=== PATIENT | male | born 1940 | race Caucasian/White ===

== ENCOUNTER → 2016-10-29 | Outpatient (CLI) | payer MEDICARE ==
[~2016-10-29] MED LIST: ADVA115A INH; AEROCHAMBER INH; ASPI1TAB PO; CELE40TA PO; LEVI20TA39 PO; PROAAER10 IN; SIMV20TA2 PO; SYST1SOL OD
[2016-10-29 13:16] LABS: MEAN CORPUSCULAR HEMOGLOBIN 31.4 pg (27.0-33.0); MEAN CORPUSCULAR HGB CONC 34.2 g/dl (32.0-36.5); MEAN CORPUSCULAR VOLUME 91.7 fl (80.0-96.0); RED CELL DISTRIBUTION WIDTH 14.5 % (11.5-14.5); WHITE BLOOD COUNT 7.6 K/mm3 (4.0-10.0)
[2016-10-29 13:23] LABS: ALBUMIN 3.9 GM/DL (3.2-5.2); ALBUMIN/GLOBULIN RATIO 1.39 (1.00-1.93); ALKALINE PHOSPHATASE 92 U/L (45-117); ALT/SGPT 30 U/L (12-78); ANION GAP 9 MEQ/L (8-16); AST/SGOT 31 U/L (15-37); BILIRUBIN,TOTAL 0.6 MG/DL (0.2-1.0); BLOOD UREA NITROGEN 16 MG/DL (7-18); CALCIUM LEVEL 9.7 MG/DL (8.8-10.2); CARBON DIOXIDE LEVEL 29 MEQ/L (21-32); CHLORIDE LEVEL 101 MEQ/L (98-107); CHOLESTEROL LEVEL 193 MG/DL (<200); CREATININE FOR GFR 0.81 MG/DL (0.70-1.30); GLOMERULAR FILTRATION RATE > 60.0 (>42); GLUCOSE, FASTING 104 MG/DL (83-110); SODIUM LEVEL 139 MEQ/L (136-145); TOTAL PROTEIN 6.7 GM/DL (6.4-8.2); TRIGLYCERIDES LEVEL 62 MG/DL (<150)
[2016-10-29 13:25] LABS: POTASSIUM SERUM 5.4 MEQ/L (3.5-5.1)
== END ==
LOC: M WUC 09:25
PROVIDERS: ATTEND Internal Medicine
DX: Z51.81 Encounter for therapeutic drug level monitoring (principal); Z79.899 Other long term (current) drug therapy; E78.00 Pure hypercholesterolemia, unspecified

== ENCOUNTER → 2017-02-08 | Outpatient (CLI) | payer MEDICARE ==
--- NOTE | 2017-02-08 11:51 | REP ---
Clinical: Follow up solitary pulmonary nodule. Comparison: 01/19/2016, 07/03/2014. Findings: Diffuse moderate emphysematous changes are again appreciated. Area of nodular scarring in the left apex and to a lesser extent the right apex along with the nodular scarring in the medial right middle lobe remains stable and consistent with chronic scarring. A small area of nodular scarring in the left lower lobe as documented on prior examination also remains stable. No significant acute consolidation, nodule or mass lesion is appreciated. No pleural effusion/reaction or pneumothorax. Tracheobronchial tree is patent. Atherosclerotic changes to the thoracic aorta and coronary arteries again noted. No cardiomegaly or pericardial effusion. No obvious adenopathy. Musculoskeletal structures demonstrate age-related degenerative changes. Impression: Chronic stable changes. No significant, acute mediastinal or pleuroparenchymal process appreciated. Signed by Jan Traore MD 02/08/2017 11:43 A
== END ==
LOC: M RAD 09:07
PROVIDERS: ATTEND Internal Medicine Pulmonary Disease
DX: R91.1 Solitary pulmonary nodule (principal)
CPT/HCPCS: 71250; G0463

== ENCOUNTER → 2017-11-03 | Outpatient (CLI) | payer MEDICARE ==
[2017-11-03 13:50] LABS: HEMATOCRIT 43.2 % (42.0-52.0); HEMOGLOBIN 14.8 g/dl (13.5-17.5); MEAN CORPUSCULAR HEMOGLOBIN 31.6 pg (27.0-33.0); MEAN CORPUSCULAR HGB CONC 34.3 g/dl (32.0-36.5); MEAN CORPUSCULAR VOLUME 92.1 fl (80.0-96.0); PLATELET COUNT, AUTOMATED 323 10^3/uL (150-450); RED BLOOD COUNT 4.69 10^6/uL (4.30-6.10); RED CELL DISTRIBUTION WIDTH 13.4 % (11.5-14.5); WHITE BLOOD COUNT 7.8 10^3/uL (4.0-10.0)
[2017-11-03 15:37] LABS: ALBUMIN 4.1 GM/DL (3.2-5.2); ALBUMIN/GLOBULIN RATIO 1.37 (1.00-1.93); ALKALINE PHOSPHATASE 89 U/L (45-117); ALT/SGPT 25 U/L (12-78); ANION GAP 11 MEQ/L (8-16); AST/SGOT 28 U/L (7-37); BILIRUBIN,TOTAL 0.6 MG/DL (0.2-1.0); BLOOD UREA NITROGEN 19 MG/DL (7-18); CALCIUM LEVEL 9.1 MG/DL (8.8-10.2); CARBON DIOXIDE LEVEL 27 MEQ/L (21-32); CHLORIDE LEVEL 101 MEQ/L (98-107); CHOLESTEROL LEVEL 179 MG/DL (<200); CHOLESTEROL RISK RATIO 1.924 (<5); CREATININE FOR GFR 0.84 MG/DL (0.70-1.30); GLOMERULAR FILTRATION RATE > 60.0 (>42); GLUCOSE, FASTING 89 MG/DL (70-100); HDL CHOLESTEROL 93 MG/DL (>40); LDL CHOLESTEROL 72.2 MG/DL (<100); NON-HDL-C 86 MG/DL; POTASSIUM SERUM 5.1 MEQ/L (3.5-5.1); SODIUM LEVEL 139 MEQ/L (136-145); TOTAL PROTEIN 7.1 GM/DL (6.4-8.2); TRIGLYCERIDES LEVEL 69 MG/DL (<150)
== END ==
LOC: M WUC 09:43
DX: J44.9 Chronic obstructive pulmonary disease, unspecified (principal); E78.00 Pure hypercholesterolemia, unspecified; Z12.5 Encounter for screening for malignant neoplasm of prostate
CPT/HCPCS: 80053

== ENCOUNTER → 2017-12-09 | Outpatient (CLI) | payer MEDICARE ==
[2017-12-09 13:45] LABS: PROSTATIC SPECIFIC AG MONITOR 6.98 NG/ML (< 4.0)
== END ==
LOC: M WUC 09:06
DX: R97.20 Elevated prostate specific antigen [PSA] (principal)
CPT/HCPCS: 84153

== ENCOUNTER → 2018-02-08 | Outpatient (CLI) | payer MEDICARE | LOC: M WUC 09:19 | DX: J44.9 Chronic obstructive pulmonary disease, unspecified (principal) | CPT/HCPCS: 71046 ==

== ENCOUNTER → 2018-07-10 | Outpatient (CLI) | payer MEDICARE ==
[~2018-07-10] MED LIST changes: -ASPI1TAB PO; +ASPI81TA26 PO
[2018-07-11 15:03] LABS: PSA % FREE 10.9 % (.); PSA FREE 1.02 ng/mL; PSA TOTAL 9.4 ng/mL (0.0-4.0)
== END ==
LOC: M WUC 10:16
PROVIDERS: ATTEND Urology
DX: R97.20 Elevated prostate specific antigen [PSA] (principal)

== ENCOUNTER → 2018-09-15 | Outpatient (CLI) | payer MEDICARE ==
[2018-09-15 13:16] LABS: HEMATOCRIT 44.9 % (42.0-52.0); HEMOGLOBIN 15.3 g/dl (13.5-17.5); MEAN CORPUSCULAR HEMOGLOBIN 32.5 pg (27.0-33.0); MEAN CORPUSCULAR HGB CONC 34.1 g/dl (32.0-36.5); MEAN CORPUSCULAR VOLUME 95.3 fl (80.0-96.0); PLATELET COUNT, AUTOMATED 345 10^3/uL (150-450); RED BLOOD COUNT 4.71 10^6/uL (4.30-6.10); WHITE BLOOD COUNT 7.2 10^3/uL (4.0-10.0)
[2018-09-15 13:53] LABS: ALBUMIN 3.9 GM/DL (3.2-5.2); ALT/SGPT 25 U/L (12-78); BILIRUBIN,TOTAL 0.6 MG/DL (0.2-1.0); BLOOD UREA NITROGEN 17 MG/DL (7-18); CALCIUM LEVEL 9.5 MG/DL (8.8-10.2); CARBON DIOXIDE LEVEL 28 MEQ/L (21-32); CHLORIDE LEVEL 98 MEQ/L (98-107); CHOLESTEROL LEVEL 174 MG/DL (<200); CHOLESTEROL RISK RATIO 1.831 (<5); CREATININE FOR GFR 0.84 MG/DL (0.70-1.30); GLOMERULAR FILTRATION RATE > 60.0 (>42); GLUCOSE, FASTING 106 MG/DL (70-100); HDL CHOLESTEROL 95 MG/DL (>40); LDL CHOLESTEROL 67 MG/DL (<100); NON-HDL-C 79 MG/DL; POTASSIUM SERUM 5.2 MEQ/L (3.5-5.1); SODIUM LEVEL 135 MEQ/L (136-145); TRIGLYCERIDES LEVEL 60 MG/DL (<150)
== END ==
LOC: M WUC 09:26
PROVIDERS: ATTEND Internal Medicine
DX: F34.1 Dysthymic disorder (principal); J44.9 Chronic obstructive pulmonary disease, unspecified; E78.00 Pure hypercholesterolemia, unspecified; Z23 Encounter for immunization

== ENCOUNTER → 2019-02-08 | Outpatient (REF) | payer MEDICARE ==
[2019-02-08 17:52] LABS: HEMATOCRIT 46.8 % (42.0-52.0); HEMOGLOBIN 15.2 g/dl (13.5-17.5); MEAN CORPUSCULAR HEMOGLOBIN 29.6 pg (27.0-33.0); MEAN CORPUSCULAR HGB CONC 32.5 g/dl (32.0-36.5); MEAN CORPUSCULAR VOLUME 91.2 fl (80.0-96.0); PLATELET COUNT, AUTOMATED 410 10^3/uL (150-450); RED BLOOD COUNT 5.13 10^6/uL (4.30-6.10); WHITE BLOOD COUNT 7.5 10^3/uL (4.0-10.0)
[2019-02-08 18:09] LABS: ALBUMIN 3.8 GM/DL (3.2-5.2); ALT/SGPT 26 U/L (12-78); BILIRUBIN,TOTAL 0.4 MG/DL (0.2-1.0); BLOOD UREA NITROGEN 21 MG/DL (7-18); CALCIUM LEVEL 9.1 MG/DL (8.8-10.2); CARBON DIOXIDE LEVEL 27 MEQ/L (21-32); CHLORIDE LEVEL 102 MEQ/L (98-107); CREATININE FOR GFR 0.87 MG/DL (0.70-1.30); GLOMERULAR FILTRATION RATE > 60.0 (>42); GLUCOSE, FASTING 94 MG/DL (70-100); SODIUM LEVEL 137 MEQ/L (136-145); TOTAL PROTEIN 6.9 GM/DL (6.4-8.2)
== END ==
LOC: M SFHCPLAZ 14:16
PROVIDERS: ATTEND Family Medicine
DX: Z01.818 Encounter for other preprocedural examination (principal); N40.1 Benign prostatic hyperplasia with lower urinary tract symptoms
CPT/HCPCS: 36415; 80053; 85027; 93005; G0463

== ENCOUNTER 2019-03-24 12:07 | Emergency (ER) | payer MEDICARE ==
[~2019-03-24] VITALS: Ht 172.7 cm; Wt 67.9 kg
[~2019-03-24 12:07] MED LIST changes: -SIMV20TA2 PO; +SIMV20TA22 PO
[2019-03-24] MEDS ORDERED: BUPR150T3 (12:13)
[2019-03-24] MEDS ORDERED: SYMB80INH (12:13)
--- NOTE | 2019-03-24 12:56 | REP ---
Clinical: Constipation. Obstruction. Technique: Two views of the abdomen and pelvis. Findings: Distended air-filled large bowel is appreciated. Underlying distended small bowel cannot be excluded and findings are nonspecific. Differential diagnosis includes ileus and possible large bowel obstruction. No free air to suggest perforation. No organomegaly. Skeletal structures demonstrate age-related changes. Surgical clips in the pelvis. Impression: Differential diagnosis includes ileus and less likely large bowel obstruction. Electronically Signed by Jan Traore MD 03/24/2019 12:47 P
[2019-03-24] MEDS: GASTROGRAFIN SOLUTION 30ML PO SCH ×2 (13:38→13:53)
[2019-03-24 13:50] LABS: BASO % 0.3 % (0.0-1.0); EOS # 0.2 10^3/uL (0.0-0.5); EOS % 1.3 % (0.0-3.0); HEMATOCRIT 37.9 % (42.0-52.0); HEMOGLOBIN 12.5 g/dl (13.5-17.5); LYMPH % 7.4 % (24.0-44.0); MEAN CORPUSCULAR HEMOGLOBIN 29.3 pg (27.0-33.0); MONO % 7.2 % (0.0-5.0); NEUTROPHILS % 83.1 % (36.0-66.0); PLATELET COUNT, AUTOMATED 440 10^3/uL (150-450); RED BLOOD COUNT 4.26 10^6/uL (4.30-6.10); WHITE BLOOD COUNT 13.2 10^3/uL (4.0-10.0)
[2019-03-24 14:22] LABS: ALT/SGPT 18 U/L (12-78); BILIRUBIN,DIRECT < 0.1 MG/DL (0.0-0.2); BILIRUBIN,TOTAL 0.4 MG/DL (0.2-1.0); BLOOD UREA NITROGEN 19 MG/DL (7-18); CALCIUM LEVEL 8.7 MG/DL (8.8-10.2); CARBON DIOXIDE LEVEL 27 MEQ/L (21-32); CHLORIDE LEVEL 99 MEQ/L (98-107); CREATININE FOR GFR 0.95 MG/DL (0.70-1.30); GLOMERULAR FILTRATION RATE > 60.0 (>42); GLUCOSE, FASTING 106 MG/DL (70-100); LIPASE 47 U/L (73-393); POTASSIUM SERUM 4.7 MEQ/L (3.5-5.1); SODIUM LEVEL 135 MEQ/L (136-145); TOTAL PROTEIN 6.2 GM/DL (6.4-8.2)
[2019-03-24] MEDS ORDERED: METOCLOPRAMIDE INJ 10MG/2ML VIAL (J2765) IV ONE (15:00)
[2019-03-24] MEDS ORDERED: ISOVUE-370 76% 100ML VIAL (Q9967) As Ordered ONE (15:03)
--- NOTE | 2019-03-24 15:47 | REP ---
Clinical: Abdominal pain. Technique: Axial contrast enhanced images from the lung bases to the pubic symphysis with coronal and sagittal re-formations using oral (per protocol) and 100 ml Isovue 370 intravenous contrast material. Findings: Submucosal edema with pericolonic inflammatory stranding involves the rectosigmoid and is consistent with acute infectious/inflammatory colitis. There is no evidence for bowel obstruction. No free air. No ascites or drainable collection/abscess. Liver, spleen, pancreas, gallbladder, bilateral adrenal glands and kidneys are normal. Subcentimeter left renal cyst noted. Pelvis demonstrates normal bladder and evidence for prior prostate seeding. No adenopathy. Atherosclerotic changes of the aorta and vasculature noted without aneurysm or dissection. Musculoskeletal structures demonstrate age-related changes without focal abnormality. Lung bases are essentially clear. Impression: Infectious/inflammatory rectosigmoid colitis. Electronically Signed by Jan Traore MD 03/24/2019 03:39 P
[2019-03-24 16:08] VITALS: BP 177/72
[2019-03-24] MEDS ORDERED: CIPR-249 PO (16:14)
[2019-03-24] MEDS ORDERED: FLAG500T PO (16:14)
== END 2019-03-24 16:54 | disposition home or self-care (01) ==
LOC: M ED 12:07
DX: K51.90 Ulcerative colitis, unspecified, without complications (principal); E78.5 Hyperlipidemia, unspecified; Z85.46 Personal history of malignant neoplasm of prostate; Z79.899 Other long term (current) drug therapy; Z79.82 Long term (current) use of aspirin; Z87.891 Personal history of nicotine dependence
CPT/HCPCS: 36415; 74018; 74177; 80048; 80076; 83690; 85025; 96374; 99284; J2765; Q9963; Q9967

== ENCOUNTER → 2019-03-25 | Outpatient (REF) | payer MEDICARE ==
[~2019-03-25] MED LIST changes: +BUPR150T3; +CIPR-249 PO; +FLAG500T PO; +SYMB80INH
== END ==
LOC: M LAB REF 10:46
PROVIDERS: ATTEND Physician Assistant
DX: K52.9 Noninfective gastroenteritis and colitis, unspecified (principal)

== ENCOUNTER → 2019-06-26 | Outpatient (REF) | payer MEDICARE ==
[2019-06-26 18:24] LABS: HEMATOCRIT 38.7 % (42.0-52.0); HEMOGLOBIN 12.9 g/dl (13.5-17.5); MEAN CORPUSCULAR HEMOGLOBIN 30.9 pg (27.0-33.0); MEAN CORPUSCULAR HGB CONC 33.3 g/dl (32.0-36.5); MEAN CORPUSCULAR VOLUME 92.6 fl (80.0-96.0); PLATELET COUNT, AUTOMATED 457 10^3/uL (150-450); RED BLOOD COUNT 4.18 10^6/uL (4.30-6.10); WHITE BLOOD COUNT 5.8 10^3/uL (4.0-10.0)
[2019-06-26 18:28] LABS: ALBUMIN 3.2 GM/DL (3.2-5.2); ALT/SGPT 44 U/L (12-78); BILIRUBIN,TOTAL 0.3 MG/DL (0.2-1.0); BLOOD UREA NITROGEN 25 MG/DL (7-18); CALCIUM LEVEL 9.3 MG/DL (8.8-10.2); CARBON DIOXIDE LEVEL 28 MEQ/L (21-32); CHLORIDE LEVEL 96 MEQ/L (98-107); CREATININE FOR GFR 0.86 MG/DL (0.70-1.30); GLOMERULAR FILTRATION RATE > 60.0 (>42); GLUCOSE, FASTING 80 MG/DL (70-100); MAGNESIUM LEVEL 2.4 MG/DL (1.8-2.4); POTASSIUM SERUM 5.1 MEQ/L (3.5-5.1); SODIUM LEVEL 130 MEQ/L (136-145); TOTAL PROTEIN 6.3 GM/DL (6.4-8.2)
== END ==
LOC: M SFHCPLAZ 16:24
PROVIDERS: ATTEND Internal Medicine
DX: C61 Malignant neoplasm of prostate (principal); I42.8 Other cardiomyopathies; Z79.899 Other long term (current) drug therapy
CPT/HCPCS: 36415; 80053; 83735; 84443; 85027; G0463

== ENCOUNTER → 2019-07-18 | Outpatient (CLI) | payer MEDICARE | LOC: M WUC 09:54 | PROVIDERS: ATTEND Internal Medicine | DX: R79.89 Other specified abnormal findings of blood chemistry (principal); E07.9 Disorder of thyroid, unspecified ==

== ENCOUNTER → 2019-08-21 | Outpatient (CLI) | payer MEDICARE | LOC: M WUC 10:26 | PROVIDERS: ATTEND Internal Medicine | DX: R79.89 Other specified abnormal findings of blood chemistry (principal); Z79.899 Other long term (current) drug therapy ==

== ENCOUNTER → 2019-09-26 | Outpatient (CLI) | payer MEDICARE | LOC: M WUC 08:51 | PROVIDERS: ATTEND Internal Medicine | DX: E03.2 Hypothyroidism due to medicaments and other exogenous substances (principal) ==

== ENCOUNTER → 2019-10-08 | Outpatient (CLI) | payer MEDICARE ==
[2019-10-08 12:07] LABS: BLOOD UREA NITROGEN 22 MG/DL (7-18); CREATININE FOR GFR 1.01 MG/DL (0.70-1.30); GLOMERULAR FILTRATION RATE > 60.0 (>42)
== END ==
LOC: M WUC 08:48
PROVIDERS: ATTEND Urology
DX: C61 Malignant neoplasm of prostate (principal)

== ENCOUNTER → 2019-11-01 | Outpatient (REF) | payer MEDICARE | LOC: M WUC 16:48 | PROVIDERS: ATTEND Internal Medicine | DX: E03.2 Hypothyroidism due to medicaments and other exogenous substances (principal) ==

== ENCOUNTER → 2019-12-12 | Outpatient (CLI) | payer MEDICARE ==
[2019-12-12 12:45] LABS: BLOOD UREA NITROGEN 22 MG/DL (7-18); CREATININE FOR GFR 1.18 MG/DL (0.70-1.30); GLOMERULAR FILTRATION RATE > 60.0 (>35)
== END ==
LOC: M WUC 10:17
PROVIDERS: ATTEND Urology
DX: C61 Malignant neoplasm of prostate (principal)

== ENCOUNTER → 2020-04-29 | Outpatient (CLI) | payer MEDICARE ==
[~2020-04-29] MED LIST changes: -BUPR150T3; +BUPR150T4
[2020-04-29 12:58] LABS: BASO # 0.1 10^3/uL (0.0-0.2); EOS # 0.1 10^3/uL (0.0-0.5); HEMATOCRIT 37.7 % (42.0-52.0); HEMOGLOBIN 12.2 g/dl (13.5-17.5); LYMPH # 0.9 10^3/uL (1.5-5.0); LYMPH % 13.7 % (24.0-44.0); MEAN CORPUSCULAR HEMOGLOBIN 31.1 pg (27.0-33.0); MEAN CORPUSCULAR HGB CONC 32.4 g/dl (32.0-36.5); MEAN CORPUSCULAR VOLUME 96.2 fl (80.0-96.0); MONO # 0.6 10^3/uL (0.0-0.8); NEUTROPHILS # 4.6 10^3/uL (1.5-8.5); NEUTROPHILS % 74.3 % (36.0-66.0); PLATELET COUNT, AUTOMATED 342 10^3/uL (150-450); RED BLOOD COUNT 3.92 10^6/uL (4.30-6.10); WHITE BLOOD COUNT 6.2 10^3/uL (4.0-10.0)
[2020-04-29 13:42] LABS: ALT/SGPT 23 U/L (12-78); BILIRUBIN,TOTAL 0.3 MG/DL (0.2-1.0); BLOOD UREA NITROGEN 25 MG/DL (7-18); CALCIUM LEVEL 9.6 MG/DL (8.8-10.2); CARBON DIOXIDE LEVEL 27 MEQ/L (21-32); CHLORIDE LEVEL 101 MEQ/L (98-107); CHOLESTEROL LEVEL 249 MG/DL (<200); CHOLESTEROL RISK RATIO 3.608 (<5); CREATININE FOR GFR 1.12 MG/DL (0.70-1.30); GLOMERULAR FILTRATION RATE > 60.0 (>35); GLUCOSE, FASTING 89 MG/DL (70-100); HDL CHOLESTEROL 69 MG/DL (>40); LDL CHOLESTEROL 164 MG/DL (<100); NON-HDL-C 180 MG/DL; POTASSIUM SERUM 4.7 MEQ/L (3.5-5.1); SODIUM LEVEL 137 MEQ/L (136-145); TOTAL PROTEIN 6.5 GM/DL (6.4-8.2); TRIGLYCERIDES LEVEL 81 MG/DL (<150)
== END ==
LOC: M WUC 11:49
PROVIDERS: ATTEND Internal Medicine
DX: E78.00 Pure hypercholesterolemia, unspecified (principal); J44.9 Chronic obstructive pulmonary disease, unspecified; R73.01 Impaired fasting glucose; E03.2 Hypothyroidism due to medicaments and other exogenous substances

== ENCOUNTER → 2020-06-05 | Outpatient (CLI) | payer MEDICARE ==
[~2020-06-05] MED LIST changes: +BUPR150T12; -BUPR150T4
[2020-06-05 12:44] LABS: PERCENT SATURATION 24.9 % (19.7-50.0)
== END ==
LOC: M WUC 09:51
PROVIDERS: ATTEND Internal Medicine Gastroenterology
DX: K51.30 Ulcerative (chronic) rectosigmoiditis without complications (principal)

== ENCOUNTER → 2020-07-07 | Outpatient (CLI) | payer MEDICARE ==
[~2020-07-07] MED LIST changes: +ATOR1TAB21 PO; -BUPR150T12; +BUPR150T12 PO; +ELIQ5TAB PO; +ENTR1TAB PO; +FARX1TAB3 PO; +METO1TAB32 PO; +SPIR-10 PO; +SULF500T2 PO; -SYMB80INH; +SYMB80INH INH; +SYNT150T PO
--- NOTE | 2020-07-07 10:11 | REP ---
INDICATION: PANLOBULAR EMPHYSEMA COMPARISON: 02/08/2018 TECHNIQUE: PA and lateral. FINDINGS: The mediastinum and cardiac silhouette are relatively normal. Pacemaker noted. Lung nuno demonstrate hyperinflation and oligemia consistent with the given history of panlobular emphysema. No focal consolidation, effusion, or pneumothorax. Skeletal structures intact. Evidence for prior right shoulder repair. IMPRESSION: No acute cardiopulmonary process. Emphysematous changes. <Electronically signed by Jan Traore > 07/07/20 1007
== END ==
LOC: M RAD 09:22
PROVIDERS: ATTEND Internal Medicine Pulmonary Disease
DX: J43.1 Panlobular emphysema (principal)

== ENCOUNTER → 2020-07-12 | Outpatient (CLI) | payer MEDICARE | LOC: M LABSMTC 10:01 | PROVIDERS: ATTEND Anesthesiology | DX: Z01.812 Encounter for preprocedural laboratory examination (principal); Z20.822 Contact with and (suspected) exposure to COVID-19 ==

== ENCOUNTER 2020-07-15 10:38 | Day surgery (SDC) | payer MEDICARE ==
[~2020-07-15] VITALS: Ht 172.7 cm; Wt 63.4 kg
[~2020-07-15 10:38] MED LIST changes: +LIDOCAINE 2% 100MG/5ML SDV (FOR ANES.) As Ordered ONE; +NS 1,000 ML IV ONE; +propofoL 200 MG/20 ML VIAL As Ordered ONE
[2020-07-15] MEDS ORDERED: LIDOCAINE 2% 100MG/5ML SDV (FOR ANES.) As Ordered ONE (13:27)
--- NOTE | 2020-07-15 13:37 | ROOR ---
Patient Name: Nigel Barrios Procedure Date: 07/15/2020 1:02 PM Date of : 1940 Age: 79 Room: [facility] Gender: Male Note Status: Finalized Procedure: Colonoscopy Indications: Follow-up of chronic ulcerative proctosigmoiditis, Disease activity assessment of chronic ulcerative proctosigmoiditis Providers: Ike CRONIN MD Referring MD: Adalberto Jackman MD Requesting Provider: Medicines: Monitored Anesthesia Care Complications: No immediate complications. Procedure: Pre-Anesthesia Assessment: - The heart rate, respiratory rate, oxygen saturations, blood pressure, adequacy of pulmonary ventilation, and response to care were monitored throughout the procedure. The Colonoscope was introduced through the anus and advanced to 6 cm into the ileum. The colonoscopy was performed without difficulty. The patient tolerated the procedure well. The quality of the bowel preparation was fair. Findings: The perianal and digital rectal examinations were normal. The sigmoid colon and descending colon were significantly tortuous. Multiple small and large-mouthed diverticula were found in the sigmoid colon and descending colon. Small Internal Hemorrhoids. The exam was otherwise normal throughout the examined colon. The terminal ileum appeared normal. Biopsies were taken with a cold forceps in the rectum, in the sigmoid colon and in the descending colon for histology. Impression: - Preparation of the colon was fair.- - Long tortuous colon with moderate diverticulosis in the sigmoid colon and in the descending colon. - Small Internal Hemorrhoids. - The colon is otherwise normal. - The examined portion of the ileum was normal. - I do not see definite colitis on this exam. Biopsies were taken with a cold forceps for histology in the rectum, in the sigmoid colon and in the descending colon. Recommendation: - Continue present medications. - Telephone endoscopist for pathology results in 2 weeks. Procedure Code(s): --- Professional --- 32515, Colonoscopy, flexible; with biopsy, single or multiple Diagnosis Code(s): --- Professional --- Q43.8, Other specified congenital malformations of intestine K57.30, Diverticulosis of large intestine without perforation or abscess without bleeding K51.30, Ulcerative (chronic) rectosigmoiditis without complications CPT copyright 2019 [employer]. All rights reserved. The codes documented in this report are preliminary and upon molecular biology scientist review may be revised to meet current compliance requirements. Ike Cronin MD Ike CRONIN MD 07/15/2020 1:37:20 PM Electronically signed by Ike CRONIN MD Number of Addenda: 0 Note Initiated On: 07/15/2020 1:02 PM Estimated Blood Loss: Estimated blood loss: none.
[2020-07-15 13:55] VITALS: BP 102/57
== END 2020-07-15 14:05 | disposition home or self-care (01) ==
LOC: M OPP 10:38
PROVIDERS: ATTEND Internal Medicine Gastroenterology
DX: Q43.8 Other specified congenital malformations of intestine (principal); K52.89 Other specified noninfective gastroenteritis and colitis; K64.8 Other hemorrhoids; I50.9 Heart failure, unspecified; Z95.0 Presence of cardiac pacemaker; Z79.899 Other long term (current) drug therapy; Z87.891 Personal history of nicotine dependence

== ENCOUNTER → 2020-10-24 | Outpatient (CLI) | payer MEDICARE ==
[~2020-10-24] MED LIST changes: -LIDOCAINE 2% 100MG/5ML SDV (FOR ANES.) As Ordered ONE; -NS 1,000 ML IV ONE; -propofoL 200 MG/20 ML VIAL As Ordered ONE
[2020-10-24 16:32] LABS: BASO % 0.5 % (0.0-1.0); EOS # 0.1 10^3/uL (0.0-0.5); EOS % 1.3 % (0.0-3.0); HEMATOCRIT 38.1 % (42.0-52.0); HEMOGLOBIN 12.5 g/dl (13.5-17.5); LYMPH # 0.6 10^3/uL (1.5-5.0); LYMPH % 6.5 % (24.0-44.0); MEAN CORPUSCULAR HEMOGLOBIN 31.1 pg (27.0-33.0); MEAN CORPUSCULAR HGB CONC 32.8 g/dl (32.0-36.5); MEAN CORPUSCULAR VOLUME 94.8 fl (80.0-96.0); MONO # 0.7 10^3/uL (0.0-0.8); MONO % 7.5 % (2.0-8.0); NEUTROPHILS # 7.4 10^3/uL (1.5-8.5); NEUTROPHILS % 83.5 % (36.0-66.0); PLATELET COUNT, AUTOMATED 370 10^3/uL (150-450); RED BLOOD COUNT 4.02 10^6/uL (4.30-6.10); WHITE BLOOD COUNT 8.8 10^3/uL (4.0-10.0)
[2020-10-24 16:53] LABS: ALBUMIN 3.6 GM/DL (3.2-5.2); ALT/SGPT 22 U/L (12-78); BILIRUBIN,TOTAL 0.3 MG/DL (0.2-1.0); BLOOD UREA NITROGEN 26 MG/DL (7-18); CALCIUM LEVEL 9.3 MG/DL (8.8-10.2); CARBON DIOXIDE LEVEL 28 MEQ/L (21-32); CHLORIDE LEVEL 100 MEQ/L (98-107); CHOLESTEROL LEVEL 164 MG/DL (<200); CHOLESTEROL RISK RATIO 2.216 (<5); CREATININE FOR GFR 1.13 MG/DL (0.70-1.30); GLOMERULAR FILTRATION RATE > 60.0 (>35); GLUCOSE, FASTING 85 MG/DL (70-100); HDL CHOLESTEROL 74 MG/DL (>40); LDL CHOLESTEROL 72 MG/DL (<100); NON-HDL-C 90 MG/DL; POTASSIUM SERUM 4.3 MEQ/L (3.5-5.1); SODIUM LEVEL 135 MEQ/L (136-145); TOTAL PROTEIN 6.3 GM/DL (6.4-8.2); TRIGLYCERIDES LEVEL 89 MG/DL (<150)
== END ==
LOC: M WUC 11:35
PROVIDERS: ATTEND Internal Medicine
DX: Z01.83 Encounter for blood typing (principal); E78.00 Pure hypercholesterolemia, unspecified; J44.9 Chronic obstructive pulmonary disease, unspecified; I42.8 Other cardiomyopathies; E03.2 Hypothyroidism due to medicaments and other exogenous substances; Z11.59 Encounter for screening for other viral diseases
CPT/HCPCS: 36415; 80053; 80061; 83735; 84443; 85025; 86900; 86901; G0472

== ENCOUNTER → 2020-11-16 | Outpatient (REF) | payer MEDICARE | LOC: M LAB REF 15:41 | PROVIDERS: ATTEND Internal Medicine Gastroenterology | DX: R19.7 Diarrhea, unspecified (principal) ==

== ENCOUNTER → 2020-12-02 | Outpatient (REF) | payer MEDICARE | LOC: M LAB REF 15:54 | PROVIDERS: ATTEND Internal Medicine Gastroenterology | DX: R19.4 Change in bowel habit (principal); R19.7 Diarrhea, unspecified; K51.30 Ulcerative (chronic) rectosigmoiditis without complications ==

== ENCOUNTER 2020-12-05 11:22 | Outpatient (CLI) | payer MEDICARE ==
[~2020-12-05] VITALS: Ht 172.7 cm; Wt 59.4 kg
[~2020-12-05 11:22] MED LIST changes: +VEDOLIZUMAB 300 MG in NS 250 ML IV ONE
[2020-12-05 11:30] VITALS: BP 143/67
[2020-12-05 12:38] VITALS: BP 152/65
[2020-12-05 13:19] VITALS: BP 148/66
[2020-12-05 13:45] VITALS: BP 145/67
[2020-12-06] MEDS ORDERED: PRED20TA PO (01:27)
== END 2020-12-05 14:00 | disposition home or self-care (01) ==
LOC: M INFU 11:22
PROVIDERS: ATTEND Internal Medicine Gastroenterology
DX: K51.90 Ulcerative colitis, unspecified, without complications (principal)

== ENCOUNTER 2020-12-05 20:35 | Emergency (ER) | payer MEDICARE ==
[~2020-12-05] VITALS: Ht 172.7 cm; Wt 60.9 kg
[~2020-12-05 20:35] MED LIST changes: -VEDOLIZUMAB 300 MG in NS 250 ML IV ONE
[2020-12-05 21:29] LABS: BASO % 0.3 % (0.0-1.0); EOS # 0.1 10^3/uL (0.0-0.5); EOS % 0.5 % (0.0-3.0); HEMATOCRIT 33.4 % (42.0-52.0); HEMOGLOBIN 11.3 g/dl (13.5-17.5); LYMPH # 0.4 10^3/uL (1.5-5.0); LYMPH % 3.7 % (24.0-44.0); MEAN CORPUSCULAR HEMOGLOBIN 32.8 pg (27.0-33.0); MEAN CORPUSCULAR HGB CONC 33.8 g/dl (32.0-36.5); MEAN CORPUSCULAR VOLUME 96.8 fl (80.0-96.0); MONO # 0.9 10^3/uL (0.0-0.8); MONO % 7.7 % (2.0-8.0); NEUTROPHILS # 9.6 10^3/uL (1.5-8.5); NEUTROPHILS % 87.2 % (36.0-66.0); PLATELET COUNT, AUTOMATED 349 10^3/uL (150-450); RED BLOOD COUNT 3.45 10^6/uL (4.30-6.10)
--- NOTE | 2020-12-05 22:13 | REPVR ---
PROCEDURE INFORMATION: Exam: XR Chest Exam date and time: 12/05/2020 9:15 PM Age: 80 years old Clinical indication: Chest wall pain; Additional info: Chest pain TECHNIQUE: Imaging protocol: XR of the chest. Views: 1 view. COMPARISON: CR Chest, 2 view PA, Lat 07/07/2020 9:31 AM FINDINGS: Tubes, catheters and devices: Pacemaker from the left is similar. Lungs: Pulmonary hyperinflation. No interval infiltrates. Pleural spaces: Unremarkable. No pleural effusion. No pneumothorax. Heart/Mediastinum: The heart and mediastinum are unchanged. Bones/joints: Unremarkable. IMPRESSION: Stable chest since 07/07/2020 with evidence of COPD. No acute interval process is identified. Electronically signed by: Ian Harris On 12/05/2020 22:13:40 PM
[2020-12-05 22:19] LABS: ALBUMIN 3.2 GM/DL (3.2-5.2); ALT/SGPT 23 U/L (12-78); BILIRUBIN,DIRECT 0.1 MG/DL (0.0-0.2); BILIRUBIN,TOTAL 0.4 MG/DL (0.2-1.0); BLOOD UREA NITROGEN 23 MG/DL (7-18); CALCIUM LEVEL 9.1 MG/DL (8.8-10.2); CARBON DIOXIDE LEVEL 25 MEQ/L (21-32); CHLORIDE LEVEL 99 MEQ/L (98-107); CREATININE FOR GFR 0.95 MG/DL (0.70-1.30); GLOMERULAR FILTRATION RATE > 60.0 (>35); GLUCOSE, FASTING 128 MG/DL (70-100); LIPASE 55 U/L (73-393); POTASSIUM SERUM 4.3 MEQ/L (3.5-5.1); SODIUM LEVEL 133 MEQ/L (136-145); TOTAL PROTEIN 6.3 GM/DL (6.4-8.2)
[2020-12-05] MEDS ORDERED: KETOROLAC 30 MG/ML 1ML VIAL IV ONE (22:30)
[2020-12-05] MEDS ORDERED: ISOVUE-370 76% 100ML VIAL As Ordered ONE (22:42)
--- NOTE | 2020-12-06 00:09 | REPVR ---
PROCEDURE INFORMATION: Exam: CTA Chest With Contrast Exam date and time: 12/05/2020 10:32 PM Age: 80 years old Clinical indication: Pain; Other: Chest; Additional info: Pleuritic chest pain TECHNIQUE: Imaging protocol: Computed tomographic angiography of the chest with contrast. 3D rendering (Not supervised by radiologist): MIP and/or 3D reconstructed images were created by the technologist. Radiation optimization: All CT scans at this facility use at least one of these dose optimization techniques: automated exposure control; mA and/or kV adjustment per patient size (includes targeted exams where dose is matched to clinical indication); or iterative reconstruction. Contrast material: ISO; Contrast volume: 75 ml; Contrast route: INTRAVENOUS (IV); COMPARISON: CT Chest without contrast 02/08/2017 9:21 AM FINDINGS: Tubes, catheters and devices: Pacemaker in position from the left. Pulmonary arteries: The main pulmonary artery measures 26 mm. No pulmonary embolism is identified. Aorta: The ascending thoracic aorta measures 30 mm. Lungs: Minimal diffuse bullous change with mild interstitial coarsening. Minimal scattered fibro-atelectatic change. Pleural spaces: Unremarkable. No pneumothorax. No pleural effusion. Heart: Unremarkable. No cardiomegaly. No pericardial effusion. Lymph nodes: Unremarkable. No enlarged lymph nodes. Bones/joints: Unremarkable. No acute fracture. Soft tissues: Unremarkable. IMPRESSION: 1. Minimal diffuse bullous change with mild interstitial coarsening and minimal scattered fibro-atelectatic change. 2. Pacemaker in position from the left. 3. Otherwise negative CTA chest. No pulmonary embolism is identified. Electronically signed by: Ian Harris On 12/06/2020 00:09:10 AM
[2020-12-06 01:00] VITALS: BP 125/62
[2020-12-06] MEDS ORDERED: PRED20TA PO (01:27)
--- NOTE | 2020-12-07 19:52 | ECGEPIP ---
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
--- NOTE | 2020-12-07 19:54 | ECGEPIP ---
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
== END 2020-12-06 03:00 | disposition home or self-care (01) ==
LOC: M ED 20:35
DX: R09.1 Pleurisy (principal); K51.90 Ulcerative colitis, unspecified, without complications; J44.9 Chronic obstructive pulmonary disease, unspecified; E78.00 Pure hypercholesterolemia, unspecified; H40.9 Unspecified glaucoma; I44.7 Left bundle-branch block, unspecified; Z79.899 Other long term (current) drug therapy; Z79.01 Long term (current) use of anticoagulants; Z79.890 Hormone replacement therapy; I42.0 Dilated cardiomyopathy
CPT/HCPCS: 71045; 71046; 71275; 80048; 80076; 83690; 84484; 85025; 87798; 93005; 93041; 94760; 96365; 96374; 99285; J1885; J3380; Q9967

== ENCOUNTER 2020-12-20 09:40 | Observation (INO) | payer MEDICARE ==
[~2020-12-20 09:40] MED LIST changes: +PRED20TA PO
--- NOTE | 2020-12-20 10:26 | REP ---
INDICATION: CHEST PAIN. COMPARISON: PA and lateral chest, 12/06/2020. TECHNIQUE: Upright portable AP chest image was obtained. FINDINGS: There is moderate, upper lobe predominant, centrilobular emphysema. There is no lobar consolidation or pleural effusion. There is a multi lead pacemaker cardioverter present. There is cardiomegaly. There is calcific vascular disease of the thoracic aorta. There is an orthopedic screw in the right humeral head. There is cranial migration of the right humeral head consistent with rotator cuff arthropathy. IMPRESSION: 1. Emphysema. 2. Cardiomegaly. Multilead pacemaker. 3. No evidence of acute cardiopulmonary pathology. Other findings as noted. <Electronically signed by Ankur Rodrigez > 12/20/20 1023
[2020-12-20] MEDS ORDERED: BUPR300T92 PO (11:06)
[2020-12-20] MEDS ORDERED: BUDE9TAB PO (11:06)
[2020-12-20] MEDS ORDERED: SYNT175T2 PO (11:06)
[2020-12-20 11:16] LABS: BASO % 0.2 % (0.0-1.0); EOS % 0.1 % (0.0-3.0); HEMOGLOBIN 12.1 g/dl (13.5-17.5); LYMPH # 0.4 10^3/uL (1.5-5.0); LYMPH % 3.2 % (24.0-44.0); MEAN CORPUSCULAR HEMOGLOBIN 31.6 pg (27.0-33.0); MEAN CORPUSCULAR HGB CONC 33.6 g/dl (32.0-36.5); MONO # 0.8 10^3/uL (0.0-0.8); MONO % 6.8 % (2.0-8.0); NEUTROPHILS % 88.6 % (36.0-66.0); PLATELET COUNT, AUTOMATED 438 10^3/uL (150-450); RED BLOOD COUNT 3.83 10^6/uL (4.30-6.10); WHITE BLOOD COUNT 12.4 10^3/uL (4.0-10.0)
[2020-12-20 12:04] LABS: ALBUMIN 2.8 GM/DL (3.2-5.2); ALT/SGPT 38 U/L (12-78); BILIRUBIN,DIRECT 0.1 MG/DL (0.0-0.2); BILIRUBIN,TOTAL 0.4 MG/DL (0.2-1.0); BLOOD UREA NITROGEN 37 MG/DL (7-18); CALCIUM LEVEL 8.9 MG/DL (8.8-10.2); CARBON DIOXIDE LEVEL 24 MEQ/L (21-32); CHLORIDE LEVEL 97 MEQ/L (98-107); CREATININE FOR GFR 1.02 MG/DL (0.70-1.30); GLOMERULAR FILTRATION RATE > 60.0 (>35); GLUCOSE, FASTING 104 MG/DL (70-100); LIPASE 43 U/L (73-393); SODIUM LEVEL 131 MEQ/L (136-145); TOTAL PROTEIN 6.2 GM/DL (6.4-8.2)
[2020-12-20] MEDS ORDERED: NS 500 ML IV ONE (13:55)
[2020-12-20] MEDS ORDERED: PRED10TA2 PO (14:22)
[2020-12-20] MEDS ORDERED: HOME MED LIST COMPLETE! XX SCH (14:25)
[2020-12-20 15:06] LABS: RSV AMPLIFICATION NEGATIVE (NEGATIVE)
[2020-12-20] MEDS ORDERED: NS 1,000 ML IV SCH (15:30)
[2020-12-20] MEDS ORDERED: LORazepam 2 MG TAB PO PRN (15:40)
--- NOTE | 2020-12-20 16:07 | HPEPDOC ---
General Date of Admission December 20, 2020 Date of Service: Dec 20, 2020 Chief Complaint The patient is a 80-year-old male admitted with a reason for visit of Weakness. Source: Patient History of Present Illness Mr. Barrios is an 80-year-old male with atrial fibrillation status post cardioversion and pacemaker/defibrillator, alcohol use disorder, and ulcerative colitis who presents with worsening generalized weakness. For the past few months, patient has been noticing worsening generalized weakness. He will get up and walk 20 feet before having to sit down and recover. Denies any recent trauma but reports changes to his medication. He is not familiar with all of the changes, but recently was taken off of sulfasalazine and put on an IV infusion. Otherwise, he was started on prednisone taper for his ulcerative colitis. He has poor oral intake. Denies loss of taste or nausea. He just has poor appetite and is unsure when it first began. This morning, he was able to to the bathroom, but he was not able to get up afterwards. Patient was brought to the ED for evaluation. While here he had atrial flutter with a heart rate of 133. Systolic blood pressure was also low in the 90s. Patient appears clinically dry. Otherwise patient is afebrile and not hypoxic. Due to patient's history of heart failure patient was given a 500 mL fluid bolus. When I saw patient, his blood pressure and heart rate improved, but he did appear dry. His capillary refill was very sluggish. No pitting edema bilaterally. Patient tells me that his EF used to be 25%, but it did go back up to 50%. He does not know what his EF is currently at this time. Patient will be placed in observation for generalized weakness and dehydration. Home Medications Scheduled Apixaban (Eliquis) 5 Mg Tablet, 5 MG PO BID, (Reported) Atorvastatin Calcium (Atorvastatin Calcium) 20 Mg Tablet, 20 MG PO DAILY, (Reported) Budesonide/Formoterol (Symbicort 80-4.5 Mcg Inhaler) 6.9 Gm Hfa.aer.ad, 2 PUFFS INH BID, (Reported) Bupropion HCl (Bupropion Xl) 300 Mg Tab.er.24h, 300 MG PO DAILY, (Reported) Levothyroxine Sodium (Synthroid) 175 Mcg Tablet, 175 MCG PO DAILY, (Reported) Metoprolol Succinate (Metoprolol Succinate) 25 Mg Tab.er.24h, 25 MG PO DAILY, (Reported) Prednisone (Prednisone) 10 Mg Tablet, 30 MG PO TAPER, (Reported) TAKE THREE TABS DAILY FOR 7 DAYS, THEN 2 TABS DAILY FOR 7 DAYS, THEN ONE TAB DAILY FOR 7 DAYS, THEN 1/2 TAB DAILY FOR 7 DAYS THEN STOP Sacubitril/Valsartan (Entresto 24 mg-26 mg Tablet) 1 Each Tablet, 1 TAB PO BID, (Reported) Spironolactone (Spironolactone) 25 Mg Tablet, 25 MG PO DAILY, (Reported) Allergies Coded Allergies: No Known Allergies (Unverified , 03/24/19) Past Medical History Medical History 1. Hypercholesterolemia 2. COPD 3. Glaucoma 4. Dysthymic disorder 5. Carotid artery disease 6. Left bundle branch block 7. Alcohol use disorder 8. Erectile dysfunction 9. Sensorineural hearing loss bilaterally 10. Ulcerative colitis 11. Atrial fibrillation status post pacemaker Surgical History 1. Tonsillectomy 2. Appendectomy 3. 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 Colonoscopy 6. Carpal tunnel release on the right 7. Rotator cuff repair on right 8. Bilateral cataract extractions 9. Colonoscopy, most recent was in [place] on March 2019 10. Left shoulder surgery 11. Right shoulder surgery 12. Port placement for trial study with AMP 13. UroLift 14. Cardiac catheterization which demonstrated normal coronary arteries, but also demonstrated cardiomyopathy Family History Patient denies knowledge of parents past medical history Social History * Smoker: former Smoker Alcohol: other (Shot of rum a day) Drugs: denies A-FIB/CHADSVASC A-FIB History Current/History of A-Fib/PAF?: Yes Current PO Anticoag Therapy: Yes Review of Systems Constitutional: Denies: Chills, Fever Eyes: Denies: Vision change ENT: Reports: Sore Throat (For the past few days) Skin: Denies: Rash Pulmonary: Reports: Dyspnea (With exertion), Cough (Chronic and productive) Cardiovascular: Reports: Chest Pain (Occasional chest pain) Gastrointestinal: Reports: Other Symptoms (Small hard bowel movement); Denies: Nausea, Abdominal Pain, Diarrhea Genitourinary: Denies: Dysuria Hematologic: Denies: Bruising Neurological: Denies: Numbness Psych: Reports: Depression; Denies: Anxiety Physical Examination General Exam: Positive: Alert, Cooperative Eye Exam: Positive: EOMI; Negative: Sclera icteric ENT Exam: Positive: Atraumatic Neck Exam: Positive: Supple Chest Exam: Positive: Diminished Heart Exam: Positive: Rate Normal, Regular Rhythm Abdomen Exam: Positive: Normal bowel sounds, Soft; Negative: Tenderness Extremity Exam: Negative: Edema Skin Exam: Positive: Other skin issue (Capillary refill very delayed) Neuro Exam: Positive: Normal Speech Psych Exam: Positive: Mental status NL, Mood NL Vital Signs Vital Signs Date Time Temp Pulse Resp B/P (MAP) Pulse Ox O2 Delivery O2 Flow Rate FiO2 12/20/20 12:15 63 117/61 (79) 97 12/20/20 11:14 96.9 17 Laboratory Data Labs 24H Laboratory Tests 2 12/20/20 10:58: Immature Granulocyte % (Auto) 1.1, Neutrophils (%) (Auto) 88.6H, Lymphocytes (%) (Auto) 3.2L, Monocytes (%) (Auto) 6.8, Eosinophils (%) (Auto) 0.1, Basophils (%) (Auto) 0.2, Neutrophils # (Auto) 11.0H, Lymphocytes # (Auto) 0.4L, Monocytes # (Auto) 0.8, Eosinophils # (Auto) 0.0, Basophils # (Auto) 0.0, Nucleated Red Blood Cells % (auto) 0.0, Anion Gap 10, Glomerular Filtration Rate > 60.0, Calcium Level 8.9, Total Bilirubin 0.4, Direct Bilirubin 0.1, Aspartate Amino Transf (AST/SGOT) 33, Alanine Aminotransferase (ALT/SGPT) 38, Alkaline Phosphatase 80, Total Protein 6.2L, Albumin 2.8L, Albumin/Globulin Ratio 0.8, Lipase 43L, Thyroid Stimulating Hormone (TSH) 5.860H 12/20/20 11:04: POC Troponin I (Misc) 0.01 12/20/20 14:08: Coronavirus (COVID-19)(PCR) NEGATIVE, Influenza Type A (RT-PCR) NEGATIVE, Influenza Type B (RT-PCR) NEGATIVE, Respiratory Syncytial Virus (PCR) NEGATIVE 12/20/20 14:39: Lactic Acid Level 1.3 CBC/BMP Laboratory Tests 12/20/20 10:58 Microbiology Microbiology 12/20/20 Blood Culture, Received Pending 12/20/20 Blood Culture, Received Pending Assessment/Plan Mr. Barrios is an 80-year-old male with atrial fibrillation status post car dioversion and pacemaker/defibrillator, alcohol use disorder, and ulcerative colitis who presents with worsening generalized weakness. Unknown etiology, possibly secondary to dehydration versus poor nutrition versus CHF. Will have physical therapy work with patient. As patient is dry, will give 1 L of fluid over time and monitor for acute heart failure. Otherwise, patient consumes 1 shot of rum daily. Will put patient on CIWA protocol including thiamine, multivitamin, and folic acid. Plan / VTE VTE Prophylaxis Ordered?: Yes Plan Plan 1. Generalized weakness Unclear etiology, patient has not made urine due to dehydration We will provide supportive care and give 1 L of IV fluids over time TSH elevated at 5.86 We will check vitamin B12 level 2. Dehydration BUN elevated Very slow capillary refill We will give IV fluids. 1 L over time Hold spironolactone 3. Heart failure, unspecified Not in acute heart failure Continue metoprolol succinate and Entresto We will attempt to get echocardiogram Status post pacemaker/defibrillator 4. Atrial fibrillation Continue apixaban Continue metoprolol succinate Patient currently has pacemaker 5. 5. Ulcerative colitis Continue prednisone taper 6. Hypothyroidism TSH mildly elevated Continue levothyroxine 7. COPD Continue Symbicort 8. Anxiety/depression Continue bupropion 9. DVT prophylaxis Continue apixaban Disposition: Pending rehydration and PT evaluation BHAVANI CHENG DO Dec 20, 2020 16:07
[2020-12-20 17:30] VITALS: BP 162/74
[2020-12-20] MEDS: THIAMINE 100 MG TAB PO SCH (17:45)
[2020-12-20] MEDS: MULTIVITAMINS/MINERALS THERAP 1 TAB PO SCH (17:45)
[2020-12-20] MEDS: buPROPion **XL** TABLET 150MG (WELLBUTRIN XL) PO SCH (17:46)
[2020-12-20] MEDS: FOLIC ACID 1 MG TAB PO SCH (17:48)
[2020-12-20] MEDS: ENTRESTO 24-26MG TABLET (SACUBITRIL/VALSARTAN) PO SCH (20:06)
[2020-12-20] MEDS: APIXABAN 5 MG TAB (ELIQUIS) PO SCH (20:06)
[2020-12-20] MEDS: SYMBICORT 80/4.5MCG INHALER 6GM INH SCH (20:43)
[2020-12-20 20:45] VITALS: BP 123/61
[2020-12-21 05:35] VITALS: BP 129/64
[2020-12-21] MEDS: LEVOTHYROXINE 100MCG TABLET (0.1MG) PO SCH (05:48)
[2020-12-21] MEDS: LEVOTHYROXINE 75MCG TABLET (0.075MG) PO SCH (05:48)
[2020-12-21 06:08] LABS: HEMATOCRIT 30.6 % (42.0-52.0); HEMOGLOBIN 10.4 g/dl (13.5-17.5); MEAN CORPUSCULAR HEMOGLOBIN 31.3 pg (27.0-33.0); MEAN CORPUSCULAR VOLUME 92.2 fl (80.0-96.0); PLATELET COUNT, AUTOMATED 378 10^3/uL (150-450); RED BLOOD COUNT 3.32 10^6/uL (4.30-6.10)
[2020-12-21 06:31] LABS: BLOOD UREA NITROGEN 29 MG/DL (7-18); CALCIUM LEVEL 8.3 MG/DL (8.8-10.2); CARBON DIOXIDE LEVEL 24 MEQ/L (21-32); CHLORIDE LEVEL 99 MEQ/L (98-107); CREATININE FOR GFR 0.79 MG/DL (0.70-1.30); GLOMERULAR FILTRATION RATE > 60.0 (>35); GLUCOSE, FASTING 105 MG/DL (70-100); POTASSIUM SERUM 4.7 MEQ/L (3.5-5.1); SODIUM LEVEL 130 MEQ/L (136-145)
--- NOTE | 2020-12-21 08:18 | ECGEPIP ---
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
[2020-12-21] MEDS: SYMBICORT 80/4.5MCG INHALER 6GM INH SCH ×2 (08:24→20:23)
[2020-12-21] MEDS ORDERED: FLUBLOK(EGG FREE)(QUAD)INFLUENZA VACC 0.5ML SYRINGE 18YRS & OLDER IM ONE (09:00)
[2020-12-21] MEDS: ENTRESTO 24-26MG TABLET (SACUBITRIL/VALSARTAN) PO SCH ×2 (09:33→20:17)
[2020-12-21] MEDS: MULTIVITAMINS/MINERALS THERAP 1 TAB PO SCH (09:33)
[2020-12-21 09:34] VITALS: BP 129/64
[2020-12-21] MEDS: predniSONE 10 MG TAB PO SCH (09:34)
[2020-12-21] MEDS: THIAMINE 100 MG TAB PO SCH ×2 (09:34→20:17)
[2020-12-21] MEDS: APIXABAN 5 MG TAB (ELIQUIS) PO SCH ×2 (09:34→20:17)
[2020-12-21] MEDS: FOLIC ACID 1 MG TAB PO SCH (09:34)
[2020-12-21] MEDS: ATORVASTATIN 20 MG TAB PO SCH (09:34)
[2020-12-21] MEDS: METOPROLOL SUCC *XL* 25MG TAB (TopROL *XL*) PO SCH (09:34)
[2020-12-21] MEDS: buPROPion **XL** TABLET 150MG (WELLBUTRIN XL) PO SCH (09:34)
--- NOTE | 2020-12-21 13:22 | IPNPDOC ---
Subjective Date Seen The patient was seen on 12/21/20. Subjective Chief Complaint/HPI Mr. Barrios is an 80-year-old male with atrial fibrillation status post cardioversion and pacemaker/defibrillator, alcohol use disorder, and ulcerative colitis who presents with worsening generalized weakness. This morning, is feeling better. Denies chest pain or dyspnea. Physical therapy worked with patient and recommended 1-2 more sessions. Objective Physical Examination General Exam: Positive: Alert, Cooperative Eye Exam: Positive: EOMI; Negative: Sclera icteric ENT Exam: Positive: Atraumatic Neck Exam: Positive: Supple Chest Exam: Positive: Clear to auscultation Heart Exam: Positive: Rate Normal, Regular Rhythm Abdomen Exam: Positive: Normal bowel sounds, Soft; Negative: Tenderness Extremity Exam: Negative: Edema Neuro Exam: Positive: Normal Speech Psych Exam: Positive: Mental status NL, Mood NL Assessment /Plan Assessment Mr. Barrios is an 80-year-old male with atrial fibrillation status post cardioversion and pacemaker/defibrillator, alcohol use disorder, and ulcerative colitis who presents with worsening generalized weakness. Unknown etiology, possibly secondary to dehydration versus poor nutrition versus CHF. Will have physical therapy work with patient. As patient is dry, will give 1 L of fluid over time and monitor for acute heart failure. Otherwise, patient consumes 1 shot of rum daily. Will put patient on CIWA protocol including thiamine, multivitamin, and folic acid. Plan/VTE VTE Prophylaxis Ordered?: Yes Plan 1. Generalized weakness Unclear etiology, patient has not made urine due to dehydration We will provide supportive care and give 1 L of IV fluids over time TSH elevated at 5.86 We will check vitamin B12 level 2. Dehydration BUN elevated Very slow capillary refill We will give IV fluids. 1 L over time Hold spironolactone 3. Heart failure, unspecified Not in acute heart failure Continue metoprolol succinate and Entresto We will attempt to get echocardiogram Status post pacemaker/defibrillator 4. Atrial fibrillation Continue apixaban Continue metoprolol succinate Patient currently has pacemaker. 5. Ulcerative colitis Continue prednisone taper 6. Hypothyroidism TSH mildly elevated Continue levothyroxine 7. COPD Continue Symbicort 8. Anxiety/depression Continue bupropion 9. DVT prophylaxis Continue apixaban Disposition: PT recommending 1-2 more sessions VS, I&O, 24H, Fishbone Vital Signs/I&O Vital Signs Date Time Temp Pulse Resp B/P (MAP) Pulse Ox O2 Delivery O2 Flow Rate FiO2 12/21/20 09:34 82 129/64 12/21/20 05:35 99.4 16 93 Room Air I&O- Last 24 Hours up to 6 AM 12/21/20 06:00 Intake Total 1660 ml Output Total 100 ml Balance 1560 ml Laboratory Data 24H LABS Laboratory Tests 2 12/20/20 14:08: Coronavirus (COVID-19)(PCR) NEGATIVE, Influenza Type A (RT-PCR) NEGATIVE, Influenza Type B (RT-PCR) NEGATIVE, Respiratory Syncytial Virus (PCR) NEGATIVE 12/20/20 14:39: Lactic Acid Level 1.3 12/21/20 05:46: Nucleated Red Blood Cells % (auto) 0.0, Anion Gap 7L, Glomerular Filtration Rate > 60.0, Calcium Level 8.3L CBC/BMP Laboratory Tests 12/21/20 05:46 Microbiology Microbiology 12/20/20 Blood Culture, Received Pending 12/20/20 Blood Culture, Received Pending BHAVANI CHENG DO Dec 21, 2020 11:48
[2020-12-21 14:00] VITALS: BP 123/58
[2020-12-21 21:36] VITALS: BP 124/64
[2020-12-22] MEDS: LEVOTHYROXINE 75MCG TABLET (0.075MG) PO SCH (05:34)
[2020-12-22] MEDS: LEVOTHYROXINE 100MCG TABLET (0.1MG) PO SCH (05:35)
[2020-12-22 06:04] VITALS: BP 121/65
[2020-12-22 06:57] LABS: HEMATOCRIT 30.2 % (42.0-52.0); HEMOGLOBIN 10.3 g/dl (13.5-17.5); MEAN CORPUSCULAR HEMOGLOBIN 31.8 pg (27.0-33.0); MEAN CORPUSCULAR HGB CONC 34.1 g/dl (32.0-36.5); MEAN CORPUSCULAR VOLUME 93.2 fl (80.0-96.0); PLATELET COUNT, AUTOMATED 394 10^3/uL (150-450); RED BLOOD COUNT 3.24 10^6/uL (4.30-6.10)
[2020-12-22 07:19] LABS: BLOOD UREA NITROGEN 22 MG/DL (7-18); CALCIUM LEVEL 8.4 MG/DL (8.8-10.2); CARBON DIOXIDE LEVEL 26 MEQ/L (21-32); CHLORIDE LEVEL 100 MEQ/L (98-107); CREATININE FOR GFR 0.67 MG/DL (0.70-1.30); GLOMERULAR FILTRATION RATE > 60.0 (>35); GLUCOSE, FASTING 86 MG/DL (70-100); POTASSIUM SERUM 4.2 MEQ/L (3.5-5.1); SODIUM LEVEL 133 MEQ/L (136-145)
[2020-12-22] MEDS: SYMBICORT 80/4.5MCG INHALER 6GM INH SCH (07:48)
[2020-12-22] MEDS: METOPROLOL SUCC *XL* 25MG TAB (TopROL *XL*) PO SCH (09:00)
[2020-12-22] MEDS: MULTIVITAMINS/MINERALS THERAP 1 TAB PO SCH (10:14)
[2020-12-22] MEDS: predniSONE 10 MG TAB PO SCH (10:14)
[2020-12-22] MEDS: ATORVASTATIN 20 MG TAB PO SCH (10:14)
[2020-12-22] MEDS: APIXABAN 5 MG TAB (ELIQUIS) PO SCH (10:14)
[2020-12-22] MEDS: FOLIC ACID 1 MG TAB PO SCH (10:14)
[2020-12-22] MEDS: THIAMINE 100 MG TAB PO SCH (10:14)
[2020-12-22] MEDS: ENTRESTO 24-26MG TABLET (SACUBITRIL/VALSARTAN) PO SCH (10:14)
[2020-12-22] MEDS: buPROPion **XL** TABLET 150MG (WELLBUTRIN XL) PO SCH (10:14)
[2020-12-22 10:21] VITALS: BP 112/60
[2020-12-22 11:01] LABS: VITAMIN B12 LEVEL 370 PG/ML (247-911)
[2020-12-22 13:15] LABS: HEPATITIS A ANTIBODY IGM NEGATIVE (NEGATIVE); HEPATITIS B CORE ANTIBODY IGM NEGATIVE (NEGATIVE); HEPATITIS B SURFACE ANTIGEN NEGATIVE (NEGATIVE); HEPATITIS C VIRUS ABY INDEX 0.1 INDEX (<0.8)
[2020-12-22 14:00] VITALS: BP 135/63
--- NOTE | 2020-12-22 21:26 | DS.PDOC ---
Discharge Summary General Date of Admission Dec 20, 2020 at 09:41 Date of Discharge Dec 22, 2020 Discharge Summary PROCEDURES PERFORMED DURING STAY: None ADMITTING DIAGNOSES: 1. Generalized weakness 2. Dehydration 3. Heart failure, unspecified 4. Paroxysmal atrial fibrillation 5. Ulcerative colitis 6. Hypothyroidism 7. COPD 8. Anxiety/depression DISCHARGE DIAGNOSES: 1. Generalized weakness 2. Dehydration 3. Heart failure, unspecified 4. Paroxysmal atrial fibrillation 5. Ulcerative colitis 6. Hypothyroidism 7. COPD 8. Anxiety/depression COMPLICATIONS/CHIEF COMPLAINT: Weakness Dehydration. HISTORY OF PRESENT ILLNESS: Mr. Barrios is an 80-year-old male with atrial fibrillation status post cardioversion and pacemaker/defibrillator, alcohol use disorder, and ulcerative colitis who presents with worsening generalized weakness. For the past few months, patient has been noticing worsening genera lized weakness. He will get up and walk 20 feet before having to sit down and recover. Denies any recent trauma but reports changes to his medication. He is not familiar with all of the changes, but recently was taken off of sulfasalazine and put on an IV infusion. Otherwise, he was started on p rednisone taper for his ulcerative colitis. He has poor oral intake. Denies loss of taste or nausea. He just has poor appetite and is unsure when it first began. This morning, he was able to to the bathroom, but he was not able to get up afterwards. Patient was brought to the ED for evaluation. While here he had atrial flutter with a heart rate of 133. Systolic blood pressure was also low i n the 90s. Patient appears clinically dry. Otherwise patient is afebrile and not hypoxic. Due to patient's history of heart failure patient was given a 500 mL fluid bolus. When I saw patient, his blood pressure and heart rate improved, but he did appear dry. His capillary refill was very sluggish. No pitting edema bilaterally. Patient tells me that his EF used to be 25%, but it did go back up to 50%. He does not know what his EF is currently at this time. Patient will be placed in observation for generalized weakness and dehydration. HOSPITAL COURSE: After receiving IVF, he appeared better and more energetic. He tolerated a diet. He ambulated with physical therapy who recommended an additional day of PT and a rolling walker. I spoke with the and she requested TB testing and hepatitis panel as patient was going to start new ulcerative colitis medication. Otherwise, today, patient felt well. Denied chest pain or dyspnea. He cleared physical therapy and was discharged home. Of note, patient's debility/generalized weakness may be multifactorial including steroid myopathy, depression, and poor oral intake. Agree with weaning off steroids. Patient will need to see PCP for depression. Mirtazapine may be a good option for patient as it is an antidepressant that can stimulate appetite. DISCHARGE MEDICATIONS: Please see below. ALLERGIES: Please see below. PHYSICAL EXAMINATION ON DISCHARGE: VITAL SIGNS: Please see below. GENERAL: Comfortable, in no apparent distress HEENT: Head normocephalic, atraumatic NECK: Supple CARDIOVASCULAR EXAMINATION: Regular rate and rhythm RESPIRATORY EXAMINATION: Lungs clear to auscultation bilaterally ABDOMINAL EXAMINATION: Soft, non-tender, normal bowel sounds EXTREMITIES: No pitting edema bilaterally NEUROLOGICAL EXAMINATION: CN 3-12 grossly intact PSYCHIATRIC EXAMINATION: Normal mood and affect LABORATORY DATA: Please see below. IMAGING: Radiologist interpretation CXR 1. Emphysema. 2. Cardiomegaly. Multilead pacemaker. 3. No evidence of acute cardiopulmonary pathology. Other findings as noted. (Please see radiologist note for official read) PROGNOSIS: Good ACTIVITY: As tolerated. DIET: As tolerated. DISCHARGE PLAN: Home DISPOSITION: 01 Home, Self-Care. DISCHARGE INSTRUCTIONS: 1. Follow up with PCP within 1 week ITEMS TO FOLLOWUP ON ON OUTPATIENT: 1. TB quantiferon gold test result 2. Hepatitis panel DISCHARGE CONDITION: Stable. Total time spent on discharge planning, discharge summary, and medication reconciliation: 25 minutes Vital Signs/I&Os Vital Signs Date Time Temp Pulse Resp B/P (MAP) Pulse Ox O2 Delivery O2 Flow Rate FiO2 12/22/20 14:00 98.5 74 20 135/63 (87) 98 Room Air I&O- Last 24 Hours up to 6 AM 12/22/20 06:00 Intake Total 780 ml Output Total 450 ml Balance 330 ml Laboratory Data Labs 24H Laboratory Tests 2 12/22/20 06:38: Nucleated Red Blood Cells % (auto) 0.0, Anion Gap 7L, Glomerular Filtration Rate > 60.0, Calcium Level 8.4L 12/22/20 11:38: Hepatitis A IgM Antibody NEGATIVE, Hepatitis B Surface Antigen NEGATIVE, Hepatitis B Core IgM Antibody NEGATIVE, Hepatitis C Antibody Index 0.1 CBC/BMP Laboratory Tests 12/22/20 06:38 Microbiology Microbiology 12/20/20 Blood Culture - Preliminary, Resulted No Growth after 48 hours. All Specime... 12/20/20 Blood Culture - Preliminary, Resulted No Growth after 48 hours. All Specime... Discharge Medications Scheduled Apixaban (Eliquis) 5 Mg Tablet, 5 MG PO BID, (Reported) Atorvastatin Calcium (Atorvastatin Calcium) 20 Mg Tablet, 20 MG PO DAILY, (Reported) Budesonide/Formoterol (Symbicort 80-4.5 Mcg Inhaler) 6.9 Gm Hfa.aer.ad, 2 PUFFS INH BID, (Reported) Bupropion HCl (Bupropion Xl) 300 Mg Tab.er.24h, 300 MG PO DAILY, (Reported) Levothyroxine Sodium (Synthroid) 175 Mcg Tablet, 175 MCG PO DAILY, (Reported) Metoprolol Succinate (Metoprolol Succinate) 25 Mg Tab.er.24h, 25 MG PO DAILY, (Reported) Prednisone (Prednisone) 10 Mg Tablet, 30 MG PO TAPER, (Reported) TAKE THREE TABS DAILY FOR 7 DAYS, THEN 2 TABS DAILY FOR 7 DAYS, THEN ONE TAB DAILY FOR 7 DAYS, THEN 1/2 TAB DAILY FOR 7 DAYS THEN STOP Sacubitril/Valsartan (Entresto 24 mg-26 mg Tablet) 1 Each Tablet, 1 TAB PO BID, (Reported) Spironolactone (Spironolactone) 25 Mg Tablet, 25 MG PO DAILY, (Reported) Allergies Coded Allergies: No Known Allergies (Unverified , 03/24/19) BHAVANI CHENG DO Dec 22, 2020 21:26
== END 2020-12-22 15:04 | disposition home or self-care (01) ==
LOC: EDBD 09:40 → M ED 09:40 → M ED INP 09:41 → ENRESERV 16:00 → M MSPAV 17:38
PROVIDERS: ADMIT Internal Medicine; ATTEND Internal Medicine
DX: R53.1 Weakness (principal); E86.0 Dehydration; I50.9 Heart failure, unspecified; I48.0 Paroxysmal atrial fibrillation; K51.90 Ulcerative colitis, unspecified, without complications; E03.9 Hypothyroidism, unspecified; J44.9 Chronic obstructive pulmonary disease, unspecified; Z99.81 Dependence on supplemental oxygen; F41.9 Anxiety disorder, unspecified; F32.9 Major depressive disorder, single episode, unspecified; Z95.0 Presence of cardiac pacemaker; F10.10 Alcohol abuse, uncomplicated; I51.7 Cardiomegaly; E78.00 Pure hypercholesterolemia, unspecified; H40.9 Unspecified glaucoma; I65.29 Occlusion and stenosis of unspecified carotid artery; Z79.899 Other long term (current) drug therapy; Z79.01 Long term (current) use of anticoagulants; Z79.51 Long term (current) use of inhaled steroids; Z79.52 Long term (current) use of systemic steroids; Z87.891 Personal history of nicotine dependence
CPT/HCPCS: 36415; 71045; 80048; 80076; 82607; 83605; 83690; 84443; 84484; 85025; 85027; 86480; 86705; 86709; 86803; 86850; 86900; 86901; 87040; 87340; 87631; 90682; 93005; 93041; 93306; 94760; 96360; 96361; 97116; 97161; 97530; 99285; G0008; G0378; J7512

== ENCOUNTER → 2020-12-24 | Outpatient (CLI) | payer MEDICARE ==
[~2020-12-24] MED LIST changes: +BUDE9TAB PO; +BUPR300T92 PO; +GASTROGRAFIN SOLUTION 30ML (Q9963) As Ordered ONE; +ISOVUE-370 76% 100ML VIAL As Ordered ONE; +PRED10TA2 PO; +SYNT175T2 PO
--- NOTE | 2020-12-24 12:09 | REP ---
INDICATION: ULCERATIVE (CHRONIC) RECTOSIGMOIDITIS WITH OTH COM. Patient gives a history of prostate carcinoma and prior appendectomy. COMPARISON: Comparison CT study March 24, 2019. TECHNIQUE: Contrast dose: 100 ML of Isovue [address] technique: Helical scanning is acquired and overlapping 1.5 mm and contiguous 3 mm axial images are reformatted. In addition, maximum intensity projection and multiplanar re-formation images are generated in sagittal and coronal imaging projections. Oral contrast is administered. FINDINGS: Digital preliminary facility environmental technician radiograph demonstrates a large amount of stool in the right and transverse segments of the colon. A pacemaker is seen in the heart. On axial CT images there are mild emphysematous changes in the lung bases. No infiltrate or effusion. The liver and the spleen are normal in size and homogeneous in texture on pre and postcontrast imaging. No adrenal mass is observed. No mass or cyst is seen in the pancreas. The gallbladder is unremarkable. No biliary ductal dilation is observed. There is moderate stool throughout the colon. No obstructive gastrointestinal lesion is seen. Small bowel loops are well opacified with oral contrast and are unremarkable. No mural thickening is seen. There is some mild left colonic diverticulosis affecting the sigmoid colon without CT evidence of diverticulitis. There are multiple metallic densities within the prostate gland consistent with a fiducial markers or seeds. The urinary bladder is unremarkable. No pelvic mass or adenopathy is seen. No free fluid or free intraperitoneal air is noted. No abdominal wall defect is seen. Bone window settings show no radiolucent or sclerotic bony destructive lesion. There are degenerative spondylosis changes in the spine. Fairly extensive vascular calcification is seen. Normal caliber aorta. The kidneys enhance symmetrically and appear morphologically intact. No intrarenal calculus, hydronephrosis, or mass lesion is observed. Delayed scan images show no filling defect in the collecting system the upper tracts. IMPRESSION: Moderate colonic stool. Metallic seeds or fiducial markers in the prostate. The appendix is surgically absent. Left colonic diverticulosis. Otherwise no acute abnormality. <Electronically signed by Odilon Morales > 12/24/20 0158
== END ==
LOC: M RAD 09:16
PROVIDERS: ATTEND Internal Medicine Gastroenterology
DX: K51.318 Ulcerative (chronic) rectosigmoiditis with other complication (principal)
CPT/HCPCS: 74178; Q9963; Q9967

== ENCOUNTER → 2021-01-06 | Outpatient (CLI) | payer MEDICARE ==
[~2021-01-06] MED LIST changes: -GASTROGRAFIN SOLUTION 30ML (Q9963) As Ordered ONE; -ISOVUE-370 76% 100ML VIAL As Ordered ONE
== END ==
LOC: M WUC 11:15
PROVIDERS: ATTEND Internal Medicine
DX: K51.30 Ulcerative (chronic) rectosigmoiditis without complications (principal)

== ENCOUNTER → 2021-01-22 | Outpatient (CLI) | payer MEDICARE ==
--- NOTE | 2021-01-22 17:05 | REPVR ---
PROCEDURE INFORMATION: Exam: CT Head Without Contrast Exam date and time: 01/22/2021 1:56 PM Age: 80 years old Clinical indication: Altered mental status/memory loss TECHNIQUE: Imaging protocol: Computed tomography of the head without contrast. Radiation optimization: All CT scans at this facility use at least one of these dose optimization techniques: automated exposure control; mA and/or kV adjustment per patient size (includes targeted exams where dose is matched to clinical indication); or iterative reconstruction. COMPARISON: No relevant prior studies available. FINDINGS: Brain: Moderate nonspecific hypodensities of the periventricular and deep subcortical white matter, most likely secondary to chronic small vessel ischemic change. No intracranial hemorrhage or extra-axial fluid collection. No evidence of mass effect or midline shift. Overton-white matter differentiation is normal. Cerebral ventricles: Moderate prominence of the ventricles and sulci, most likely attributed to parenchymal volume loss. Paranasal sinuses: Visualized sinuses are unremarkable. No fluid levels. Mastoid air cells: Unremarkable. Bones/joints: No acute osseus lesion or fracture. Soft tissues: Unremarkable. IMPRESSION: 1. No acute intracranial pathology. 2. Chronic findings, as above. Electronically signed by: Toby Uribe On 01/22/2021 17:05:23 PM
--- NOTE | 2021-01-22 17:24 | REPVR ---
PROCEDURE INFORMATION: Exam: CT Lumbar Spine Without Contrast Exam date and time: 01/22/2021 1:56 PM Age: 80 years old Clinical indication: Low back pain; Additional info: Lumbar stenosis w/claudica TECHNIQUE: Imaging protocol: Computed tomography images of the lumbar spine without contrast. Radiation optimization: All CT scans at this facility use at least one of these dose optimization techniques: automated exposure control; mA and/or kV adjustment per patient size (includes targeted exams where dose is matched to clinical indication); or iterative reconstruction. COMPARISON: CT ABD PELVIS W/O FOL BY WIT 12/24/2020 11:00 AM FINDINGS: Vertebrae: Lumbar lordosis is preserved. Vertebral body heights are maintained. Multilevel facet arthropathy. No acute lumbar spine fracture. No measurable spondylolisthesis. Discs/Spinal canal/Neural foramina: Multilevel advanced degenerative changes with intervertebral disc height loss and osteophyte formation. Disc osteophyte complex and facet hypertrophy at L3-L4 stenosis. Disc osteophyte complex and facet hypertrophy at L4-L5 causes to severe canal stenosis. Multilevel areas of osseous neural foraminal narrowing. Soft tissues: Unremarkable. 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 Recommend further evaluation with. Electronically signed by: Toby Uribe On 01/22/2021 17:23:46 PM
== END ==
LOC: M PLAIMG 12:35
PROVIDERS: ATTEND Psychiatry & Neurology Neurology
DX: R93.0 Abnormal findings on diagnostic imaging of skull and head, not elsewhere classified (principal); M51.36 Other intervertebral disc degeneration, lumbar region; M25.78 Osteophyte, vertebrae; M48.061 Spinal stenosis, lumbar region without neurogenic claudication; R41.82 Altered mental status, unspecified; R41.1 Anterograde amnesia; R26.81 Unsteadiness on feet; M48.062 Spinal stenosis, lumbar region with neurogenic claudication; R20.2 Paresthesia of skin; R53.1 Weakness

== ENCOUNTER → 2021-01-22 | Outpatient (CLI) | payer MEDICARE ==
[2021-01-22 17:06] LABS: HEMOGLOBIN A1c 5.4 %
[2021-01-22 17:11] LABS: RHEUMATOID FACTOR QUANT < 10.0 IU/ML (<15.0); T UPTAKE 38 % (33-40); THYROXINE (T4) 10.5 UG/DL (4.5-12.0)
[2021-01-22 17:12] LABS: FOLATE 8.5 NG/ML
[2021-01-22 17:26] LABS: VITAMIN B12 LEVEL 363 PG/ML
[2021-01-23 13:10] LABS: ALBUMIN 3.31 GM/DL (3.29-5.55); ALBUMIN % 55.1 % (55.8-66.1); ALPHA-1-GLOBULIN % 8.6 % (2.9-4.9); ALPHA-1-GLOBULINS 0.52 GM/DL (0.17-0.41); ALPHA-2-GLOBULINS 0.98 GM/DL (0.42-0.99); ALPHA-2-GLOBULINS % 16.3 % (7.1-11.8); BETA-1-GLOBULINS % 7.1 % (4.7-7.2); BETA-2-GLOBULINS % 4.5 % (3.2-6.5); GAMMA GLOBULIN % 8.4 % (11.1-18.8)
[2021-01-23 13:11] LABS: BETA-1-GLOBULINS 0.43 GM/DL (0.28-0.60); BETA-2-GLOBULINS 0.27 GM/DL (0.19-0.55)
== END ==
LOC: M WUC 14:17
PROVIDERS: ATTEND Psychiatry & Neurology Neurology
DX: E07.9 Disorder of thyroid, unspecified (principal); E11.9 Type 2 diabetes mellitus without complications; R41.3 Other amnesia; G60.9 Hereditary and idiopathic neuropathy, unspecified

== ENCOUNTER 2021-02-04 07:29 | Outpatient (CLI) | payer MEDICARE ==
[2021-02-04] MEDS ORDERED: ACETAMINOPHEN 650MG PO PRIOR TO INFUSION PO ONE (07:30)
[2021-02-04] MEDS ORDERED: inFLIXimab INJECTION 300 MG in NS 220 ML IV ONE (07:30)
[2021-02-04] MEDS ORDERED: NS 1,000 ML IV SCH (07:30)
[2021-02-04] MEDS ORDERED: DIGO0.123 PO (12:17)
== END 2021-02-04 11:15 | disposition other institution (70) ==
LOC: M INFU 07:29
PROVIDERS: ATTEND Internal Medicine Gastroenterology
DX: Z53.9 Procedure and treatment not carried out, unspecified reason (principal)

== ENCOUNTER 2021-02-04 08:32 | Emergency (ER) | payer MEDICARE ==
[~2021-02-04] VITALS: Ht 172.7 cm; Wt 55.0 kg
--- OUTSIDE RECORDS SUMMARY | 2021-02-04 08:38 | CCD | Continuity of Care Document ---
Author Author Nigel CRONIN MD Organization Unknown Address [address] [place] [address] Phone [phone] Care Team Providers Care Stone Operator Name Role Phone Riky Johns M.D. AUTM [phone] Adalberto Jackman M.D. AUTM [phone] Manan Mcintyre M.D. AUTM [phone] Problems Active Problems Provider Date Chronic obstructive lung disease Meera Cuevas Onset: 06/10/2011 Cough Elizabeth Longo M.D. Onset: Difficulty breathing Elizabeth Longo M.D. Onset: Ex-smoker Elizabeth Longo M.D. Onset: Body Mass Index 26.0-26.9 Adult Alison Cuevas Onset: 06/10/2011 Overweight Elizabeth Longo M.D. Onset: Solitary nodule of lung Riky Johns MD Onset: 5 Emphysematous bronchitis Riky Johns MD Onset: 03/06/20 13 Pulmonary emphysema Riky Johns MD Onset: 12/05/2012 Allergic rhinitis Riky Johns MD Onset: 12/05/2012 Social History Type Date Description Comments Sex Unknown ETOH Use Denies alcohol use Tobacco Use Start: 03/28/52 End: 03/28/00 Patient is a forme r smoker hx:1ppd x 45yrs, quit 2000 Smoking Status Reviewed: 11/05/20 Patient is a former smoker hx :1ppd x 45yrs, quit 2000 Allergies and adverse reactions Active Allergies Criticality Reaction | Severity Comments Date Entyvio Unable to assess criticality Pleurisy, ch est pain 12/18/2020 Inactive Allergies NKDA Unable to assess criticality 06/10/2011 Medications Active Medications SIG Qnty Indications Ordering Provide r Date Remicade 100mg Solution Rec 5 mg/kg iv infusion at week 0, week 2, week 6 3units K51.318 David Cronin MD 12/18/2020 Remicade 100mg Solution Rec 5 mg/kg iv infusion every 8 weeks 3units K51.318 David Cronin MD 12/19/19 21 Prednisone 10mg Tablets 30 mg every day x 7 days, then 20 mg every day x 7 days, then 10 mg every day x 7 days, then 5 mg every day til done 45tabs K51.318 David Cronin MD 12/18/2020 Symbicort 80-4.5mcg/Act Aerosol 2 puff twice a day 30.6gm Riky Johns MD 12/31/2015 Aerochamber Plus Misc as directed with mdi 1units Elizabeth Longo M.D. Proair HFA 108(90Base) mcg/Act Aer osol 2 puffs four times a day as needed 8.500units Riky Johns MD Eliquis 5mg Tablets 1 tab by mouth twice a day Unknown Entresto 24-26mg Tablets 1/2 at hs Unknown Metoprolol Tartrate 25mg Tablets daily Unknown Spironolactone 25mg Tablets d aily Unknown Levothyroxine Sodium 175mcg Capsul es 1 by mouth every day Unknown Bupropion Hydrochloride ER (XL) 300mg Tablets ER 24HR 1 tab by mouth everyday Unknown History Medications Entyvio 300mg Solution Rec infuse 300 mg iv at week 0, week 2 and week 6, then every 8 weeks 3units K51.318 David Cronin MD 11/24/2020 - 12/18/2020 Entyvio 300mg Solution Rec infuse 300 mg iv every 8 weeks 1units K51.318 David Cronin MD 11/24/2020 - 0 12/18/2020 Budesonide ER 9mg Tablets ER 24HR 1 tab by mouth every day (ulcerative colitis) 30tabs David andino MD 11/14/2020 - 11/17/2020 Immunizations CPT Code Status Date Vaccine Lot # [id number] Given 01/21/2016 Influenza Virus Split 3 Yrs And Above For Intramuscular Use 74636 Given 01/20/2015 Influenza Virus Split 3 Yrs And Above For Intramuscular Use Q2036 Given 12/27/2012 Influenza Vaccine 3 Years Of Age Or Older (Flulaval) Q2036 Given 01/05/2012 Influenza Vaccine 3 Years Of Age Or Older (Flulaval) 91979 Given 02/09/2011 Influenza Virus Split 3 Yrs And Above For Intramuscular Use 52594 Given 01/09/2010 Pneumococcal PPSV23 27057 Given 12/31/2009 Pneumococcal PPSV23 Vital Signs Date Vital Result Comment 12/18/2020 8:57am BP Systolic 85 mmHg BP Diastolic 60 mmHg Height 68 inches 5'8" Weight 125.00 lb BMI (Body Mass Index) 19.0 kg/m2 [place] Body Weight 154 lb Weight 56.700 kg BSA (Body Surface Area) 1.67 m2 11/24/2020 3:50pm BP Systolic 109 mmHg BP Diastolic 68 mmHg Height 68 inches 5'8" Weight 131.00 lb BMI (Body Mass Index) 19.9 kg/m2 [place] Body Weight 154 lb Weight 59.422 kg BSA (Body Surface Area) 1.71 m2 Results Test Acquired Date Facility Test Result H/L Range Note Laboratory test finding 12/02/2020 [facility] [address], [place] [id number] [phone] Calprotectin Stool 94 ug/g Normal 0-120 1 Pancreatic Elastase Stool >500 Normal >200 2, 3 Gastrointestinal (GI) Panel 11/16/2020 [facility] Main Lab [address], [place] [id number] [phone] Gastrointestinal (GI) Panel This Gastrointes <SEE NOTE > 4 Laboratory test finding 07/15/2020 [facility] [address], [place] [id number] [phone] Pathology Request For Service (SEE NOTE) 5 1 Concentration Interpreta tion Follow-Up <16 - 50 ug/g Normal None >50 -120 ug/g Borderline Re-evaluate in 4-6 weeks >120 ug/g Abnormal Repeat as clinically indicated Performed at: [address] [id number] Excellence Consultant: Jesse Freire MD, Phone: [phone] 2 Result Units: ug Elast./g Severe Pancreatic Insufficiency: <100 Moderate Pancreatic Insufficiency: 100 - 200 Normal: >200 3 12/25/20 (Thr Dec 25) 03:54 PM DAVID CRONIN borderline inflammation (mild at the most. definitely not severe) 4 This Gastrointestinal PCR [place] w[place] detects the following bacteria, parasites and viruses: Campylobacter (jejuni, coli and upsaliensis), Clostridium difficile (toxin A/B), Plesiomonas shigelloides, Salmonella, Yersinia enterocolitica, Vibrio (parahaemolyticus, vulnificus and cholerae), Vibrio clolerae, Enteroaggregative E. coli (EAEC), Enteropathogenis E. coli (EPEC), Enterotoxigenic E. coli (ETEC) it/st, Shiga-like producing E. coli (STEC) stx1/stc2, E.coli O157, Shigella/Enteroinvasive E. coli (EIEC), Cryptosporidium, Cyclospora cayetanensis, Entamoeba histolytica, Giardia lamblia, Adenovirus F 40/41, Astrovirus, Norovirus GI/GII, Rotavirus A and Sapovirus (I, II, IV, V). One negative specimen does not rule out the possibility of a parasitic infection. NEGATIVE by MULTIPLEXED NUCLEIC ACID PCR 5 FINAL DIAGNOSIS Colon, random sigmoid, biopsies: Fragment of ulcerated colonic mucosa with cryptitis. No evidence for granulomas or high grade dysplasia. 07/17/2020 - 1137 CLINICAL DIAGNOSIS Ulcerative colitis 07/16/2020 - 1299 GROSS DIAGNOSIS Received in formalin labeled "random sigmoid colon biopsies" and consists of multiple fragments of roldan tissue 0.3 x 0.3 x 0.3 cm. in aggregate. All in one. -SV 07/16/2020 - 1299 Signed NILE BATRES MD 07/17/2020 1453 Procedures Date Code Description Status 12/18/2020 45818 Office/Outpatient Established Mo d MDM 30-39 Min Completed 11/24/2020 11675 Office/Outpatient Established Mo d MDM 30-39 Min Completed 11/05/2020 02257 Office/Outpatient Established Mo d MDM 30-39 Min Completed 11/05/2020 93014 Spirometry Completed 07/15/2020 45554 Colonoscopy Flexible Proximal To Splenic Flexure W/Biopsy Single/ Completed Medical Devices Description No Information Available Encounters Type Date Location Provider Dx Diagnosis Office Visit 12/18/2020 8:50a [facility] Pra ctklarissa Cronin MD 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 R09.1 Pleurisy R63.4 Abnormal weight loss Office Visit 11/24/2020 3:45p [facility] Pra raj Cronin MD 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 R19.7 Diarrhea, unspecified R19.4 Change in bowel habit R63.4 Abnormal weight loss Office Visit 11/05/2020 3:30p [facility]Thoracic Lawrenc bear Johns MD J43.1 Panlobular emphysema R91.8 Other nonspecific abnormal f inding of lung field Z87.891 Personal history of nicotine dependence Assessments Date Code Description Provider 12/18/2020 K51.318 Ulcerative (chronic) rectosigmoiditis with other complication David Cronin MD 12/18/2020 R09.1 Pleurisy David Cronin MD 12/18/2020 R63.4 Abnormal weight loss David andino MD 11/24/2020 K51.318 Ulcerative (chronic) rectosigmoiditis with other complication David Cronin MD 11/24/2020 R19.7 Diarrhea, unspecified David escoto MD 11/24/2020 R19.4 Change in bowel habit David escoto MD 11/24/2020 R63.4 Abnormal weight loss David andino MD 11/05/2020 J43.1 Panlobular emphysema Riky martinez MD 11/05/2020 R91.8 Other nonspecific abnormal findi ng of lung field Riky Johns MD 11/05/2020 Z87.891 Personal history of nicotine dep endence Riky Johns MD 07/15/2020 K51.30 Ulcerative (chronic) rectosigmoi ditis without complications David Cronin MD 07/15/2020 K57.30 Diverticulosis of la rge intestine without perforation or abscess without bleeding David Cronin MD 07/15/2020 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 David Cronin MD 07/15/2020 K64.8 Other hemorrhoids David Cronin MD Plan of Treatment Future Appointment(s):* 06/24/2021 6:00 am - David Cronin MD at [facility] * 04/29/2021 6:00 am - [facility] * 03/04/2021 6:00 am - David Cronin MD at [facility] * 02/04/2021 6:00 am - David Cronin MD at [facility] * 01/21/2021 6:00 am - David Cronin MD at [facility] * 01/21/2021 2:30 pm - David Cronin MD at [facility] 12/18/2020 - David Cronin MD* K51.318 Ulcerative (chronic) rectosigmoiditis with other complication * R09.1 Pleurisy * R63.4 Abnormal weight loss * * New Medication:* Remicade 100 mg * Remicade 100 mg * Prednisone 10 mg * Comments:* timing of pleurisy episode and entyvio infusion is in question. For safety reasons, I am going to call his reaction to entyvio an "allergy" and will need to supervisor records change to an alternative. * Follow up:* 1 month or sooner prn * Recommendations:* stop entyvio--new allergy(pleurisy/chest pain) Stop Sulfasalazine start Remicade For now continue prednisone Will check CT A/P for continued weigth loss despite improvement in bowels Functional Status Description No Information Available Mental Status Description No Information Available Referrals Refer to Reason for Referral Status Appt Date Manan Mcintyre M.D. Pt with Ulcerative colitis. He is intolerant to entyvio, I am planning on changing him over to a TNF jonahton/Remicade. Please approve or disapprove the use of Remicade based on his degree of heart failure Created [facility], [address] [facility], [address] [address] [phone]
--- OUTSIDE RECORDS SUMMARY | 2021-02-04 08:38 | CCD | Continuity of Care Document ---
Author Nigel Duke M.D Organization Unknown Address [address] [place] [address] Phone [phone] Care Team Providers Care Administrative Support Assistant Name Role Phone Adalberto Jackman M.D. AUTM [phone] Problems Active Problems Provider Date Polyneuropathy Amaya Ho M.D. Onset: 01/13/2021 Numbness Amaya Ho M.D. Onset: 01/13/2021 Abnormal gait Amaya Ho M.D. Onset: 01/13/2021 Social History Type Date Description Comments Sex Unknown Tobacco Use Start: Unknown End: Unknown Patient is a former smoker Allergies and adverse reactions Description No Known Drug Allergies Medications Active Medications SIG Qnty Indications Ordering Provide r Date Eliquis 5mg Tablets 1 by mouth twice a day Unknown Immunizations Description No Information Available Vital Signs Date Vital Result Comment 01/13/2021 2:40pm Respiratory Rate 12 /min Height 68 inches 5'8" Weight 120.00 lb BMI (Body Mass Index) 18.2 kg/m2 [place] Body Weight 154 lb Results Description No Information Available Procedures Date Code Description Status 01/13/2021 48841 Office/Outpatient Established Mo d MDM 30-39 Min Completed Medical Devices Description No Information Available Encounters Type Date Location Provider Dx Diagnosis Office Visit 01/13/2021 1:45p Main office - [place] Amaya ramirez M.D. M48.062 Spinal stenosis, lumbar region with neur ogenic claudication R20.2 Paresthesia of skin R53.1 Weakness Assessments Date Code Description Provider 01/13/2021 M48.062 Spinal stenosis, lumbar region w ith neurogenic claudication Amaya Ho M.D. 01/13/2021 R20.2 Paresthesia of skin Amaya ramirez M.D. 01/13/2021 R53.1 Weakness Amaya Ho M.D. Plan of Treatment Future Appointment(s):* 04/30/2021 12:00 pm - Amaya Ho M.D. at [facility] * 02/04/2021 12:30 pm - Amaya Ho M.D. at [facility] * 01/28/2021 11:30 am - Amaya Ho M.D. at [facility] Functional Status Description No Information Available Mental Status Description No Information Available Referrals Description No Information Available
--- OUTSIDE RECORDS SUMMARY | 2021-02-04 08:38 | CCD | Continuity of Care Document ---
Author Author Nigel PRESLEY MD Organization Unknown Address [address] [place] [address] Phone [phone] Care Team Providers Care Dormitory Counselor Name Role Phone Adalberto Jackman M.D. AUTM [phone] Riky Johns M.D. AUTM [phone] Ernie Ardon MD AUTM [phone] Manan Mcintyre M.D. AUTM [phone] Ike Cronin M.D. AUTM [phone] Problems Active Problems Provider Date Impotence of organic origin Nigel Presley MD Ons et: 01/09/2018 Nocturia Nigel Presley MD Onset: 12/26 Raised prostate specific antigen Vivien Lara Onset: 01/09/2018 Malignant tumor of prostate Nigel Presley MD Ons et: 08/09/2018 Urgent desire to urinate Nigel Presley MD Onset: 11/28/2018 Increased frequency of urination Vivien Lara Onset: 01/15/2021 Social History Type Date Description Comments Sex Male Tobacco Use Start: Unknown End: Unknown Former Cigarette Smo ker smoked for 42 years, 1 ppd Smoking Status Reviewed: 01/15/21 Former Cigarette Smoker smoke d for 42 years, 1 ppd ETOH Use Currently consumes alcohol 1 bee r and 6 ounces of liquor daily Allergies and adverse reactions Description No Known Drug Allergies Medications Active Medications SIG Qnty Indications Ordering Provide r Date Gemtesa 75mg Tablets 1 by mouth every day 90tabs R35.0 Nigel Presley MD 01/15/2021 Simvastatin 20mg Tablets Unknown Symbicort 80-4.5mcg/Act Aerosol Unknown Bupropion Hydrochloride ER (XL) 150mg Tablets ER 24HR One by mouth daily Unknown 0 Eliquis 5mg Tablets once daily in the evening Unknown Entresto 24-26mg Tablets twic e daily Unknown Metoprolol Tartrate 25mg Tablets once daily Unknown Spironolactone 25mg Tablets once daily in the am Unknown Trazodone HCL 50mg Tablets 1/2 tablet at bedtime per patient, Unknown Levothyroxine Sodium 150mcg Tablet s Take One Tablet By Mouth Every Day Unknown History Medications Cephalexin 500mg Capsules 1 capsule po x 1 dsoe 1caps Nigel Presley MD - 01/17/2021 Medications Administered in Office Medication SIG Qnty Indications Ordering Provider Date Gentamicin ([place]ius) Up To 80MG, 40MG/ ML Multi-Use Vial 20ML Injection Hosea bae MD 02/06/2020 Gentamicin (F[place]enius) Up To 80MG, 40MG/ ML Multi-Use Vial 20ML Injection Hosea bae MD 10/31/2019 Immunizations Description No Information Available Vital Signs Date Vital Result Comment 01/15/2021 9:30am Height 68 inches 5'8" Weight 120.00 lb Weight 54.432 kg BMI (Body Mass Index) 18.2 kg/m2 BP Systolic 105 mmHg BP Diastolic 70 mmHg Heart Rate 80 /min 09/08/2020 9:26am Height 68 inches 5'8" Weight 138.00 lb Weight 62.597 kg BMI (Body Mass Index) 21.0 kg/m2 BP Systolic 105 mmHg BP Diastolic 65 mmHg Heart Rate 88 /min Respiratory Rate 18 /min Body Temperature 96.6 F Results Test Acquired Date Facility Test Result H/L Range Note 230 Ua Routine 01/15/2021 [facility] REF TO ADDRESS ON ORDER FOR (315)- - Ua Glucose 100 mg/dL Ua Protein Negative Ua Nitrite Negative Ua Leuko Negative Ua Blood Small Ua Color Not Entered Ua Ketones Negative Ua Clarity Not Entered Ua Specific [place] 1.025 1.003-1.030 Ua PH 5.5 5.0-7.5 Ua Bilirubin Negative Ua Urobilinogen 0.2 E.U./dL 0.0-1.0 Procedures Date Code Description Status 01/15/2021 03990 Office/Outpatient Established SF MDM 10-19 Min Completed 01/15/2021 88483 Cystourethroscopy, Separate Proc edure Completed 01/15/2021 59064 Urodynamics, Complex Uroflowmetry Eg Calibrated Elect Prof Comp Completed 02/16/2019 [id number] Colonoscopy Completed Medical Devices Description No Information Available Encounters Type Date Location Provider Dx Diagnosis Office Visit 01/15/2021 9:15a [facility] Urology Nigel Presley MD R35.0 Frequency of micturition C61 Malignant neoplasm of prosta te Assessments Date Code Description Provider 01/15/2021 R35.0 Frequency of micturition Noel Presley MD 01/15/2021 C61 Malignant neoplasm of prostate C keyona Presley MD Plan of Treatment Future Appointment(s):* 03/10/2021 10:15 am - Nigel Presley MD at [facility] Urology * 03/10/2021 10:15 am - Nigel Presley MD at [facility] Urology 01/15/2021 - Nigel Presley MD* R35.0 Frequency of micturition* New Medication:* Gemtesa 75 mg - 1 by mouth every day * Comments:* This patient was advised that this is a beta 3 agonist and is a unique mechanism of action. I have suggested that the patient undergo a trial of Gemtasa. The patient was instructed that the benefits from this medicine is that it is a 1 dose without need for titration. The medicine potentially can be crushed in applesauce if need be.More importantly the patient does have a history of hypertension and there is no association with any clinically significant changes to hypertension or increased blood pressure versus placebo in the original pivotal clinical studies.The medicine has been shown to have significant urgency improvemen of note is that the patient is taking metoprolol which is an absolute contraindicationt with Myrbetriq which is likely the formulary alternative * C61 Malignant neoplasm of prostate Functional Status Description No Information Available Mental Status Description No Information Available Referrals Description No Information Available
--- OUTSIDE RECORDS SUMMARY | 2021-02-04 08:38 | CCD | Continuity of Care Document ---
Author Author Nigel CRONIN MD Organization Unknown Address [address] [place] [address] Phone [phone] Care Team Providers Care Turkey Boner Name Role Phone Riky Johns M.D. AUTM [phone] Adalberto Jackman M.D. AUTM [phone] Manan Mcintyre M.D. AUTM [phone] Problems Active Problems Provider Date Chronic obstructive [...] CPT Code Status Date Vaccine Lot # [id number] Given 01/21/2016 Influenza Virus Split 3 Yrs And Above For Intramuscular Use 93891 Given 01/20/2015 Influenza Virus Split 3 Yrs And Above For Intramuscular Use Q2036 Given 12/27/2012 Influenza Vaccine 3 Years Of Age Or Older (Flulaval) Q2036 Given 01/05/2012 Influenza Vaccine 3 Years Of Age Or Older (Flulaval) 39450 Given 02/09/2011 Influenza Virus Split 3 Yrs And Above For Intramuscular Use 94698 Given 01/09/2010 Pneumococcal PPSV23 59700 Given 12/31/2009 Pneumococcal PPSV23 Vital Signs Date Vital Result Comment 12/18/2020 8:57am BP Systolic 85 mmHg BP Diastolic 60 mmHg Height 68 inches 5'8" Weight 125.00 lb BMI (Body Mass Index) 19.0 kg/m2 [place] Body Weight 154 lb Weight 56.700 kg BSA (Body Surface Area) 1.67 m2 11/24/2020 3:50pm BP Systolic 109 mmHg BP Diastolic 68 mmHg Height 68 inches 5'8" Weight 131.00 lb BMI (Body Mass Index) 19.9 kg/m2 [place] Body Weight 154 lb Weight 59.422 kg BSA (Body Surface Area) 1.71 m2 Results Test Acquired Date Facility Test Result H/L Range Note Laboratory test finding 12/22/2020 [facility] Main Lab [address] [place], [place] [id number] [phone] Hepatitis B Surface Antigen <pending> BUN & Creatinine ([facility]) 12/22/2020 [facility] Main Lab [address] [place], [place] [address] [phone] Blood Urea Nitrogen <pending> Laboratory test finding 12/02/2020 [facility] Main Lab [address] [place], [place] [address] [phone] Calprotectin Stool 94 ug/g Normal 0-120 1 Pancreatic Elastase Stool >500 Normal >200 2, 3 Gastrointestinal (GI) Panel 11/16/2020 [facility] Main Lab [address] [place] [phone] Gastrointestinal (GI) Panel This Gastrointes <SEE NOTE > 4 Laboratory test finding 07/15/2020 Judy Ann sina [facility] Lab [address] [place] [phone] Pathology Request For Service (SEE NOTE) 5 1 Concentration Interpreta tion Follow-Up <16 - 50 ug/g Normal None >50 -120 ug/g Borderline Re-evaluate in 4-6 weeks >120 ug/g Abnormal Repeat as clinically indicated Performed at: [facility] [id number] 61 Spare Hand: Jesse Freire MD, Phone: [phone] 2 Result Units: ug Elast./g Severe Pancreatic [...] 1137 CLINICAL DIAGNOSIS Ulcerative colitis 07/16/2020 - 1300 GROSS DIAGNOSIS Received in formalin labeled "random sigmoid colon biopsies" and consists of multiple fragments of roldan tissue 0.3 x 0.3 x 0.3 cm. in aggregate. All in one. -SV 07/16/2020 - 1300 Signed NILE BATRES MD 07/17/2020 1453 Procedures Date Code Description Status 12/18/2020 34124 Office/Outpatient Established Mo d MDM 30-39 Min Completed 11/24/2020 33848 Office/Outpatient Established Mo d MDM 30-39 Min Completed 11/05/2020 77981 Office/Outpatient Established Mo d MDM 30-39 Min Completed 11/05/2020 22843 Spirometry Completed 07/15/2020 38861 Colonoscopy Flexible Proximal To Splenic Flexure W/Biopsy Single/ Completed Medical Devices Description No Information Available Encounters Type Date Location Provider Dx Diagnosis Office Visit 12/18/2020 8:50a [facility] Gastroenterology Pra ctklarissa Cronin MD 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 R09.1 Pleurisy R63.4 Abnormal weight loss Office Visit 11/24/2020 3:45p [facility] Gastroenterology Pra ctklarissa Cronin MD 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 R19.7 Diarrhea, unspecified R19.4 Change in bowel habit R63.4 Abnormal weight loss Office Visit 11/05/2020 3:30p [facility] Pulmonary/Thoracic Lawraga Johns MD J43.1 Panlobular emphysema R91.8 Other [...] Cronin MD Plan of Treatment Future Appointment(s):* 01/21/2021 2:30 pm - David Cronin MD at [facility] * 05/08/2021 6:00 am - David Cronin MD at [facility]enter[facility] * 03/13/2021 6:00 am - David Cronin MD at [facility]enterology [facility] * 01/16/2021 6:00 am - David Cronin MD at [facility]astroenterology [facility] 12/18/2020 - David Cronin MD* [...] entyvio an "allergy" and will need to currency exchange specialist to an alternative. * Follow up:* 1 [...] on changing him over to a TNF jonathon/Remicade. Please approve or disapprove the use of Remicade based on his degree of heart failure Created [facility], [facility], [place] [id number] [phone]
--- OUTSIDE RECORDS SUMMARY | 2021-02-04 08:38 | CCD | Continuity of Care Document ---
Author Author Nigel PRESLEY MD Organization Unknown Address [address] [place] [address] Phone [phone] Care Team Providers Care Flame Annealing Machine Operator Name Role Phone Adalberto Jackman M.D. AUTM [phone] Riky Johns M.D. AUTM [phone] Ernie Ardon MD AUTM [phone] Manan Mcintyre M.D. AUTM [phone] Problems Active Problems Provider Date Impotence of [...] Routine 01/15/2021 [facility] REF TO DR ADDRESS ON ORDER FOR (315)- - Ua Glucose 100 mg/dL Ua Protein Negative Ua Nitrite Negative Ua Leuko Negative Ua Blood Small Ua Color Not Entered Ua Ketones Negative Ua Clarity Not Entered Ua Specific [place] 1.025 1.003-1.030 Ua PH 5.5 5.0-7.5 Ua Bilirubin Negative Ua Urobilinogen 0.2 E.U./dL 0.0-1.0 Procedures Date Code Description Status 01/15/2021 83831 Office/Outpatient Established SF MDM 10-19 Min Completed 01/15/2021 33125 Cystourethroscopy, Separate Proc edure Completed 01/15/2021 06003 Urodynamics, Complex Uroflowmetry Eg Calibrated Electronic Office Completed 02/16/2019 [id number] Colonoscopy Completed Medical Devices Description No Information Available Encounters Type Date Location Provider Dx Diagnosis Office Visit 01/15/2021 9:15a [facility] Urology Nigel Presley MD R35.0 Frequency of micturition C61 Malignant neoplasm of prosta te Assessments Date Code Description Provider 01/15/2021 R35.0 Frequency of micturition Noel Presley MD 01/15/2021 C61 Malignant neoplasm of prostate C keyona Presley MD Plan of Treatment Future Appointment(s):* 03/10/2021 10:15 am - Nigel Presley MD at [facility] Urology * 03/10/2021 10:15 am - Nigel Presley MD at [facility] Urology 01/15/2021 - Nigel Presley MD* R35.0 [...]
--- OUTSIDE RECORDS SUMMARY | 2021-02-04 08:38 | CCD | Continuity of Care Document ---
Author Author Nigel CRONIN MD Organization Unknown Address [address] [place] [address] Phone [phone] Care Team Providers Care Research Neuropsychologist Name Role Phone Riky Johns M.D. AUTM [phone] Adalberto Jackman M.D. AUTM [phone] Manan Mcintyre M.D. AUTM [phone] Problems Active Problems Provider Date Chronic obstructive [...] smoker hx :1ppd x 45yrs, quit 2000 Allergies, Adverse Reactions, Alerts Active Allergies Criticality Reaction | Severity Comments Date Entyvio Unable to assess criticality Pleurisy, ch est pain 12/18/2020 Inactive Allergies NKDA Unable to assess criticality 06/10/2011 Medications Active Medications SIG Qnty Indications Ordering Provide r Date Remicade 100mg Solution Rec 5 mg/kg iv infusion at week 0, week 2, week 6 3units K51.318 Ike Cronin MD 12/18/2020 Remicade 100mg Solution Rec 5 mg/kg iv infusion every 8 weeks 3units K51.318 Ike Cronin MD 12/19/19 21 Prednisone 10mg Tablets 30 mg every day x 7 days, then 20 mg every day x 7 days, then 10 mg every day x 7 days, then 5 mg every day til done 45tabs K51.318 Ike Cronin MD 12/18/2020 Symbicort 80-4.5mcg/Act Aerosol 2 puff twice a day 30.6gm Riky Johns MD 12/31/2015 Aerochamber Plus Misc as directed with i 1units Elizabeth Longo M.D. Proair HFA 108(90Base) [...] 6, then every 8 weeks 3units K51.318 Ike Cronin MD 11/24/2020 - 12/18/2020 Entyvio 300mg Solution Rec infuse 300 mg iv every 8 weeks 1units K51.318 Iek Cronin MD 11/24/2020 - 0 12/18/2020 Budesonide ER 9mg Tablets ER 24HR 1 tab by mouth every day (ulcerative colitis) 30tabs Ike andino MD 11/14/2020 - 11/17/2020 Immunizations CPT Code Status Date Vaccine Lot # [id number] Given 01/21/2016 Influenza Virus Split 3 Yrs And Above For Intramuscular Use 82429 Given 01/20/2015 Influenza Virus Split 3 Yrs And Above For Intramuscular Use Q2036 Given 12/27/2012 Influenza Vaccine 3 Years Of Age Or Older (Flulaval) Q2036 Given 01/05/2012 Influenza Vaccine 3 Years Of Age Or Older (Flulaval) 62654 Given 02/09/2011 Influenza Virus Split 3 Yrs And Above For Intramuscular Use 47046 Given 01/09/2010 Pneumococcal PPSV23 23770 Given 12/31/2009 Pneumococcal PPSV23 Vital Signs Date Vital Result Comment 12/18/2020 8:57am BP Systolic 85 mmHg BP Diastolic 60 mmHg Height 68 inches 5'8" Weight 125.00 lb BMI (Body Mass Index) 19.0 kg/m2 [place] Body Weight 154 lb Weight 56.700 kg BSA (Body Surface Area) 1.67 m2 11/24/2020 3:50pm BP Systolic 109 mmHg BP Diastolic 68 mmHg Height 68 inches 5'8" Weight 131.00 lb BMI (Body Mass Index) 19.9 kg/m2 [place] Body Weight 154 lb Weight 59.422 kg BSA (Body Surface Area) 1.71 m2 Results Test Acquired Date Facility Test Result H/L Range Note Laboratory test finding 12/02/2020 [facility] Main Lab [address] [place], [place] [id number] [phone] Calprotectin Stool 94 ug/g Normal 0-120 1 Pancreatic Elastase Stool >500 Normal >200 2 Gastrointestinal (GI) Panel 11/16/2020 [facility] Main Lab [address] [place], [place] [address] [phone] Gastrointestinal (GI) Panel This Gastrointes <SEE NOTE > 3 Laboratory test finding 07/15/2020 [facility] Main Lab [address] [place], [place] [address] [phone] Pathology Request For Service (SEE NOTE) 4 1 Concentration Interpreta tion Follow-Up <16 - 50 ug/g Normal None >50 -120 ug/g Borderline Re-evaluate in 4-6 weeks >120 ug/g Abnormal Repeat as clinically indicated Performed at: [address] [id number] 61 Blockers Skiver: Jesse Freire MD, Phone: [phone] 2 Result Units: ug Elast./g Severe Pancreatic Insufficiency: <100 Moderate Pancreatic Insufficiency: 100 - 200 Normal: >200 3 This Gastrointestinal PCR Pa wade detects the [...] infection. NEGATIVE by MULTIPLEXED NUCLEIC ACID PCR 4 FINAL DIAGNOSIS Colon, random sigmoid, biopsies: Fragment of ulcerated colonic mucosa with cryptitis. No evidence for granulomas or high grade dysplasia. 07/17/2020 - 1136 CLINICAL DIAGNOSIS Ulcerative colitis 07/16/20201299 GROSS DIAGNOSIS Received in formalin labeled "random sigmoid colon biopsies" and consists of multiple fragments of roldan tissue 0.3 x 0.3 x 0.3 cm. in aggregate. All in one. -SV 07/16/2020 - 1299 Signed NILE BATRES MD 07/17/2020 1453 Procedures Date Code Description Status 12/18/2020 17581 Office/Outpatient Established Mo d MDM 30-39 Min Completed 11/24/2020 96489 Office/Outpatient Established Mo d MDM 30-39 Min Completed 11/05/2020 54649 Office/Outpatient Established Mo d MDM 30-39 Min Completed 11/05/2020 38377 Spirometry Completed 07/15/2020 67511 Colonoscopy Flexible Proximal To Splenic Flexure W/Biopsy Single/ Completed Medical Devices Description No Information Available Encounters Type Date Location Provider Dx Diagnosis Office Visit 12/18/2020 8:50a [facility] Gastroenterology Pra ctklarissa Cronin MD 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 R09.1 Pleurisy R63.4 Abnormal weight loss Office Visit 11/24/2020 3:45p [facility] Gastroenterology Pra ctice Ike Cronin MD 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 R19.7 Diarrhea, unspecified R19.4 Change in bowel habit R63.4 Abnormal weight loss Office Visit 11/05/2020 3:30p [facility] Pulmonary/Thoracic Lawraga Johns MD J43.1 Panlobular emphysema R91.8 Other nonspecific abnormal f inding of lung field Z87.891 Personal history of nicotine dependence Assessments Date Code Description Provider 12/18/2020 K51.318 Ulcerative (chronic) rectosigmoiditis with other complication Ike Cronin MD 12/18/2020 R09.1 Pleurisy Ike Cronin MD 12/18/2020 R63.4 Abnormal weight loss Ike andino MD 11/24/2020 K51.318 Ulcerative (chronic) rectosigmoiditis with other complication Ike Cronin MD 11/24/2020 R19.7 Diarrhea, unspecified Ike escoto MD 11/24/2020 R19.4 Change in bowel habit Ike escoto MD 11/24/2020 R63.4 Abnormal weight loss Ike andino MD 11/05/2020 J43.1 Panlobular emphysema Riky martinez MD 11/05/2020 R91.8 Other nonspecific abnormal findi ng of lung field Riky Johns MD 11/05/2020 Z87.891 Personal history of nicotine dep endence Riky Johns MD 07/15/2020 K51.30 Ulcerative (chronic) rectosigmoi ditis without complications Ike Cronin MD 07/15/2020 K57.30 Diverticulosis of la rge intestine without perforation or abscess without bleeding Ike Cronin MD 07/15/2020 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 Ike Cronin MD 07/15/2020 K64.8 Other hemorrhoids Ike Cronin MD Plan of Treatment Future Appointment(s):* 05/08/2021 6:00 am - Ike Cronin MD at [facility] * 03/13/2021 6:00 am - Ike Cronin MD at [facility] * 01/16/2021 6:00 am - Ike Cronin MD at [facility] * 12/19/2020 6:00 am - Ike Cronin MD at [facility] 12/18/2020 - Ike Cronin MD* K51.318 Ulcerative (chronic) rectosigmoiditis with other complication * R09.1 Pleurisy * R63.4 Abnormal weight loss * * New Medication:* Remicade 100 mg * Remicade 100 mg * Prednisone 10 mg * New Labs:* Quanteferon TB Gold Test, Ordered: 12/18/20 * Hepatitis B Surface Antigen, Ordered: 12/18/20 * BUN & Creatinine ([facility]), Ordered: 12/18/20 * New Xrays:* CT Abdomen And Pelvis W/O And W Contrast, Ordered: 12/18/20 * Comments:* timing of pleurisy episode and entyvio infusion is in question. For safety reasons, I am going to call his reaction to entyvio an "allergy" and will need to record changer to an alternative. * Follow up:* 1 month or sooner prn * Recommendations:* stop entyvio--new allergy(pleurisy/chest pain) Stop Sulfasalazine start Remicade For now continue prednisone Will check CT A/P for continued weigth loss despite improvement in bowels Functional Status Description No Information Available Mental Status Description No Information Available Referrals Description No Information Available
--- OUTSIDE RECORDS SUMMARY | 2021-02-04 08:38 | CCD ---
Author Author [facility] Organization [facility] Address Unknown Phone Unavailable Care Team Providers Care Accounts Receivable Processor Name Role Phone Adalberto Jackman Unavailable PROBLEMS Type Condition ICD9-CM Code [id number] Code Onset Dates Condition S tatus W/U Status Risk SNOMED Code Notes Problem Chronic obstructive pulmonary disease J44.9 Ac tive confirmed 92173992 Doing fair. He has stable YOUSSEF. Sees a lmonologist, most recently in 10/2020. I'm sure his cardiomyopathy is contributing to dyspnea on exertion. On Symbicort and he is no longer on Spiriva apparently. PFT's are confirmatory. I do not have his April or October 2020 PFT reports. Problem Carotid artery disease I77.9 Active confirmed [id number] Carotid artery disease--last ultrasound 01/31, due prn symptoms --has 15-49% right ICA stenosis, 15-49% left ICA stenosis. Asymptomatic. Problem Elevated fasting glucose R73.01 Active confirmed 625171194 FBS has been borderline elevated, most recently 106 in August 2018, but currently controlled at 89 with a hemoglobin A1c of 5% in April 2020, 85 in 09/2020. Problem Erectile dysfunction, unspecified erectile dysfunction typ e N52.9 Active confirmed 217637065 Levitra is effec tive. 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 Dose of Wellbutrin increased to 300 mg daily in 08/2020. Problem Glaucoma H40.9 Active confirmed 54980062 On no medication. This was stopped after glaucoma surgery in 2010. 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 His TSH had had elevated as of late May 2019 to over 19. His most recent TSH was just minimally elevated in 09/2020 at 4.78. He is on levothyroxine 150 mcg daily; I incresased the dose to 175 mcg daily in 10/2020. Problem Encounter for long-term (current) use of other medications Z79.899 Active confirmed 464700417 Problem Sensorineural hearing loss (SNHL) of both ears H90 .3 Active confirmed 286676650 He has hearing aids which he is being encouraged to wear. Problem Hypercholesterolemia E78.00 Active confirmed 75601233 Lipids optimal in 09/2020 on atorvastatin 20 mg daily. Problem Prostate cancer C61 Active confirmed 3990 25245 He has low-grade prostate cancer, 3 biopsies, Valliant score 3+3. He has received immunotherapy per a research protocol which is ongoing. Last PSA wa in the 5 range in 05/2020. Problem History of sepsis Z86.19 Active confirmed 13 [id number] He had sepsis with multiple investigational studies in [place] in April 2019. He was discharged after a one-week hospital stay on IV Zosyn for an additional 2 weeks. Cultures were negative and the pathogen and source of pathogen were never identified. He has not had recurrent symptoms. Problem Left bundle-branch block I44.7 Active confirmed 24411917 Longstanding. An echocardiogram in 2010 was unremarkable; MUGA EF was 69%. However he has developed a cardiomyopathy with the reduction in his ejection fraction as of April 2019. Problem Atrial fibrillation status post cardioversion I48. 91 Active confirmed 28287257 He had atrial fibril lation versus atypical atrial flutter and was converted to sinus rhythm with IV amiodarone, which he had maintained orally until was stopped by his supervisor blast furnace in July 2019. He has not had recurrent symptoms. He is on Eliquis, metoprolol, Entresto and is followed by our local supervisor blast furnace. Problem Alcohol use disorder F10.99 Active confirmed 95487126 History of alcohol intake above recommended limits; counselled in past. Stopped drinking in 10/2014 transiently and then restarted. Stopped drinking again 12/19/18 but as of interview in April 2000 he is drinking an ounce and a half of alcohol daily, and as of 10/2020 I believe that trend continues. Problem Constipation, unspecified constipation type K59.00 Active confirmed 03504882 He has had significant const ipation issues since his urolift procedure in 01/2019. A rectal examination was accomplished by his urologist in 02/2019 so it was deferred today. He is instructed to use Miralax 3 times a week, Magnesium citrate today, Benefiber daily and MOM as needed. He is leaving for [place] for the winter soon and if this issue persists, he may need a colonoscopy in [place]; his last was in 2014. 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 I suspect pseudo-claudication. He is to walk to tolerance. Problem Other cardiomyopathy I42.8 Active confirmed 99648088 He has a significant cardiomyopathy with an ejection fraction of 20-25% when it was diagnosed in [place] when he presented with sepsis in April 2019. He had no occlusive coronary artery disease on cardiac catheterization. His previously recorded ejection fraction in 2010 with 69% by MUGA scan and he had had an echocardiogram at that time. He has a long-standing left bundle branch block which precedes his cardiomyopathy diagnosis. He had atrial fibrillation requiring cardioversion during his April 2019 hospital stay. He is currently on Entresto, spironolactone, Eliquis and metoprolol, and amiodarone was stopped in July 2019 by his supervisor blast furnace. He has Lasix available if he has weight gain. He has a biventricular pacemaker/AICD. A MUGA scan revealed a left ventricular ejection fraction of 48% in 07/2020, a definite improvement. Farxiga was suggested by his supervisor blast furnace in 06/2020, but he is not on it now. He has no evidence of CHF on examination today. 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 The patient currently on sulfasalazine and has tapered off prednisone. Most recent colonoscopy was in 06/2020; biopsies showed some activity of his colitis without dysplasia. ALLERGIES No Known Allergies ENCOUNTERS from 1940 to 2020-12-24 Encounter [facility] Date [facility] [address] [facility] [phone] Afshin Benavides JUAN PABLO [address] Nov, [facility] Vaccine Route Administration Date Status Influenza Pharmacy Given Unknown Jan 28, 2020 Adminis tered Influenza Pharmacy Given Unknown Feb 05, 2019 Adminis tered Influenza Pharmacy Given Unknown Jan 29, 2018 Adminis tered Zoster 50mcg/0.5mL Shingrix Unknown August 11, 2018 Admi nistered Influenza (High Dose 65 & up) Unknown Feb 02, 2017 Ad ministered Zoster 0.65mL Zostavax Unknown Dec 29, 2009 Drake bon COVID-19 dose #1 given elsewhere Unspecified Unknown Apr 10, 2020 Administered Pneumococcal Adult 0.5mL Pneumovax 23 Unknown Nov 28 007 Administered COVID-19 dose #2 given elsewhere Unspecified Unknown May 01, 2020 Administered Pneumococcal 0.5mL Prevnar 13 IM Intramuscular Nov 02, 2017 A dministered TD Adult 0.5mL Tetanus Unknown Jan 27, 2004 Drake crockett SOCIAL HISTORY Tobacco Use: Social History Observation Description Date Details (start date - stop date) Former Smoker Sex Assigned At : Social History Observation Description Sex Assigned At Unknown Education: Question Answer Notes Level of Education: College bachelors in science Audit Question Answer Notes Total Score: 5 Interpretation: Alcohol Education Domestic Violence: Question Answer Notes Status: Sexual Hx: Question Answer Notes Had sex in the last 12 months (vaginal, oral, or anal)? Yes Have you ever had an STD? No with Women only Drug and Alcohol Question Answer Notes Total Score: 0 Interpretation: No problems reported Alcohol Screening: Question Answer Notes Did you have a drink containing alcohol in the past year? Ye s Points 6 Interpretation Positive How often did you have six or more drinks on one occas ion in the past year? Less than monthly (1 point) How many drinks did you have on a typica l day when you were drinking in the past year? 3 or 4 (1 point) How often did you have a drink containing alcohol in t he past year? Four or more times a week (4 points) Tobacco Use: Question Answer Notes Are you a: former smoker REASON FOR REFERRAL No Information VITAL SIGNS No information MEDICATIONS Medication SIG (Take, Route, Frequency, Duration) Notes Start Da te End Date Status Symbicort 160-4.5 MCG/ACT 2 puffs Inhalation Twice a day 0 6 Nov, 2016 Active Eliquis 5 MG 1 tab Orally twice daily Active Spironolactone 25 mg 1 tablet Orally Once a day Active Metoprolol Succinate ER 25 mg 1 tablet Orally Once a d ay in the PM if systolic is above 100 and HR above 60 Act calli Farxiga 5 MG 1 tablet Orally Once a day Not-Taking Systane Balance 0.6 % 1 drop both eyes Ophthalmic as needed Active sulfaSALAzine 500 MG 2 tablet Orally three times daily Sep, Not-Taking Levothyroxine Sodium 175 MCG 1 tablet in the morning o n an empty stomach Orally Once a day for 90 days Jun, Active Entresto 24-26 MG 1 tablet Orally Twice a day Active Lipitor 20 MG 1 tablet Orally Once a day for 90 days Active Wellbutrin XL 300 MG 1 tablet in the morning Orally Once a day f or 90 days Oct, Active predniSONE 10 MG (21) as directed Orally 3 tabs [id number] , 2 tabs daily x7 days, 1 tab [id number], 0.5 tabs daily x7 days then stop Nov, Active PROCEDURES No Information RESULTS No Results REASON FOR VISIT TCM/ACO [facility] d/c 12/22 Weakness, Dehydration MEDICAL (GENERAL) HISTORY Type Description Date Medical History Hypercholesterolemia Medical History Chronic obstructive pulmonary disease Medical History Glaucoma Medical History Dysthymic disorder Medical History Carotid artery disease Medical History Left bundle-branch block Medical History Elevated fasting glucose Medical History Alcohol use disorder Medical History Lesion of lung Medical History Erectile dysfunction, unspecified erecti le dysfunction type Medical History Sensorineural hearing loss (SNHL) of bot h ears Medical History Other cardiomyopathy Medical History Ulcerative rectosigmoiditis without comp lication Medical History Atrial fibrillation status post cardiove rsion Medical History History of sepsis Surgical History Tonsillectomy, second time 1945 Surgical History Appendectomy 1952 Surgical History Sinus surgery 1977 Surgical History Sinus surgery 1987 Surgical History Neuroma of his left foot excised Surgical History colonoscopy 08/2004 Surgical History Carpal Tunnel Release, right 03/2007 Surgical History Rotator Cuff Repair, right 01/2007 Surgical History Bilateral cataract extractions -05/2010 Surgical History Colonoscopy 02/14/2015 Surgical History Left shoulder surgery 01/21/2016 Surgical History Right shoulder surgery-Dr. Rinaldi 2016 Surgical History Port placement for trial study with AMP 09/2018 Surgical History Urolift 01/29/19 Surgical History Cardiac catheterization, car diomyopathy but normal coronary arteries 05/18/2019 Surgical History Colonoscopy while in [place] 04/18/2019 Surgical History Colonoscopy; biopsies showed some activity of his colitis without dysplasia 06/2020 Hospitalization [facility] Goals Section No Information Health Concerns No Information MEDICAL EQUIPMENT No Information MENTAL STATUS No Information FUNCTIONAL STATUS No Information ASSESSMENTS Encounter Date Diagnosis Assessment Notes Treatment Notes Treatm ent Clinical Notes Nov, Other Contacted yuriy pimentel, Shruti gave permission to speak to Hope, and handed her the phone. Patient and did not realize she was not re-added to consent form and plan to update at next office visit. Confirmed follow-up appt with Dr. Jackman on 12/29. Reviewed and verified medication list. Sulfasalazine was discontinued by Dr. Cronin, upon starting Prednisone. No other medication changes. Patient and deny any further questions or concerns at this time. PLAN OF TREATMENT Next Appt Details Provider Name:Adalberto Augustina, 2020-12-29 11 :00:00 AM, [address] [place] [address] , [place], [address], Provider Name:Adalberto Jackman, 2021-04-08 10 :30:00 AM, [address] [place] [address], , [place], [address], Insurance Providers Payer Name Payer Address Payer Phone Insured Name Patient Relati onship to Insured Coverage Start Date Coverage End Date [employer] [facility] CLAIM DIV [address] [facility] [phone] SHRUTI NICOLE self MEDICARE Part A and B [address] [facility] [id number] [phone] SHRUTI NICOLE
--- OUTSIDE RECORDS SUMMARY | 2021-02-04 08:38 | CCD | Continuity of Care Document ---
Author Author Nigel PRESLEY MD Organization Unknown Address [address] [place] [address] Phone [phone] Care Team Providers Care Senior Medical Director Name Role Phone Adalberto Jackman M.D. AUTM [phone] Riky Johns M.D. AUTM [phone] Ernie Ardon MD AUTM [phone] Manan Mcintyre M.D. AUTM [phone] Problems Active Problems Provider Date Impotence of [...] SIG Qnty Indications Ordering Provide r Date Cephalexin 500mg Capsules 1 capsule po x 1 dsoe 1caps Nigel Presley MD Gemtesa 75mg Tablets 1 by mouth every [...] One Tablet By Mouth Every Day Unknown Medications Administered in Office Medication SIG Qnty [...] Negative Ua Clarity Not Entered Ua Specific [place] 1.025 1.003-1.030 Ua PH 5.5 5.0-7.5 Ua Bilirubin Negative Ua Urobilinogen 0.2 E.U./dL 0.0-1.0 Procedures Date Code Description Status 01/15/2021 05409 Office/Outpatient Established [facility] 10-19 Min Completed 01/15/2021 67009 Cystourethroscopy, Separate Proc edure Completed 01/15/2021 21876 Urodynamics, Complex Uroflowmetry Eg Calibrated Electronic Office Completed 02/16/2019 [id number] Colonoscopy Completed Medical Devices Description No Information Available Encounters Description No Information Available Assessments Date Code Description Provider 01/15/2021 R35.0 Frequency of micturition Noel Presley MD 01/15/2021 C61 Malignant neoplasm of prostate C keyona Presley MD Plan of Treatment Future Appointment(s):* 03/10/2021 10:15 am - Nigel Presley MD at [facility]/ A.. Urology * 03/10/2021 10:15 am - Nigel Presley MD at [facility] A.. Urology 01/15/2021 - Nigel Presley MD* R35.0 [...]
--- OUTSIDE RECORDS SUMMARY | 2021-02-04 08:38 | CCD ---
Author Author [facility] Organization [facility] Address Unknown Phone Unavailable Care Team Providers Care Leather Seasoner Name Role Phone Adalberto Jackman Unavailable PROBLEMS Type Condition ICD9-CM Code [id number] Code Onset Dates Condition S tatus W/U Status Risk SNOMED Code Notes Problem Erectile dysfunction, unspecified erectile dysfunction typ e N52.9 Active confirmed [id number] Frandy is effec tive. Problem Chronic obstructive pulmonary disease J44.9 Ac tive confirmed 49220692 Doing fair. He has stable YOUSSEF. Sees a lmonologist, most recently in 10/2020. I'm sure his cardiomyopathy is contributing to dyspnea on exertion. On Symbicort and he is no longer on Spiriva apparently. PFT's are confirmatory. I do not have his April or October 2020 PFT reports. Problem Glaucoma H40.9 Active confirmed 17282521 On no medication. This was stopped after glaucoma surgery in 2010. Problem Elevated fasting glucose R73.01 Active confirmed 453743102 FBS has been borderline elevated, most recently 106 in August 2018, but currently controlled at 89 with a hemoglobin A1c of 5% in April 2020, 85 in 09/2020. 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 His TSH had had elevated as of late May 2019 to over 19. His most recent TSH was just minimally elevated in 09/2020 at 4.78. He is on levothyroxine 150 mcg daily; I incresased the dose to 175 mcg daily in 10/2020. Problem Encounter for long-term (current) use of other medications Z79.899 Active confirmed 001951912 Problem Alcohol use disorder F10.99 Active confirmed 04826024 History of alcohol intake above recommended limits; counselled in past. Stopped drinking in 10/2014 transiently and then restarted. Stopped drinking again 12/19/18 but as of interview in April 2000 he is drinking an ounce and a half of alcohol daily, and as of 10/2020 I believe that trend continues. 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 Dose of Wellbutrin increased to 300 mg daily in 08/2020. Problem Hypercholesterolemia E78.00 Active confirmed 80352948 Lipids optimal in 09/2020 on atorvastatin 20 mg daily. Problem Prostate cancer C61 Active confirmed 1172 37263 He has low-grade prostate cancer, 3 biopsies, Robert Lee score 3+3. He has received immunotherapy per a research protocol which is ongoing. Last PSA wa in the 5 range in 05/2020. Problem Constipation, unspecified constipation type K59.00 Active confirmed 42115109 He has had significant const ipation issues since his urolift procedure in 01/2019. A rectal examination was accomplished by his urologist in 02/2019 so it was deferred today. He is instructed to use Miralax 3 times a week, Magnesium citrate today, Benefiber daily and MOM as needed. He is leaving for [place] for the winter soon and if this issue persists, he may need a colonoscopy in [place]; his last was in 2014. Problem Atrial fibrillation status post cardioversion I48. 91 Active confirmed 62415953 He had atrial fibril lation versus atypical atrial flutter and was converted to sinus rhythm with IV amiodarone, which he had maintained orally until was stopped by his packager head in July 2019. He has not had recurrent symptoms. He is on Eliquis, metoprolol, Entresto and is followed by our local packager head. Problem Sensorineural hearing loss (SNHL) of both ears H90 .3 Active confirmed 961837866 He has hearing aids which he is being encouraged to wear. Problem Neuropathy G62.9 Active confirmed 642072022 Problem Left bundle-branch block I44.7 Active confirmed 52874574 Longstanding. An echocardiogram in 2010 was unremarkable; MUGA EF was 69%. However he has developed a cardiomyopathy with the reduction in his ejection fraction as of April 2019. Problem Carotid artery disease I77.9 Active confirmed 896273422 Carotid artery disease--last ultrasound 01/31, due prn symptoms --has 15-49% right ICA stenosis, 15-49% left ICA stenosis. Asymptomatic. 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 I suspect pseudo-claudication. He is to walk to tolerance. Problem Other cardiomyopathy I42.8 Active confirmed 22302709 He has a significant cardiomyopathy with an ejection fraction of 20-25% when it was diagnosed in [place] when he presented with sepsis in April [...] was stopped in July 2019 by his packager head. He has Lasix available if he has weight gain. He has a biventricular pacemaker/AICD. A MUGA scan revealed a left ventricular ejection fraction of 48% in 07/2020, a definite improvement. Farxiga was suggested by his packager head in 06/2020, but he is not on it now. He has no evidence of CHF on examination today. 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 The patient currently on sulfasalazine and has tapered off prednisone. Most recent colonoscopy was in 06/2020; biopsies showed some activity of his colitis without dysplasia. Problem History of sepsis Z86.19 Active confirmed 13 [id number] He had sepsis with multiple investigational studies in [place] in April 2019. He was discharged after a one-week hospital stay on IV Zosyn for an additional 2 weeks. Cultures were negative and the pathogen and source of pathogen were never identified. He has not had recurrent symptoms. ALLERGIES No Known Allergies ENCOUNTERS from 1940 to 2020-12-29 Encounter Location Date Provider Diagnosis [facility] [place] [address] [facility] [phone] [place] [address] 04 [facility] Administration Date Status Influenza Pharmacy Given Unknown Jan 28, 2020 Adminis tered Influenza Pharmacy Given Unknown Feb 05, 2019 Adminis tered Influenza Pharmacy Given Unknown Jan 29, 2018 Adminis tered Zoster 50mcg/0.5mL Shingrix Unknown August 11, 2018 Admi nistered Influenza (High Dose 65 & up) Unknown Feb 02, 2017 Ad ministered Zoster 0.65mL Zostavax Unknown Dec 29, 2009 Drake crockett COVID-19 dose #1 given elsewhere Unspecified Unknown [...] Notes Start Da te End Date Status Milk of Magnesia 2400 MG/10ML 30 ml Orally Once daily as needed Active Entresto 24-26 MG 1 tablet Orally Twice a day Active predniSONE 10 MG (21) as directed Orally 3 tabs [id number] , 2 tabs daily x7 days, 1 tab [id number], 0.5 tabs daily x7 days then stop Nov, Active sulfaSALAzine 500 MG 2 tablet Orally three times daily Sep, Not-Taking Metoprolol Succinate ER 25 mg 1 tablet Orally Once a d ay in the PM if systolic is above 100 and HR above 60 Act calli MiraLax 17 GM/SCOOP 1 packet mixed with 8 ounces of fluid Orally On a day Active Farxiga 5 MG 1 tablet Orally Once a day Not-Taking Eliquis 5 MG 1 tab Orally twice daily Active Lipitor 20 MG 1 tablet Orally Once a day for 90 days Active Wellbutrin XL 300 MG 1 tablet in the morning Orally Once a day or 90 days Oct, Active Systane Balance 0.6 % 1 drop both eyes Ophthalmic as needed Active Spironolactone 25 mg 1 tablet Orally Once a day Active Levothyroxine Sodium 175 MCG 1 tablet in the morning o n an empty stomach Orally Once a day for 90 days Jun, Active Symbicort 160-4.5 MCG/ACT 2 puffs Inhalation Twice a day 0 6 Nov, 2016 Active PROCEDURES No Information RESULTS No Results REASON FOR VISIT no BM in 1 wk MEDICAL (GENERAL) HISTORY Type Description Date Medical [...] arteries 05/18/2019 Surgical History Colonoscopy while in [place] 04/18/2019 Surgical History Colonoscopy; biopsies showed some activity of his colitis without dysplasia 06/2020 Hospitalization History Surgery related [facility]12-05[facility]20/2019 Hospitalization History [facility], Dehydration 12/20-11/27 Goals Section No Information Health Concerns No Information MEDICAL EQUIPMENT No Information MENTAL STATUS No Information FUNCTIONAL STATUS No Information ASSESSMENTS No Information PLAN OF TREATMENT Next Appt Details Provider Name:Adalberto Jackman, 2021-04-08 10 :30:00 AM, [address] [facility], , [place], [address], Insurance Providers Payer Name Payer Address Payer Phone Insured Name Patient Relati onship to Insured Coverage Start Date Coverage End Date MEDICARE Part A and B [address] [facility] [address] [phone] SHRUTI NICOLE [facility] HEALTH CARE OPTIONS [facility] CLAIM DIV [address] [facility] [id number] SHRUTI NICOLE
--- OUTSIDE RECORDS SUMMARY | 2021-02-04 08:38 | CCD ---
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 Problem Chronic obstructive pulmonary disease J44.9 Ac tive confirmed [id number] Doing fair. He has stable YOUSSEF. Sees a lmonologist, most recently in 10/2020. I'm sure his cardiomyopathy is contributing to dyspnea on exertion. On Symbicort and he is no longer on Spiriva apparently. PFT's are confirmatory. I do not have his April or October 2020 PFT reports. Problem Glaucoma H40.9 Active confirmed [id number] On no medication. This was stopped after glaucoma surgery in 2010. Problem Elevated fasting glucose R73.01 Active confirmed 661236358 FBS has been borderline elevated, most recently 106 in August 2018, but currently controlled at 89 with a hemoglobin A1c of 5% in April 2020, 85 in 09/2020. 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 His TSH had had elevated as of late May 2019 to over 19. His most recent TSH was just minimally elevated in 09/2020 at 4.78. He is on levothyroxine 150 mcg daily; I incresased the dose to 175 mcg daily in 10/2020. Problem Encounter for long-term (current) use of other medications Z79.899 Active confirmed 265356534 Problem Alcohol use disorder F10.99 Active confirmed 23850783 History of alcohol intake above recommended limits; counselled in past. Stopped drinking in 10/2014 transiently and then restarted. Stopped drinking again 12/19/18 but as of interview in April 2000 he is drinking an ounce and a half of alcohol daily, and as of 10/2020 I believe that trend continues. Problem Dysthymic disorder F34.1 Active confirmed 7 0302217 On Wellbutrin now, previously Celelxa. Dose of Wellbutrin increased to 300 mg daily in 08/2020. Problem Hypercholesterolemia E78.00 Active confirmed 39663731 Lipids optimal in 09/2020 on atorvastatin 20 mg daily. Problem Prostate cancer C61 Active confirmed 5146 85513 He has low-grade prostate cancer, 3 biopsies, Carmine score 3+3. He has received immunotherapy per a research protocol which is ongoing. Last PSA wa in the 5 range in 05/2020. Problem Constipation, unspecified constipation type K59.00 Active confirmed 61406085 He has had significant const ipation issues since his urolift procedure in 01/2019. A rectal examination was accomplished by his urologist in 02/2019 so it was deferred today. He is instructed to use Miralax 3 times a week, Magnesium citrate today, Benefiber daily and MOM as needed. He is leaving for [place] for the winter soon and if this issue persists, he may need a colonoscopy in [place]; his last was in 2014. Problem Atrial fibrillation status post cardioversion I48. 91 Active confirmed 87551671 He had atrial fibril lation versus atypical atrial flutter and was converted to sinus rhythm with IV amiodarone, which he had maintained orally until was stopped by his fire systems inspector in July 2019. He has not had recurrent symptoms. He is on Eliquis, metoprolol, Entresto and is followed by our local fire systems inspector. Problem Sensorineural hearing loss (SNHL) of both ears H90 .3 Active confirmed 933310607 He has hearing aids which he is being encouraged to wear. Problem Neuropathy G62.9 Active confirmed 352786329 He has neuropathy of his hands and feet. I suspect this is from his prior alcohol intake but I have referred him to neurology. Problem Left bundle-branch block I44.7 Active confirmed 08826036 Longstanding. An echocardiogram in 2010 was unremarkable; MUGA EF was 69%. However he has developed a cardiomyopathy with the reduction in his ejection fraction as of April 2019. Problem Carotid artery disease I77.9 Active confirmed 902797187 Carotid artery disease--last ultrasound 01/31, due prn symptoms --has 15-49% right ICA stenosis, 15-49% left ICA stenosis. Asymptomatic. 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 I suspect pseudo-claudication. He is to walk to tolerance. Problem Other cardiomyopathy I42.8 Active confirmed 16161038 He has a significant cardiomyopathy with an ejection fraction of 20-25% when it was diagnosed in [place] when he presented with sepsis in April [...] was stopped in July 2019 by his fire systems inspector. He has Lasix available if he has weight gain. He has a biventricular pacemaker/AICD. A MUGA scan revealed a left ventricular ejection fraction of 48% in 07/2020, a definite improvement. Farxiga was suggested by his fire systems inspector in 06/2020, but he is not on it now. He has no evidence of CHF on examination today. 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 The patient is now off sulfasalazine and has had courses of prednisone. Most recent colonoscopy was in 06/2020; biopsies showed some activity of his colitis without dysplasia. Entyvio in 11/2020 caused pleurisy. He received IV fluids for complaints of weakness in late November 2020 and has benefited from that. He is considering other options for treatment of his ulcerative colitis with his industrial sales engineer. At present he complains of constipation and we discussed treatment. His wondered about celiac sprue and labs were ordered in that regard. Problem History of sepsis Z86.19 Active confirmed 13 [id number] He had sepsis with multiple investigational studies in [place] in April 2019. He was discharged after a one-week hospital stay on IV Zosyn for an additional 2 weeks. Cultures were negative and the pathogen and source of pathogen were never identified. He has not had recurrent symptoms. 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 and Neuropathy G62.9 IMMUNIZATIONS Vaccine Route Administration Date Status Influenza Pharmacy Given Unknown Jan 28, 2020 Adminis tered Influenza Pharmacy Given Unknown Feb 05, 2019 Adminis tered Influenza Pharmacy Given Unknown Jan 29, 2018 Adminis tered Zoster 50mcg/0.5mL Shingrix Unknown August 11, 2018 Admi nistered Influenza (High Dose 65 & up) Unknown Feb 02, 2017 Ad ministered Zoster 0.65mL Zostavax Unknown Dec 29, 2009 Administe red COVID-19 dose #1 given elsewhere Unspecified Unknown Apr 10, 2020 Administered Pneumococcal Adult 0.5mL Pneumovax 23 Unknown Nov 28 007 Administered COVID-19 dose #2 given elsewhere Unspecified Unknown May 01, 2020 Administered Pneumococcal 0.5mL Prevnar 13 IM Intramuscular Nov 02, 2017 A dministered TD PED 0.5mL Tetanus Unknown Jan 27, 2004 Administere d SOCIAL HISTORY Tobacco Use: Social History Observation [...] you a: former smoker REASON FOR REFERRAL from 1940 to 2021-01-14 Reason Please evaluate for reversib le etiologies of neuropathy of his hands and feet.|His is also concerned about progressive cognitive decline Diagnosis 1 Neuropathy (G62.9) Diagnosis 2 Cognitive decline (R41.89) Referral Organization [facility] [place] Referring Provider First Name Adalberto Referring Provider Last Name Augustina Referring Provider Specialty Family Medicine Referred Provider [facility],Neurology Referred Provider Specialty Neurology Referral Priority Routine General Notes ChangToby 01/07/2021 9 :34:31 AM > Sent VITAL SIGNS Weight 126.6 lbs Dec, Height 68.5 in Dec, BMI 18.97 kg/m2 Dec, Heart Rate 78 /min Dec, Respiratory Rate 18 /min Dec, Temperature 96.0 degrees Fahrenheit Dec, Oximetry 98% Dec, Blood pressure systolic 128 mm Hg Dec, Blood pressure diastolic 74 mm Hg Dec, MEDICATIONS Medication SIG (Take, Route, Frequency, Duration) Notes Start Da te End Date Status Milk of Magnesia 2400 MG/10ML 30 ml Orally Once daily as needed Active Entresto 24-26 MG 1 tablet Orally Twice a day Active predniSONE 10 MG (21) as directed Orally 3 tabs [id number] , 2 tabs daily x7 days, 1 tab [id number], 0.5 tabs daily x7 days then stop [...] Nov, 2016 Active PROCEDURES No Information RESULTS Component Value Reference Range t-Transglutaminase (tTG) IgA Reviewed date:01/12/2021 14:09:23 Interpretation: Performing Lab:[facility], [facility] [id number] , ,[place] [address] TISSUE TRANSGLUTAMINASE IgA <2 0-3 t-Transglutaminase (tTG) IgG Reviewed date:01/12/2021 14:08:39 Interpretation: Performing Lab:[facility], [facility] [address] [address] , ,[place] [address] TISSUE TRANSGLUTAMINASE IgG <2 0-5 REASON FOR VISIT TCM/ACO [facility] Hospital follow up-Admitted 12/20-12/22/2020; Weakness, dehydratio n MEDICAL (GENERAL) HISTORY Type Description Date Medical [...] arteries 05/18/2019 Surgical History Colonoscopy while in [place] 04/18/2019 Surgical History Colonoscopy; biopsies showed some activity of his colitis without dysplasia 06/2020 Hospitalization History Surgery related Hospitalization History [facility] 05/12-05/20/2019 Hospitalization History [facility]-Weakness, Dehydration 12/20-11/27 Goals Section No Information Health Concerns No Information MEDICAL EQUIPMENT No Information MENTAL STATUS No Information FUNCTIONAL STATUS No Information ASSESSMENTS Encounter Date Diagnosis Assessment Notes Treatment Notes Treatm ent Clinical Notes Dec, Ulcerative rectosigmoiditis without comp lication (ICD-10 - K51.30) Ulcerative colitis was diagnosed by colonoscopy in March 2019 in [place]. The patient is now off sulfasalazine and has had courses of prednisone. Most recent colonoscopy was in 06/2020; biopsies showed some activity of his colitis without dysplasia. Entyvio in 11/2020 caused pleurisy. He received IV fluids for complaints of weakness in late November 2020 and has benefited from that. He is considering other options for treatment of his ulcerative colitis with his industrial sales engineer. At present he complains of constipation and we discussed treatment. His wondered about celiac sprue and labs were ordered in that regard. Dec, Neuropathy (ICD-10 - G62.9) He has neuro kristine of his hands and feet. I suspect this is from his prior alcohol intake but I have referred him to neurology. PLAN OF TREATMENT Referrals Referral Date Details Please evaluate for reversib le etiologies of neuropathy of his hands and feet.|His is also concerned about progressive cognitive decline, Neurology [facility] Next Appt Details Keep scheduled Reason: Provider Name:Adalberto Jackman, 2021-04-08 10 :30:00 AM, [address], , [place], [address], Insurance Providers Payer Name Payer Address Payer Phone Insured Name Patient Relati onship to Insured Coverage Start Date Coverage End Date [employer] [facility] CLAIM DIV [address] [facility] [id number] SHRUTI NICOLE self MEDICARE Part A and B [address] [facility] [phone] SHRUTI NICOLE"
--- OUTSIDE RECORDS SUMMARY | 2021-02-04 08:39 | CCD ---
Author Author Ike Reece MD [facility] Organization Ike Reece MD [facility] Address [address] [address] Phone Care Team Providers Care Mold Tooling Technician Name Role Phone Shanell HERMOSILLO, ROBBIN, Ike Alfred Unavailable [phone] Adalberto Jackman MD PP [phone] Reason for Referral No Reason for Referral Recorded Problems Includes: Active, inactive, and resolved Problems All Visits Onset Date - Time Resolved Date - Time Provider Co ndition Status 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 0 09/15/2017 - 12:00AM Ike Reece MD, FACS Active History of Nicotine Dependence 09/15/2017 - 12:00AM Ike Reece MD, FACS Active Pseudophakia 09/15/2017 - 12:00AM Ike Reece MD, FACS Active Vitreous degeneration, bilateral 09/16/2015 - 12:00AM Ike Reece MD, FACS Active Pinguecula Bilateral 09/16/2014 - 12:00AM Ike Rodríguez MD, FACS Active Note: Unchanged Posterior Capsule Opacification Left Eye 09/16/2014 - 12:00AM Ike Turpin MD, FACS Inactive Note: Unchanged Posterior Capsule Opacification Not Obscuring Vision 09/16/2014 - 12:00AM Ike Reece MD, FACS Inactive Note: Unchanged Macular Puckering Right Eye 09/13/2013 - 12:00AM Ike Reece MD, FACS Active Note: Unchanged Pinguecula 09/13/2013 - 12:00AM Ike Reece MD, FACS Inactive Note: Unchanged Conjunctivitis Chronic Allergic 09/18/2012 - 12:00AM Ike Reece MD, FACS Active Note: Unchanged Dermatochalasis Both Eyelids 09/18/2012 - 12:00AM Ike Reece MD, FACS Active Note: Unchanged Dry Eye Syndrome Both Eyes 09/18/2012 - 12:00AM Ike Reece MD, FACS Active Note: Unchanged Vitreous Floaters Both Eyes 09/18/2012 - 12:00AM Ike Reece MD, FACS Inactive Note: Unchanged Plan of Treatment Future Appointments Date Time Location Provider 1 Year Follow-Up 11/11/2021 9:05AM Ike Reece MD [facility] Ike Reece MD, FACS Assessments Includes: Assessments for all patient encounters Findings Encounter Date Dry eye syndrome of both eyes 1 Year Follow-Up & Testi ng with Ike Turpin MD, FACS 11/11/2020 Macular puckering of the right eye 1 Year Follow-Up & Testing with Ike Reece MD, FACS 11/11/2020 Posterior capsule opacification of eccentric capsule i n the left eye 1 Year Follow-Up & Testing with Ike Reece MD, FACS 11/11/2020 Pseudophakia 1 Year Follow-Up & Testing with Ike Reece MD, FACS 11/11/2020 Dry eye syndrome of both eyes 1 Year Follow-Up with Joshua Reece MD, FACS 11/01/2019 Macular puckering of the right eye 1 Year Follow-Up wi Ike Reece MD, FACS 11/01/2019 Posterior capsule opacification of eccentric capsule i n the left eye 1 Year Follow-Up with Ike Reece MD, FACS 11/01/2019 Pseudophakia 1 Year Follow-Up with Ike clark MD, FACS 11/01/2019 Dry eye syndrome of both eyes 1 Year Follow-Up & Testi ng with Ike Turpin MD, FACS 10/03/2018 Macular puckering of the right eye 1 Year Follow-Up & Testing with Ike Reece MD, FACS 10/03/2018 Posterior capsule opacification of eccentric capsule i n the left eye 1 Year Follow-Up & Testing with Ike Reece MD, FACS 10/03/2018 Pseudophakia 1 Year Follow-Up & Testing with Ike Reece MD, FACS 10/03/2018 Dry eye syndrome of both eyes 1 Year Follow-Up with Joshua Reece MD, FACS 09/15/2017 Macular puckering 1 Year Follow-Up with Ike clark MD, FACS 09/15/2017 Posterior capsule opacification of eccentric capsule i n the left eye 1 Year Follow-Up with Ike Reece MD, FACS 09/15/2017 Pseudophakia 1 Year Follow-Up with Ike clark MD, FACS 09/15/2017 Dry eye syndrome of both eyes 1 Year Follow-Up with Joshua Reece MD, FACS 09/14/2016 Macular puckering of the right eye 1 Year Follow-Up wi th Ike Reece MD, FACS 09/14/2016 Posterior capsule opacification of eccentric capsule i n the left eye 1 Year Follow-Up with Ike Reece MD, FACS 09/14/2016 Pseudophakia in both eyes 1 Year Follow-Up with Ike Rodríguez MD, FACS 09/14/2016 Chronic allergic conjunctivitis of both eyes 1 Year F ollow-Up with Ike Reece MD, FACS 09/16/2015 Dry eye syndrome of both eyes 1 Year Follow-Up with Joshua Reece MD, FACS 09/16/2015 Macular puckering of the right eye 1 Year Follow-Up wi Ike Reece MD, FACS 09/16/2015 Posterior capsule opacification of eccentric capsule i n the left eye 1 Year Follow-Up with Ike Reece MD, FACS 09/16/2015 Pseudophakia 1 Year Follow-Up with Ike clark MD, FACS 09/16/2015 Bilateral pinguecula 1 Year Follow-Up with Ike guerra MD, FACS 09/16/2014 Chronic allergic conjunctivitis of both eyes 1 Year F ollow-Up with Ike Reece MD, FACS 09/16/2014 Dermatochalasis of both eyes upper and lower lids 1 Y ear Follow-Up with Ike Reece MD, FACS 09/16/2014 Dry eye syndrome of both eyes 1 Year Follow-Up with Joshua Reece MD, FACS 09/16/2014 Macular puckering of the right eye 1 Year Follow-Up wi Ike Reece MD, FACS 09/16/2014 Posterior capsule opacification in the left eye 1 Year Follow-Up with Ike Reece MD, FACS 09/16/2014 Posterior capsule opacification not obscuring vision 1 Year Follow-Up with Ike Reece MD, FACS 09/16/2014 Vitreous floaters in both eyes 1 Year Follow-Up with Daphney Reece MD, FACS 09/16/2014 Chronic allergic conjunctivitis both eyes 1 Year Foll ow-Up with Ike Turpin MD, FACS 09/13/2013 Dermatochalasis of both eyes upper and lower 1 Year F ollow-Up with Ike Reece MD, FACS 09/13/2013 Dry eye syndrome of both eyes 1 Year Follow-Up with Joshua Reece MD, FACS 09/13/2013 Macular puckering of the right eye 1 Year Follow-Up wi Ike Reece MD, FACS 09/13/2013 Pinguecula both eyes 1 Year Follow-Up with Ike bailon MD, FACS 09/13/2013 Vitreous floaters in both eyes 1 Year Follow-Up with Daphney Reece MD, FACS 09/13/2013 Chronic allergic conjunctivitis 6 Month Follow-Up with Ike Reece MD, FACS 09/18/2012 Dermatochalasis of both eyes 6 Month Follow-Up with Joshua Reece MD, FACS 09/18/2012 Dry eye syndrome of both eyes 6 Month Follow-Up with Daphney Reece MD, FACS 09/18/2012 Vitreous floaters in both eyes 6 Month Follow-Up with Ike Reece MD, FACS 09/18/2012 Instructions Instructions not supported for this document typeNo Instructions Recorded Medical Equipment - Implanted Devices Includes: Current and historical DevicesNo Medical Equipment Recorded Medications Includes: Current and historical Medications Current Medications (continue as prescribed) buPROPion HCl ER (SR) 150 MG Oral Tablet Extended Release 12 Hour 11/11/2020 Provider: Diagnosis: Symbicort 80-4.5 MCG/ACT Inhalation Aerosol 11/11/2020 Provider: Diagnosis: Eliquis 5 MG Oral Tablet 11/11/2020 Provider: Diagnosis: Entresto 24-26 MG Oral Tablet 11/11/2020 Provider: Diagnosis: Metroprolol 25 mg Oral Tablet 11/11/2020 Provider: Diagnosis: Spironolactone 25 MG Oral Tablet 11/11/2020 Provide r: Diagnosis: sulfaSALAzine 500 MG Oral Tablet 11/11/2020 Provide r: Diagnosis: Levothyroxine Sodium 150 MCG Oral Tablet 11/11/2020 Provider: Diagnosis: Past Medications on file Zocor 20 MG OR TABS 09/18/2012 - 11/11/2020 Provider: Diagnosis: CeleXA 40 MG OR TABS 09/18/2012 - 11/11/2020 Provider: Diagnosis: Calcium 600+D 600-200 MG-UNIT OR TABS 09/18/2012 - Provider: Diagnosis: Aspirin 81 MG OR TABS 09/18/2012 - 11/11/2020 Provider: Diagnosis: Medications Administered Includes: Administered Medications in patient's chartNo Administered Medications Recorded Vital Signs Includes: Vital Signs from 11/28/2019 through 11/27/2020No Vital Signs Recorded For Specified Dates Results Includes: Results from 11/28/2019 through 11/27/2020No Results Recorded For Specified Dates History of Present Illness History of Present Illness not supported for this document typeNo History of Present Illness Recorded Social History Description Last Updated Tobacco non-user 11/11/2020 No tobacco use 11/11/2020 Not using alcohol 11/11/2020 Not using drugs 11/11/2020 Smoking status : Former smoker 11/11/2020 Previous smoking history 09/18/2012 Procedures and Surgical History Surgical History Last Updated Surgical / procedural history : Appendectomy, Heart De fib placed 02/202011/11/2020 History of cataract extraction : PCIOLOU 09/16/2014 Medical History Includes: Medical History in patient's chart Description Last Updated Recent change in medical history 11/11/2020 Reported medical history Depression 09/16/2014 Currently wearing eyeglasses 09/18/2012 History of hyperlipidemia 09/18/2012 Family History Includes: Family History in patient's chart Description Last Updated Maternal history of arthritis 11/11/2020 Maternal history of cataract 11/11/2020 Paternal history of cataract 11/11/2020 Family medical history was unknown 09/16/2014 Review of Systems Review of Systems not supported for this document typeNo Review of Systems Recorded Mental Status Mental Status not supported for this document type Description Oriented to time, place, and person Functional Status Functional Status not supported for this document typeNo Functional Status Recorded Physical Exam Physical Exam not supported for this document typeNo Physical Exam Recorded Immunizations Includes: Immunizations in patient's chartNo Immunizations Recorded Allergies Includes: Active, inactive, and resolved AllergiesNo Known Allergies Encounters Includes: Encounters from 11/28/2019 through 11/27/2020 Encounter Provider Location Date Check-In Time Check-Out Time D iagnosis 1 Year Follow-Up & Testing Ike Reece MD, FACS Candido Reece MD [facility] 11/11/2020 8:32AM 9:35AM Pseudophakia, Po sterior Capsule Opacification Eccentric Capsule Left Eye, Macular Puckering Right Eye, Dry Eye Syndrome Both Eyes Insurance Includes: Active Insurance Policies Plan Name Member ID Group # Subscriber Relationship Effective Da jeannette 1 - Medicare Part [facility] ([facility]) [id number] Vesta Queenton Self 2 - [facility] [id number] [facility] Advance Directives Includes: Current Advance DirectivesNo Advance Directives Recorded Health Concerns Includes: Active Health ConcernsNo Active Health Concerns Recorded Goals Includes: Active GoalsNo Active Goals Recorded Interventions Includes: Interventions for active GoalsNo Interventions Recorded Evaluations & Outcomes Includes: Evaluations & Outcomes for active GoalsNo Outcomes Recorded
--- OUTSIDE RECORDS SUMMARY | 2021-02-04 08:39 | CCD | Continuity of Care Document ---
Author Author Nigel WYNN MD Organization Unknown Address [address] [place] [address] Phone [phone] Care Team Providers Care Automotive Power Electronics Engineer Name Role Phone Riky Johns M.D. AUTM [phone] Adalberto Jackman M.D. AUTM [phone] Manan Mcintyre M.D. AUTM [phone] Problems Active Problems Provider Date Chronic obstructive lung disease Meera Cuevas Onset: 06/10/2011 Cough Elizabeth Longo M.D. Onset: Difficulty breathing Elizabeth Longo M.D. Onset: Ex-smoker Elizabeth Longo M.D. Onset: Body Mass Index 26.0-26.9 Adult Alison Cuevas Onset: 06/10/2011 Overweight Elizabeth Longo M.D. Onset: Solitary nodule of lung Riky Johns MD Onset: 5 Emphysematous bronchitis Riky Jonhs MD Onset: 03/06/20 13 Pulmonary emphysema Riky [...] 44yrs, quit 2000 Allergies, Adverse Reactions, Alerts Description No Known Drug Allergies Medications Active Medications SIG Qnty Indications Ordering Provide r Date Entyvio 300mg Solution Rec infuse 300 mg iv at week 0, week 2 and week 6, then every 8 weeks 3units K51.318 Ike Wynn MD 11/24/2020 Entyvio 300mg Solution Rec infuse 300 mg iv every 8 weeks 1units K51.318 Ike Wynn MD 11/24/2020 Budesonide ER 9mg Tablets ER 24HR 1 tab by mouth every day (ulcerative colitis) 30tabs Ike andino MD 11/14/2020 Symbicort 80-4.5mcg/Act Aerosol 2 puff twice a day 30.6gm Riky Johns MD 12/31/2015 Aerochamber Plus Misc as directed with smita 1units Elizabeth Longo M.D. Proair HFA 108(90Base) mcg/Act Aer osol 2 puffs four times a day as needed 8.500units Riky Johns MD Eliquis 5mg Tablets 1 tab by mouth twice a day Unknown Entresto 24-26mg Tablets 1/2 at hs Unknown Metoprolol Tartrate 25mg Tablets daily Unknown Spironolactone 25mg Tablets d aily Unknown Sulfasalazine 500mg Tablets 2 tab by mouth three times a day after meals 360tabs Ike Wynn MD 0 Levothyroxine Sodium 175mcg Capsul es 1 by mouth every day Unknown Bupropion Hydrochloride ER (XL) 300mg Tablets ER 24HR 1 tab by mouth everyday Unknown History Medications Milk Of Magnesia 7.75% Suspension take 45 milliliters by mouth about 1-2 days before colonoscopy prep 360ml K51.30 Ike Wynn MD 06/04/2020 - 03/16/2020 Miralax 17GM/Scoop Powder use as directed see dr wynn colon preparation instructions 510gm K51.30 Jed Wynn MD 06/04/2020 - 03/16/2020 Immunizations CPT Code Status Date Vaccine Lot # 87960 Given 01/21/2016 Influenza Virus Split 3 Yrs And Above For Intramuscular Use 88208 Given 01/20/2015 Influenza Virus Split 3 Yrs And Above For Intramuscular Use Q2036 Given 12/27/2012 Influenza Vaccine 3 Years Of Age Or Older (Flulaval) Q2036 Given 01/05/2012 Influenza Vaccine 3 Years Of Age Or Older (Flulaval) 64160 Given 02/09/2011 Influenza Virus Split 3 Yrs And Above For Intramuscular Use 86563 Given 01/09/2010 Pneumococcal PPSV23 75380 Given 12/31/2009 Pneumococcal PPSV23 Vital Signs Date Vital Result Comment 11/24/2020 3:50pm BP Systolic 109 mmHg BP Diastolic 68 mmHg Height 68 inches 5'8" Weight 131.00 lb BMI (Body Mass Index) 19.9 kg/m2 [place] Body Weight 154 lb Weight 59.422 kg BSA (Body Surface Area) 1.71 m2 11/05/2020 3:35pm BP Systolic 108 mmHg BP Diastolic 66 mmHg Heart Rate 85 /min O2 % BldC Oximetry 96 % Room Air Height 68 inches 5'8" Weight 135.00 lb BMI (Body Mass Index) 20.5 kg/m2 [place] Body Weight 154 lb Weight 61.236 kg BSA (Body Surface Area) 1.73 m2 Results Test Acquired Date Facility Test Result H/L Range Note Gastrointestinal (GI) Panel 11/16/2020 [facility] Main Lab [address] [place] [address] [id number] [phone] Gastrointestinal (GI) Panel This Gastrointes <SEE NOTE > 1 Laboratory test finding 07/15/2020 [facility] [address] [place] [address] [phone] Pathology Request For Service (SEE NOTE) 2 Total Iron Binding Capacit 06/05/2020 [facility] Main Lab [address] [place], [place] [id number] [phone] Iron (Fe) 80 g/dL Normal 65-175 Total Iron Binding Capacity 321 g/dL Normal 250-450 Percent Saturation 24.9 % Normal 19.7-50.0 Laboratory test finding 06/05/2020 [facility] [address] [place], [place] [id number] [phone] Vitamin B12 Level 422 pg/mL Normal 247-911 3 1 This Gastrointestinal PCR [place] wade detects the [...] infection. NEGATIVE by MULTIPLEXED NUCLEIC ACID PCR 2 FINAL DIAGNOSIS Colon, random sigmoid, biopsies: Fragment [...] 1300 Signed NILE BATRES MD 07/17/2020 1453 3 VITAMIN B12 NORMAL RANGE NORMAL 247 - 911 PG/ML INDETERMINATE 211 - 246 PG/ML DEFICIENT LESS THAN 211 PG/ML Procedures Date Code Description Status 11/24/2020 87856 Office/Outpatient Established Mo d MDM 30-39 Min Completed 11/05/2020 21411 Office/Outpatient Established Mo d MDM 30-39 Min Completed 11/05/2020 08085 Spirometry Completed 07/15/2020 14667 Colonoscopy Flexible Proximal To Splenic Flexure W/Biopsy Single/ Completed 06/04/2020 30995 Office/Outpatient Established Mo d MDM 30-39 Min Completed Medical Devices Description No Information Available Encounters Type Date Location Provider Dx Diagnosis Office Visit 11/05/2020 3:30p [facility] e Johns, MD 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 R91.8 Other nonspecific abnormal f inding of lung field Z87.891 Personal history of nicotine dependence Office Visit 06/04/2020 1:00p [facility] Vivien Charles 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 R19.4 Change in bowel habit K59.00 Constipation, unspecified D64.9 Anemia, unspecified Assessments Date Code Description Provider 11/24/2020 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 Ike Wynn MD 11/24/2020 R19.7 Diarrhea, unspecified Ike escoto [...] Ulcerative (chronic) rectosigmoi ditis without complications Ike Wynn MD 07/15/2020 K57.30 Diverticulosis of la rge intestine without perforation or abscess without bleeding Ike Wynn MD 07/15/2020 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 Ike Wynn MD 07/15/2020 K64.8 Other hemorrhoids Ike Wynn MD 06/04/2020 K51.30 Ulcerative (chronic) rectosigmoi ditis without complications Ike Wynn MD 06/04/2020 R19.4 Change in bowel habit Ike escoto MD 06/04/2020 K59.00 Constipation, unspecified Ike Wynn MD 06/04/2020 D64.9 Anemia, unspecified Ike Wynn MD Plan of Treatment Future Appointment(s):* 12/18/2020 8:50 am - Ike Wynn MD at [facility] 11/05/2020 - Riky Johns MD* J43.1 Panlobular emphysema * R91.8 Other nonspecific abnormal finding of lung field * Z87.891 Personal history of nicotine dependence * * New Labs:* FVL/Og, Ordered: 11/05/20 * Comments:* ~ At this point, he is to continue his current regimen. His scripts were updated. I have asked him to try to be a little more liberal with his rescue inhaler, as it is hard to know whether or not his dyspnea is related to his pulmonary dysfunction without knowing his response to intervention.~ As long as he is doing well, I will see him in a minimum of 6 months with spirometry, oximetry and flow volume loop for his underlying lung disease. His previous nodule was noted to be stable. His last chest x-ray, several months ago, was unchanged.~ I will see him in return as outlined above or he, certainly, can call me sooner if problems arise with which we can be of assistance. * Follow up:* Follow up in six months with spirometry, oximetry and flow volume loop. Functional Status Description No Information Available Mental Status Description No Information Available Referrals Description No Information Available
--- OUTSIDE RECORDS SUMMARY | 2021-02-04 08:39 | CCD | Continuity of Care Document ---
Author Author Nigel WYNN MD Organization Unknown Address [address] [place] [address] Phone [phone] Care Team Providers Care Search Optimization Analyst Name Role Phone Riky Johns M.D. AUTM [phone] Adalberto Jackman M.D. AUTM [phone] Manan Mcintyre M.D. AUTM [phone] Problems Active Problems Provider Date Chronic obstructive [...] CPT Code Status Date Vaccine Lot # [id number] Given 01/21/2016 Influenza Virus Split 3 Yrs And Above For Intramuscular Use 13321 Given 01/20/2015 Influenza Virus Split 3 Yrs And Above For Intramuscular Use Q2036 Given 12/27/2012 Influenza Vaccine 3 Years Of Age Or Older (Flulaval) Q2036 Given 01/05/2012 Influenza Vaccine 3 Years Of Age Or Older (Flulaval) 15501 Given 02/09/2011 Influenza Virus Split 3 Yrs And Above For Intramuscular Use 70217 Given 01/09/2010 Pneumococcal PPSV23 17553 Given 12/31/2009 Pneumococcal PPSV23 Vital Signs Date Vital Result Comment 11/24/2020 3:50pm BP Systolic 109 mmHg BP Diastolic 68 mmHg Height 68 inches 5'8" Weight 131.00 lb BMI (Body Mass Index) 19.9 kg/m2 [place] Body Weight 154 lb Weight 59.422 kg BSA (Body Surface Area) 1.71 m2 11/05/2020 3:35pm BP Systolic 108 mmHg BP Diastolic 66 mmHg Heart Rate 85 /min O2 % BldC Oximetry 96 % Room Air Height 68 inches 5'8" Weight 135.00 lb BMI (Body Mass Index) 20.5 kg/m2 [place] Body Weight 154 lb Weight 61.236 kg BSA (Body Surface Area) 1.73 m2 Results Test Acquired Date Facility Test Result H/L Range Note Gastrointestinal (GI) Panel 11/16/2020 [facility] Main Lab [address] [place] [phone] Gastrointestinal (GI) Panel This Gastrointes <SEE NOTE > 1 Laboratory test finding 07/15/2020 [facility] Main Lab [address] [place] [address] [phone] Pathology Request For Service (SEE NOTE) 2 Total Iron Binding Capacit 06/05/2020 [facility] Main Lab [address] [place], [place] [id number] [phone] Iron (Fe) 80 g/dL Normal 65-175 Total Iron Binding Capacity 321 g/dL Normal 250-450 Percent Saturation 24.9 % Normal 19.7-50.0 Laboratory test finding 06/05/2020 [facility] Main Lab [address] [place], [place] [id number] [phone] Vitamin B12 Level 422 pg/mL Normal 247-911 [...] PG/ML Procedures Date Code Description Status 11/24/2020 96416 Office/Outpatient Established Mo d MDM 30-39 Min Completed 11/05/2020 85129 Office/Outpatient Established Mo d MDM 30-39 Min Completed 11/05/2020 75400 Spirometry Completed 07/15/2020 73307 Colonoscopy Flexible Proximal To Splenic Flexure W/Biopsy Single/ Completed 06/04/2020 08064 Office/Outpatient Established Mo d MDM 30-39 Min Completed Medical Devices Description No Information Available Encounters Type Date Location Provider Dx Diagnosis Office Visit 11/24/2020 3:45p [facility] Ike Wynn MD 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 R19.7 Diarrhea, unspecified R19.4 Change in bowel habit R63.4 Abnormal weight loss Office Visit 11/05/2020 3:30p [facility] Lawrenc bear Johns MD 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
--- OUTSIDE RECORDS SUMMARY | 2021-02-04 08:39 | CCD ---
Author Author [facility] [employer] [facility] Organization [facility] [employer] [facility] Address Unknown Phone Unavailable Care Team Providers Care Wedger And Gluer Name Role Phone Adalberto Jackman Unavailable PROBLEMS Type Condition ICD9-CM Code LCG34-PJ Code Onset Dates Condition S tatus W/U Status Risk SNOMED Code Notes Problem Chronic obstructive pulmonary disease J44.9 Ac tive confirmed [id number] Doing fair. He has stable YOUSSEF. Sees a lmonologist, most recently in 10/2020. I'm sure his cardiomyopathy is contributing to dyspnea on exertion. On Symbicort and he is no longer on Spiriva apparently. PFT's are confirmatory. I do not have his April or October 2020 PFT reports. Problem Carotid artery disease I77.9 Active confirmed [id number] Carotid artery disease--last ultrasound 01/31, due prn symptoms --has 15-49% right ICA stenosis, 15-49% left ICA stenosis. Asymptomatic. Problem Elevated fasting glucose R73.01 Active confirmed 659476066 FBS has been borderline elevated, most recently 106 in August 2018, but currently controlled at 89 with a hemoglobin A1c of 5% in April 2020, 85 in 09/2020. Problem Erectile dysfunction, unspecified erectile dysfunction typ e N52.9 Active confirmed 107152827 Levitra is effec tive. Problem Dysthymic disorder F34.1 Active confirmed 7 7295926 On Wellbutrin now, previously Celelxa. Dose of Wellbutrin increased to 300 mg daily in 08/2020. Problem Glaucoma H40.9 Active confirmed 43831903 On no medication. This was stopped after glaucoma surgery in 2010. 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 His TSH had had elevated as of late May 2019 to over 19. His most recent TSH was just minimally elevated in 09/2020 at 4.78. He is on levothyroxine 150 mcg daily; I incresased the dose to 175 mcg daily in 10/2020. Problem Encounter for long-term (current) use of other medications Z79.899 Active confirmed 226645551 Problem Sensorineural hearing loss (SNHL) of both ears H90 .3 Active confirmed 574395332 He has hearing aids which he is being encouraged to wear. Problem Hypercholesterolemia E78.00 Active confirmed 36949384 Lipids optimal in 09/2020 on atorvastatin 20 mg daily. Problem Prostate cancer C61 Active confirmed 3990 99148 He has low-grade prostate cancer, 3 biopsies, [place] score 3+3. He has received immunotherapy per a research protocol which is ongoing. Last PSA wa in the 5 range in 05/2020. Problem History of sepsis Z86.19 Active confirmed 13 [id number] He had sepsis with multiple investigational studies in [place] in April 2019. He was discharged after a one-week hospital stay on IV Zosyn for an additional 2 weeks. Cultures were negative and the pathogen and source of pathogen were never identified. He has not had recurrent symptoms. Problem Left bundle-branch block I44.7 Active confirmed 03745339 Longstanding. An echocardiogram in 2010 was unremarkable; MUGA EF was 69%. However he has developed a cardiomyopathy with the reduction in his ejection fraction as of April 2019. Problem Atrial fibrillation status post cardioversion I48. 91 Active confirmed 31015357 He had atrial fibril lation versus atypical atrial flutter and was converted to sinus rhythm with IV amiodarone, which he had maintained orally until was stopped by his marketing mgr in July 2019. He has not had recurrent symptoms. He is on Eliquis, metoprolol, Entresto and is followed by our local marketing mgr. Problem Alcohol use disorder F10.99 Active confirmed 61898618 History of alcohol intake above recommended limits; counselled in past. Stopped drinking in 10/2014 transiently and then restarted. Stopped drinking again 12/19/18 but as of interview in April 2000 he is drinking an ounce and a half of alcohol daily, and as of 10/2020 I believe that trend continues. Problem Constipation, unspecified constipation type K59.00 Active confirmed 18255532 He has had significant const ipation issues since his urolift procedure in 01/2019. A rectal examination was accomplished by his urologist in 02/2019 so it was deferred today. He is instructed to use Miralax 3 times a week, Magnesium citrate today, Benefiber daily and MOM as needed. He is leaving for [place] for the winter soon and if this issue persists, he may need a colonoscopy in [place]; his last was in 2014. 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 I suspect pseudo-claudication. He is to walk to tolerance. Problem Other cardiomyopathy I42.8 Active confirmed 88046880 He has a significant cardiomyopathy with an ejection fraction of 20-25% when it was diagnosed in [place] when he presented with sepsis in April [...] was stopped in July 2019 by his marketing mgr. He has Lasix available if he has weight gain. He has a biventricular pacemaker/AICD. A MUGA scan revealed a left ventricular ejection fraction of 48% in 07/2020, a definite improvement. Farxiga was suggested by his marketing mgr in 06/2020, but he is not on it now. He has no evidence of CHF on examination today. 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 The patient currently on sulfasalazine and has tapered off prednisone. Most recent colonoscopy was in 06/2020; biopsies showed some activity of his colitis without dysplasia. ALLERGIES No Known Allergies ENCOUNTERS from 1940 to 2020-11-22 Encounter Location Date Provider Diagnosis [place] [id number] 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 Cardiac rehabilitation not available.|Please consider him for the Right To Be Fit program Diagnosis 1 Physical deconditioning (R53 .81) Referral Organization [facility] Jimbo Referring Provider First Name Adalberto Referring Provider Last Name Augustina Referring Provider Specialty Family Medicine Referred Provider Sabra Do Referred Provider Specialty Boiler Engineer Referral Priority Routine VITAL SIGNS Weight 133.8 lbs Oct, Height 68.5 in Oct, BMI 20.05 kg/m2 Oct, Heart Rate 79 /min Oct, Respiratory Rate 18 /min Oct, Temperature 96.2 degrees Fahrenheit Oct, Oximetry 98% Oct, Blood pressure systolic 122 mm Hg Oct, Blood pressure diastolic 66 mm Hg Oct, MEDICATIONS Medication SIG (Take, Route, Frequency, Duration) Notes Start Da te End Date Status sulfaSALAzine 500 MG 2 tablet Orally three times daily Sep, Active Wellbutrin XL 300 MG 1 tablet in the morning Orally Once a day f or 90 days Oct, Active Spironolactone 25 mg 1 tablet Orally Once a day Active Entresto 24-26 MG 1 tablet Orally Twice a day Active Levothyroxine Sodium 175 MCG 1 tablet in the morning o n an empty stomach Orally Once a day for 90 days Jun, Active Lipitor 20 MG 1 tablet Orally Once a day for 90 days Active Eliquis 5 MG 1 tab Orally twice daily Active Systane Balance 0.6 % 1 drop both eyes Ophthalmic as needed Active Farxiga 5 MG 1 tablet Orally Once a day Not-Taking Symbicort 160-4.5 MCG/ACT 2 puffs Inhalation Twice a day 0 6 Nov, 2016 Active Metoprolol Succinate ER 25 mg 1 tablet Orally Once a d ay in the PM if systolic is above 100 and HR above 60 Act calli PROCEDURES No Information RESULTS No Results REASON FOR VISIT 6 month follow up with labs to review MEDICAL (GENERAL) HISTORY Type Description Date Medical [...] arteries 05/18/2019 Surgical History Colonoscopy while in [place] 04/18/2019 Surgical History Colonoscopy; biopsies showed some activity of his colitis without dysplasia 06/2020 Hospitalization History Surgery related Hospitalization History [facility] 05[facility]12[facility]05[facility]20/2019 Goals Section No Information Health Concerns No Information MEDICAL EQUIPMENT No Information MENTAL STATUS No Information FUNCTIONAL STATUS No Information ASSESSMENTS Encounter Date Diagnosis Assessment Notes Treatment Notes Treatm ent Clinical Notes Oct, Hypercholesterolemia (ICD-10 - E78.00) L ipids optimal in 09/2020 on atorvastatin 20 mg daily. Oct, Chronic obstructive pulmonary disease (I CD-10 - J44.9) Doing fair. He has stable YOUSSEF. 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 I'm sure his cardiomyopathy is contributing to dyspnea on exertion. On Symbicort and he is no longer on Spiriva apparently. PFT's are confirmatory. I do not have his April or October 2020 PFT reports. Oct, Prostate cancer (ICD-10 - C61) He has lo w-grade prostate cancer, 3 biopsies, [place] score 3+3. He has received immunotherapy per a research protocol which is ongoing. Last PSA wa in the 5 range in 05/2020. Oct, Dysthymic disorder (ICD-10 - F34.1) On W ellbutrin now, previously Celelxa. Dose of Wellbutrin increased to 300 mg daily in 08/2020. Oct, Other cardiomyopathy (ICD-10 - I42.8) He has a significant cardiomyopathy with an ejection fraction of 20-25% when it was diagnosed in [place] when he presented with sepsis in April [...] was stopped in July 2019 by his marketing mgr. He has Lasix available if he has weight gain. He has a biventricular pacemaker/AICD. A MUGA scan revealed a left ventricular ejection fraction of 48% in 07/2020, a definite improvement. Farxiga was suggested by his marketing mgr in 06/2020, but he is not on it now. He has no evidence of CHF on examination today. Oct, Atrial fibrillation status post cardiove rsion (ICD-10 - I48.91) He had atrial fibrillation versus atypical atrial flutter and was converted to sinus rhythm with IV amiodarone, which he had maintained orally until was stopped by his marketing mgr in July 2019. He has not had recurrent symptoms. He is on Eliquis, metoprolol, Entresto and is followed by our local marketing mgr. Oct, Elevated fasting glucose (ICD-10 - R73.0 1) FBS has been borderline elevated, most recently 106 in August 2018, but currently controlled at 89 with a hemoglobin A1c of 5% in April 2020, 85 in 09/2020. Oct, Hypothyroidism due to medication (ICD-10 - E03.2) He is no longer on amiodarone. His TSH had had elevated as of late May 2019 to over 19. His most recent TSH was just minimally elevated in 09/2020 at 4.78. He is on levothyroxine 150 mcg daily; I incresased the dose to 175 mcg daily in 10/2020. Oct, Ulcerative rectosigmoiditis without comp lication (ICD-10 - K51.30) Ulcerative colitis was diagnosed by colonoscopy in March 2019 in [place]. The patient currently on sulfasalazine and has tapered off prednisone. Most recent colonoscopy was in 06/2020; biopsies showed some activity of his colitis without dysplasia. Oct, Left bundle-branch block (ICD-10 - I44.7 ) Longstanding. An echocardiogram in 2010 was unremarkable; MUGA EF was 69%. However he has developed a cardiomyopathy with the reduction in his ejection fraction as of April 2019. Oct, Alcohol use disorder (ICD-10 - F10.99) H istory of alcohol intake above recommended limits; counselled in past. Stopped drinking in 10/2014 transiently and then restarted. Stopped drinking again 12/19/18 but as of interview in April 2000 he is drinking an ounce and a half of alcohol daily, and as of 10/2020 I believe that trend continues. Oct, Sensorineural hearing loss (SNHL) of bot h ears (ICD-10 - H90.3) He has hearing aids which he is being encouraged to wear. Oct, History of sepsis (ICD-10 - Z86.19) He h ad sepsis with multiple investigational studies in [place] in April 2019. He was discharged after a one-week hospital stay on IV Zosyn for an additional 2 weeks. Cultures were negative and the pathogen and source of pathogen were never identified. He has not had recurrent symptoms. Oct, Pseudoclaudication syndrome (ICD-10 - M4 8.062) He has leg fatigue with ambulation but adequate peripheral pulses. I suspect pseudo-claudication. He is to walk to tolerance. Oct, Encounter for long-term (cur rent) use of other medications (ICD-10 - Z79.899) Oct, Physical deconditioning (ICD-10 - R53.81 ) Referred to the Ready to be Fit program at the . PLAN OF TREATMENT Medication Medication Name Sig Start Date Stop Date Levothyroxine Sodium 175 MCG 1 tablet in the morning o n an empty stomach Orally Once a day for 90 days Jun, Lipitor 20 MG 1 tablet Orally Once a day for 90 days Wellbutrin XL 300 MG 1 tablet in the morning Orally Once a d ay for 90 days Oct, Future Test Test Name Order Date TSH 20210330 Comprehensive Metabolic Profile (CMP) [id number] CBC with Differential [id number] MAGNESIUM LEVEL [id number] Referrals Referral Date Details He has heart and lung diseas e with associated deconditioning. Cardiac rehabilitation not available.|Please consider him for the Right To Be Fit program, Sabra Do Next Appt Details 03/2021 Reason: Provider Name:Adalberto Jackman, 2021-04-08 10 :30:00 AM, [address] [facility], , [place], [address], Insurance Providers Payer Name Payer Address Payer Phone Insured Name Patient Relati onship to Insured Coverage Start Date Coverage End Date MEDICARE Part A and B [address] [facility] [phone] SHRUTI NICOLE [facility] OPTIONS [facility] CLAIM DIV [address] [facility] [address] SHRUTI NICOLE"
--- OUTSIDE RECORDS SUMMARY | 2021-02-04 08:39 | CCD | Continuity of Care Document ---
Author Author Nigel JOHNS MD Organization Unknown Address [address] [place] [address] Phone [phone] Care Team Providers Care Coin Machine Operator Name Role Phone Riky Johns M.D. AUTM [phone] Adalberto Jackman M.D. AUTM [phone] Manan Mcintyre M.D. AUTM [phone] Problems Active Problems Provider Date Chronic obstructive [...] SIG Qnty Indications Ordering Provide r Date Symbicort 80-4.5mcg/Act Aerosol 2 puff twice a [...] wynn colon preparation instructions 510gm K51.30 Jed tami Wynn MD 06/04/2020 - 03/16/2020 Immunizations CPT Code Status Date Vaccine Lot # 43911 Given 01/21/2016 Influenza Virus Split 3 Yrs And Above For Intramuscular Use 28162 Given 01/20/2015 Influenza Virus Split 3 Yrs And Above For Intramuscular Use Q2036 Given 12/27/2012 Influenza Vaccine 3 Years Of Age Or Older (Flulaval) Q2036 Given 01/05/2012 Influenza Vaccine 3 Years Of Age Or Older (Flulaval) 29732 Given 02/09/2011 Influenza Virus Split 3 Yrs And Above For Intramuscular Use 22107 Given 01/09/2010 Pneumococcal PPSV23 16485 Given 12/31/2009 Pneumococcal PPSV23 Vital Signs Date Vital Result Comment 11/05/2020 3:35pm BP Systolic 108 mmHg BP Diastolic 66 mmHg Heart Rate 85 /min O2 % BldC Oximetry 96 % Room Air Height 68 inches 5'8" Weight 135.00 lb BMI (Body Mass Index) 20.5 kg/m2 [place] Body Weight 154 lb Weight 61.236 kg BSA (Body Surface Area) 1.73 m2 06/04/2020 12:57pm BP Systolic 96 mmHg BP Diastolic 55 mmHg Height 68 inches 5'8" Weight 143.00 lb BMI (Body Mass Index) 21.7 kg/m2 [place] Body Weight 154 lb Weight 64.865 kg BSA (Body Surface Area) 1.77 m2 Results Test Acquired Date Facility Test Result H/L Range Note Laboratory test finding 07/15/2020 [facility] Main Lab [address] [place] [address] [id number] [phone] Pathology Request For Service (SEE NOTE) 1 Total Iron Binding Capacit 06/05/2020 [facility] Main Lab [address] [place] [address] [id number] [phone] Iron (Fe) 80 g/dL Normal 65-175 Total Iron Binding Capacity 321 g/dL Normal 250-450 Percent Saturation 24.9 % Normal 19.7-50.0 Laboratory test finding 06/05/2020 [facility] Main Lab [address] [place], [place] [id number] [phone] Vitamin B12 Level 422 pg/mL Normal 247-911 2 1 FINAL DIAGNOSIS Colon, random sigmoid, biopsies: Fragment [...] 1300 Signed NILE BATRES MD 07/17/2020 1453 2 VITAMIN B12 NORMAL RANGE NORMAL 247 - 911 PG/ML INDETERMINATE 211 - 246 PG/ML DEFICIENT LESS THAN 211 PG/ML Procedures Date Code Description Status 11/05/2020 72951 Office/Outpatient Established Mo d MDM 30-39 Min Completed 11/05/2020 62212 Spirometry Completed 07/15/2020 06459 Colonoscopy Flexible Proximal To Splenic Flexure W/Biopsy Single/ Completed 06/04/2020 14193 Office/Outpatient Established Mo d MDM 30-39 Min Completed Medical Devices Description No Information Available Encounters Type Date Location Provider Dx Diagnosis Office Visit 11/05/2020 3:30p [facility] Pulmonary/Thoracic Lawrenc bear Johns MD J43.1 Panlobular emphysema R91.8 Other nonspecific abnormal f inding of lung field Z87.891 Personal history of nicotine dependence Office Visit 06/04/2020 1:00p [facility] Vivien Charles D K51.30 Ulcerative (chronic) rectosigmoiditis without complications R19.4 Change in bowel habit K59.00 Constipation, unspecified D64.9 Anemia, unspecified Assessments Date Code Description Provider 11/05/2020 J43.1 Panlobular emphysema Riky martinez MD [...] 8:50 am - Ike Wynn MD at [facility] 11/05/2020 - Riky Johns MD* J43.1 Panlobular emphysema * R91.8 Other nonspecific abnormal finding of lung field * Z87.891 Personal history of nicotine dependence * * New Labs:* FVL/Gary, Ordered: 11/05/20 * Comments:* ~ At this [...]
--- OUTSIDE RECORDS SUMMARY | 2021-02-04 08:39 | CCD | Continuity of Care Document ---
Author Author Nigel CRONIN MD Organization Unknown Address [address] [place] [address] Phone [phone] Care Team Providers Care Label Tacker Name Role Phone Riky Johns M.D. AUTM [phone] Adalberto Jackman M.D. AUTM [phone] Manan Mcintyre M.D. AUTM [phone] Problems Active Problems Provider Date Chronic obstructive lung disease Meera Cuevas Onset: 06/10/2011 Cough Elizabeth Longo M.D. Onset: Difficulty breathing Eilzabeth Longo M.D. Onset: Ex-smoker Elizabeth Longo M.D. [...] weeks 3units K51.318 Ike Cronin MD 11/24/2020 Entyvio 300mg Solution Rec infuse 300 mg iv every 8 weeks 1units K51.318 Ike Cronin MD 11/24/2020 Budesonide ER 9mg Tablets ER [...] times a day after meals 360tabs Ike Cronin MD 0 Levothyroxine Sodium 175mcg Capsul es 1 by mouth every day Unknown Bupropion Hydrochloride ER (XL) 300mg Tablets ER 24HR 1 tab by mouth everyday Unknown Immunizations CPT Code Status Date Vaccine Lot # 05259 Given 01/21/2016 Influenza Virus Split 3 Yrs And Above For Intramuscular Use 15760 Given 01/20/2015 Influenza Virus Split 3 Yrs And Above For Intramuscular Use Q2036 Given 12/27/2012 Influenza Vaccine 3 Years Of Age Or Older (Flulaval) Q2036 Given 01/05/2012 Influenza Vaccine 3 Years Of Age Or Older (Flulaval) 18343 Given 02/09/2011 Influenza Virus Split 3 Yrs And Above For Intramuscular Use 36919 Given 01/09/2010 Pneumococcal PPSV23 63560 Given 12/31/2009 Pneumococcal PPSV23 Vital Signs Date Vital Result Comment 11/24/2020 3:50pm BP Systolic 109 mmHg BP Diastolic 68 mmHg Height 68 inches 5'8" Weight 131.00 lb BMI (Body Mass Index) 19.9 kg/m2 [place] Body Weight 154 lb Weight 59.422 kg BSA (Body Surface Area) 1.71 m2 11/05/2020 3:35pm BP Systolic 108 mmHg BP Diastolic 66 mmHg Heart Rate 85 /min O2 % BldC Oximetry 96 % Room Air Height 68 inches 5'8" Weight 135.00 lb BMI (Body Mass Index) 20.5 kg/m2 [place] Body Weight 154 lb Weight 61.236 kg BSA (Body Surface Area) 1.73 m2 Results Test Acquired Date Facility Test Result H/L Range Note Gastrointestinal (GI) Panel 11/16/2020 [facility] Main Lab [address] [place] [address]60 [phone] Gastrointestinal (GI) Panel This Gastrointes <SEE NOTE > 1 Laboratory test finding 07/15/2020 [facility] Main Lab [address] [place] [address] [id number] [phone] Pathology Request For Service (SEE NOTE) 2 Total Iron Binding Capacit 06/05/2020 [facility] Main Lab [address] [place] [address] 98582 [phone] Iron (Fe) 80 g/dL Normal 65-175 Total Iron Binding Capacity 321 g/dL Normal 250-450 Percent Saturation 24.9 % Normal 19.7-50.0 Laboratory test finding 06/05/2020 [facility] Main Lab [address] [place] [address] 92293 [phone] Vitamin B12 Level 422 pg/mL Normal 247-911 [...] granulomas or high grade dysplasia. 07/17/2020 - 113 CLINICAL DIAGNOSIS Ulcerative colitis 07/16/2020 - 1299 GROSS DIAGNOSIS Received in formalin labeled "random sigmoid colon biopsies" and consists of multiple fragments of roldan tissue 0.3 x 0.3 x 0.3 cm. in aggregate. All in one. -SV 07/16/2020 - 1299 Signed NILE BATRES MD 07/17/2020 1453 3 VITAMIN B12 NORMAL RANGE NORMAL 247 - 911 PG/ML INDETERMINATE 211 - 246 PG/ML DEFICIENT LESS THAN 211 PG/ML Procedures Date Code Description Status 11/24/2020 74785 Office/Outpatient Established Mo d MDM 30-39 Min Completed 11/05/2020 22768 Office/Outpatient Established Mo d MDM 30-39 Min Completed 11/05/2020 13169 Spirometry Completed 07/15/2020 33153 Colonoscopy Flexible Proximal To Splenic Flexure W/Biopsy Single/ Completed Medical Devices Description No Information Available Encounters Type Date Location Provider Dx Diagnosis Office Visit 11/24/2020 3:45p [facility] Ike Cronin MD 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 R19.7 Diarrhea, unspecified R19.4 Change in bowel habit R63.4 Abnormal weight loss Office Visit 11/05/2020 3:30p [facility] Pulmonary/Thoracic Lawraga Johns MD J43.1 Panlobular emphysema R91.8 Other nonspecific abnormal f inding of lung field Z87.891 Personal history of nicotine dependence Assessments Date Code Description Provider 11/24/2020 K51.318 [...] 6:00 am - Ike Cronin MD at [facility] * 03/13/2021 6:00 am - Ike Cronin MD at [facility] * 01/16/2021 6:00 am - Ike Cronin MD at [facility] * 12/19/2020 6:00 am - Ike Cronin MD at [facility] * 12/18/2020 8:50 am - Ike Cronin MD at [facility] 11/05/2020 - Riky Johns [...]
--- OUTSIDE RECORDS SUMMARY | 2021-02-04 08:40 | CCD ---
Author Author [facility] Organization [facility] Address Unknown Phone Unavailable Care Team Providers Care Physical Security Manager Name Role Phone DAVID RUEDA MD Unavailable Unavailable REINGRETA, DAVID HERMOSILLO Unavailable Unavailable MOHIT, DAVID HERMOSILLO Unavailable Unavailable MOHIT, DAVID HERMSOILLO Unavailable Unavailable MOHIT, DAVID HERMOSILLO Unavailable Unavailable MOHIT, DAVID HERMOSILLO Unavailable Unavailable MOHIT, DAVID HERMOSILLO Unavailable Unavailable MOHIT, DAVID HERMOSILLO Unavailable Unavailable REINGRETA, DAVID HERMOSILLO Unavailable Unavailable REINDL, DAVID HERMOSILLO Unavailable Unavailable REINGRETA, DAVID HERMOSILLO Unavailable Unavailable REINGRETA, DAVID HERMOSILLO Unavailable Unavailable MOHIT, DAVID HERMOSILLO Unavailable Unavailable MOHIT, DAVID HERMOSILLO Unavailable Unavailable REINGRETA, DAVID HERMOSILLO Unavailable Unavailable REINGRETA, DAVID HERMOSILLO Unavailable Unavailable REINGRETA, DAVID HERMOSILLO Unavailable Unavailable REINGRETA, DAVID HERMOSILLO Unavailable Unavailable MOHIT, DAVID HERMOSILLO Unavailable Unavailable DAVID RUEDA MD Unavailable Unavailable REINGRETA, DAVID HERMOSILLO Unavailable Unavailable REINGRETA, DAVID HERMOSILLO Unavailable Unavailable REINGRETA, DAVID HERMOSILLO Unavailable Unavailable REINDAVID HERNANDES MD Unavailable Unavailable REINDAVID HERNANDES MD Unavailable Unavailable MOHIT, DAVID HERMOSILLO Unavailable Unavailable REINDAVID HERNANDES MD Unavailable Unavailable REINDAVID HERNANDES MD Unavailable Unavailable REINDAVID HERNANDES MD Unavailable Unavailable REINDAVID HERNANDES MD Unavailable Unavailable DAVID RUEDA MD Unavailable Unavailable DAVID RUEDA MD Unavailable Unavailable DAVID RUEDA MD Unavailable Unavailable DAVID RUEDA MD Unavailable Unavailable REINGRETA, DAVID HERMOSILLO Unavailable Unavailable MOHIT, DAVID HERMOSILLO Unavailable Unavailable MOHIT, DAVID HERMOSILLO Unavailable Unavailable MOHIT, DAVID HERMOSILLO Unavailable Unavailable DAVID RUEDA MD Unavailable Unavailable DAVID RUEDA MD Unavailable Unavailable MOHIT, DAVID HERMOSILLO Unavailable Unavailable MOHIT, DAVID HERMOSILLO Unavailable Unavailable Vivien PRESLEY MD Unavailable Unavailable Vivien PRESLEY MD Unavailable Unavailable Vivien PRESLEY MD Unavailable Unavailable Vivien PRESLEY MD Unavailable Unavailable Vivien PRESLEY MD Unavailable Unavailable Vivien PRESLEY MD Unavailable Unavailable Vivien PRESLEY MD Unavailable Unavailable Vivien PRESLEY MD Unavailable Unavailable Vivien PRESLEY MD Unavailable Unavailable Vivien PRESELY MD Unavailable Unavailable Vivien PRESLEY MD Unavailable Unavailable Vivien PRESLEY MD Unavailable Unavailable Vivien PRESLEY MD Unavailable Unavailable Vivien PRESLEY MD Unavailable Unavailable Vivien PRESLEY MD Unavailable Unavailable Vivien PRESLEY MD Unavailable Unavailable Vivien PRESLEY MD Unavailable Unavailable Vivien PRESLEY MD Unavailable Unavailable Vivien PRESLEY MD Unavailable Unavailable Vivien PRESLEY MD Unavailable Unavailable Vivien PRESLEY MD Unavailable Unavailable Vivien PRESLEY MD Unavailable Unavailable Vivien PRESLEY MD Unavailable Unavailable Vivien PRESLEY MD Unavailable Unavailable Vivien PRESLEY MD Unavailable Unavailable Vivien PRESLEY MD Unavailable Unavailable Vivien PRESLEY MD Unavailable Unavailable Vivien PRESLEY MD Unavailable Unavailable Vivien PRESLEY MD Unavailable Unavailable Vivien PRESLEY MD Unavailable Unavailable Viiven PRESLEY MD Unavailable Unavailable Vivien PRESLEY MD Unavailable Unavailable Vivien PRESLEY MD Unavailable Unavailable Vivien PRESLEY MD Unavailable Unavailable Vivien PRESLEY MD Unavailable Unavailable Vivien PRESLEY MD Unavailable Unavailable Vivien PRESLEY MD Unavailable Unavailable Vivien PRESLEY MD Unavailable Unavailable Vivien PRESLEY MD Unavailable Unavailable Vivien PRESLEY MD Unavailable Unavailable Vivien PRESLEY MD Unavailable Unavailable Vivien PRESLEY MD Unavailable Unavailable Vivien PRESLEY MD Unavailable Unavailable Vivien PRESLEY MD Unavailable Unavailable Vivien PRESLEY MD Unavailable Unavailable Vivien PRESLEY MD Unavailable Unavailable Vivien PRESLEY MD Unavailable Unavailable Vivien PRESLEY MD Unavailable Unavailable Vivien PRESLEY MD Unavailable Unavailable Vivien PRESLEY MD Unavailable Unavailable Vivien PRESLEY MD Unavailable Unavailable Vivien PRESLEY MD Unavailable Unavailable Vivien PRESLEY MD Unavailable Unavailable Vivien PRESLEY MD Unavailable Unavailable Vivien PRESLEY MD Unavailable Unavailable Vivien PRESLEY MD Unavailable Unavailable Vivien PRESLEY MD Unavailable Unavailable Vivien PRESLEY MD Unavailable Unavailable Vivien PRESLEY MD Unavailable Unavailable Vivien PRESLEY MD Unavailable Unavailable Vivien PRESLEY MD Unavailable Unavailable Vivien PRESLEY MD Unavailable Unavailable Vivien PRESLEY MD Unavailable Unavailable Vivien PRESLEY MD Unavailable Unavailable Vivien PRESLEY MD Unavailable Unavailable Vivien PRESLEY MD Unavailable Unavailable Vivien PRESLEY MD Unavailable Unavailable Vivien PRESLEY MD Unavailable Unavailable Vivien PRESLEY MD Unavailable Unavailable Vivien PRESLEY MD Unavailable Unavailable Vivien PRESLEY MD Unavailable Unavailable Vivien PRESLEY MD Unavailable Unavailable Vivien PRESLEY MD Unavailable Unavailable Vivien PRESLEY MD Unavailable Unavailable Vivien PRESLEY MD Unavailable Unavailable Vivien PRESLEY MD Unavailable Unavailable Vivien PRESLEY MD Unavailable Unavailable Vivien PRESLEY MD Unavailable Unavailable Vivien PRESLEY MD Unavailable Unavailable Vivien PRESLEY MD Unavailable Unavailable Vivien PRESLEY MD Unavailable Unavailable Vivien PRESLEY MD Unavailable Unavailable Vivien PRESLEY MD Unavailable Unavailable Vivien PRESLEY MD Unavailable Unavailable Vivien PRESLEY MD Unavailable Unavailable Vivien PRESLEY MD Unavailable Unavailable Vivien PRESLEY MD Unavailable Unavailable Vivien PRESLEY MD Unavailable Unavailable Vivien PRESLEY MD Unavailable Unavailable Vivien PRESLEY MD Unavailable Unavailable Vivien PRESLEY MD Unavailable Unavailable Vivien PRESLEY MD Unavailable Unavailable Becky, F Lidia PA Unavailable Unavailable Tatum, F Lidia PA Unavailable Unavailable Becky, F Lidia PA Unavailable Unavailable Becky, F Lidia PA Unavailable Unavailable Tatum, F Lidia PA Unavailable Unavailable Tatum, F Lidia PA Unavailable Unavailable Becky, F Lidia PA Unavailable Unavailable Becky, F Lidia PA Unavailable Unavailable Becky, F Lidia PA Unavailable Unavailable Becky, F Lidia PA Unavailable Unavailable Becky, F Lidia PA Unavailable Unavailable Tatum, F Lidia PA Unavailable Unavailable Tatum, F Lidia PA Unavailable Unavailable Tatum, F Lidia PA Unavailable Unavailable Tatum, F Lidia PA Unavailable Unavailable Tatum, F Lidia PA Unavailable Unavailable Tatum, F Lidia PA Unavailable Unavailable Tatum, F Lidia PA Unavailable Unavailable Becky, F Lidia PA Unavailable Unavailable Tatum, F Lidia PA Unavailable Unavailable Becky, F Lidia PA Unavailable Unavailable Becky, F Lidai PA Unavailable Unavailable Tatum, F Lidia PA Unavailable Unavailable Becky, F Lidia PA Unavailable Unavailable Becky, F Lidia PA Unavailable Unavailable Tatum, F Lidia PA Unavailable Unavailable Becky, F Lidia PA Unavailable Unavailable Tatum, F Lidia PA Unavailable Unavailable Tatum, F Lidia PA Unavailable Unavailable Tatum, F Lidia PA Unavailable Unavailable Tatum, F Lidia PA Unavailable Unavailable Becky, F Lidia PA Unavailable Unavailable Tatum, F Lidia PA Unavailable Unavailable Becky, F Lidia PA Unavailable Unavailable Becky, F Lidia PA Unavailable Unavailable Tatum, F Lidia PA Unavailable Unavailable Becky, F Lidia PA Unavailable Unavailable Becky, F Lidia PA Unavailable Unavailable Fons, M Ginna CRICKET COACH Unavailable Unavailable Fons, M Ginna CRICKET COACH Unavailable Unavailable Fons, M Ginna CRICKET COACH Unavailable Unavailable Fons, M Ginna CRICKET COACH Unavailable Unavailable Fons, M Ginna CRICKET COACH Unavailable Unavailable Fons, M Ginna CRICKET COACH Unavailable Unavailable Fons, M Ginna CRICKET COACH Unavailable Unavailable Fons, M Ginna CRICKET COACH Unavailable Unavailable Fons, M Ginna CRICKET COACH Unavailable Unavailable Fons, M Ginna CRICKET COACH Unavailable Unavailable Fons, M Ginna CRICKET COACH Unavailable Unavailable Fons, M Ginna CRICKET COACH Unavailable Unavailable Fons, M Ginna CRICKET COACH Unavailable Unavailable Fons, M Ginna CRICKET COACH Unavailable Unavailable Fons, M Ginna CRICKET COACH Unavailable Unavailable Fons, M Ginna CRICKET COACH Unavailable Unavailable Fons, M Ginna CRICKET COACH Unavailable Unavailable Fons, M Ginna CRICKET COACH Unavailable Unavailable Fons, M Ginna CRICKET COACH Unavailable Unavailable Fons, M Ginna CRICKET COACH Unavailable Unavailable Fons, M Ginna CRICKET COACH Unavailable Unavailable Fons, M Ginna CRICKET COACH Unavailable Unavailable Fons, M Ginna CRICKET COACH Unavailable Unavailable Fons, M Ginna CRICKET COACH Unavailable Unavailable Fons, M Ginna CRICKET COACH Unavailable Unavailable Fons, M Ginna CRICKET COACH Unavailable Unavailable Fons, M Ginna CRICKET COACH Unavailable Unavailable Fons, M Ginna CRICKET COACH Unavailable Unavailable Fons, M Ginna CRICKET COACH Unavailable Unavailable Fons, M Ginna CRICKET COACH Unavailable Unavailable Fons, M Ginna CRICKET COACH Unavailable Unavailable Fons, M Ginna CRICKET COACH Unavailable Unavailable Fons, M Ginna CRICKET COACH Unavailable Unavailable Fons, M Ginna CRICKET COACH Unavailable Unavailable Fons, M Ginna CRICKET COACH Unavailable Unavailable Fons, M Ginna CRICKET COACH Unavailable Unavailable Fons, M Ginna CRICKET COACH Unavailable Unavailable Fons, M Ginna CRICKET COACH Unavailable Unavailable Fons, M Ginna CRICKET COACH Unavailable Unavailable Fons, M Ginna CRICKET COACH Unavailable Unavailable Fons, M Ginna CRICKET COACH Unavailable Unavailable Fons, M Ginna CRICKET COACH Unavailable Unavailable Fons, M Ginna CRICKET COACH Unavailable Unavailable Fons, M Ginna CRICKET COACH Unavailable Unavailable Fons, M Ginna CRICKET COACH Unavailable Unavailable Fons, M Ginna CRICKET COACH Unavailable Unavailable Fons, M Ginna CRICKET COACH Unavailable Unavailable Fons, M Ginna CRICKET COACH Unavailable Unavailable Fons, M Ginna CRICKET COACH Unavailable Unavailable Fons, M Ginna CRICKET COACH Unavailable Unavailable Fons, M Ginna CRICKET COACH Unavailable Unavailable Fons, M Ginna CRICKET COACH Unavailable Unavailable Fons, M Ginna CRICKET COACH Unavailable Unavailable Durham, Qing CRICKET COACH Unavailable Unavailable Durham, Honey Guillen CRICKET COACH Unavailable Unavailable Durham, Honey Guillen CRICKET COACH Unavailable Unavailable Durham, Qing CRICKET COACH Unavailable Unavailable Durham, Honey Guillen CRICKET COACH Unavailable Unavailable Durham, Honey Guillen CRICKET COACH Unavailable Unavailable Durham, Qing CRICKET COACH Unavailable Unavailable Durham, Qing CRICKET COACH Unavailable Unavailable Durham, Qing CRICKET COACH Unavailable Unavailable Durham, Qing CRICKET COACH Unavailable Unavailable Durham, Qing CRICKET COACH Unavailable Unavailable Durham, Qing CRICKET COACH Unavailable Unavailable Durham, Qing CRICKET COACH Unavailable Unavailable Durham, Qing CRICKET COACH Unavailable Unavailable Durham, Qing CRICKET COACH Unavailable Unavailable Durham, Qing CRICKET COACH Unavailable Unavailable Durham, Qing CRICKET COACH Unavailable Unavailable Durham, Qing CRICKET COACH Unavailable Unavailable Durham, Qing CRICKET COACH Unavailable Unavailable Durham, Qing CRICKET COACH Unavailable Unavailable Durham, Qing CRICKET COACH Unavailable Unavailable Durham, Qing CRICKET COACH Unavailable Unavailable Durham, Qing CRICKET COACH Unavailable Unavailable Durham, Qing CRICKET COACH Unavailable Unavailable Durham, Qing CRICKET COACH Unavailable Unavailable Durham, Qing CRICKET COACH Unavailable Unavailable Durham, Qing CRICKET COACH Unavailable Unavailable Durham, Qing CRICKET COACH Unavailable Unavailable Durham, Qing CRICKET COACH Unavailable Unavailable Durham, Qing CRICKET COACH Unavailable Unavailable Durham, Qing CRICKET COACH Unavailable Unavailable Durham, Qing CRICKET COACH Unavailable Unavailable Durham, Qing CRICKET COACH Unavailable Unavailable Durham, Qing CRICKET COACH Unavailable Unavailable Durham, Qing CRICKET COACH Unavailable Unavailable Durham, Qing CRICKET COACH Unavailable Unavailable Nathen Deshpande MD, FACS Unavailable Unavailable Nathen Deshapnde MD, FACS Unavailable Unavailable Nathen Deshpande MD, FACS Unavailable Unavailable Nathen Deshpande MD, FACS Unavailable Unavailable Nathen Deshpande MD, FACS Unavailable Unavailable Nathen Deshpande MD, FACS Unavailable Unavailable Nathen Deshpande MD, FACS Unavailable Unavailable Nathen Deshpande MD, FACS Unavailable Unavailable Nathen Deshpande MD, FACS Unavailable Unavailable Nathen Deshpande MD, FACS Unavailable Unavailable Nathen Deshpande MD, FACS Unavailable Unavailable Nathen Deshpande MD, FACS Unavailable Unavailable Nathen Deshpande MD, FACS Unavailable Unavailable Nathen Deshpande MD, FACS Unavailable Unavailable Ramirez Turpin, Nathen Ramires MD, FACS Unavailable Unavailable Ramirez Turpin, Nathen Ramires MD, FACS Unavailable Unavailable Ramirez Turpin, Nathen Ramires MD, FACS Unavailable Unavailable Ramirez Turpin, Nathen Ramires MD, FACS Unavailable Unavailable Ramirez Turpin, Nathen Ramires MD, FACS Unavailable Unavailable Ramirez Turpin, Nathen Ramires MD, FACS Unavailable Unavailable Ramirez Turpin, Nathen Ramires MD, FACS Unavailable Unavailable Ramirez Turpin, Nathen Ramires MD, FACS Unavailable Unavailable Ramirez Turpin, Nathen Ramires MD, FACS Unavailable Unavailable Ramirez Turpin, Nathen Ramires MD, FACS Unavailable Unavailable Ramirez Turpin, Nathen Ramires MD, FACS Unavailable Unavailable Ramirez Turpin, Nathen Ramires MD, FACS Unavailable Unavailable Ramirez Turpin, Nathen Ramires MD, FACS Unavailable Unavailable Ramirez Turpin, Nathen Ramires MD, FACS Unavailable Unavailable Ramirez Turpin, Nathen Ramires MD, FACS Unavailable Unavailable Ramirez Turpin, Nathen Ramires MD, FACS Unavailable Unavailable Ramirez Turpin, Nathen Ramires MD, FACS Unavailable Unavailable Ramirez Turpin, Natehn Ramires MD, FACS Unavailable Unavailable Ramirez Turpin, Nathen Ramires MD, FACS Unavailable Unavailable Ramirez Turpin, Nathen Ramires MD, FACS Unavailable Unavailable Ramirez Turpin, Nathen Ramires MD, FACS Unavailable Unavailable Ramirez Turpin, Nathen Ramires MD, FACS Unavailable Unavailable Ramirez Turpin, Nathen Ramires MD, FACS Unavailable Unavailable Ramirez Turpin, Nathen Ramires MD, FACS Unavailable Unavailable Ramirez Turpin, Nathen Ramires MD, FACS Unavailable Unavailable Kennedi Ho MD Unavailable Unavailable Kennedi Ho MD Unavailable Unavailable Kennedi Ho MD Unavailable Unavailable Kennedi Ho MD Unavailable Unavailable Kennedi Ho MD Unavailable Unavailable Kennedi Ho MD Unavailable Unavailable Kennedi Ho MD Unavailable Unavailable Kennedi Ho MD Unavailable Unavailable Kennedi Ho MD Unavailable Unavailable Kennedi Ho MD Unavailable Unavailable Kennedi Ho MD Unavailable Unavailable Kennedi Ho MD Unavailable Unavailable Kennedi Ho MD Unavailable Unavailable Kennedi Ho MD Unavailable Unavailable Kennedi Ho MD Unavailable Unavailable Kennedi Ho MD Unavailable Unavailable Kennedi Ho MD Unavailable Unavailable Kennedi Ho MD Unavailable Unavailable Kennedi Ho MD Unavailable Unavailable Kennedi Ho MD Unavailable Unavailable Kennedi Ho MD Unavailable Unavailable Kennedi Ho MD Unavailable Unavailable Kennedi Ho MD Unavailable Unavailable Kennedi Ho MD Unavailable Unavailable Kennedi Ho MD Unavailable Unavailable Kennedi Ho MD Unavailable Unavailable Kennedi Ho MD Unavailable Unavailable Kennedi Ho MD Unavailable Unavailable Kennedi Ho MD Unavailable Unavailable Kennedi Ho MD Unavailable Unavailable Kennedi Ho MD Unavailable Unavailable Kennedi Ho MD Unavailable Unavailable Kennedi Ho MD Unavailable Unavailable Kennedi Ho MD Unavailable Unavailable Kennedi Ho MD Unavailable Unavailable Kennedi Ho MD Unavailable Unavailable Kennedi Ho MD Unavailable Unavailable Kennedi Ho MD Unavailable Unavailable Kennedi Ho MD Unavailable Unavailable Kennedi Ho MD Unavailable Unavailable Kennedi Ho MD Unavailable Unavailable Kennedi Ho MD Unavailable Unavailable Kennedi Ho MD Unavailable Unavailable Kennedi Ho MD Unavailable Unavailable Kennedi Ho MD Unavailable Unavailable Kennedi Ho MD Unavailable Unavailable Kennedi Ho MD Unavailable Unavailable Kennedi Ho MD Unavailable Unavailable Kennedi Ho MD Unavailable Unavailable Kennedi Ho MD Unavailable Unavailable Kennedi Ho MD Unavailable Unavailable Kennedi Ho MD Unavailable Unavailable Kennedi Ho MD Unavailable Unavailable Kennedi Ho MD Unavailable Unavailable Kennedi Ho MD Unavailable Unavailable Kennedi Ho MD Unavailable Unavailable Kennedi Ho MD Unavailable Unavailable Kennedi Ho MD Unavailable Unavailable Kennedi Ho MD Unavailable Unavailable Kennedi Ho MD Unavailable Unavailable Kennedi Ho MD Unavailable Unavailable Kennedi Ho MD Unavailable Unavailable Kennedi Ho MD Unavailable Unavailable Kennedi Ho MD Unavailable Unavailable Kennedi Ho MD Unavailable Unavailable Kennedi Ho MD Unavailable Unavailable Kennedi Ho MD Unavailable Unavailable Kennedi Ho MD Unavailable Unavailable Kennedi Ho MD Unavailable Unavailable Kennedi Ho MD Unavailable Unavailable Kennedi Ho MD Unavailable Unavailable Kennedi Ho MD Unavailable Unavailable Kennedi Ho MD Unavailable Unavailable Kennedi Ho MD Unavailable Unavailable Kennedi Ho MD Unavailable Unavailable Kennedi Ho MD Unavailable Unavailable Kennedi Ho MD Unavailable Unavailable Kennedi Ho MD Unavailable Unavailable Kennedi Ho MD Unavailable Unavailable Hopewell, V JOSE PA-C Unavailable Unavailable Hopewell, V JOSE PA-C Unavailable Unavailable César, V JOSE PA-C Unavailable Unavailable [place]well, V JOSE PA-C Unavailable Unavailable [place]well, V JOSE PA-C Unavailable Unavailable [place]well, V JOSE PA-C Unavailable Unavailable [place]well, V JOSE PA-C Unavailable Unavailable [place]well, V JOSE PA-C Unavailable Unavailable Hopewell, V JOSE PA-C Unavailable Unavailable Hopewell, V JOSE PA-C Unavailable Unavailable César, V JOSE PA-C Unavailable Unavailable César, V JOSE PA-C Unavailable Unavailable Hopewell, V JOSE PA-C Unavailable Unavailable [place], V JOSE PA-C Unavailable Unavailable Dane Johns MD Unavailable Unavailable Dane Johns MD Unavailable Unavailable Dane Johns MD Unavailable Unavailable Dane Johns MD Unavailable Unavailable Dane Johns MD Unavailable Unavailable Dane Johns MD Unavailable Unavailable Dane Johns MD Unavailable Unavailable Dane Johns MD Unavailable Unavailable Dane Johns MD Unavailable Unavailable Dane Johns MD Unavailable Unavailable Dane Johns MD Unavailable Unavailable Dane Johns MD Unavailable Unavailable Dane Johns MD Unavailable Unavailable Dane Johns MD Unavailable Unavailable Dane Johns MD Unavailable Unavailable Dane Johns MD Unavailable Unavailable Dane Johns MD Unavailable Unavailable Dane Johns MD Unavailable Unavailable Dane Johns MD Unavailable Unavailable Dane Johns MD Unavailable Unavailable Dane Johns MD Unavailable Unavailable Dane Johns MD Unavailable Unavailable Dane Johns MD Unavailable Unavailable Dane Johns MD Unavailable Unavailable Dane Johns MD Unavailable Unavailable Dane Johns MD Unavailable Unavailable Dane Johns MD Unavailable Unavailable Dane Johns MD Unavailable Unavailable Dane Johns MD Unavailable Unavailable Dane Johns MD Unavailable Unavailable Dane Johns MD Unavailable Unavailable Dane Johns MD Unavailable Unavailable Dane Johns MD Unavailable Unavailable Johns, Dane Lan MD Unavailable Unavailable Johns, Dane Lan MD Unavailable Unavailable Johns, Dane Lan MD Unavailable Unavailable Johns, Dane Lan MD Unavailable Unavailable Johns, Dane Lan MD Unavailable Unavailable Johns, Dane Lan MD Unavailable Unavailable Johns, Dane Lan MD Unavailable Unavailable Johns, Dane Lan MD Unavailable Unavailable Johns, Dane Lan MD Unavailable Unavailable Johns, Dane Lan MD Unavailable Unavailable Johns, Dane Lan MD Unavailable Unavailable Johns, Dane Lan MD Unavailable Unavailable Johns, Dane Lan MD Unavailable Unavailable Johns, Dane Lan MD Unavailable Unavailable Johns, Dane Lan MD Unavailable Unavailable Johns, Dane Lan MD Unavailable Unavailable Johns, Dane Lan MD Unavailable Unavailable Johns, Dane Lan MD Unavailable Unavailable Johns, Dane Lan MD Unavailable Unavailable Johns, Dane Lan MD Unavailable Unavailable Johns, Dane Lan MD Unavailable Unavailable Al Mudamjoan, Nathen Pacheco MD Unavailable Unavailable Al Aleksandraamjoan, Nathen Pacheco MD Unavailable Unavailable Al Aleksandraamjoan, Nathen Pacheco MD Unavailable Unavailable Al Mudamjoan, Nathen Pacheco MD Unavailable Unavailable Al Santana, Nathen Pacheco MD Unavailable Unavailable Al Santana, Nathen Pacheco MD Unavailable Unavailable Al Santana, Nathen Pacheco MD Unavailable Unavailable Al Santana, Nathen Pacheco MD Unavailable Unavailable Al Santana, Nathen Pacheco MD Unavailable Unavailable Al Santana, Nathen Pacheco MD Unavailable Unavailable Al Santana, Nathen Pacheco MD Unavailable Unavailable Al Santana, Nathen Pacheco MD Unavailable Unavailable Al Santana, Nathen Pacheco MD Unavailable Unavailable Al Santana, Nathen Pacheco MD Unavailable Unavailable Al Mudamjoan, Nathen Pacheco MD Unavailable Unavailable Al Santana, Nathen Pacheco MD Unavailable Unavailable Al Santana, Nathen Pacheco MD Unavailable Unavailable Al Santana, Nathen Pacheco MD Unavailable Unavailable Al Santana, Nathen Pacheco MD Unavailable Unavailable Al Santana, Nathen Pacheco MD Unavailable Unavailable Al Mudamjoan, Nathen Pacheco MD Unavailable Unavailable Al Santana, Nathen Pacheco MD Unavailable Unavailable Al Aleksandraamjoan, Nathen Pacheco MD Unavailable Unavailable Al Santana, Nathen Pacheco MD Unavailable Unavailable Al Santana, Nathen Pacheco MD Unavailable Unavailable Al Santana, Nathen Pacheco MD Unavailable Unavailable Al Aleksandraamjoan, Nathen Pacheco MD Unavailable Unavailable Al Santana, Nathen Pacheco MD Unavailable Unavailable Al Santana, Nathen Pacheco MD Unavailable Unavailable Al Santana, Nathen Pacheco MD Unavailable Unavailable Al Santana, Nathen Pacheco MD Unavailable Unavailable Al Mudamgha, A Ali MD Unavailable Unavailable Al Mudamgha, A Ali MD Unavailable Unavailable Al Mudamgha, A Ali MD Unavailable Unavailable Al Mudamgha, A Ali MD Unavailable Unavailable Al Mudamgha, A Ali MD Unavailable Unavailable Al Mudamgha, A Ali MD Unavailable Unavailable Al Mudamgha, A Ali MD Unavailable Unavailable Al Mudamgha, A Ali MD Unavailable Unavailable Al Mudamgha, A Ali MD Unavailable Unavailable Al Mudamgha, A Ali MD Unavailable Unavailable Al Mudamgha, A Ali MD Unavailable Unavailable Al Mudamgha, A Ali MD Unavailable Unavailable Al Mudamgha, A Ali MD Unavailable Unavailable Al Mudamgha, A Ali MD Unavailable Unavailable Al Mudamgha, A Ali MD Unavailable Unavailable Al Mudamgha, A Ali MD Unavailable Unavailable Al Mudamgha, A Ali MD Unavailable Unavailable Al Mudamgha, A Ali MD Unavailable Unavailable Al Mudamgha, A Ali MD Unavailable Unavailable Al Mudamgha, A Ali MD Unavailable Unavailable Al Mudamgha, A Ali MD Unavailable Unavailable Al Mudamgha, A Ali MD Unavailable Unavailable Al Mudamgha, A Ali MD Unavailable Unavailable Al Mudamgha, A Ali MD Unavailable Unavailable Al Mudamgha, A Ali MD Unavailable Unavailable Al Mudamgha, A Ali MD Unavailable Unavailable Al Mudamgha, A Ali MD Unavailable Unavailable Al Mudamgha, A Ali MD Unavailable Unavailable Al Mudamgha, A Ali MD Unavailable Unavailable Al Mudamgha, A Ali MD Unavailable Unavailable Al Mudamgha, A Ali MD Unavailable Unavailable Al Mudamgha, A Ali MD Unavailable Unavailable Al Mudamgha, A Ali MD Unavailable Unavailable Al Mudamgha, A Ali MD Unavailable Unavailable Al Mudamgha, A Ali MD Unavailable Unavailable Al Mudamgha, A Ali MD Unavailable Unavailable Al Mudamgha, A Ali MD Unavailable Unavailable Al Mudamgha, A Ali MD Unavailable Unavailable Al Mudamgha, A Ali MD Unavailable Unavailable Al Mudamgha, A Ali MD Unavailable Unavailable Al Mudamgha, A Ali MD Unavailable Unavailable Al Mudamgha, A Ali MD Unavailable Unavailable Al Mudamgha, A Ali MD Unavailable Unavailable Al Mudamgha, A Ali MD Unavailable Unavailable Al Mudamgha, A Ali MD Unavailable Unavailable Al Mudamgha, A Ali MD Unavailable Unavailable Al Mudamgha, A Ali MD Unavailable Unavailable Al Mudamgha, A Ali MD Unavailable Unavailable Al Mudamgha, A Ali MD Unavailable Unavailable Al Mudamgha, A Ali MD Unavailable Unavailable Al Mudamgha, A Ali MD Unavailable Unavailable Al Mudamgha, A Ali MD Unavailable Unavailable Al Mudamgha, A Ali MD Unavailable Unavailable Al Mudamgha, A Ali MD Unavailable Unavailable Al Mudamgha, A Ali MD Unavailable Unavailable Al Mudamgha, A Ali MD Unavailable Unavailable Al Mudamgha, A Ali MD Unavailable Unavailable Re-disclosure Warning The records that you are about to access may contain information from federally-assisted alcohol or drug abuse programs. If such information is present, then the following federally mandated warning applies: This information has been disclosed to you from records protected by federal confidentiality rules (42 CFR part 2). The federal rules prohibit you from making any further disclosure of this information unless further disclosure is expressly permitted by the written consent of the person to whom it pertains or as otherwise permitted by 42 CFR part 2. A general authorization for the release of medical or other information is NOT sufficient for this purpose. The Federal rules restrict any use of the information to criminally investigate or prosecute any alcohol or drug abuse patient.The records that you are about to access may contain highly sensitive health information, the redisclosure of which is protected by Article 27-F of the [facility] Public Health law. If you continue you may have access to information: Regarding HIV / AIDS; Provided by facilities licensed or operated by the [facility] Office of Mental Health; or Provided by the [facility] Office for People With Developmental Disabilities. If such information is present, then the following [facility] mandated warning applies: This information has been disclosed to you from confidential records which are protected by state law. State law prohibits you from making any further disclosure of this information without the specific written consent of the person to whom it pertains, or as otherwise permitted by law. Any unauthorized further disclosure in violation of state law may result in a fine or usp sentence or both. A general authorization for the release of medical or other information is NOT sufficient authorization for further disc losure. Allergies and Adverse Reactions Type Description Substance Reaction Status Data Source(s ) Drug Allergy NKDA NKDA MEDENT ([facility]) Family History Family Member Name Family Member Gender Family Member Status Date o f Status Description Data Source(s) Unknown Unknown Problem MEDENT ([facility], ) Unknown Female Problem [facility] ([facility] () Unknown Unknown Problem MED[facility] ([facility]) Unknown Female Problem MEDENT ([facility]) Encounters Encounter Providers Location Date Indications Data Source(s ) Outpatient Attender: SHRUTI Fuchs/ [facility] 01/15/2021 09:15:00 AM EDT [facility] ([facility]) Outpatient Attender: Amaya Ho MD Main office - [facility] 01/13/2021 01:45:00 PM EDT MEDENT ([facility], ) Office Visit, Est Pt., Level 2 FC [address] [place] [address] 12/29/2020 12:00:00 AM EDT eCW1 ([facility]) Unknown [address] [facility] [address] 12/29/2020 12:00:00 AM EDT eCW1 ([facility]) Unknown [address] [facility] [address] 12/23/2020 12:00:00 AM EDT eCW1 ([facility]) Outpatient Attender: DAVID Begum/Nafisa/Dmitry/Rein dl 12/18/2020 08:50:00 AM EDT MEDENT ([facility], ) Outpatient RITCHIEP.CT-[email or web address].SYR 12/11/2020 03:37:01 PM EDT [facility] Outpatient Attender: JOSE SERRANOIVAN-RITCHIEP.IVAN 11/2020 12:00:00 AM EDT - 12/04/2020 02:47:34 PM EDT [facility] Outpatient Attender: DAVID Begum/Nafisa/Dmitry/Rein dl 11/24/2020 03:45:00 PM EDT MEDENT ([facility]) <td ID="encounterTypeDescriptionID0">1 Y ear Follow-Up & Testing</td><td>David Reece MD, FACS</td><td>David Reece MD [facility]</td><td>11/11/2020</td><td>8:32AM</td><td>9:35AM</td><td><content ID="encounterDiagnosisID0-0">Pseudophakia</content>, <content ID="encounterDiagnosisID0-1">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</content>, <content ID="encounterDiagnosisID0-2">Macular Puckering Right Eye</content>, <content ID="encounterDiagnosisID0-3">Dry Eye Syndrome Both Eyes</content></td>Outpatient Attender: David Turpin MD, FACS David Turpin MD [facility] 11/11/2020 08:32:00 AM EDT - 11/11/2020 09:35:00 AM ED T 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PseudophakiaMacular Puckering Right EyeDry Eye Syndrome Both Eyes LEWIS (David Turpin MD [facility]) Posterior Capsule Opacification Eccentri c Capsule Left Eye Pseudophakia 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 Outpatient Attender: Riky Begum/Nafisa/Dmitry/Brianne morley 11/05/2020 03:30:00 PM EDT MEDENT ([facility] ) Outpatient [address] [facility] [address] 11/05/2020 12:00:00 AM EDT eCW1 ([facility]) Outpatient SJP.CT-SJP.CLAYTON 10/30/2020 09:40:38 AM EDT [facility] Unknown [address] [facility] [address] 10/07/2020 12:00:00 AM EDT eCW1 ([facility]) Unknown [address] [facility] [address] 09/30/2020 12:00:00 AM EDT eCW1 ([facility]) Outpatient Attender: Mindy REYNOLDSP Main Office 09/23/2020 09:00:00 AM EDT MEDENT ([facility]) Outpatient Attender: JOSE SERRANOIVAN-SJP.IVAN 11/2020 12:52:22 PM EDT - 09/03/2020 02:01:05 PM EDT [facility] [place] [address] [facility] [address] 09/03/2020 12:00:00 AM EDT eCW1 ([facility]) [place] [address] [facility] [address] 09/02/2020 12:00:00 AM EDT eCW1 ([facility]) Unknown [address] [facility] [address] 09/02/2020 12:00:00 AM EDT eCW1 ([facility]) Outpatient Referrer: JOSE BRADY-SJP.IVAN 07:16:55 AM EDT [facility] Outpatient ISRAEL.CT-SJP.SYR 07/24/2020 03:42:51 PM EDT [facility] Outpatient SJP.CT-SJP.SYR 07/15/2020 08:05:29 AM EDT [facility] Outpatient Attender: JOSE BRADY-SJP.IVAN 01:15:07 PM EDT [facility] Outpatient [address] [facility] [address] 06/24/2020 12:00:00 AM EDT eCW1 ([facility]) Unknown [address] [facility] [address] 06/23/2020 12:00:00 AM EDT eCW1 ([facility]) Outpatient Attender: Lidia Fuchs/ Min Blanco gy 06/20/2020 11:30:00 AM EDT MEDENT ([facility] [place]) Outpatient Attender: JOSE BRADY-SJP.IVAN 12:00:00 AM EDT - 06/17/2020 10:57:59 AM EDT [facility] Outpatient SJP.IVAN-SJP 06/13/2020 11:00:42 AM EDT [facility] Outpatient SJP.IVAN-SJP.IVAN 06/12/2020 12:00:00 AM EDT [facility] Outpatient Attender: JOSE MONTALVOIVAN 12:00:00 AM EDT - 06/10/2020 08:59:58 AM EDT [facility] Outpatient Attender: DAVID Begum/Nafisa/Dmitry/Robin hernandes 06/04/2020 12:00:00 PM EST MEDENT ([facility]) Outpatient [address] [facility] [address] 05/07/2020 12:00:00 AM EST eCW1 ([facility]) Outpatient Attender: Riky Begum/Nafisa/Dmitry/Brianne morley 04/29/2020 08:30:00 AM EST MEDENT ([facility] ) Outpatient SJP.IVAN-RITCHIEP 04/19/2020 08:35:00 PM EST [facility] Outpatient SJP.IVAN-SJP.IVAN 04/17/2020 12:00:00 AM EST [facility] Unknown [address] [facility] [address] 03/18/2020 12:00:00 AM EST eCW1 ([facility]) Unknown [address] [facility] [address] 03/04/2020 12:00:00 AM EST eCW1 ([facility]) Outpatient Attender: JOSE MONTALVOIVAN 02/2020 12:00:00 AM EST - 02/07/2020 11:34:03 AM EST [facility] Outpatient SJP.IVAN-SJP 01/21/2020 09:17:21 AM EDT [facility] Outpatient SJP.IVAN-SJP.IVAN 01/18/2020 12:00:00 AM EDT [facility] Outpatient SJP.IVAN-SJP.IVAN 01/17/2020 12:00:00 AM EDT [facility] Unknown [address] [facility] [address] 01/17/2020 12:00:00 AM EDT eCW1 ([facility]) Outpatient Attender: Ginna Bond FNPReferrer: Ginna KINNEY SJP .IVAN-SJP.IVAN 01/03/2020 09:30:10 AM EDT - 01/03/2020 04:14:39 PM EDT [facility] Outpatient Attender: Junior Mccormick MD Admitter: Junior Mccormick MDReferrer: Junior Mccormick MD [email or web address].CVAU 12/20/2019 09:08:00 AM EDT - 12/20/2019 01:23:00 PM EDT [facility] Patient discharged. Outpatient MOB-MOB.PAT 12/15/2019 10:15 :36 AM EDT - 12/15/2019 10:15:40 AM EDT [facility] Immunizations Vaccine Date Status Description Data Source(s) COVID-19 VACC, MRNA(PFIZER)/PF 12/11/2020 12:00:00 AM EDT completed [facility] COVID-19 VACCINE Pfizer 12/11/2020 12:00:00 AM EDT completed [facility] Vaccine Series Complete: YESThis Data wa s Submitted to [facility] Via [employer] COVID-19 dose #2 given elsewhere Unspecified 05/01/2020 10:0 3:00 AM EST completed eCW1 ([facility]) COVID-19 dose #2 given elsewhere Unspecified 05/01/2020 10:0 3:00 AM EST completed eCW1 ([facility]) COVID-19 dose #2 given elsewhere Unspecified 05/01/2020 10:0 3:00 AM EST completed eCW1 ([facility]) COVID-19 dose #2 given elsewhere Unspecified 05/01/2020 10:0 3:00 AM EST completed eCW1 ([facility]) COVID-19 dose #2 given elsewhere Unspecified 05/01/2020 10:0 3:00 AM EST completed eCW1 ([facility]) COVID-19 dose #2 given elsewhere Unspecified 05/01/2020 10:0 3:00 AM EST completed eCW1 ([facility]) COVID-19 dose #2 given elsewhere Unspecified 05/01/2020 10:0 3:00 AM EST completed eCW1 ([facility]) COVID-19 dose #2 given elsewhere Unspecified 05/01/2020 10:0 3:00 AM EST completed eCW1 ([facility]) COVID-19 dose #2 given elsewhere Unspecified 05/01/2020 10:0 3:00 AM EST completed eCW1 ([facility]) COVID-19 dose #2 given elsewhere Unspecified 05/01/2020 10:0 3:00 AM EST completed eCW1 ([facility]) COVID-19 dose #1 given elsewhere Unspecified 05/01/2020 08:3 0:00 AM EST completed eCW1 ([facility]) COVID-19 dose #1 given elsewhere Unspecified 05/01/2020 08:3 0:00 AM EST completed eCW1 ([facility]) COVID-19 VACCINE Pfizer 05/01/2020 12:00:00 AM EST completed [facility] Vaccine Series Complete: YESThis Data wa s Submitted to [facility] Via [employer]. COVID-19 dose #1 given elsewhere Unspecified 04/10/2020 11:0 3:00 AM EST completed eCW1 ([facility]) COVID-19 dose #1 given elsewhere Unspecified 04/10/2020 11:0 3:00 AM EST completed eCW1 ([facility]) COVID-19 dose #1 given elsewhere Unspecified 04/10/2020 11:0 3:00 AM EST completed eCW1 ([facility]) COVID-19 dose #1 given elsewhere Unspecified 04/10/2020 11:0 3:00 AM EST completed eCW1 ([facility]) COVID-19 dose #1 given elsewhere Unspecified 04/10/2020 11:0 3:00 AM EST completed eCW1 ([facility]) COVID-19 dose #1 given elsewhere Unspecified 04/10/2020 11:0 3:00 AM EST completed eCW1 ([facility]) COVID-19 dose #1 given elsewhere Unspecified 04/10/2020 11:0 3:00 AM EST completed eCW1 ([facility]) COVID-19 dose #1 given elsewhere Unspecified 04/10/2020 11:0 3:00 AM EST completed eCW1 ([facility]) COVID-19 dose #1 given elsewhere Unspecified 04/10/2020 11:0 3:00 AM EST completed eCW1 ([facility]) COVID-19 dose #1 given elsewhere Unspecified 04/10/2020 11:0 3:00 AM EST completed eCW1 ([facility]) COVID-19 dose #1 given elsewhere Unspecified 04/10/2020 11:0 3:00 AM EST completed eCW1 ([facility]) COVID-19 dose #1 given elsewhere Unspecified 04/10/2020 11:0 3:00 AM EST completed eCW1 ([facility]) COVID-19 VACCINE Pfizer 04/10/2020 12:00:00 AM EST completed [facility] Vaccine Series Complete: NOThis Data was Submitted to [facility] Via [employer]. IIV3. This is one of two codes replacing CVX 15, which is being retired. 01/28/2020 05:55:00 AM EST completed eCW1 ([facility]) IIV3. This is one of two codes replacing CVX 15, which is being retired. 01/28/2020 05:55:00 AM EST completed eCW1 ([facility]) IIV3. This is one of two codes replacing CVX 15, which is being retired. 01/28/2020 05:55:00 AM EST completed eCW1 ([facility]) IIV3. This is one of two codes replacing CVX 15, which is being retired. 01/28/2020 05:55:00 AM EST completed eCW1 ([facility]) IIV3. This is one of two codes replacing CVX 15, which is being retired. 01/28/2020 05:55:00 AM EST completed eCW1 ([facility]) IIV3. This is one of two codes replacing CVX 15, which is being retired. 01/28/2020 05:55:00 AM EST completed eCW1 ([facility]) IIV3. This is one of two codes replacing CVX 15, which is being retired. 01/28/2020 05:55:00 AM EST completed eCW1 ([facility]) IIV3. This is one of two codes replacing CVX 15, which is being retired. 01/28/2020 05:55:00 AM EST completed eCW1 ([facility]) IIV3. This is one of two codes replacing CVX 15, which is being retired. 01/28/2020 05:55:00 AM EST completed eCW1 ([facility]) IIV3. This is one of two codes replacing CVX 15, which is being retired. 01/28/2020 05:55:00 AM EST completed eCW1 ([facility]) IIV3. This is one of two codes replacing CVX 15, which is being retired. 01/28/2020 05:55:00 AM EST completed eCW1 ([facility]) IIV3. This is one of two codes replacing CVX 15, which is being retired. 01/28/2020 05:55:00 AM EST completed eCW1 ([facility]) Medications Medication Brand Name Start Date Product Form Dose Route Admi nistrative Instructions Pharmacy Instructions Status Indications Reaction Description Data Source(s) Cephalexin 500 MG Oral Capsule Cephalexin 01/15/2021 12:00:00 AM EDT ORAL completed MEDENT ([facility]) Gemtesa Gemtesa 01/15/2021 12:00:00 AM EDT ORAL active MEDENT ([facility]) predniSONE 10 MG (21) predniSONE 10 MG (21) 12/22/2020 12:00:00 AM EDT active predniSONE 10 MG (21) eCW1 ( [facility]) predniSONE 10 MG (21) predniSONE 10 MG (21) 12/22/2020 12:00:00 AM EDT active predniSONE 10 MG (21) eC ( [facility]) predniSONE 10 MG (21) predniSONE 10 MG (21) 12/22/2020 12:00:00 AM EDT active predniSONE 10 MG (21) eC ( [facility]) Prednisone 10 MG Oral Tablet Prednisone 12/18/2020 12:00:00 AM EDT active MEDENT ([facility], ) infliximab 100 MG Injection [Remicade] Remicade 12/18/2020 12:00:00 AM EDT active MEDENT ([facility]) infliximab 100 MG Injection [Remicade] Remicade 12/18/2020 12:00:00 AM EDT active MEDENT ([facility]) 10 mg 12/18/2020 12:00:00 AM EDT tablet 45 TAKE 3 TABLETS BY MOUTH EVERY DAY FOR 7 DAYS THEN TAKE 2 TABLETS BY MOUTH EVERY DAY FOR 7 DAYS THEN TAKE 1 TABLET BY MOUTH EVERY DAY FOR 7 DAYS THEN 1/2 TABLET EVERY UNTIL GONE TAKE 3 TABLETS BY MOUTH EVERY DAY FOR 7 DAYS THEN TAKE 2 TABLETS BY MOUTH EVERY DAY FOR 7 DAYS THEN TAKE 1 TABLET BY MOUTH EVERY DAY FOR 7 DAYS THEN 1/2 TABLET EVERY UNTIL GONE SOLD: 12/18/2020 [facility] 25 mg 12/11/2020 12:00:00 AM EDT tablet extended release 24 hr 90 TAKE ONE TABLET BY MOUTH EVERY DAY TAKE ONE TABLET BY MOUTH EVERY DAY SOLD: 12/13/2020 [facility] 20 mg 12/06/2020 12:00:00 AM EDT tablet 20 TAKE ONE TABLET BY MOUTH TWICE A DAY TAKE ONE TABLET BY MOUTH TWICE A DAY SOLD: 12/06/2020 [facility] Spironolactone 25 MG Oral Tablet spironolactone (ALDAC TONE) 25 MG tablet spironolactone (ALDACTONE) 25 MG tablet 12/04/2020 12:00:00 AM EDT 25 mg Oral active Take 1 tablet (25 mg tota l) by mouth daily [facility] sacubitril 24 MG / valsartan 26 MG Oral Tablet [Entresto] sacubitril-valsartan (Entresto) 24-26 MG TABS sacubitril-valsartan (Entresto) 24-26 MG TABS 12/04/2020 12:00:00 AM EDT 1 {tbl} Oral active Take 1 tablet by mouth 2 (two) times a day [facility] 5 mg 12/03/2020 12:00:00 AM EDT tablet 180 TAKE ONE TABLET BY MOUTH TWICE A DAY TAKE ONE TABLET BY MOUTH TWICE A DAY SOLD: 12/03/2020 [facility] apixaban 5 MG Oral Tablet [Eliquis] Eliquis 5 MG TABS tablet Eliquis 5 MG TABS tablet 12/02/2020 12:00:00 AM EDT active TAKE ONE TABLET BY MOUTH TWICE A DAY [facility] vedolizumab 300 MG Injection [Entyvio] Entyvio 11/24/2020 12:00:00 A M EDT completed MEDENT ([facility], ) vedolizumab 300 MG Injection [Entyvio] Entyvio 11/24/2020 12:00:00 A M EDT completed MEDENT ([facility], ) 24 HR Budesonide 9 MG Extended Release Oral Tablet Budesonid e ER 11/14/2020 12:00:00 AM EDT ORAL completed MEDENT ([facility], ) 24 HR Budesonide 9 MG Extended Release Oral Tablet [place] esonide ER 9 MG TB24 Budesonide ER 9 MG TB24 11/14/2020 12:00:00 AM EDT 1 {tbl} Oral active Take 1 tablet by mouth daily [facility] 9 mg 11/14/2020 12:00:00 AM EDT tablet,delayed and ext. release 30 TAKE ONE TABLET BY MOUTH EVERY DAY TAKE ONE TABLET BY MOUTH EVERY DAY SOLD: 11/14/2020 [facility] Metroprolol 25 mg Oral Tablet Metroprolol 25 mg Oral Tablet 11/11/2020 12:00:00 AM EDT active Metroprolol [address] (David Turpin MD [facility]) sacubitril 24 MG / valsartan 26 MG Oral Tablet [Entresto] Entresto 24-26 MG Oral Tablet Entresto 24-26 MG Oral Tablet 11/11/2020 12:00:00 AM EDT 1 active sacubitril 24 MG / valsartan 26 MG Oral Tablet [Entresto] [facility] (David Turpin MD [facility]) apixaban 5 MG Oral Tablet [Eliquis] Eliquis 5 MG Oral Tablet Eliquis 5 MG Oral Tablet 11/11/2020 12:00:00 AM EDT 1 active apixaban 5 MG Oral Tablet [Eliquis] [facility] (David Turpin MD [facility]) 60 ACTUAT Budesonide 0.08 MG/ACTUAT / fo rmoterol fumarate 0.0045 MG/ACTUAT Metered Dose Inhaler [Symbicort] Symbicort 80-4.5 MCG/ACT Inhalation Aerosol Symbicort 80-4.5 MCG/ACT Inhalation Aerosol 11/11/2020 12:00:00 AM EDT 1 active 60 ACTUAT budeso nide 0.08 MG/ACTUAT / formoterol fumarate 0.0045 MG/ACTUAT Metered Dose Inhaler [Symbicort] [facility] (David Turpin MD [facility]) Levothyroxine Sodium 0.15 MG Oral Tablet Levothyroxine Sodium 150 MCG Oral Tablet Levothyroxine Sodium 150 MCG Oral Tablet 11/11/2020 12:00:00 AM EDT active levothyroxine sodium 0.15 MG Oral Tablet [facility] ([facility]) Sulfasalazine 500 MG Oral Tablet sulfaSALAzine 500 MG Oral Tablet sulfaSALAzine 500 MG Oral Tablet 11/11/2020 12:00:00 AM EDT 1 active sulfasalazine 500 MG Oral Tablet [facility] ([facility]) Spironolactone 25 MG Oral Tablet Spironolactone 25 MG Oral T ablet 11/11/2020 12:00:00 AM EDT active spironol actone 25 MG Oral Tablet [facility] ([facility]) 12 HR Bupropion Hydrochloride 150 MG Ext ended Release Oral Tablet buPROPion HCl ER (SR) 150 MG Oral Tablet Extended Release 12 Hour buPROPion HCl ER (SR) 150 MG Oral Tablet Extended Release 12 Hour 11/11/2020 12:00:00 AM EDT active 12 HR bupropion hydrochloride 15 0 MG Extended Release Oral Tablet [facility] ([facility]pin [facility]) 24 HR Bupropion Hydrochloride 300 MG Ext ended Release Oral Tablet buPROPion (WELLBUTRIN XL) 300 MG 24 hr tablet buPROPion (WELLBUTRIN XL) 300 MG 24 hr tablet 11/06/2020 12:00:00 AM EDT aborted [facility] 500 mg 10/08/2020 12:00:00 AM EDT tablet 120 TAKE TWO TABLETS BY MOUTH TWICE A DAY TAKE TWO TABLETS BY MOUTH TWICE A DAY SOLD: 10/10/2020 [facility] Sulfasalazine 500 MG Oral Tablet sulfaSALAzine 500 MG sulfaS ALAzine 500 MG 09/30/2020 12:00:00 AM EDT 2.0 {tablet} suspende d sulfaSALAzine 500 MG eCW1 ([facility]) Sulfasalazine 500 MG Oral Tablet sulfaSALAzine 500 MG sulfaS ALAzine 500 MG 09/30/2020 12:00:00 AM EDT 2.0 {tablet} suspende d sulfaSALAzine 500 MG eCW1 ([facility]) Sulfasalazine 500 MG Oral Tablet sulfaSALAzine 500 MG sulfaS ALAzine 500 MG 09/30/2020 12:00:00 AM EDT 2.0 {tablet} active sulfaSALAzine 500 MG eCW1 ([facility]) Sulfasalazine 500 MG Oral Tablet sulfaSALAzine 500 MG sulfaS ALAzine 500 MG 09/30/2020 12:00:00 AM EDT 2.0 {tablet} suspende d sulfaSALAzine 500 MG eCW1 ([facility]) Sulfasalazine 500 MG Delayed Release Oral Tablet sulfa SALAzine 500 MG sulfaSALAzine 500 MG 09/30/2020 12:00:00 AM EDT 1.0 {tablet} active sulfaSALAzine 500 MG eCW1 ([facility]) Sulfasalazine 500 MG Oral Tablet sulfaSALAzine 500 MG sulfaS ALAzine 500 MG 09/30/2020 12:00:00 AM EDT 2.0 {tablet} active sulfaSALAzine 500 MG eCW1 ([facility]) 0.05 % 09/24/2020 12:00:00 AM EDT cream 60 APPLY TO TRUNK AND EXTREMETIES SPARINGLY TWO TIMES A DAY FOR 1 WEEK THEN NEEDED APPLY TO TRUNK AND EXTREMETIES SPARINGLY TWO TIMES A DAY FOR 1 WEEK THEN NEEDED SOLD: 09/25/2020 [email or web address] Fluocinolone Acetonide 0.1 MG/ML Topical Solution fluocinolone (SYNALAR) 0.01 % external solution fluocinolone (SYNALAR) 0.01 % external solution 2020 12:00:00 AM EDT active APPLY TO SCALP TWICE A DAY FOR 10 14 DAYS THEN NEEDED NO MORE THEN 4 APPLICATIONS A WEEK [facility] 0.01 % 09/24/2020 12:00:00 AM EDT solution 60 APPLY TO SCALP TWICE A DAY FOR 10-14 DAYS THEN NEEDED NO MORE THEN 4 APPLICATIONS A WEEK APPLY TO SCALP TWICE A DAY FOR 10-14 DAYS THEN NEEDED NO MORE THEN 4 APPLICATIONS A WEEK SOLD: 09/25/2020 [email or web address] sacubitril 24 MG / valsartan 26 MG Oral Tablet [Entresto] Entresto 24-26 MG TABS Entresto 24-26 MG TABS 09/03/2020 12:00:00 AM EDT 1 {tbl} Oral active Take 1 tablet by mouth 2 (two) times a day Hold for SB P less then 100mmHg [facility] 5 mg 08/27/2020 12:00:00 AM EDT tablet 90 TAKE ONE TABLET BY MOUTH TWICE A DAY TAKE ONE TABLET BY MOUTH TWICE A DAY SOLD: 10/10/2020 [facility] 5 mg 08/27/2020 12:00:00 AM EDT tablet 90 TAKE ONE TABLET BY MOUTH TWICE A DAY TAKE ONE TABLET BY MOUTH TWICE A DAY SOLD: 08/28/2020 [facility] apixaban 5 MG Oral Tablet [Eliquis] Eliquis 5 MG TABS tablet Eliquis 5 MG TABS tablet 08/26/2020 12:00:00 AM EDT 5 mg Oral active Take 1 tablet (5 mg total) by mouth 2 (two) times a day [facility] 25 mg 08/24/2020 12:00:00 AM EDT tablet 90 TAKE ONE TABLET BY MOUTH EVERY DAY TAKE ONE TABLET BY MOUTH EVERY DAY SOLD: 08/28/2020 [facility] sacubitril 24 MG / valsartan 26 MG Oral Tablet [Entresto] Entresto 24-26 MG TABS Entresto 24-26 MG TABS 08/20/2020 12:00:00 AM EDT 1 {tbl} Oral aborted Take 1 tablet by mouth 2 (two) times a day Hold for SB P less then 100mmHg [facility] 90 mcg/actuation 07/08/2020 12:00:00 AM EDT HFA aerosol inha ler 8 INHALE TWO PUFFS BY MOUTH FOUR TIMES A DAY NEEDED INHALE TWO PUFFS BY MOUTH FOUR TIMES A DAY NEEDED SOLD: 07/19/2020 [facility] albuterol (PROVENTIL HFA;VENTOLIN HFA) 108 (90 Base) M CG/ACT inhaler [id number] 07/07/2020 12:00:00 AM EDT aborted [facility] 24-26 mg 07/04/2020 12:00:00 AM EDT tablet 60 TAKE ONE TABLET BY MOUTH TWICE A DAY HOLD FOR BLOOD PRESSURE LESS THEN 100/MM HG TAKE ONE TABLET BY MOUTH TWICE A DAY HOLD FOR BLOOD PRESSURE LESS THEN 100/MM HG SOLD: 08/19/2020 [facility] 24-26 mg 07/04/2020 12:00:00 AM EDT tablet 60 TAKE ONE TABLET BY MOUTH TWICE A DAY HOLD FOR BLOOD PRESSURE LESS THEN 100/MM HG TAKE ONE TABLET BY MOUTH TWICE A DAY HOLD FOR BLOOD PRESSURE LESS THEN 100/MM HG SOLD: 07/05/2020 [facility] Spironolactone 25 MG Oral Tablet spironolactone (ALDAC TONE) 25 MG tablet spironolactone (ALDACTONE) 25 MG tablet 07/04/2020 12:00:00 AM EDT 25 mg Oral aborted Take 1 tablet (25 mg tota l) by mouth daily [facility] sacubitril 24 MG / valsartan 26 MG Oral Tablet [Entresto] ENTRESTO 24-26 MG TABS ENTRESTO 24-26 MG TABS 07/04/2020 12:00:00 AM EDT 1 {tbl} Oral active Take 1 tablet by mouth 2 (two) times a day Hold for SB P less then 100mmHg [facility] 500 mg 06/24/2020 12:00:00 AM EDT capsule 21 TAKE ONE CAPSULE BY MOUTH THREE TIMES A DAY FOR 7 DAYS TAKE ONE CAPSULE BY MOUTH THREE TIMES A DAY FOR 7 DAYS SOLD: 06/24/2020 [facility] Ampicillin 500 MG Oral Capsule Ampicillin 06/23/2020 12:00:00 AM EDT ORAL active [facility] ([facility]) POLYETHYLENE GLYCOL 3350 142 MG/ML Oral Solution [Miralax] M iralax 06/04/2020 12:00:00 AM EST completed [facility] ([facility]) Magnesium Hydroxide 80 MG/ML Oral Suspension Milk Of Magnesi a 06/04/2020 12:00:00 AM EST ORAL completed [facility] ([facility], ) 24 HR Bupropion Hydrochloride 150 MG Ext ended Release Oral Tablet buPROPion (WELLBUTRIN XL) 150 MG 24 hr tablet buPROPion (WELLBUTRIN XL) 150 MG 24 hr tablet 05/24/2020 12:00:00 AM EST active daily [facility] 5 mg 05/23/2020 12:00:00 AM EST tablet 90 TAKE ONE TABLET BY MOUTH TWICE A DAY TAKE ONE TABLET BY MOUTH TWICE A DAY SOLD: 07/04/2020 [facility] 25 mg 05/23/2020 12:00:00 AM EST tablet extended release 24 hr 90 TAKE ONE TABLET BY MOUTH EVERY DAY TAKE ONE TABLET BY MOUTH EVERY DAY SOLD: 09/08/2020 [facility] 25 mg 05/23/2020 12:00:00 AM EST tablet extended release 24 hr 90 TAKE ONE TABLET BY MOUTH EVERY DAY TAKE ONE TABLET BY MOUTH EVERY DAY SOLD: 05/24/2020 [facility] 5 mg 05/23/2020 12:00:00 AM EST tablet 90 TAKE ONE TABLET BY MOUTH TWICE A DAY TAKE ONE TABLET BY MOUTH TWICE A DAY SOLD: 05/24/2020 [facility] apixaban 5 MG Oral Tablet [Eliquis] ELIQUIS 5 MG TABS tablet ELIQUIS 5 MG TABS tablet 05/22/2020 12:00:00 AM EST 5 mg Oral active Take 1 tablet (5 mg total) by mouth 2 (two) times a day [facility] 24 HR metoprolol succinate 25 MG Extende d Release Oral Tablet metoprolol succinate (TOPROL-XL) 25 MG 24 hr tablet metoprolol succinate (TOPROL-XL) 25 MG 24 hr tablet 05/22/2020 12:00:00 AM EST 25 mg Oral activ e Take 1 tablet (25 mg total) by mouth daily [facility] atorvastatin 20 MG Oral Tablet ATORVASTATIN CALCIUM 05/07/2020 1 2:00:00 AM EST tablet 90 TAKE ONE TABLET BY MOUTH ONCE DA WILLIAM TAKE ONE TABLET BY MOUTH ONCE DAILY SOLD: 08/01/2020 [facility] atorvastatin 20 MG Oral Tablet ATORVASTATIN CALCIUM 05/07/2020 1 2:00:00 AM EST tablet 90 TAKE ONE TABLET BY MOUTH ONCE DA WILLIAM TAKE ONE TABLET BY MOUTH ONCE DAILY SOLD: 05/07/2020 [facility] atorvastatin 20 MG Oral Tablet atorvastatin (LIPITOR) 20 MG tablet atorvastatin (LIPITOR) 20 MG tablet 05/07/2020 12:00:00 AM EST 20 mg Oral aborted Take 20 mg by mouth daily [facility] 80-4.5 mcg/actuation 04/16/2020 12:00:00 AM EST HFA aerosol inhaler 10 INHALE 2 PUFFS BY MOUTH TWO TIMES A DAY INHALE 2 PUFFS BY MOUTH TWO TIMES A DAY SOLD: 04/16/2020 [facility] 60 ACTUAT Budesonide 0.08 MG/ACTUAT / fo rmoterol fumarate 0.0045 MG/ACTUAT Metered Dose Inhaler [Symbicort] Symbicort 04/14/2020 12:00:00 AM EST RESPIRATORY completed [facility] ( [facility], ) 500 mg 03/05/2020 12:00:00 AM EST tablet 360 TAKE TWO TABLETS BY MOUTH TWICE A DAY TAKE TWO TABLETS BY MOUTH TWICE A DAY SOLD: 03/05/2020 [facility] 25 mg 03/05/2020 12:00:00 AM EST tablet 90 TAKE ONE TABLET BY MOUTH EVERY DAY TAKE ONE TABLET BY MOUTH EVERY DAY SOLD: 03/05/2020 [facility] 25 mg 03/05/2020 12:00:00 AM EST tablet 90 TAKE ONE TABLET BY MOUTH EVERY DAY TAKE ONE TABLET BY MOUTH EVERY DAY SOLD: 06/05/2020 [facility] 24-26 mg 03/05/2020 12:00:00 AM EST tablet 60 TAKE ONE TABLET BY MOUTH TWICE A DAY, HOLD FOR SPB LESS THAN 100MMHG TAKE ONE TABLET BY MOUTH TWICE A DAY, HOLD FOR SPB LESS THAN 100MMHG SOLD: 03/05/2020 [facility] Spironolactone 25 MG Oral Tablet spironolactone (ALDAC TONE) 25 MG tablet spironolactone (ALDACTONE) 25 MG tablet 03/05/2020 12:00:00 AM EST 25 mg Oral active Take 1 tablet (25 mg tota l) by mouth daily [facility] sacubitril 24 MG / valsartan 26 MG Oral Tablet [Entresto] ENTRESTO 24-26 MG TABS ENTRESTO 24-26 MG TABS 03/05/2020 12:00:00 AM EST 1 {tbl} Oral active Take 1 tablet by mouth 2 (two) times a day Hold for SB P less then 100mmHg [facility] 500 mg 03/05/2020 12:00:00 AM EST tablet 360 TAKE TWO TABLETS BY MOUTH TWICE A DAY TAKE TWO TABLETS BY MOUTH TWICE A DAY SOLD: 06/05/2020 [facility] 25 mg 02/18/2020 12:00:00 AM EST tablet extended release 24 hr 90 TAKE ONE TABLET BY MOUTH EVERY DAY TAKE ONE TABLET BY MOUTH EVERY DAY SOLD: 02/22/2020 [facility] 5 mg 02/17/2020 12:00:00 AM EST tablet 90 TAKE ONE TABLET BY MOUTH TWICE A DAY TAKE ONE TABLET BY MOUTH TWICE A DAY SOLD: 03/26/2020 [facility] 5 mg 02/17/2020 12:00:00 AM EST tablet 90 TAKE ONE TABLET BY MOUTH TWICE A DAY TAKE ONE TABLET BY MOUTH TWICE A DAY SOLD: 02/18/2020 [facility] Gentamicin (Fresenius) Up To 80MG, 40MG/ML Multi-Use Vial 20 ML 02/06/2020 12:00:00 AM EST completed [facility] ([facility]) Medication administered onsite Ciprofloxacin 500 MG Oral Tablet [Cipro] Cipro 01/25/2020 12:00:00 AM EDT completed [facility] ([facility] Sodium Phosphate, Dibasic 35.5 MG/ML / S odium Phosphate, Monobasic 96.4 MG/ML Enema Fleet Enema 01/25/2020 12:00:00 AM EDT compl eted [facility] ([facility]) 500 mg 01/18/2020 12:00:00 AM EDT tablet 180 TAKE TWO TABLETS BY MOUTH THREE TIMES A DAY TAKE TWO TABLETS BY MOUTH THREE TIMES A DAY SOLD: 01/18/2020 [facility] Epinephrine 0.01 MG/ML / Lidocaine Crouse chloride 10 MG/ML Injectable Solution lidocaine-EPINEPHrine (XYLOCAINE W/EPI) 1 %-1:508560 injection lidocaine- EPINEPHrine (XYLOCAINE W/EPI) 1 %-1:756521 injection 12/20/2019 11:04:28 AM EDT active As needed, Start ing [place] 12/20/19 at 1104, Intra-Procedure [facility] Medication administered onsite 2 ML Midazolam 1 MG/ML Injection midazolam (VERSED) in jection midazolam (VERSED) injection 12/20/2019 10:57:17 AM EDT active As needed, Starting [place] 12/20/19 at 1057, Intra-Procedure [facility] Medication administered onsite fentaNYL Citrate (PF) (SUBLIMAZE) injection [id number] 12/20/2019 10:57:08 AM EDT active As neede d, Starting [place] 12/20/19 at 1057, Intra-Procedure [facility] Medication administered onsite Cefazolin 1000 MG Injection ceFAZolin (ANCEF) injectio n ceFAZolin (ANCEF) injection 12/20/2019 10:55:00 AM EDT active As needed, Starting [place] 12/20/19 at 1055, Intra-Procedure [facility] Medication administered onsite 5 mg 11/08/2019 12:00:00 AM EDT tablet 90 TAKE ONE TABLET BY MOUTH TWO TIMES A DAY TAKE ONE TABLET BY MOUTH TWO TIMES A DAY SOLD: 12/25/2019 [facility] 150 mcg 11/06/2019 12:00:00 AM EDT tablet 90 TAKE ONE TABLET BY MOUTH EVERY DAY TAKE ONE TABLET BY MOUTH EVERY DAY SOLD: 06/05/2020 [facility] 150 mcg 11/06/2019 12:00:00 AM EDT tablet 90 TAKE ONE TABLET BY MOUTH EVERY DAY TAKE ONE TABLET BY MOUTH EVERY DAY SOLD: 03/04/2020 [facility] Sodium Phosphate, Dibasic 35.5 MG/ML / S odium Phosphate, Monobasic 96.4 MG/ML Enema Fleet Enema 11/02/2019 12:00:00 AM EDT compl eted [facility] ([facility]) Ciprofloxacin 500 MG Oral Tablet [Cipro] Cipro 11/02/2019 12:00:00 AM EDT completed [facility] ([facility] Sodium Phosphate, Dibasic 35.5 MG/ML / S odium Phosphate, Monobasic 96.4 MG/ML Enema Fleet Enema 10/25/2019 12:00:00 AM EDT compl eted [facility] ([facility]) Ciprofloxacin 500 MG Oral Tablet [Cipro] Cipro 10/25/2019 12:00:00 AM EDT completed [facility] ([facility] 24 HR metoprolol succinate 25 MG Extende d Release Oral Tablet metoprolol succinate (TOPROL-XL) 25 MG 24 hr tablet metoprolol succinate (TOPROL-XL) 25 MG 24 hr tablet 07/02/2019 12:00:00 AM EDT 25 mg Oral activ e Take 1 tablet (25 mg total) by mouth daily [facility] 24 HR Bupropion Hydrochloride 300 MG Ext ended Release Oral Tablet buPROPion (WELLBUTRIN XL) 300 MG 24 hr tablet buPROPion (WELLBUTRIN XL) 300 MG 24 hr tablet 05/31/2019 12:00:00 AM EST 300 mg Oral aborted Take 300 mg by mouth daily [facility] Citalopram 40 MG Oral Tablet [Celexa] CeleXA 40 MG OR TABS C eleXA 40 MG OR TABS 09/18/2012 12:00:00 AM EDT 1 aborted citalopram 40 MG Oral Tablet [Celexa] [facility] (David Turpin MD [facility]) Aspirin 81 MG Oral Tablet Aspirin 81 MG OR TABS Aspirin 81 M G OR TABS 09/18/2012 12:00:00 AM EDT 1 aborted aspiri n 81 MG Oral Tablet [facility] (David Turpin MD [facility]) Simvastatin 20 MG Oral Tablet [Zocor] Zocor 20 MG OR TABS Zo cor 20 MG OR TABS 09/18/2012 12:00:00 AM EDT 1 aborted simvastatin 20 MG Oral Tablet [Zocor] [facility] (David Turpin MD [facility]) sacubitril 24 MG / valsartan 26 MG Oral Tablet [Entresto] sacubitril-valsartan (Entresto) 24-26 MG TABS sacubitril-valsartan (Entresto) 24-26 MG TABS 1 {tbl} Oral aborted Take 1 tablet by mouth 2 (two) times a day [facility] Insurance Providers Payer name Policy type / Coverage type Policy ID Covered constitution party ID Covered constitution party's relationship to jones Policy Jones Plan Information [facility] (me) Medigap Part B [id number] [place] [id number] Self MEDICARE [id number] [place] [id number] [place] Medicare Primary [id number] Self [id number] MEDICARE [id number] xxxxxxxxxxx [id number] MEDICARE [id number] SP [id number] A MEDICARE [id number] SP [id number] A Medicare - NGS Medicare Primary [id number] Self 1 [id number] [employer] C[employer] OPTIONS [id number] SP [id number] [facility] Medigap Part B [id number] Self [employer] OPTIONS [id number] SP [id number] [employer] OPTIONS [id number] SP [id number] [employer] OPTIONS [id number] SP [id number] MEDICARE [id number] [facility] [id number] xxxxxxxxxxx [id number] [facility] [id number] [place]mina [id number] 911 INSURANCE COVID-19 [id number] xxxxx [id number] INSURANCE COVID-19 COVID [place] C OVID INSURANCE COVID-19 COVID [place] C OVID MEDICARE [id number] SP [id number] ANSI-Medicare Part B [id number] Aarp Medigap Part B [id number] Self [id number] [employer] OPTIONS [id number] 18 [id number] MEDICARE PART A [facility] [id number] 18 [id number] [facility] Medigap Part B [id number] Self [id number] Medicare Part A [place] Medicare Primary [id number] Self 1 [id number] [facility] Medigap Part B [id number] Self [id number] Medicare Part A [place] Medicare Primary [id number] Self 1 [id number] [facility] Medigap Part B [id number] Self [id number] [facility] Medigap Part B [id number] Self [id number] Medicare Part A [place] Medicare Primary [id number] Self 1 [id number] [employer] OPTIONS -C [id number] 18 [id number] MEDICARE PART A -O/P [id number] 18 [id number] [facility] Medigap Part B [id number] Self [id number] Medicare Part A [place] Medicare Primary [id number] Self 1 [id number] [facility] CARE OPTIONS -CLINIC [id number] 18 [id number] MEDICARE PART A -CLINIC [id number] 18 [id number] MEDICARE [id number] SP [id number] A AARP O [id number] S [id number] MEDICARE C [id number] S [id number] A AARP O [id number] S [id number] MEDICARE -O/P [id number] 18 [id number] [facility] [id number] Self STATE INSURANCE FUND P [id number] S [id number] STATE INSURANCE FUND P [id number] S [id number] AARP [employer] CARE OPTIONS [id number] SP [id number] SELF PAY P [facility] [id number] SP [id number] [employer]ARP [employer] OPTIONS [id number] SP [id number] [employer] OPTIONS [id number] SP [id number] [employer] OPTIONS [id number] SP [id number] Medicare Part B [facility] Other 0 [id number] Self 0 Medicare Part B [facility] Other 0 [id number] Self 0 AARP HEA [id number] S [id number] MEDICARE [facility] [id number] S [id number] MEDICARE [facility] [id number] S [id number] [employer] [id number] S [id number] ANSI-Medicare Part B [id number] ANSI-Commercial [id number] ANSI-Medicare Part B [id number] ANSI-Commercial [id number] ANSI-Commercial [id number] ANSI-Medicare Part B [id number] ANSI-Commercial [id number] ANSI-Medicare Part B [id number] ANSI-Commercial [id number] Problems, Conditions, and Diagnoses Code Display Name Description Problem Type Effective Dates Data Source(s) 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 Hypothyroidism due to medicaments and ot Diagnosis 09/03/2020 12:52:22 PM EDT [facility] E78.2 Mixed hyperlipidemia Mixed hyperlipidemia Diagnosis 09/03/2020 12:52:22 PM EDT [facility] I42.0 Dilated cardiomyopathy Dilated cardiomyopathy Diagnosi s 09/03/2020 12:52:22 PM EDT [facility] I44.7 Left bundle-branch block, unspecified Le ft bundle-branch block, unspecified Diagnosis 09/03/2020 12:52:22 PM EDT [facility] R29.898 Other symptoms and signs involving the m usculoskeletal system Other symptoms and signs involving the m Diagnosis 09/03/2020 12:52:22 PM ED T [facility] I48.92 Unspecified atrial flutter Unspecified atrial flutter Diagnosis 09/03/2020 12:52:22 PM EDT [facility] I73.9 Peripheral vascular disease, unspecified Peripheral vascular disease, unspecified Diagnosis 09/03/2020 12:52:22 PM EDT [facility] 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 Chronic combined systolic (congestive) a Diagnosis 07/08/2020 01:15:07 PM EDT [facility] I50.41 Acute combined systolic (con gestive) and diastolic (congestive) heart failure Acute combined systolic (congestive) and Diagnosis 06/17/2020 09:28:18 AM EDT [facility] I50.22 Chronic systolic (congestive) heart fail ure Chronic systolic (congestive) heart fail Diagnosis 06/17/2020 09:28:18 AM EDT [facility] J98.8 Other specified respiratory disorders Ot her specified respiratory disorders Diagnosis 12/15/2019 10:15:36 AM EDT [facility] U07.1 COVID-19 COVID-19 Diagnosis 12/15/2019 10:15:36 AM ED T [facility] R35.0 Increased frequency of urination Increased frequency o f urination Problem 01/15/2021 12:00:00 AM EDT [facility] ([facility]) [id number] Abnormal gait Abnormal gait Problem 01/13/2021 12:00:00 AM EDT [facility] ([facility], ) 10782892 Numbness Numbness Problem 01/13/2021 12:00:00 AM ED T [facility] ([facility] ) 08297735 Polyneuropathy Polyneuropathy Problem 01/13/2021 12:00: 00 AM EDT [facility] ([facility] ) G62.9 [id number] Neuropathy Problem 12/29/2020 12:00:00 AM ED T eCW1 ([facility]) E78.5 Hyperlipidemia Hyperlipidemia [id number] 06/10/2020 12:00: 00 AM EDT [facility] Surgeries/Procedures Procedure Description Date Indications Data Source(s) COMPLEX UROFLOMETRY 01/15/2021 12:00:00 AM EDT [facility] ([facility]) CYSTOURETHROSCOPY 01/15/2021 12:00:00 AM EDT [facility] ([facility]) OFFICE OUTPATIENT VISIT 10 MINUTES 01/15/2021 12:00:00 AM EDT [facility] ([facility]) COMPLEX UROFLOMETRY 01/15/2021 12:00:00 AM EDT [facility] ([facility]) OFFICE OUTPATIENT NEW 45 MINUTES 01/13/2021 12:00:00 A M EDT [facility] ([facility], ) OFFICE OUTPATIENT VISIT 25 MINUTES 01/13/2021 12:00:00 AM EDT [facility] ([facility], ) OFFICE OUTPATIENT VISIT 25 MINUTES 12/18/2020 12:00:00 AM EDT [facility] ([facility]) OFFICE OUTPATIENT VISIT 25 MINUTES 11/24/2020 12:00:00 AM EDT [facility] ([facility]) Surgical / procedural history : Appendectomy, Heart De fib placed 02/2020 Surgical / procedural history : Appendectomy, Heart Defib placed 02/202011/11/2020 12:00:00 AM EDT [facility] (David clark MD [facility]) Spirometry 11/05/2020 12:00:00 AM EDT M EDENT ([facility]) OFFICE OUTPATIENT VISIT 25 MINUTES 11/05/2020 12:00:00 AM EDT [facility] ([facility]) OFFICE OUTPATIENT VISIT 25 MINUTES 09/23/2020 12:00:00 AM EDT [facility] ([facility]) POCT AMB EKG <td>POCT AMB EKG</td><td>Danielle noonan</td><td>09/03/2020 1:28 PM EDT</td><td> Atrial flutter, unspecified type</td><td> </td> 09/03/2020 01:28:00 PM EDT Atrial flutter, unspecified type [facility] Atrial flutter, unspecified type Colonoscopy Flexible Proximal To Splenic Flexure W/Biopsy Si ngle/ 07/15/2020 12:00:00 AM EDT [facility] ([facility] ) DANIELA POST-VOIDING RESIDUAL URINE&/BLDR CAP 06/20/2020 12:00:00 AM EDT [facility] ([facility]) NATRIURETIC PEPTIDE <td>NT-PROBNP</td><td>Routin e</td><td>06/17/2020 2:09 PM EDT</td><td> Chronic systolic (congestive) heart failure Dilated cardiomyopathy</td><td> </td> 06/17/2020 06:09:00 PM EDT Dilated cardiomyopathyChronic systolic (congestive) he art failure [facility] Dilated cardiomyopathy Chronic systolic (congestive) heart fail ure BLOOD COUNT COMPLETE AUTOMATED <td>CBC</td><td>Routine </td><td>06/17/2020 2:09 PM EDT</td><td> Dilated cardiomyopathy</td><td> </td> 06/17/2020 06:09:00 PM EDT Dilated cardiomyopathy [facility] Dilated cardiomyopathy ECG ROUTINE ECG W/LEAST 12 LDS W/I&R <td>POCT AMB EKG</td><td>Routine</td><td>06/10/2020 9:24 AM EDT</td><td> Atrial flutter, unspecified type</td><td> </td> 06/10/2020 01:24:00 PM EDT Atrial flutter, unspecified type [facility] Atrial flutter, unspecified type OFFICE OUTPATIENT VISIT 25 MINUTES 06/04/2020 12:00:00 AM EST [facility] ([facility], ) Spirometry 04/29/2020 12:00:00 AM EST M EDENT ([facility], ) PROSTATE NEEDLE BIOPSY ANY APPROACH 02/06/2020 12:00:0 0 AM EST [facility] ([facility]) ULTRASOUND TRANSRECTAL 02/06/2020 12:00:00 AM EST [facility] ([facility]) US GUIDANCE NEEDLE PLACEMENT RS&I 02/06/2020 12:00:00 AM EST [facility] ([facility]) THERAPEUTIC PROPHYLACTIC/DX INJECTION SUBQ/IM 02/06/20 20 12:00:00 AM EST [facility] ([facility]) XR CHEST PORTABLE <td>XR CHEST PORTABLE</td><t d>STAT</td><td>12/20/2019 12:24 PM EDT</td><td></td><td> </td> 12/20/2019 04:24:06 PM EDT [facility] EP STUDY <td>EP STUDY</td><td>Routine </td><td>12/20/2019 11:45 AM EDT</td><td> Dilated cardiomyopathy</td><td> </td> 12/20/2019 03:45:56 PM EDT Dilated cardiomyopathy [facility] Dilated cardiomyopathy Results ID Date Data Source [id number] 01/15/2021 09:27:00 AM EDT [facility] ([facility] Name Value Range Interpretation Code Description Data Mary rce(s) Supporting Document(s) Protein [Presence] in Urine by Test strip Laboratory test result [facility] ([facility]) Ua Nitrite Laboratory test result [facility] D[facility] ([facility]) Glucose [Presence] in Urine 100 mg/dL [facility] ([facility]) Blood [Presence] in Urine by Visual Laboratory test result [facility] ([facility]) Color of Urine Laboratory test result [facility] ([facility]) Ua Leuko Laboratory test result [facility] ([facility]) Ketones [Presence] in Urine by Test strip Laboratory test result [facility] ([facility]) Clarity of Urine Laboratory test result [facility] ([facility]) Ua Specific [place] 1.025 1.003-1.030 MEDE NT ([facility]) pH of Urine by Test strip 5.5 5.0-7.5 [facility] ([facility]) Bilirubin.total [Presence] in Urine by Test strip Laboratory test res ult [facility] ([facility]) Urobilinogen [Mass/volume] in Urine by Test strip 0.2 E.U./dL 0.0-1.0 [facility] ([facility]) ID Date Data Source t-Transglutaminase (tTG) IgG 01/06/2021 12:00:00 AM EDT eCW ([facility]) Name Value Range Interpretation Code Description Data Mary rce(s) Supporting Document(s) Tissue transglutaminase IgG Ab [Units/volume] in Serum <2 0-5 TISSUE TRANSGLUTAMINASE IgG [facility] ([facility]) ID Date Data Source t-Transglutaminase (tTG) IgA 01/06/2021 12:00:00 AM EDT eC ([facility]) Name Value Range Interpretation Code Description Data Mary rce(s) Supporting Document(s) Tissue transglutaminase IgA Ab [Units/volume] in Serum <2 0-3 TISSUE TRANSGLUTAMINASE IgA eCW ([facility]) ID Date Data Source [id number] 12/22/2020 09:48:00 AM EDT [facility] ([facility]) Name Value Range Interpretation Code Description Data Mary rce(s) Supporting Document(s) Urea nitrogen [Mass/volume] in Serum or Plasma Laboratory test result [facility] ([facility]) ID Date Data Source [id number] 12/22/2020 09:48:00 AM EDT [facility] ([facility]) Name Value Range Interpretation Code Description Data Mary rce(s) Supporting Document(s) Hepatitis B virus surface Ag [Presence] in Serum or Pl asma by Immunoassay Laboratory [facility] ) ID Date Data Source [id number] 12/20/2020 02:08:00 PM EDT [facility] Name Value Range Interpretation Code Description Data Mary rce(s) Supporting Document(s) SARS coronavirus 2 RNA [Presence] in Res piratory specimen by SEVEN with probe detection NEGATIVE [facility] This lab was ordered by [facility] a nd reported by [facility]. ID Date Data Source [id number] 12/05/2020 11:05:00 PM EDT [facility] Name Value Range Interpretation Code Description Data Mary rce(s) Supporting Document(s) SARS-CoV-2 (COVID 19) NEGATIVE - SARS-CoV-2 (COVID19) [facility] This lab was ordered by [facility] a nd reported by [facility]. ID Date Data Source [id number] 12/02/2020 04:00:00 PM EDT [facility] Name Value Range Interpretation Code Description Data Mary rce(s) Supporting Document(s) Calprotectin [Mass/mass] in Stool 94 ug/g 0-120 Normal (applies to non-numeric results) [facility] ([facility]) <content>Concentration Interpretatio n Follow-Up</content>
<content><16 - 50 ug/g Normal None</content>
<content>>50 -120 ug/g Borderline Re-evaluate in 4-6 weeks</content>
<content>>120 ug/g Abnormal Repeat as clinically</content>
<content>indicated</content>
<content>Performed at: - [facility]</content>
<content>[address] [place] [address] [phone]</content>
<content>[employer]: Jesse Freire MD, Phone: [phone]</content>
<content></content> Elastase.pancreatic [Mass/mass] in Stool Laboratory test result Normal (applies to non-numeric results) [facility] ([facility]) <content>Result Units: ug Elast./g</cont ent>
<content>Severe Pancreatic Insufficiency: <100</content>
<content>Moderate Pancreatic Insufficiency: 100 - 200</content>
<content>Normal: >200</content>
<content></content> ID Date Data Source [id number] 11/16/2020 10:30:00 AM EDT [facility] ([facility]) Name Value Range Interpretation Code Description Data Mary rce(s) Supporting Document(s) Gastrointestinal (GI) Panel Laboratory test result [facility] ([facility]) This Gastrointestinal PCR Panel detects the following bacteria, parasites and viruses: [...] infection. NEGATIVE by MULTIPLEXED NUCLEIC ACID PCR ID Date Data Source [id number] 08/06/2020 10:17:49 AM EDT [facility] INFORMATIONPatient MRN Name Date of Age Gend*PT [id number] Shruti Barrios 1940 79 years M ---PT Location Admission Date/Time Visit ID Attending Provider --- --- --- --- EPI ID CSN Admitting Provider [id number] ---Addended by: JOSE NERI on: 08/06/2020 10:17 AM Modules accepted: Orders Name Value Range Interpretation Code Description Data Mary rce(s) Supporting Document(s) ID Date Data Source [id number] 07/15/2020 01:31:00 PM EDT [facility] ([facility], ) Name Value Range Interpretation Code Description Data Mary rce(s) Supporting Document(s) Surgical pathology study Laboratory test result [facility] ([facility], ) FINAL DIAGNOSIS Colon, random sigmoid, biopsies: Fragment of ulcerated colonic mucosa with cryptitis. No evidence for granulomas or high grade dysplasia. 07/17/20201136 CLINICAL DIAGNOSIS Ulcerative colitis 07/16/20201299 GROSS DIAGNOSIS Received in formalin labeled "random sigmoid colon biopsies" and consists of multiple fragments of roldan tissue 0.3 x 0.3 x 0.3 cm. in aggregate. All in one. -SV 07/16/20201299 Signed NILE BATRES MD 07/17/2020 1453 ID Date Data Source [id number] 07/12/2020 10:15:00 AM EDT [facility] Name Value Range Interpretation Code Description Data Mary rce(s) Supporting Document(s) SARS-CoV-2 (COVID-19) RNA [Presence] in Respiratory specimen by SEVEN with probe detection Not Detected [facility] This lab was ordered by [facility] and reported by [facility]. ID Date Data Source [id number] 06/20/2020 12:55:00 PM EDT [facility] ([facility] Name Value Range Interpretation Code Description Data Mary rce(s) Supporting Document(s) Bacteria identified in Urine by Culture Laboratory test result [facility] ([facility]) <content>SPECIMEN DESCRIPTION MID STREAM URINE,CLEAN CATCH</content>
<content>CULTURE RESULTS >100,000 CFU/ML ENTEROCOCCUS SPECIES</content>
<content>REPORT STATUS FINAL 06/23/2020</content>
<content>ORGANISM ENTEROCOCCUS SPECIES</content>
<content>METHOD ERIKA</content>
<content>AMPICILLIN <=2 SUSCEPTIBLE</content>
<content> ISOLATES SUSCEPTIBLE TO AMPICILLIN ARE ALSO</content>
<content> SUSCEPTIBLE TO AMOXICILLIN.</content>
<content>VANCOMYCIN <=0.5 SUSCEPTIBLE</content>
<content> ENTEROCOCCI ARE RESISTANT TO ALL</content>
<content> CEPHALOSPORINS,CLINDAMYCIN,</content>
<content> TRIMETHOPRIM/SULFA AND AMINOGLYCOSIDES</content>
<content> (EXCEPT FOR HIGH-LEVEL RESISTANCE SCREENING),</content>
<content> THESE ARE NOT REPORTED PER [facility] STANDARDS.</content>
<content>PEN G (AMP,AMOX) 0.5 SUSCEPTIBLE</content> ID Date Data Source [id number] 06/23/2020 10:10:53 AM EDT [facility] - CORE SPECIMEN DESCRIPTION MIDSTREAM UR INE,CLEAN CATCHCULTURE RESULTS >100,000 CFU/ML ENTEROCOCCUS SPECIESREPORT STATUS FINAL 06/23/2020ORGANISM ENTEROCOCCUS SPECIESMETHOD MICAMPICILLIN <=2 SUSCEPTIBLE ISOLATES SUSCEPTIBLE TO AMPICILLIN ARE ALSO SUSCEPTIBLE TO AMOXICILLIN.VANCOMYCIN <=0.5 SUSCEPTIBLE ENTEROCOCCI ARE RESISTANT TO ALL CEPHALOSPORINS,CLINDAMYCIN, TRIMETHOPRIM/SULFA AND AMINOGLYCOSIDES (EXCEPT FOR HIGH-LEVEL RESISTANCE SCREENING), THESE ARE NOT REPORTED PER [facility] STANDARDS.PEN G (AMP,AMOX) 0.5 SUSCEPTIBLE Name Value Range Interpretation Code Description Data Mary rce(s) Supporting Document(s) ID Date Data Source [id number] 06/20/2020 11:37:00 AM EDT [facility] ([facility] Name Value Range Interpretation Code Description Data Mary rce(s) Supporting Document(s) Glucose [Presence] in Urine Laboratory test result [facility] ([facility]) Protein [Presence] in Urine by Test strip 100 mg/dL [facility] ([facility]) Ua Nitrite Laboratory test result [facility] ([facility]) Ua Leuko Laboratory test result [facility] ([facility]) Blood [Presence] in Urine by Visual Laboratory test result [facility] ([facility]) Ketones [Presence] in Urine by Test strip 15 mg/dL [facility] ([facility]) Color of Urine Laboratory test result [facility] ([facility]) Clarity of Urine Laboratory test result [facility] ([facility]) pH of Urine by Test strip 5.5 5.0-7.5 [facility] ([facility]) Ua Specific [place] 1.020 1.003-1.030 MED[facility] NT ([facility]) Bilirubin.total [Presence] in Urine by Test strip Laboratory test res ult [facility] ([facility]) Urobilinogen [Mass/volume] in Urine by Test strip 0.2 E.U./dL 0.0-1.0 [facility] ([facility]) ID Date Data Source [id number] 06/13/2020 10:57:25 AM EDT [facility] Name Value Range Interpretation Code Description Data Mary rce(s) Supporting Document(s) &PDF [facility] FGBASe3dQpRMBcVk19/MLKqbVGHdm9UhDOodOAm3PKjbZGFmI9CenMfwVPqBUU5TSZ3UEUVCLetYXY6S vQ3 HwGSUexvdQpIwzYGR9j0MriXGjX51vvT0hDZWse80lEWrdZO5+DQplbmRvYmoNCjQgMCBvYmoNCiAgPD zhNnnspFWaMS7FvYO9PDTgZ78bKTRrQOGbE6JwVNHlNYq+Nn3ZJKJoaNHnAJ3TYrpM5K5ir1e6Yo6+wP 8ARGoX9pM9ZXm7GtxTvgvraGllGEkd2Qc3guGJs92g sR5fvwu//nU9LCLfP3Bd4qf7/ZDMipohh/PmiBGi/C0SbSR8mcRD/N/n2bOxwADo/t56tFmdiuXr6x1g 5MznFq2gfIqVTrQQkSl3pN4xmbrzQ3QP7U0fp4mNYzd71f/S/h7/Xk+3Hf1dJZipxOmPP5JD8SkJaEGU 9IbPur+T8aasicxPHQqUeLZIWBYkk0pMx/LbePEy9a RMivwZ2qOEByr0ehR6mhG1YeE1eaJPqNCT0V6+ZZiOCKZ9+re5xRmrjDPAmydyxZyWOS3mXWAxZL1zhq 6jfPqSgu/GHS6QOLgDDUyPaAVQHpQPUxWhlWq4VcNSb90E5PZuwb0uXmGdL4lzlakxeosjXg52swu1/L BA7Dh+YInuv4+Pe8mhd7e7seTNSjnq3w2XGpl949fr ObzlM8P7QBkZyg0Wx/mfHdsIyMN4cQQaZfGHVTNfpVTFovuziYYDGZPpOzIKsVT0vSUMWXmEcJJmO2c9 CaZEnJXLdSwIRVIEu5URCkSmk8uc8vwLWMInGGQZiELYiiyuDTixLe+rw69tLtht2WBN0b2ztyGznkiV 4znvJXXJboGjkobL1khu9Ipnz9tvYb+Sarbjit/6K3QcUN [file] AgICAgICAgICAgICAgICAgICAgICAgICAgICAgICAgICAgICAgICAgICAgICAgICAgICAgICAgICAgIC ANCiAgICAgICAgICAgICAgICAgICAgICAgICAgICAg ICAgICAgICAgICAgICAgICAgICAgICAgICAgICAgICAgICAgICAgICAgICAgICAgICAgICAgICAgICAg ICAgICAgICAgICANCiAgICAgICAgICAgICAgICAgICAgICAgICAgICAgICAgICAgICAgICAgICAgICAg ICAgICAgICAgICAgICAgICAgICAgICAgICAgICAgIC AgICAgICAgICAgICAgICAgICAgICANCiAgICAgICAgICAgICAgICAgICAgICAgICAgICAgICAgICAgIC AgICAgICAgICAgICAgICAgICAgICAgICAgICAgICAgICAgICAgICAgICAgICAgICAgICAgICAgICAgIC AgICANCiAgICAgICAgICAgICAgICAgICAgICAgICAg ICAgICAgICAgICAgICAgICAgICAgICAgICAgICAgICAgICAgICAgICAgICAgICAgICAgICAgICAgICAg ICAgICAgICAgICAgICANCiAgICAgICAgICAgICAgICAgICAgICAgICAgICAgICAgICAgICAgICAgICAg ICAgICAgICAgICAgICAgICAgICAgICAgICAgICAgIC AgICAgICAgICAgICAgICAgICAgICAgICANCiAgICAgICAgICAgICAgICAgICAgICAgICAgICAgICAgIC AgICAgICAgICAgICAgICAgICAgICAgICAgICAgICAgICAgICAgICAgICAgICAgICAgICAgICAgICAgIC AgICAgICANCiAgICAgICAgICAgICAgICAgICAgICAg ICAgICAgICAgICAgICAgICAgICAgICAgICAgICAgICAgICAgICAgICAgICAgICAgICAgICAgICAgICAg ICAgICAgICAgICAgICAgICANCiAgICAgICAgICAgICAgICAgICAgICAgICAgICAgICAgICAgICAgICAg ICAgICAgICAgICAgICAgICAgICAgICAgICAgICAgIC AgICAgICAgICAgICAgICAgICAgICAgICAgICANCiAgICAgICAgICAgICAgICAgICAgICAgICAgICAgIC AgICAgICAgICAgICAgICAgICAgICAgICAgICAgICAgICAgICAgICAgICAgICAgICAgICAgICAgICAgIC AgICAgICAgICANCjw/fIAeT9dbmNNkufO1D3caMm4A Ne4BLB7zi7KnZQExIPbkziBzXevNRfEmGHKwMdgEHpl7MWjdJO8SvETcP5UjU6AtZOgvGM2LPRZgXYCj jWUeVZXkSSXeMaV9SKTjJIxmPY8SrPBbWIpiSWRdCFCgIX5ZUSEbV444vbXaCK5BYk2RAtZiLE7usl7G RFUxENVjZueWMau1ECozNM4QlGLaV2PrjLQme0sDZv IjK8KKTDS2JMAkDm6JCPXyCqEtOKQaEQhvQG1kXSRuUPFQuWoootH0KQ5UEN7vmdKzQA5WWvZhZq4xTy 3QIvUyT8YcG9XnOLXtPQTHMTmvXD9EARUiOUW5QTLaNWTaMUTNQjEwJ74rTE1RE3Rcq04hFmC7RTIuAj GxZSsmKK77wJkoqvEkwDPbiVvvMS9ZOl1+DQplbmRv OytLLfakRZSMSaPgQApHIiGnMLGkOPXvLAQvQcL5GbDeBa9ULFNkSRXzEAEiIjDcEBScDACxFTcsMNNq OZA4RKL0FZFyPZApIN0DBePgFBVlEDQ4CJvlKYFwLPDemx1AQTVnZYYgYXQ7RPOoGXRoBIAxQPikHAJo SCFaAzK2MJZhKFGrLE2OAzQuANQmOMA0USMbFZNoXW Jvwn7WKQGmTQPxWNIrGSNtAYLxDIBpDSljVPOlOWR5Cfz3JYTuUTQwYA0OBtIlLEDtGNU6VkGwVJHpLI Dkzw6NHVVrWUYwNDkaHGQzNNGoPKCzPKsyDUFnHND7PBU1MKEcWQZzEO3OOeBcOIRcYQHmRjNdRHQxJT Ksbp0WBVGxHUWmKMqvIHGoLHSnFXHpZDiaXSIrNPN0 QCXiFIJhTTPiZV0NBiLbCCWbNXUoTYcaCUPuTZZyag0VUUVnSXKmJfn3QFLjSJLcCCHtODk5lfTfpQQf AUv8KL1ZY4YrrbWtUOoCEv3Uz283BAG5RXEvAx6YN6veUv5vKQMbUAMYRk5JHLh8OVRmYeDyUBQiRfj6 AWQ3PMr6GrNyDHj7G4FjQPL8UZJ+XRq6ElKdQ2P0WV W3MMK6SxK5ZSR7B3XpZEH7KnTxTdixWX0dLYQSYl2+WWnudQYknCwgQIMOWiW3OMbhUPghORZERy0B ID Date Data Source [id number] 06/05/2020 09:51:00 AM EST [facility] Name Value Range Interpretation Code Description Data Mary rce(s) Supporting Document(s) Cobalamin (Vitamin B12) [Mass/volume] in Serum or Plasma 422 pg/ mL 247-911 Normal (applies to non-numeric results) [facility] VITAMIN B12 NORMAL RANGE NORMAL 247 - 911 PG/ML INDETERMINATE 211 - 246 PG/ML DEFICIENT LESS THAN 211 PG/ML ID Date Data Source [id number] 06/05/2020 09:51:00 AM EST [facility] ) Name Value Range Interpretation Code Description Data Mary rce(s) Supporting Document(s) Iron (Fe) 80 ug/dL 65-175 Normal (applies to non-numeric resul ts) [facility] Total Iron Binding Capacity 321 ug/dL 250-450 Norm al (applies to non-numeric results) [facility]) Percent Saturation 24.9 % 19.7-50.0 Normal (applies to non-numer ic results) [facility]) ID Date Data Source [id number] 04/19/2020 08:34:33 PM EST [facility] Name Value Range Interpretation Code Description Data Mary rce(s) Supporting Document(s) &PDF [facility] LYRORc9wOeXYIiMb74/UPRgjYIKpv5DgKPeaWVz5JUlbOBDpY1QcwKktUGtQMU7MMK3VJSQNBdnFSB5B vQ3 ZtWGXndyhWbIzpQRS7y5FduOFgK82guV5bJIZrm14hEMirJW0+DQplbmRvYmoNCjQgMCBvYmoNCiAgPD ttCjkjmFIeAJ5QqKS0IPYuF80vPDGkZVFgX0FeWAY6Bly+Au6GIGGvxZTjGO8MJocN7Vuepmx2Ry7+QP 6PgkCbJhG8dvKrasPkxRlhbwydNJbYtiyIsWhWdr5S k5U26a+/fZU0E+O7EfTfKd7LbQbQJcUkRV9PQxjrSH5ce9McFaozXlry4VMQLsH+Et/4Oeb89OuQzapV rKt2EpVsnubgJ5fQfjStfDu/fzUaKtGdiDeUfyStTGv+Chase+tvuT/6BMyS5TrsyB2zDmko0NiFCkXMyhJ [file] ICAgICAgICAgICAgICAgICAgICAgICAgICAgICAgICAgICAgICAgICAgICAgICAgICAgICAgICAgICAg JRAhDNHgFDIjNCAqAXPjURFlPCOjRKDvEVHkTFDtCXOoINWeRZ1XMRDhKHMcXAUuEPTfVWFbNVIlAOVp ICAgICAgICAgICAgICAgICAgICAgICAgICAgICAgIC ShNZXvUCRwCJLcBXNiRUNnXDWwSUEgDETzWLSoQQRcGFDeIDIqWPGpCQWoFNRjNO4KCGWoBVOsIMMjZN AgICAgICAgICAgICAgICAgICAgICAgICAgICAgICAgICAgICAgICAgICAgICAgICAgICAgICAgICAgIC VgTEGlLVUfFDCqMVDdVPKxEYFiXMReXTDdPWZwDH0J ICAgICAgICAgICAgICAgICAgICAgICAgICAgICAgICAgICAgICAgICAgICAgICAgICAgICAgICAgICAg EIKhSGLeOGEqCYByRENaRXKlFLZmMVAzLGAqFFCbZZHyBRTcSHMjKP4OBQCsZXMbIEQzBSDiQKUdNRSg ICAgICAgICAgICAgICAgICAgICAgICAgICAgICAgIC UxYKIhEYQfVDZyQBNdTLNvMCRtWRGdGZJxDPBiTVYmBBAiEUJkVFKuEQFvEVXcPRUoJD6IPFNdDQQeCP AgICAgICAgICAgICAgICAgICAgICAgICAgICAgICAgICAgICAgICAgICAgICAgICAgICAgICAgICAgIC AgICAgICAgICAgICAgICAgICAgICAgICAgICAgICAg TF9DTXTwCTNxTVXkYNHvQJTfSITlSVWeOAOoDTDgTIAlCANlNVDbKWBvNBTeLIOxPEYiDHJmFIEmYGVt TGUnPSHvPZVmMLFuMICkBCLaFBErNKSsAAAaQDHdBZQjTIAwSPMlPXYmBC4TCMUtQXLaRAYlFNElRYXn ICAgICAgICAgICAgICAgICAgICAgICAgICAgICAgIC IiXATaIAIwWEIeDIHyEUPzALPxGUFvOHKvXEBfIKEoINJpJHYvAIMrRLKpJVBdUWNuOLPwPC5CPISqYV AgICAgICAgICAgICAgICAgICAgICAgICAgICAgICAgICAgICAgICAgICAgICAgICAgICAgICAgICAgIC AgICAgICAgICAgICAgICAgICAgICAgICAgICAgICAg LBGaSE8QPSEwDOHkZKSgJQDsGWFaGEVgVTKtDCKnXLNjQTBjYFVoLBXnTYEqKVNaKMSzECGrEMEzKBSa LRKxQKIzEBUbUBRuENVnAOVxQLSpNMCmLXAnUEXaOGJxFXGdNUMvGJFaFOXrHJ0XEL69dJRkl4H9YWBd BX1rjwy/Kn7EMVxevcXpkGZjNS9ZZwLwTW5usa5NDo PwFT5vys9YQGuZRpOlG4Z0nMSvELVnYFJSQlWmW32kEQjbWc33PLnjBTExRrTmRZf1Sp1QDrRhS0gqLP EmSoI2XUSsGxWdTHnsMK1Aj0GfuXZmFMs+Hf7DQG1yk5LiDMhbNuSsTF8nah8ZCOxGJpLpV3Y7mZGkV9 Z0OZxoIw6HHBZcNFNkSGFxAFMJSXcoAE8NKP9dvwY9 RO3ShGScCYDfNTEpmYNzXFt2G07iqLNaNEccIA3VVAN+Emigdio+Fk1YJWJzMROtVBWqGzClRUHRDyUaF15o nRMpIRHrJFX9TMCnUh4GMLJzP7LatqUgxFvzuuJaFFMoZJQIGN5YIWjdurAobUSzjHaqSC63dKzrDW4L Zz2KNeGgVX0vqp8MaLPdJe6RHEKwKh4XNGIwFJGhWR ZrJDK2WKPrNyWhDJozSQFkUPBsSUG8KNTzWSCtIV1RBxOvYQYvRHY5LjkrVUXoTMSbdl6LDUEgGTGbUw OuBPJnWZAmPNJmDPmuAMYyBDNpFVm5ZXItIRNbDS8DBbCyLLGyGLV3CCymWJCuJTOgiw6UQWBfEYGlSv F6AtLfSXAuJNTcBFwsIILoZEI5ARZsZXOiAMBbRS4R DzLnYVGeLTTxXCyjJRCwTMTxzq7TYOWxZLOxYSU2OVHqBSJhULGoMCidTIQuGKY6QbA2JGCaZZQiHJ0A QgWxVQOiSGK4JBjoNLFrRVOavw0KWLDnHDReXPt0CJSsFTArXWRsXEytMSQtRHBkWDW9QYVkIPJlHR3U UoEwMCJmIRW6PHLfSTNeQXQpxe9IMRBfNJUgHCo5OK VjZHQeBRRkALsvPCLnHWH0EhM9OSGoESFsKD3CPhPsIIxjAPVDWzz5SAxtO1q9ONZfCm1PE8Vfe4PmSQ SqXLBSPCnuTM9feyBuHXWgKz3YP9hJQgqcVWIuR6M2MlDqMYPcY2E7HYS5HJG0BKMzVfIqLzz1St1aZQ H5B2VeZPpaDSG4PyX4DczgNRgrTDOvDXNiYvJ4LTuo WvTpFM5SUv4UAkV2SIW5mMCxAw2VEEQ7SNOTJvWkRJ1LGPi= ID Date Data Source [id number] 03/10/2020 10:47:00 AM EST [facility] Name Value Range Interpretation Code Description Data Mary rce(s) Supporting Document(s) Prostate specific Ag [Mass/volume] in Serum or Plasma 8.85 [facility] ([facility]) ID Date Data Source [id number] 02/06/2020 09:50:00 AM EST [facility] Name Value Range Interpretation Code Description Data Mary rce(s) Supporting Document(s) Clinical History 5.02 [facility] ([facility]) t2b R97.20 C61 PSA: 5.02 ng/ml Clinical stage: T2b Left Base Laboratory test result [facility] ([facility]) Benign prostatic tissue. Left Lateral Base Laboratory test result [facility] ([facility]) Benign prostatic tissue. Left Lateral Mid Laboratory test result [facility] ([facility]) Benign prostatic tissue. Left Mid Laboratory test result [facility] ([facility]) Benign prostatic tissue. Left Lateral Epps Laboratory test result Abnorma l (applies to non-numeric results) [facility] ([facility]) PROSTATIC TISSUE WITH FOCUS OF SMALL ATY PICAL GLANDS. Left Epps Laboratory test result Abnormal (applies to non -numeric results) [facility] ([facility]) PROSTATIC TISSUE WITH FOCUS OF SMALL ATY PICAL GLANDS. 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 Right Lateral Base Laboratory test result [facility] ([facility]) Benign prostatic tissue. Right Mid Laboratory test result [facility] ([facility]) Benign prostatic tissue. Right Lateral Mid Laboratory test result [facility] ([facility]) Benign prostatic tissue. Right Epps Laboratory test result [facility] ([facility]) Benign prostatic tissue. Laboratory test finding (navigational concept) Laboratory test r esult Abnormal (applies to non-numeric results) [facility] ([facility]) PROSTATIC TISSUE WITH FOCUS OF SMALL ATY PICAL GLANDS. Right Lateral Epps Laboratory test result [facility] ([facility]) Benign prostatic tissue. PDF Report Laboratory test result [facility] ([facility]) ID Date Data Source [id number] 02/06/2020 09:50:00 AM EST [facility] ([facility]) Name Value Range Interpretation Code Description Data Mary rce(s) Supporting Document(s) Prostate Biopsy Laboratory test result [facility] ([facility]) ID Date Data Source [id number] 01/23/2020 08:05:00 AM EDT [facility] ([facility]) Name Value Range Interpretation Code Description Data Mary rce(s) Supporting Document(s) Rectal Swab Screen Laboratory test result [facility] ([facility]) NEGATIVE - No Fluoroquinolone Resistant Organisms Isolated NOTE: The culture procedure is also validated by concurrent blood agar control. ID Date Data Source [id number] 01/21/2020 09:16:34 AM EDT [facility] Name Value Range Interpretation Code Description Data Mary rce(s) Supporting Document(s) &PDF [facility] HAXADv7mWhSAOgKz18/PPEktQTPgp1JvAHcjWIc2JCjqVYIzS6XfyHirEVtQVG5WKP1RFLAFHjcHCU8D pL0 [file] ICAgICAgICAgICAgICAgICAgICAgICAgICAgICAgICAgICAgICAgICAgICAgICAgICAgICAgICAgDQog ICAgICAgICAgICAgICAgICAgICAgICAgICAgICAgIC AgICAgICAgICAgICAgICAgICAgICAgICAgICAgICAgICAgICAgICAgICAgICAgICAgICAgICAgICAgIC AgICAgICAgDQogICAgICAgICAgICAgICAgICAgICAgICAgICAgICAgICAgICAgICAgICAgICAgICAgIC AgICAgICAgICAgICAgICAgICAgICAgICAgICAgICAg ICAgICAgICAgICAgICAgICAgDQogICAgICAgICAgICAgICAgICAgICAgICAgICAgICAgICAgICAgICAg ICAgICAgICAgICAgICAgICAgICAgICAgICAgICAgICAgICAgICAgICAgICAgICAgICAgICAgICAgICAg DQogICAgICAgICAgICAgICAgICAgICAgICAgICAgIC AgICAgICAgICAgICAgICAgICAgICAgICAgICAgICAgICAgICAgICAgICAgICAgICAgICAgICAgICAgIC AgICAgICAgICAgDQogICAgICAgICAgICAgICAgICAgICAgICAgICAgICAgICAgICAgICAgICAgICAgIC AgICAgICAgICAgICAgICAgICAgICAgICAgICAgICAg ICAgICAgICAgICAgICAgICAgICAgDQogICAgICAgICAgICAgICAgICAgICAgICAgICAgICAgICAgICAg ICAgICAgICAgICAgICAgICAgICAgICAgICAgICAgICAgICAgICAgICAgICAgICAgICAgICAgICAgICAg ICAgDQogICAgICAgICAgICAgICAgICAgICAgICAgIC AgICAgICAgICAgICAgICAgICAgICAgICAgICAgICAgICAgICAgICAgICAgICAgICAgICAgICAgICAgIC AgICAgICAgICAgICAgDQogICAgICAgICAgICAgICAgICAgICAgICAgICAgICAgICAgICAgICAgICAgIC AgICAgICAgICAgICAgICAgICAgICAgICAgICAgICAg ICAgICAgICAgICAgICAgICAgICAgICAgDQogICAgICAgICAgICAgICAgICAgICAgICAgICAgICAgICAg ICAgICAgICAgICAgICAgICAgICAgICAgICAgICAgICAgICAgICAgICAgICAgICAgICAgICAgICAgICAg YANsCAIdRQg5T6ioMXNqCEKuTH0rKKd6Ta2+DQoNCm AiXOI9pfBiwC7QQP0oj3YnURpeFLZac0WiVJr9LL9RAABxBYdjWI2QFNtqgc7HOSMpMHYksVQZt7fdKz MpCIN1JJJhLpyuUF7EJUHiN6sqmpJoFKAyJKIICPfpEXIAJS5BUiPcU5SvaM31HMUYPz1+DQplbmRvYm uVNmLvMQFdo9OcUDj6BJ1ILHVpGSpxGQ1AXSIbwL2m ZBzqPX9YMpVqJCXqTKXOUdAiD42okQRmYEt3G8VdKpMwCZVzKatlHTCdKFbeBiAjHLGvGaLhFGscUH1+ ID4+VMbpEH9VSSutjnRlRSYmZp6YLMEhHOM3LEDodANpUnJcFYKCQHocML9LfQMzUJG0cX9zABefWCYf DTSjX0iDDfBnzIurDB60gUobmgHlkGKsOPq+Pg0KZW 3od7PzZHy5oqAiCZorMVSrFOfvLGZvAVAlBXJdTEZ7BLN6DWLOSjZeLXZfRKHwSNylFPTrOSVmkd5VJI HeDQQlHtFsZeAaUNMwZFHzBDfhYRHmLFQ7LMN9CSKzIDKsRD4TEpUhTIFqVVYnEJZdJLUmDXDefs2SYV AwMDAwMzQxOSAwMDAwMCBuDQowMDAwMDAzNjIzIDAw GOVuPH4BRuAcGXKnIPAbIZKiQGPgRLWsbe7DEVDpCMNpWML9JzKbKELvBDJtENlePJRtFIQ9UDX5YBSp APRxJE8CGbHlGLYoUHD3AENpVALrXKYvlm7VUFBjOGZlYFk9AqMtDXYpZHVkBJamAJUjXKK8KcToPBPx FWIpXU3GGiQdAMYoNBA6AEKfTFXgEOSkca2HGEXsLO RxCbJgCIBzTFClONFfIOjrKBOjXMH7CWf3PZRdTNDbHP0JGlAoTTRwTIlvLXOySUMiCIYtuu9TMYXkNV TlMUS3GOWnQMYoAJVyJBtaYRPbPZD6HJM5BWRhPQQvZU5AVgJoUUSwJNoxYPFnKILcUEWudv5GGIXsTO IkYtHpRkPxBPLoGVUpVFyyPJZhSQH6GZMnWIVqLOFe AI1YKyStEElgOYOUPnk1OBugQ0f9LVTcJn0VP7Kfv3MbJhGbHIHCRVnqGU1rahHsGHVzRr7PB0kBLwog VKNlPqAnXIA4CzPlG4QcG0C6GNf9ObweYYDtHCgfLV2dEBL0SDL1XXKlSnQgRJR6VuZ6SySnGkqdV6Xx Y6G7ENLnZhJzHZ9EEd2YPoZ3DUT9kMGiJk0EJSmaEGfHAmJhMQ5PBSu= ID Date Data Source [id number] 01/04/2020 08:35:57 AM EDT [facility] Name Value Range Interpretation Code Description Data Mary rce(s) Supporting Document(s) &PDF [facility] WNAHYj9mDkZJYcTr48/QGXyqKGZth9VnVIthECc3GCdbNWHnO4OctSidKWeHYT6WRW3CKMQIMubNPV3O vQ3 [file] AgICAgICAgICAgICAgICAgICAgICAgICAgICAgICAgICAgICAgICAgICAgICAgICAgICAgICAgICAgIC AgICAgICAgICAgICAgICAgICAgICAgICANCiAgICAgICAgICAgICAgICAgICAgICAgICAgICAgICAgIC AgICAgICAgICAgICAgICAgICAgICAgICAgICAgICAg ICAgICAgICAgICAgICAgICAgICAgICAgICAgICAgICAgICANCiAgICAgICAgICAgICAgICAgICAgICAg ICAgICAgICAgICAgICAgICAgICAgICAgICAgICAgICAgICAgICAgICAgICAgICAgICAgICAgICAgICAg ICAgICAgICAgICAgICAgICANCiAgICAgICAgICAgIC AgICAgICAgICAgICAgICAgICAgICAgICAgICAgICAgICAgICAgICAgICAgICAgICAgICAgICAgICAgIC AgICAgICAgICAgICAgICAgICAgICAgICAgICANCiAgICAgICAgICAgICAgICAgICAgICAgICAgICAgIC AgICAgICAgICAgICAgICAgICAgICAgICAgICAgICAg ICAgICAgICAgICAgICAgICAgICAgICAgICAgICAgICAgICAgICANCiAgICAgICAgICAgICAgICAgICAg ICAgICAgICAgICAgICAgICAgICAgICAgICAgICAgICAgICAgICAgICAgICAgICAgICAgICAgICAgICAg ICAgICAgICAgICAgICAgICAgICANCiAgICAgICAgIC AgICAgICAgICAgICAgICAgICAgICAgICAgICAgICAgICAgICAgICAgICAgICAgICAgICAgICAgICAgIC AgICAgICAgICAgICAgICAgICAgICAgICAgICAgICANCiAgICAgICAgICAgICAgICAgICAgICAgICAgIC AgICAgICAgICAgICAgICAgICAgICAgICAgICAgICAg ICAgICAgICAgICAgICAgICAgICAgICAgICAgICAgICAgICAgICAgICANCiAgICAgICAgICAgICAgICAg ICAgICAgICAgICAgICAgICAgICAgICAgICAgICAgICAgICAgICAgICAgICAgICAgICAgICAgICAgICAg ICAgICAgICAgICAgICAgICAgICAgICANCiAgICAgIC AgICAgICAgICAgICAgICAgICAgICAgICAgICAgICAgICAgICAgICAgICAgICAgICAgICAgICAgICAgIC AgICAgICAgICAgICAgICAgICAgICAgICAgICAgICAgICANCjw/mIOjE5swjDUmmuP4Q3aeGz7IPo2BIF 9jk7HuIRTqJTgdjjHvHqrNCyJcGQOeDlcAEkr0NBeu GV5XdGBoF1BpE3SeRPxpOG4KTFZcKTIlkSLzUYAtWCAuWuV4ZHHdRGtoBK2RcVLvDJgbZZYzHDEcOK0H [id number]xUjxYCtk3JGiwTD4SdEXwQ9OwgBAkg4mWQaNlI2ZX XTC2WQPtIm9NMZGgWmIpEVXoMWybZV2tOKPiSMBQaM zchxK2NX6SDW9bqlEiVD2JLjWwJp9uLz5RDuZuC8SaA4VlSSKaERLINFhgTZ9LYQJaYYA6YSFpZKCnPD HUSwKeR75lOH0AT2Rkq00vKzE4PXWtYsLhHDurTZ37hPslvsOldEDicSvnPL1BYw2+DQplbmRvYmoNCn gvRDORRlCrVIhYCaWvPQDpCHHzOBIzPkJ4DsTcNp9F BILyJBWiNWBfUwMdQHDnIGSmNKekZOWvZMFcMpA7NYAiWMHlGG3AOeTsFPXfSWK9RhmbKNJfOHQmrx7W VTXbNMBwYHK4TRXpYIMpSIRyUEdtLMGqZBMfCVs2DPRrBGDsKC1IZaFqMROaKHFuNWFaGEAuLXGulr3S USXiQGScRuD3JjOjMPKqWHUlTPsrERGaUTEpBYM7PU DkIFLxOT8SOsTfWCEeOUL9SuyhYUJvKLRxca0OEILwELUzMAO4GeKaSBCgWMOwMJnoOALlRBX8Ikg7DM KrHZSxJS3RFtWfGTByHIJ1JhZgVKJaEGXvjo8EEWWoIAIkQMT1FdOaLQTaJOSySYyrCDQtALTnNoy9KG FwASIqDT9MJmRlJAFfDEGyROopXCIzCLObbl7FDMFc FFBcCYPrYiKgEXYmZNDhDUw6jaVqePCvSBp5OQ1UV0YocdFiJXqKFz7Te334JDK1VMWfJh1AP2xeRl2u ZFNlZKPYLo6QPSg1MBlhJ0SpXIm8WogfSMZhSuNpDubcSFNpNXhrXRd4Cle+IOqeDMY3NcYpLBllFWRo GOEgTCQcZBN2XAZ1AtJ4KXQ1RQ4dGVFJTp5+GOrivIMmlDzpTLNPYeI5HzN5JXntDXJFMd8K ID Date Data Source [id number] 12/20/2019 12:25:21 PM EDT [address] [id number] Name: SHRUTI BARRIOSB: 1940Sex: MOrdering Provider: JUNIOR Stanton Prov: JUNIOR RIOSAReferring Provider: Procedure Performed: XR CHEST PORTABLEExam Date: 12/20/2019 12:24MRN: [id number] Number: [id number] Class: OutpatientAccount #: [id number] for Exam: icdTechnique: AP portable view obtained.Comparison: NoneFindings: Left chest wall pacemaker/AICD with leads in satisfactory position. No pneumothorax. Lungs clear. Cardiomediastinal contours are normal. Osseous structures intact.I MPRESSION: Left chest wall pacemaker/AICD with leads in satisfactory position. No pneumothorax.Report electronically signed by: Adis Fritz On 12/20/2019 12:25 PMWorkstation ID: [id number] Name Value Range Interpretation Code Description Data Mary rce(s) Supporting Document(s) ID Date Data Source [id number] 12/20/2019 12:03:21 PM EDT [facility] Name Value Range Interpretation Code Description Data Mary rce(s) Supporting Document(s) &PDF [facility] [id number]/DVUemVYIcw8YqZCdfXYt8GGnaTAMkN6CsfKwkVYeYPW7VOG7BDFFTYssHFF1T vQ3 [file] [id number]+[id number]PBUZE7UTBp== ID Date Data Source [id number] 12/20/2019 10:07:38 AM EDT [facility] NT INFORMATIONPatient MRN Name Date of Age Gend*PT [id number] Shruti Barrios 1940 79 years M HOPPT Location Admission Date/Time Visit ID Attending [id number] 12/20/19 09 --- Junior Jameson MD([id number]) EPI ID CSN Admitting Provider [id number] Junior Dillon MD([id number]) History and PhysicalPatient Name: Shruti BarriosDOB: 1940The patient presents for insertion of a Bi-V ICD12/20/2019Past Medical History:Diagnosis Date Atrial flutter 05/12/2019 [place]. Converted with iv Amiodarone Carotid arterial disease COPD (chronic obstructive pulmonary disease) Glaucoma H/O echocardiogram 05/16/2019 [place]. LV EF 20-25%, nl PAP Hearing loss Hx of cardiac cath 05/12/2019 [place]. LV EF 20%, 1-2+MR, normal coronaries, low CO, PAP 60/30 Hyperlipidemia LBBB (left bundle branch block) Prostate cancer Ulcerative colitis diagnosed 02/2019Past Surgical History:Procedure Laterality Date APPENDECTOMY CARPAL TUNNEL RELEASE CATARACT EXTRACTION COLONOSCOPY NEUROMA SURGERY PROSTATE SURGERY N/A 02/14/2019 Procedure: INSERTION, RETRACTION IMPLANT, PROSTATE, CYSTOSCOPIC, TRANSURETHRAL,FOR PROSTATIC URETHRAL LIFT; Surgeon: Shruti Presley MD; Laterality:N/A; ROTATOR CUFF REPAIR SHOULDER SURGERY SINUS SURGERY TONSILLECTOMYMedications Prior to AdmissionMedication Sig budesonide-formoterol (SYMBICORT) 80-4.5 MCG/ACT inhaler Inhale 2 puffs 2(two) times a day buPROPion (WELLBUTRIN XL) 300 MG 24 hr tablet Take 1 tablet by mouth daily ENTRESTO 24-26 MG TABS Take 1 tablet by mouth 2 (two) times a day Hold for SBPless then 100mmHg fluocinolone (SYNALAR) 0.01 % external solution as needed levothyroxine (SYNTHROID, LEVOTHROID) 150 MCG tablet Take 150 mcg by mouthdaily mesalamine (ROWASA) 4 g enema as needed metoprolol succinate (TOPROL-XL) 25 MG 24 hr tablet Take 1 tablet (25 mgtotal) by mouth daily spironolactone (ALDACTONE) 25 MG tablet Take 1 tablet (25 mg total) by mouthdaily sulfaSALAzine (AZULFIDINE) 500 MG tablet Take 2 tablets by mouth 2 (two) timesa day ELIQUIS 5 MG TABS tablet Take 1 tablet (5 mg total) by mouth 2 (two) times adayALLERGIES/SENSITIVITIES: Patient has no known drug allergies.Physical ExamGeneral: NADHEENT: NC/ATNeck: JVP FlatLungs: CTAHeart: [id number]: This is a 79 years male With a history of CHF, who presents forBi-V ICD insertion. The procedure was explained in detail. The risks includingbut not limited to vascular injury, perforation, pneumothorax, infection,tamponade, hematoma formation and were all explained. The success rate forLV lead placement was quoted at approximately 90% with the rate of responsequoted at 60-70%. The patient is agreeable to proceed.Signature: Junior Jameson MD, [facility], RSCardiac Electrophysiology and Arrhythmia ServiceDate: December 20, 2019This document or parts of this document, were dictated using [employer]. A reasonable attempt at proofreading has been made to minimize errors.Please call with any questions or corrections. Name Value Range Interpretation Code Description Data Mary rce(s) Supporting Document(s) ID Date Data Source [id number] 12/15/2019 08:12:00 AM EDT [facility] Name Value Range Interpretation Code Description Data Mary rce(s) Supporting Document(s) SARS coronavirus 2 RNA [facility] This lab was ordered by [facility] and reported by [employer]. ID Date Data Source [id number] 12/16/2019 09:07:09 AM EDT [facility] Name Value Range Interpretation Code Description Data [facility] Supporting Document(s) SARS-COV-2 SEVEN Lab [facility] Not DetectedReference range: Not Detecte d This nucleic acid amplification test was developed and its performance characteristics determined by [employer]. Nucleic acid amplification tests include PCR and TMA. This test has not been FDA cleared or approved. This test has been authorized by FDA under an Emergency Use Authorization (EUA). This test is only authorized for the duration of time the declaration that circumstances exist justifying the authorization of the emergency use of in vitro diagnostic tests for detection of SARS-CoV-2 virus and/or diagnosis of COVID-19 infection under section 564(b)(1) of the Act, 21 U.S.C. 360bbb-3(b) (1), unless the authorization is terminated or revoked sooner. When diagnostic testing is negative, the possibility of a false negative result should be considered in the context of a patient's recent exposures and the presence of clinical signs and symptoms consistent with COVID- 19. An individual without symptoms of COVID- 19 and who is not shedding SARS -CoV-2 virus would expect to have a negative (not detected) result in this assay. Performed At: [facility] [address] [id number] Dayday Simms MD Ph:[phone] ID Date Data Source [id number] 12/12/2019 10:18:00 AM EDT [facility] ([facility] Name Value Range Interpretation Code Description Data Mary rce(s) Supporting Document(s) Creatinine For GFR 1.18 mg/dL 0.70-1.30 [facility] ([facility]) Glomerular Filtration Rate Laboratory test result [facility] ([facility]) <content>Units are mL/min/1.73 m2</content>
<content></content>
<content>Chronic Kidney Disease Staging per NKF:</content>
<content></content>
<content>Stage I & II GFR >=60 Normal to Mildly Decreased</content>
<content>Stage III GFR 30- 59 Moderately Decreased</content>
<content>Stage IV GFR 15-29 Severely Decreased</content>
<content>Stage V GFR <15 Very Little GFR Left</content>
<content>ESRD GFR <15 on DIRECTOR OF SALES</content>
<content></content> ID Date Data Source [id number] 12/12/2019 10:18:00 AM EDT [facility] ([facility]) Name Value Range Interpretation Code Description Data Mary rce(s) Supporting Document(s) Urea nitrogen [Mass/volume] in Serum or Plasma 22 mg/dL 7-18 [facility] ([facility]) Procedure Social History Code Duration Value Status Description Data Source(s ) Smoking 01/15/2021 12:00:00 AM EDT Former Cigarette Smoker com pleted Former Cigarette Smoker [facility] ([facility]) Smoking 12/29/2020 12:00:00 AM EDT Former Smoker completed Former Smoker eCW1 ([facility]) Smoking 12/29/2020 12:00:00 AM EDT Former Smoker completed Former Smoker eCW1 ([facility]) Alcohol intake 12/04/2020 12:00:00 AM EDT Current drinker of al cohol (finding) completed Current drinker of alcohol (finding) [facility] Smoking 11/27/2020 09:48:17 AM EDT Ex-smoker (finding) complet ed Ex-smoker (finding) [facility] (David Turpin MD [facility]) Smoking 11/05/2020 12:00:00 AM EDT - 03/28/2000 12:00:00 AM EST Patient is a former smoker completed Patient is a former smoker [facility] ([facility], ) Smoking 11/05/2020 12:00:00 AM EDT Former Smoker completed Former Smoker eCW1 ([facility]) Smoking 11/05/2020 12:00:00 AM EDT Former Smoker completed Former Smoker eCW1 ([facility]) Alcohol intake 09/03/2020 12:00:00 AM EDT Current drinker of al cohol (finding) completed Current drinker of alcohol (finding) [facility] Smoking 06/24/2020 12:00:00 AM EDT Former Smoker completed Former Smoker eCW1 ([facility]) Smoking 06/24/2020 12:00:00 AM EDT Former Smoker completed Former Smoker eCW1 ([facility]) Smoking 06/24/2020 12:00:00 AM EDT Former Smoker completed Former Smoker eCW1 ([facility]) Smoking 06/24/2020 12:00:00 AM EDT Former Smoker completed Former Smoker eCW1 ([facility]) Smoking 06/24/2020 12:00:00 AM EDT Former Smoker completed Former Smoker eCW1 ([facility]) Smoking 06/24/2020 12:00:00 AM EDT Former Smoker completed Former Smoker eCW1 ([facility]) Alcohol intake 06/17/2020 12:00:00 AM EDT Yes completed [facility] Cigarette pack-years 06/17/2020 12:00:00 AM EDT UNK completed [facility] Cigarettes smoked current (pack per day) - Reported 06/18/19 12:00:00 AM EDT UNK completed [facility] Smoking 06/17/2020 12:00:00 AM EDT Former smoker completed Former smoker [facility] Alcohol intake 06/10/2020 12:00:00 AM EDT Yes completed [facility] Cigarette pack-years 06/10/2020 12:00:00 AM EDT UNK completed [facility] Cigarettes smoked current (pack per day) - Reported 06/11/19 12:00:00 AM EDT UNK completed [facility] Smoking 06/10/2020 12:00:00 AM EDT Former smoker completed Former smoker [facility] Smoking 05/07/2020 12:00:00 AM EST Former Smoker completed Former Smoker eCW1 ([facility]) Smoking 05/07/2020 12:00:00 AM EST Former Smoker completed Former Smoker eC ([facility]) Alcohol intake 12/20/2019 12:00:00 AM EDT Yes completed [facility] Cigarette pack-years 12/20/2019 12:00:00 AM EDT UNK completed [facility] Cigarettes smoked current (pack per day) - Reported 12/20/19 12:00:00 AM EDT UNK completed [facility] Smoking 12/20/2019 12:00:00 AM EDT Former smoker completed Former smoker [facility] Vital Signs ID Date Data Source UNK Name Value Range Interpretation Code Description Data Source(s) Body weight 120.00 [lb_av] 120.00 [lb_av] PETEREN T ([facility] [place] Body height 68 [in_i] 68 [in_i] [facility] ([facility] 5'8" Body weight 54.432 kg 54.432 kg [facility] ([facility] Body mass index (BMI) [Ratio] 18.2 kg/m2 18.2 k g/m2 [facility] ([facility]) Systolic blood pressure 105 mm[Hg] 105 mm[Hg] M EDENT ([facility]) Heart rate 80 /min 80 /min [facility] ([facility] Diastolic blood pressure 70 mm[Hg] 70 mm[Hg] [facility] ([facility]) Respiratory rate 12 /min 12 /min [facility] Body height 68 [in_i] 68 [in_i] [facility] ([facility]) 5'8" Body weight 120.00 [lb_av] 120.00 [lb_av] MEDEN T ([facility]) Body mass index (BMI) [Ratio] 18.2 kg/m2 18.2 k g/m2 [facility] ([facility]) [place] body weight 154 [lb_av] 154 [lb_av] MED[facility] T ([facility]) Body weight 126.6 [lb_av] 126.6 [lb_av] eCW1 ([facility]) Body height 68.5 [in_i] 68.5 [in_i] eCW1 ([facility]) Body mass index (BMI) [Ratio] 18.97 kg/m2 18.97 kg/m2 eCW1 ([facility]) Heart rate 78 /min 78 /min eCW1 ([facility]) Respiratory rate 18 /min 18 /min eCW1 ([facility]) Body temperature 96.0 [degF] 96.0 [degF] eCW1 ( [facility]) Systolic blood pressure 128 mm[Hg] 128 mm[Hg] e CW1 ([facility]) Diastolic blood pressure 74 mm[Hg] 74 mm[Hg] eCW1 ([facility]) [place] body weight 154 [lb_av] 154 [lb_av] MEDEN T ([facility]) Body weight 56.700 kg 56.700 kg [facility] ([facility]) Body weight 125.00 [lb_av] 125.00 [lb_av] MEDEN T ([facility]) Body mass index (BMI) [Ratio] 19.0 kg/m2 19.0 k g/m2 [facility] ([facility]) Body surface area Derived from formula 1.67 m2 1.67 m2 [facility] ([facility]) Systolic blood pressure 85 mm[Hg] 85 mm[Hg] M EDENT ([facility], ) Diastolic blood pressure 60 mm[Hg] 60 mm[Hg] [facility] ([facility], ) Body height 68 [in_i] 68 [in_i] [facility] ([facility]) 5'8" Systolic blood pressure 98 mm[Hg] 98 mm[Hg] [facility] Diastolic blood pressure 56 mm[Hg] 56 mm[Hg] [facility] Heart rate 77 /min 77 /min [facility] Body weight 60.328 kg 60.328 kg [facility] Body mass index (BMI) [Ratio] 20.22 kg/m2 20.22 kg/m2 [facility] Oxygen saturation in Arterial blood by Pulse oximetry 94 % 94 % [facility] Body mass index (BMI) [Ratio] 19.9 kg/m2 19.9 k g/m2 [facility] ([facility], ) Body weight 131.00 [lb_av] 131.00 [lb_av] MEDEN T ([facility]) Body height 68 [in_i] 68 [in_i] [facility] ([facility]) 5'8" [place] body weight 154 [lb_av] 154 [lb_av] MEDEN T ([facility]) Body weight 59.422 kg 59.422 kg [facility] ([facility]) Systolic blood pressure 109 mm[Hg] 109 mm[Hg] [facility] Diastolic blood pressure 68 mm[Hg] 68 mm[Hg] [facility] ([facility]) Body surface area Derived from formula 1.71 m2 1.71 m2 [facility] ([facility]) [place] body weight 154 [lb_av] 154 [lb_av] MEDEN T ([facility]) Diastolic blood pressure 66 mm[Hg] 66 mm[Hg] [facility] ([facility]) Heart rate 85 /min 85 /min [facility] ([facility]) Oxygen saturation in Arterial blood by Pulse oximetry 96 % 96 % [facility] ([facility]) Room Air Body height 68 [in_i] 68 [in_i] [facility] ([facility]) 5'8" Systolic blood pressure 108 mm[Hg] 108 mm[Hg] M EDENT ([facility]) Body weight 135.00 [lb_av] 135.00 [lb_av] MEDEN T ([facility]) Body mass index (BMI) [Ratio] 20.5 kg/m2 20.5 k g/m2 [facility] ([facility]) Body weight 61.236 kg 61.236 kg [facility] ([facility]) Body surface area Derived from formula 1.73 m2 1.73 m2 [facility] ([facility]) Body weight 133.8 [lb_av] 133.8 [lb_av] eCW1 ([facility]) Body height 68.5 [in_i] 68.5 [in_i] eCW1 ([facility]) Body mass index (BMI) [Ratio] 20.05 kg/m2 20.05 kg/m2 W1 ([facility]) Heart rate 79 /min 79 /min eCW1 ([facility]) Respiratory rate 18 /min 18 /min W1 ([facility]) Body temperature 96.2 [degF] 96.2 [degF] eCW1 ( [facility]) Systolic blood pressure 122 mm[Hg] 122 mm[Hg] e CW1 ([facility]) Diastolic blood pressure 66 mm[Hg] 66 mm[Hg] eCW1 ([facility]) Systolic blood pressure 124 mm[Hg] 124 mm[Hg] M EDENT ([facility]) Diastolic blood pressure 66 mm[Hg] 66 mm[Hg] [facility] ([facility]) Body weight 135.00 [lb_av] 135.00 [lb_av] MEDEN T ([facility]) Respiratory rate 18 /min 18 /min [facility] ( [facility]) Systolic blood pressure 105 mm[Hg] 105 mm[Hg] M EDENT ([facility]) Body height 68 [in_i] 68 [in_i] [facility] ([facility] 5'8" Body weight 138.00 [lb_av] 138.00 [lb_av] MEDEN T ([facility]) Body weight 62.597 kg 62.597 kg [facility] ([facility]) Body mass index (BMI) [Ratio] 21.0 kg/m2 21.0 k g/m2 [facility] ([facility]) Diastolic blood pressure 65 mm[Hg] 65 mm[Hg] [facility] ([facility]) Heart rate 88 /min 88 /min [facility] ([facility] Respiratory rate 18 /min 18 /min [facility] ( [facility]) Body temperature 96.6 [degF] 96.6 [degF] [facility] ([facility]) Systolic blood pressure 98 mm[Hg] 98 mm[Hg] [facility] Diastolic blood pressure 52 mm[Hg] 52 mm[Hg] [facility] Heart rate 66 /min 66 /min [facility] Body height 172.7 cm 172.7 cm [facility] Body weight 63.05 kg 63.05 kg [facility] Body mass index (BMI) [Ratio] 21.13 kg/m2 21.13 kg/m2 [facility] Oxygen saturation in Arterial blood by Pulse oximetry 98 % 98 % [facility] Systolic blood pressure 102 mm[Hg] 102 mm[Hg] [facility] Diastolic blood pressure 60 mm[Hg] 60 mm[Hg] [facility] Heart rate 63 /min 63 /min [facility] Body height 172.7 cm 172.7 cm [facility] Body weight 65.046 kg 65.046 kg [facility] Body mass index (BMI) [Ratio] 21.80 kg/m2 21.80 kg/m2 [facility] Oxygen saturation in Arterial blood by Pulse oximetry 94 % 94 % [facility] Body weight 139.8 [lb_av] 139.8 [lb_av] eCW1 ([facility]) Body height 68.5 [in_i] 68.5 [in_i] eCW1 ([facility]) Body mass index (BMI) [Ratio] 20.95 kg/m2 20.95 kg/m2 eCW1 ([facility]) Heart rate 77 /min 77 /min eCW1 ([facility]) Respiratory rate 18 /min 18 /min eCW1 ([facility]) Body temperature 97.1 [degF] 97.1 [degF] eCW1 ( [facility]) Systolic blood pressure 118 mm[Hg] 118 mm[Hg] e CW1 ([facility]) Diastolic blood pressure 62 mm[Hg] 62 mm[Hg] eCW1 ([facility]) Body height 68 [in_i] 68 [in_i] [facility] ([facility] 5'8" Body weight 138.00 [lb_av] 138.00 [lb_av] MEDEN T ([facility]) Body weight 62.597 kg 62.597 kg [facility] ([facility] Body mass index (BMI) [Ratio] 21.0 kg/m2 21.0 k g/m2 [facility] ([facility]) Systolic blood pressure 123 mm[Hg] 123 mm[Hg] M EDENT ([facility]) Diastolic blood pressure 78 mm[Hg] 78 mm[Hg] [facility] ([facility]) Heart rate 83 /min 83 /min [facility] ([facility] [place] Body temperature 97.7 [degF] 97.7 [degF] [facility] ([facility]) Systolic blood pressure 108 mm[Hg] 108 mm[Hg] [facility] Diastolic blood pressure 60 mm[Hg] 60 mm[Hg] [facility] Heart rate 63 /min 63 /min [facility] Body height 172.7 cm 172.7 cm [facility] Body weight 65.318 kg 65.318 kg [facility] Body mass index (BMI) [Ratio] 21.90 kg/m2 21.90 kg/m2 [facility] Oxygen saturation in Arterial blood by Pulse oximetry 98 % 98 % [facility] Systolic blood pressure 94 mm[Hg] 94 mm[Hg] [facility] Diastolic blood pressure 60 mm[Hg] 60 mm[Hg] [facility] Heart rate 84 /min 84 /min [facility] Body height 172.7 cm 172.7 cm [facility] Body weight 64.864 kg 64.864 kg [facility] Body mass index (BMI) [Ratio] 21.74 kg/m2 21.74 kg/m2 [facility] Oxygen saturation in Arterial blood by Pulse oximetry 97 % 97 % [facility] [place] body weight 154 [lb_av] 154 [lb_av] MEDEN T ([facility]) Systolic blood pressure 96 mm[Hg] 96 mm[Hg] M EDENT ([facility]) Body height 68 [in_i] 68 [in_i] [facility] ([facility]) 5'8" Body weight 143.00 [lb_av] 143.00 [lb_av] MEDEN T ([facility]) Body mass index (BMI) [Ratio] 21.7 kg/m2 21.7 k g/m2 [facility] ([facility]) Body weight 64.865 kg 64.865 kg [facility] ([facility]) Body surface area Derived from formula 1.77 m2 1.77 m2 [facility] ([facility]) Diastolic blood pressure 55 mm[Hg] 55 mm[Hg] [facility] ([facility]) Body height 68 [in_i] 68 [in_i] [facility] 5'8" Body weight 143.00 [lb_av] 143.00 [lb_av] MEDEN T ([facility]) Body mass index (BMI) [Ratio] 21.7 kg/m2 21.7 k g/m2 [facility] ([facility]) [place] body weight 154 [lb_av] 154 [lb_av] MEDEN T ([facility], ) Body weight 64.865 kg 64.865 kg [facility] Body surface area Derived from formula 1.77 m2 1.77 m2 [facility] [facility] ([facility]) Diastolic blood pressure 68 mm[Hg] 68 mm[Hg] eCW1 ([facility]) Body weight 141.0 [lb_av] 141.0 [lb_av] eCW1 ([facility]) Body height 68.5 [in_i] 68.5 [in_i] eCW1 ([facility]) Body mass index (BMI) [Ratio] 21.12 kg/m2 21.12 kg/m2 eCW1 ([facility]) Heart rate 79 /min 79 /min eCW1 ([facility]) Respiratory rate 18 /min 18 /min eCW1 ([facility]) Body temperature 97.3 [degF] 97.3 [degF] eCW1 ( [facility]) Systolic blood pressure 104 mm[Hg] 104 mm[Hg] e CW1 ([facility]) Body height 68 [in_i] 68 [in_i] [facility], [facility] 5'8" Systolic blood pressure 114 mm[Hg] 114 mm[Hg] M EDENT ([facility]) Diastolic blood pressure 70 mm[Hg] 70 mm[Hg] [facility] Heart rate 90 /min 90 /min [facility] ([facility]) Oxygen saturation in Arterial blood by Pulse oximetry 97 % 97 % [facility] ([facility]) Room Air Body temperature 95.9 [degF] 95.9 [degF] MEDENT ([facility]) Body weight 144.00 [lb_av] 144.00 [lb_av] MEDEN T ([facility]) Body mass index (BMI) [Ratio] 21.9 kg/m2 21.9 k g/m2 [facility] ([facility], ) [place] body weight 154 [lb_av] 154 [lb_av] MEDEN T ([facility], ) Body weight 65.318 kg 65.318 kg MEDENT ([facility], ) Body surface area Derived from formula 1.78 m2 1.78 m2 MEDENT ([facility], ) Systolic blood pressure 103 mm[Hg] 103 mm[Hg] M EDENT ([facility]) Body weight 142.00 [lb_av] 142.00 [lb_av] MEDEN T ([facility]) Body weight 64.411 kg 64.411 kg MEDENT ([facility] Body temperature 97.0 [degF] 97.0 [degF] MEDENT ([facility]) Diastolic blood pressure 63 mm[Hg] 63 mm[Hg] MEDENT ([facility]) Heart rate 87 /min 87 /min [facility] ([facility] Respiratory rate 18 /min 18 /min MEDENT ( [facility]) Body weight 142.00 [lb_av] 142.00 [lb_av] MEDEN T ([facility]) Body weight 64.411 kg 64.411 kg MEDENT ([facility] Systolic blood pressure 130 mm[Hg] 130 mm[Hg] EDENT ([facility]) Diastolic blood pressure 81 mm[Hg] 81 mm[Hg] MEDENT ([facility]) Heart rate 86 /min 86 /min [facility] ([facility] Body temperature 97.6 [degF] 97.6 [degF] MEDENT ([facility]) Systolic blood pressure 127 mm[Hg] 127 mm[Hg] M EDENT ([facility]) Body temperature 98.0 [degF] 98.0 [degF] MEDENT ([facility]) Oxygen saturation in Arterial blood by Pulse oximetry 97 % 97 % [facility] ([facility]) Diastolic blood pressure 61 mm[Hg] 61 mm[Hg] MEDENT ([facility]) Heart rate 66 /min 66 /min [facility] ([facility] Systolic blood pressure 121 mm[Hg] 121 mm[Hg] [facility] Diastolic blood pressure 66 mm[Hg] 66 mm[Hg] [facility] Heart rate 94 /min 94 /min [facility] Body temperature 36.39 Feli 36.39 Feli [facility] Respiratory rate 16 /min 16 /min [facility] Oxygen saturation in Arterial blood by Pulse oximetry 100 % 100 % [facility] Body height 172.7 cm 172.7 cm [facility] Body weight 59.875 kg 59.875 kg [facility] Body mass index (BMI) [Ratio] 20.07 kg/m2 20.07 kg/m2 [facility] Patient Treatment Plan of Care Planned Activity Planned Date Details Description Data Source (s) sacubitril 24 MG / valsartan 26 MG Oral Tablet [Entres to] 12/04/2020 12:00:00 AM EDT [facility] Spironolactone 25 MG Oral Tablet 12/04/2020 12:00:00 AM EDT [facility] apixaban 5 MG Oral Tablet [Eliquis] 12/02/2020 12:00:00 AM EDT [facility] 24 HR Budesonide 9 MG Extended Release Oral Tablet 11/14/2020 12 :00:00 AM EDT [facility] 24 HR Bupropion Hydrochloride 300 MG Extended Release Oral Tablet 11/06/2020 12:00:00 AM EDT [facility] Sulfasalazine 500 MG Oral Tablet 09/30/2020 12:00:00 AM EDT eCW1 ([facility]) Sulfasalazine 500 MG Delayed Release Oral Tablet 09/30/2020 12:00:0 0 AM EDT eCW1 ([facility]) Fluocinolone Acetonide 0.1 MG/ML Topical Solution 09/24/2020 12: 00:00 AM EDT [facility] sacubitril 24 MG / valsartan 26 MG Oral Tablet [Entres to] 09/03/2020 12:00:00 AM EDT [facility] apixaban 5 MG Oral Tablet [Eliquis] 08/26/2020 12:00:00 AM EDT [facility] sacubitril 24 MG / valsartan 26 MG Oral Tablet [Entres to] 08/20/2020 12:00:00 AM EDT [facility] albuterol (PROVENTIL HFA;VENTOLIN HFA) 108 (90 Base) M CG/ACT inhaler 07/07/2020 12:00:00 AM EDT [facility] Spironolactone 25 MG Oral Tablet 07/04/2020 12:00:00 AM EDT [facility] sacubitril 24 MG / valsartan 26 MG Oral Tablet [Entres to] 07/04/2020 12:00:00 AM EDT [facility] 24 HR Bupropion Hydrochloride 150 MG Extended Release Oral Tablet 05/24/2020 12:00:00 AM EST [facility] 24 HR metoprolol succinate 25 MG Extended Release Oral Tablet 05/22/2020 12:00:00 AM EST [facility] apixaban 5 MG Oral Tablet [Eliquis] 05/22/2020 12:00:00 AM EST [facility] atorvastatin 20 MG Oral Tablet 05/07/2020 12:00:00 AM EST [facility] Spironolactone 25 MG Oral Tablet 03/05/2020 12:00:00 AM EST [facility] sacubitril 24 MG / valsartan 26 MG Oral Tablet [Entres to] 03/05/2020 12:00:00 AM EST [facility] 24 HR metoprolol succinate 25 MG Extended Release Oral Tablet 07/02/2019 12:00:00 AM EDT [facility] 24 HR Bupropion Hydrochloride 300 MG Extended Release Oral Tablet 05/31/2019 12:00:00 AM EST [facility] sacubitril 24 MG / valsartan 26 MG Oral Tablet [Entresto] [facility]
[2021-02-04 09:07] LABS: BASO # 0.1 10^3/uL (0.0-0.2); BASO % 0.4 % (0.0-1.0); EOS # 0.1 10^3/uL (0.0-0.5); EOS % 1.1 % (0.0-3.0); HEMATOCRIT 37.9 % (42.0-52.0); HEMOGLOBIN 12.6 g/dl (13.5-17.5); LYMPH # 0.7 10^3/uL (1.5-5.0); LYMPH % 6.1 % (24.0-44.0); MEAN CORPUSCULAR HEMOGLOBIN 30.6 pg (27.0-33.0); MEAN CORPUSCULAR HGB CONC 33.2 g/dl (32.0-36.5); MONO # 0.8 10^3/uL (0.0-0.8); MONO % 6.8 % (2.0-8.0); NEUTROPHILS # 10.2 10^3/uL (1.5-8.5); NEUTROPHILS % 84.8 % (36.0-66.0); PLATELET COUNT, AUTOMATED 460 10^3/uL (150-450); RED BLOOD COUNT 4.12 10^6/uL (4.30-6.10); WHITE BLOOD COUNT 12.1 10^3/uL (4.0-10.0)
--- OUTSIDE RECORDS SUMMARY | 2021-02-04 09:27 | CCD | Continuity of Care Document ---
Author Author Nigel CRONIN MD Organization Unknown Address [address] [place] [address] Phone [phone] Care Team Providers Care Licsw Name Role Phone Riky Johns M.D. AUTM [phone] Adalberto Jackman M.D. AUTM [phone] Manan Mcintyre M.D. AUTM [phone] Problems Active Problems Provider Date Chronic obstructive [...] CPT Code Status Date Vaccine Lot # [id number] Given 01/21/2016 Influenza Virus Split 3 Yrs And Above For Intramuscular Use 83094 Given 01/20/2015 Influenza Virus Split 3 Yrs And Above For Intramuscular Use Q2036 Given 12/27/2012 Influenza Vaccine 3 Years Of Age Or Older (Flulaval) Q2036 Given 01/05/2012 Influenza Vaccine 3 Years Of Age Or Older (Flulaval) 51662 Given 02/09/2011 Influenza Virus Split 3 Yrs And Above For Intramuscular Use 81372 Given 01/09/2010 Pneumococcal PPSV23 29705 Given 12/31/2009 Pneumococcal PPSV23 Vital Signs Date Vital Result Comment 12/18/2020 8:57am BP Systolic 85 mmHg BP Diastolic 60 mmHg Height 68 inches 5'8" Weight 125.00 lb BMI (Body Mass Index) 19.0 kg/m2 [place] [facility] Weight 154 lb Weight 56.700 kg BSA (Body Surface Area) 1.67 m2 11/24/2020 3:50pm BP Systolic 109 mmHg BP Diastolic 68 mmHg Height 68 inches 5'8" Weight 131.00 lb BMI (Body Mass Index) 19.9 kg/m2 [place] [facility] Weight 154 lb Weight 59.422 kg BSA (Body Surface Area) 1.71 m2 Results Test Acquired Date Facility Test Result H/L Range Note Laboratory test finding 12/22/2020 [facility] [address] [place], [place] [id number] [phone] Hepatitis B Surface Antigen <pending> BUN & Creatinine ([facility]) 12/22/2020 [facility] Lab [address] [place], [place] [address] [phone] Blood Urea Nitrogen <pending> Laboratory test finding 12/02/2020 [facility] [address] [place], [place] [address] [phone] Calprotectin Stool 94 ug/g Normal 0-120 1 Pancreatic Elastase Stool >500 Normal >200 2, 3 Gastrointestinal (GI) Panel 11/16/2020 [facility] Main Lab [address] [place], [place] [id number] [phone] Gastrointestinal (GI) Panel This Gastrointes <SEE NOTE > 4 Laboratory test finding 07/15/2020 [facility] [address] [place] [address] [phone] Pathology Request For Service (SEE NOTE) 5 1 Concentration Interpreta tion Follow-Up <16 - 50 ug/g Normal None >50 -120 ug/g Borderline Re-evaluate in 4-6 weeks >120 ug/g Abnormal Repeat as clinically indicated Performed at: [facility] [id number] [address] [employer]: Jesse Freire MD, Phone: [phone] Result Units: ug Elast./g Severe Pancreatic [...] 1453 Procedures Date Code Description Status 12/18/2020 13495 Office/Outpatient Established Mo d MDM 30-39 Min Completed 11/24/2020 35221 Office/Outpatient Established Mo d MDM 30-39 Min Completed 11/05/2020 84247 Office/Outpatient Established Mo d MDM 30-39 Min Completed 11/05/2020 69330 Spirometry Completed 07/15/2020 55332 Colonoscopy Flexible Proximal To Splenic Flexure W/Biopsy Single/ Completed Medical Devices Description No Information Available Encounters Type Date Location Provider Dx Diagnosis Office Visit 11/24/2020 3:45p [facility] Gastroenterology Pra ctice David Cronin MD 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 R19.7 Diarrhea, unspecified R19.4 Change in bowel habit R63.4 Abnormal weight loss Office Visit 11/05/2020 3:30p [facility] Pulmonary/Thoracic Lawrenc bear Johns MD J43.1 [...] 11/05/2020 Z87.891 Personal history of nicotine dep endwiliam Riky Johns MD 07/15/2020 K51.30 Ulcerative (chronic) rectosigmoi ditis without complications David Cronin MD 07/15/2020 K57.30 Diverticulosis of la rge intestine without perforation or abscess without bleeding David Cronin MD 07/15/2020 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 David Cronin MD 07/15/2020 K64.8 Other hemorrhoids David Cronin MD Plan of Treatment Future Appointment(s):* 01/21/2021 2:30 pm - David Cronin MD at [facility] * 05/08/2021 6:00 am - David Cronin MD at [facility] * 03/13/2021 6:00 am - David Cronin MD at [facility] * 01/16/2021 6:00 am - David Cronin MD at [facility] 12/18/2020 - David Cronin [...] entyvio an "allergy" and will need to oil changer to an alternative. * Follow up:* [...] on his degree of heart failure Created [facility], [id number] [place] [address], [place] [address] [phone]
--- OUTSIDE RECORDS SUMMARY | 2021-02-04 09:27 | CCD | Continuity of Care Document ---
Author Author Nigel BURGESS M.D Organization Unknown Address [address] [place] [address] Phone [phone] Care Team Providers Care Drop Clipper Name Role Phone Adalberto Jackman M.D. AUTM [phone] Problems Active Problems Provider Date Polyneuropathy Amaya Burgess M.D. Onset: 01/13/2021 Numbness Amaya Burgess M.D. Onset: 01/13/2021 Abnormal gait Amaya Burgess M.D. Onset: 01/13/2021 Social History Type Date [...] lb BMI (Body Mass Index) 18.2 kg/m2 [place] Body Weight 154 lb Results Description No Information Available Procedures Date Code Description Status 01/13/2021 96211 Office/Outpatient New Moderate M DM 45-59 Minutes Completed Medical Devices Description No Information Available Encounters Type Date Location Provider Dx Diagnosis Office Visit 01/13/2021 1:45p Main office - [place] Amaya ramirez M.D. M48.062 Spinal stenosis, lumbar region with neur ogenic claudication R20.2 Paresthesia of skin R53.1 Weakness Assessments Date Code Description Provider 01/13/2021 M48.062 Spinal stenosis, lumbar region w ith neurogenic claudication Amaya Burgess M.D. 01/13/2021 R20.2 Paresthesia of skin Amaya ramirez M.D. 01/13/2021 R53.1 Weakness Amaya Burgess M.D. Plan of Treatment Future Appointment(s):* 04/30/2021 12:00 pm - Amaya Burgess M.D. at [facility] * 02/04/2021 12:30 pm - Amaya Burgess M.D. at [facility] * 01/28/2021 11:30 am - Amaya Burgess M.D. at [facility] Functional Status Description No Information Available Mental Status Description No Information Available Referrals Description No Information Available
--- OUTSIDE RECORDS SUMMARY | 2021-02-04 09:29 | CCD ---
Author Author [facility] Organization [facility] Address Unknown Phone Unavailable Care Team Providers Care Master Control Technician Name Role Phone DAVID RUEDA MD Unavailable [...] Unavailable Unavailable REINGRETA, DAVID HERMOSILLO Unavailable Unavailable REINDAVDI HERNANDES MD Unavailable Unavailable REINDAVID HERNANDES MD Unavailable Unavailable MOHIT, DAVID HERMOSILLO Unavailable Unavailable REINDAVID HERNANDES MD Unavailable Unavailable REINDAVID HERNANDES MD Unavailable Unavailable REINDAVID HERNANDES MD Unavailable Unavailable REINDAVID HERNANDES MD Unavailable Unavailable DAVID RUEDA MD Unavailable Unavailable DAVID RUEDA MD Unavailable Unavailable DAVID RUEDA MD Unavailable Unavailable DAVID RUEDA MD Unavailable Unavailable REINGRETA, DAVID HERMOSILLO Unavailable Unavailable OMHIT, DAVID HERMOSILLO Unavailable Unavailable MOHIT, DAVID HERMOSILLO [...] Unavailable Unavailable Vivien PRESLEY MD Unavailable Unavailable iVvien PRESLEY MD Unavailable Unavailable Vivien PRESLEY MD [...] Unavailable Becky, F Lidia PA Unavailable Unavailable Quinton, F Lidia PA Unavailable Unavailable Becky, F Lidia PA Unavailable Unavailable Becky, F Lidia PA Unavailable Unavailable Quinton, F Lidia PA Unavailable Unavailable Quinton, F Lidia PA Unavailable Unavailable Becky, F Lidia PA Unavailable Unavailable Becky, F Lidia PA Unavailable Unavailable Becky, F Lidia PA Unavailable Unavailable Becky, F Lidia PA Unavailable Unavailable Becky, F Lidia PA Unavailable Unavailable Quinton, F Lidia PA Unavailable Unavailable Quinton, F Lidia PA Unavailable Unavailable Quinton, F Lidia PA Unavailable Unavailable Quinton, F Lidia PA Unavailable Unavailable Quinton, F Lidia PA Unavailable Unavailable Quinton, F Lidia PA Unavailable Unavailable Quinton, F Lidia PA Unavailable Unavailable Becky, F Lidia PA Unavailable Unavailable Quinton, F Lidia PA Unavailable Unavailable Becky, F Lidia PA Unavailable Unavailable Becky, F Lidia PA Unavailable Unavailable Quinton, F Lidia PA Unavailable Unavailable Becky, F Lidia PA Unavailable Unavailable Becky, F Lidia PA Unavailable Unavailable Quinton, F Lidia PA Unavailable Unavailable Becky, F Lidia PA Unavailable Unavailable Quinton, F Lidia PA Unavailable Unavailable Quinton, F Lidia PA Unavailable Unavailable Quinton, F Lidia PA Unavailable Unavailable Quinton, F Lidia PA Unavailable Unavailable Becky, F Lidia PA Unavailable Unavailable Quinton, F Lidia PA Unavailable Unavailable Becky, F Lidia PA Unavailable Unavailable Becky, F Lidia PA Unavailable Unavailable Quinton, F Lidia PA Unavailable Unavailable Becky, F Lidia PA Unavailable Unavailable Becky, F Lidia PA Unavailable Unavailable Fons, M Ginna FRONT WINDOW CASHIER Unavailable Unavailable Fons, M Ginna FRONT WINDOW CASHIER Unavailable Unavailable Fons, M Ginna FRONT WINDOW CASHIER Unavailable Unavailable Fons, M Ginna FRONT WINDOW CASHIER Unavailable Unavailable Fons, M Ginna FRONT WINDOW CASHIER Unavailable Unavailable Fons, M Ginna FRONT WINDOW CASHIER Unavailable Unavailable Fons, M Ginna FRONT WINDOW CASHIER Unavailable Unavailable Fons, M Ginna FRONT WINDOW CASHIER Unavailable Unavailable Fons, M Ginna FRONT WINDOW CASHIER Unavailable Unavailable Fons, M Ginna FRONT WINDOW CASHIER Unavailable Unavailable Fons, M Ginna FRONT WINDOW CASHIER Unavailable Unavailable Fons, M Ginna FRONT WINDOW CASHIER Unavailable Unavailable Fons, M Ginna FRONT WINDOW CASHIER Unavailable Unavailable Fons, M Ginna FRONT WINDOW CASHIER Unavailable Unavailable Fons, M Ginna FRONT WINDOW CASHIER Unavailable Unavailable Fons, M Ginna FRONT WINDOW CASHIER Unavailable Unavailable Fons, M Ginna FRONT WINDOW CASHIER Unavailable Unavailable Fons, M Ginna FRONT WINDOW CASHIER Unavailable Unavailable Fons, M Ginna FRONT WINDOW CASHIER Unavailable Unavailable Fons, M Ginna FRONT WINDOW CASHIER Unavailable Unavailable Fons, M Ginna FRONT WINDOW CASHIER Unavailable Unavailable Fons, M Ginna FRONT WINDOW CASHIER Unavailable Unavailable Fons, M Ginna FRONT WINDOW CASHIER Unavailable Unavailable Fons, M Ginna FRONT WINDOW CASHIER Unavailable Unavailable Fons, M Gnina FRONT WINDOW CASHIER Unavailable Unavailable Fons, M Ginna FRONT WINDOW CASHIER Unavailable Unavailable Fons, M Ginna FRONT WINDOW CASHIER Unavailable Unavailable Fons, M Ginna FRONT WINDOW CASHIER Unavailable Unavailable Fons, M Ginna FRONT WINDOW CASHIER Unavailable Unavailable Fons, M Ginna FRONT WINDOW CASHIER Unavailable Unavailable Fons, M Ginna FRONT WINDOW CASHIER Unavailable Unavailable Fons, M Ginna FRONT WINDOW CASHIER Unavailable Unavailable Fons, M Ginna FRONT WINDOW CASHIER Unavailable Unavailable Fons, M Ginna FRONT WINDOW CASHIER Unavailable Unavailable Fons, M Ginna FRONT WINDOW CASHIER Unavailable Unavailable Fons, M Ginna FRONT WINDOW CASHIER Unavailable Unavailable Fons, M Ginna FRONT WINDOW CASHIER Unavailable Unavailable Fons, M Ginna FRONT WINDOW CASHIER Unavailable Unavailable Fons, M Ignna FRONT WINDOW CASHIER Unavailable Unavailable Fons, M Ginna FRONT WINDOW CASHIER Unavailable Unavailable Fons, M Ginna FRONT WINDOW CASHIER Unavailable Unavailable Fons, M Ginna FRONT WINDOW CASHIER Unavailable Unavailable Fons, M Ginna FRONT WINDOW CASHIER Unavailable Unavailable Fons, M Ginna FRONT WINDOW CASHIER Unavailable Unavailable Fons, M Ginna FRONT WINDOW CASHIER Unavailable Unavailable Fons, M Ginna FRONT WINDOW CASHIER Unavailable Unavailable Fons, M Ginna FRONT WINDOW CASHIER Unavailable Unavailable Fons, M Ginna FRONT WINDOW CASHIER Unavailable Unavailable Fons, M Ginna FRONT WINDOW CASHIER Unavailable Unavailable Fons, M Ginna FRONT WINDOW CASHIER Unavailable Unavailable Fons, M Ginna FRONT WINDOW CASHIER Unavailable Unavailable Fons, M Ginna FRONT WINDOW CASHIER Unavailable Unavailable Fons, M Ginna FRONT WINDOW CASHIER Unavailable Unavailable Pima, Qing FRONT WINDOW CASHIER Unavailable Unavailable Pima, Honey Guillen FRONT WINDOW CASHIER Unavailable Unavailable Pima, Honey Guillen FRONT WINDOW CASHIER Unavailable Unavailable Pima, Qing FRONT WINDOW CASHIER Unavailable Unavailable Pima, Honey Guillen FRONT WINDOW CASHIER Unavailable Unavailable Pima, Honey Guillen FRONT WINDOW CASHIER Unavailable Unavailable Pima, Qing FRONT WINDOW CASHIER Unavailable Unavailable Pima, Qing FRONT WINDOW CASHIER Unavailable Unavailable Pima, Qing FRONT WINDOW CASHIER Unavailable Unavailable Pima, Qing FRONT WINDOW CASHIER Unavailable Unavailable Pima, Qing FRONT WINDOW CASHIER Unavailable Unavailable Pima, Qing FRONT WINDOW CASHIER Unavailable Unavailable Pima, Qing FRONT WINDOW CASHIER Unavailable Unavailable Pima, Qing FRONT WINDOW CASHIER Unavailable Unavailable Pima, Qing FRONT WINDOW CASHIER Unavailable Unavailable Pima, Qing FRONT WINDOW CASHIER Unavailable Unavailable Pima, Qing FRONT WINDOW CASHIER Unavailable Unavailable Pima, Qing FRONT WINDOW CASHIER Unavailable Unavailable Pima, Qing FRONT WINDOW CASHIER Unavailable Unavailable Pima, Qing FRONT WINDOW CASHIER Unavailable Unavailable Pima, Qing FRONT WINDOW CASHIER Unavailable Unavailable Pima, Qing FRONT WINDOW CASHIER Unavailable Unavailable Pima, Qing FRONT WINDOW CASHIER Unavailable Unavailable Pima, Qing FRONT WINDOW CASHIER Unavailable Unavailable Pima, Qing FRONT WINDOW CASHIER Unavailable Unavailable Pima, Qing FRONT WINDOW CASHIER Unavailable Unavailable Pima, Qing FRONT WINDOW CASHIER Unavailable Unavailable Pima, Qing FRONT WINDOW CASHIER Unavailable Unavailable Pima, Qing FRONT WINDOW CASHIER Unavailable Unavailable Pima, Qing FRONT WINDOW CASHIER Unavailable Unavailable Pima, Qing FRONT WINDOW CASHIER Unavailable Unavailable Pima, Qing FRONT WINDOW CASHIER Unavailable Unavailable Pima, Qing FRONT WINDOW CASHIER Unavailable Unavailable Pima, Qing FRONT WINDOW CASHIER Unavailable Unavailable Pima, Qing FRONT WINDOW CASHIER Unavailable Unavailable Pima, Qing FRONT WINDOW CASHIER Unavailable Unavailable Nathen Deshpande MD, FACS Unavailable [...] Turpin, Nathen Ramires MD, FACS Unavailable Unavailable Rmairez Turpin, Nathen Ramires MD, FACS Unavailable Unavailable [...] Unavailable Kennedi Ho MD Unavailable Unavailable Kennedi oH MD Unavailable Unavailable Kennedi Ho MD Unavailable [...] Unavailable Unavailable Kennedi Ho MD Unavailable Unavailable Bailey, V JOSE PA-C Unavailable Unavailable Bailey, V JOSE PA-C Unavailable Unavailable César, V JOSE PA-C Unavailable Unavailable Bailey, V JOSE PA-C Unavailable Unavailable Bailey, V JOSE PA-C Unavailable Unavailable Bailey, V JOSE PA-C Unavailable Unavailable Bailey, V JOSE PA-C Unavailable Unavailable Bailey, V JOSE PA-C Unavailable Unavailable Bailey, V JOSE PA-C Unavailable Unavailable Bailey, V JOSE PA-C Unavailable Unavailable César, V JOSE PA-C Unavailable Unavailable César, V JOSE PA-C Unavailable Unavailable Bailey, V JOSE PA-C Unavailable Unavailable Bailey, V JOSE PA-C Unavailable Unavailable Dane Johns [...] is protected by Article 27-F of the [facility] Public Health law. If you continue you may have access to information: Regarding HIV / AIDS; Provided by facilities licensed or operated by the [facility] Office of Mental Health; or Provided by the [facility] Office for People With Developmental Disabilities. If such information is present, then the following [facility] mandated warning applies: This information has [...] law may result in a fine or mcc sentence or both. A general authorization for the release of medical or other information is NOT sufficient authorization for further disc losure. Allergies and Adverse Reactions Type Description Substance Reaction Status Data Source(s ) Drug Allergy NKDA NKDA MEDENT ([facility]) Family History Family Member Name Family Member Gender Family Member Status Date o f Status Description Data Source(s) Unknown Unknown Problem MEDENT ([facility], ) Unknown Female Problem [facility] ([facility] Unknown Unknown Problem MEDENT ([facility]) Unknown Female Problem MEDENT ([facility]) Encounters Encounter Providers Location Date Indications Data Source(s ) Outpatient Attender: SHRUTI Fuchs/ [facility] 01/15/2021 09:15:00 AM EDT [facility] ([facility]) Outpatient Attender: Amaya Ho MD Main office - [facility] 01/13/2021 01:45:00 PM EDT MEDENT ([facility], ) Office Visit, Est Pt., Level 2 FC [address] [place] [address] 12/29/2020 12:00:00 AM EDT eCW1 ([facility]) Unknown [address] [facility] [address] 12/29/2020 12:00:00 AM EDT eCW1 ([facility]) Unknown [address] [facility] [address] 12/23/2020 12:00:00 AM EDT eCW1 ([facility]) Outpatient Attender: DAVID Begum/Nafisa/Dmitry/Rein dl 12/18/2020 08:50:00 AM EDT MEDENT ([facility] ) Outpatient [email or web address]-[email or web address].SYR 12/11/2020 03:37:01 PM EDT [facility] Outpatient Attender: JOSE SERRANOIVAN-RITCHIEP.IVAN 11/2020 12:00:00 AM EDT - 12/04/2020 02:47:34 PM EDT [facility] Outpatient Attender: DAVID Begum/Nafisa/Dmitry/Rein dl 11/24/2020 03:45:00 PM EDT MEDENT ([facility]) <td ID="encounterTypeDescriptionID0">1 Y ear Follow-Up & Testing</td><td>David Reece MD, FACS</td><td>David Reece MD [facility]</td><td>11/11/2020</td><td>8:32AM</td><td>9:35AM</td><td><content ID="encounterDiagnosisID0-0">Pseudophakia</content>, <content ID="encounterDiagnosisID0-1">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</content>, <content ID="encounterDiagnosisID0-2">Macular Puckering Right Eye</content>, <content ID="encounterDiagnosisID0-3">Dry Eye Syndrome Both Eyes</content></td>Outpatient Attender: David Turpin MD, FACS David Turpin MD [facility] 11/11/2020 08:32:00 AM EDT - 11/11/2020 09:35:00 AM ED T 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PseudophakiaMacular Puckering Right EyeDry Eye Syndrome Both Eyes LEWIS (David Turpin MD [facility]) Posterior Capsule Opacification Eccentri c Capsule Left Eye Pseudophakia 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 Outpatient Attender: Riky Begum/Nafisa/Dmitry/Brianne morley 11/05/2020 03:30:00 PM EDT [facility] ([facility] [place] [address] [facility] [address] 11/05/2020 12:00:00 AM EDT eCW1 ([facility]) Outpatient [email or web address].CT-[email or web address].CLAYTON 10/30/2020 09:40:38 AM EDT [facility] Unknown [address] [facility] [address] 10/07/2020 12:00:00 AM EDT eCW1 ([facility]) [place] [address] [facility] [address] 09/30/2020 12:00:00 AM EDT eCW1 ([facility]) Outpatient Attender: Mindy REYNOLDSP Main Office 09/23/2020 09:00:00 AM EDT MEDENT ([facility]) Outpatient Attender: JOSE SERRANOIVAN-SJP.IVAN 11/2020 12:52:22 PM EDT - 09/03/2020 02:01:05 PM EDT [facility] Unknown [address] [facility] [address] 09/03/2020 12:00:00 AM EDT eCW1 ([facility]) [place] [address] [facility] [address] 09/02/2020 12:00:00 AM EDT eCW1 ([facility]) [place] [address] [facility] [address] 09/02/2020 12:00:00 AM EDT eCW1 ([facility]) Outpatient Referrer: JOSE BRADY-SJP.IVAN 07:16:55 AM EDT [facility] Outpatient ISRAEL.CT-SJP.SYR 07/24/2020 03:42:51 PM EDT [facility] Outpatient [email or web address].CT-[email or web address].SYR 07/15/2020 08:05:29 AM EDT [facility] Outpatient Attender: JOSE BRADY-SJP.IVAN 01:15:07 PM EDT [facility] [address] [facility] [address] 06/24/2020 12:00:00 AM EDT eCW1 ([facility]) [place] [address] [facility] [address] 06/23/2020 12:00:00 AM EDT eCW1 ([facility]) Outpatient Attender: Lidia Fuchs/ Min Blanco gy 06/20/2020 11:30:00 AM EDT MEDENT ([facility]) Outpatient Attender: JOSE BRADY-SJP.IVAN 12:00:00 AM EDT - 06/17/2020 10:57:59 AM EDT [facility] Outpatient SJP.IVAN-SJP 06/13/2020 11:00:42 AM EDT [facility] Outpatient SJP.IVAN-SJP.IVAN 06/12/2020 12:00:00 AM EDT [facility] Outpatient Attender: JOSE MONTALVOIVAN 12:00:00 AM EDT - 06/10/2020 08:59:58 AM EDT [facility] Outpatient Attender: DAVID Begum/Nafisa/Dmitry/Robin hernandes 06/04/2020 12:00:00 PM EST MED[facility] ([facility] [place] [address] [facility] [address] 05/07/2020 12:00:00 AM EST eCW1 ([facility]) Outpatient Attender: Riky Begum/Nafisa/Dmitry/Brianne morley 04/29/2020 08:30:00 AM EST [facility] Outpatient SJP.IVAN-RITCHIEP 04/19/2020 08:35:00 PM EST [facility] Outpatient SJP.IVAN-SJP.IVAN 04/17/2020 12:00:00 AM EST [facility] Unknown [address] [facility] [address] 03/18/2020 12:00:00 AM EST eCW1 ([facility]) [place] [address] [facility] [address] 03/04/2020 12:00:00 AM EST eCW1 ([facility]) Outpatient Attender: JOSE MONTALVOIVAN 02/2020 12:00:00 AM EST - 02/07/2020 11:34:03 AM EST [facility] Outpatient SJP.IVAN-SJP 01/21/2020 09:17:21 AM EDT [facility] Outpatient SJP.IVAN-SJP.IVAN 01/18/2020 12:00:00 AM EDT [facility] Outpatient SJP.IVAN-SJP.IVAN 01/17/2020 12:00:00 AM EDT [facility] Unknown [address] [facility] [address] 01/17/2020 12:00:00 AM EDT eCW1 ([facility]) Outpatient Attender: Ginna Bond FNPReferrer: Ginna KINNEY SJP .IVAN-SJP.IVAN 01/03/2020 09:30:10 AM EDT - 01/03/2020 04:14:39 PM EDT [facility] Outpatient Attender: Junior Mccormick MD Admitter: Junior Mccormick MDReferrer: Junior Mccormick MD ES1-[email or web address].CVAU 12/20/2019 09:08:00 AM EDT - 12/20/2019 01:23:00 PM EDT [facility] Patient discharged. Outpatient MOB-MOB.PAT 12/15/2019 10:15 :36 AM EDT - 12/15/2019 10:15:40 AM EDT [facility] Immunizations Vaccine Date Status Description Data Source(s) COVID-19 VACC, MRNA(PFIZER)/PF 12/11/2020 12:00:00 AM EDT completed [facility] COVID-19 VACCINE Pfizer 12/11/2020 12:00:00 AM EDT completed [facility] Vaccine Series Complete: YESThis Data wa s Submitted to [facility] Via [employer]. COVID-19 dose #2 given elsewhere Unspecified 05/01/2020 10:0 3:00 AM EST completed eCW1 ([facility]) COVID-19 dose #2 given elsewhere Unspecified 05/01/2020 10:0 3:00 AM EST completed eCW1 ([facility]) COVID-19 dose #2 given elsewhere Unspecified 05/01/2020 10:0 3:00 AM EST completed eCW1 ([facility]) COVID-19 dose #2 given elsewhere Unspecified 05/01/2020 10:0 3:00 AM EST completed eCW1 ([facility]) COVID-19 dose #2 given elsewhere Unspecified 05/01/2020 10:0 3:00 AM EST completed eCW1 ([facility]) COVID-19 dose #2 given elsewhere Unspecified 05/01/2020 10:0 3:00 AM EST completed eCW1 ([facility]) COVID-19 dose #2 given elsewhere Unspecified 05/01/2020 10:0 3:00 AM EST completed eCW1 ([facility]) COVID-19 dose #2 given elsewhere Unspecified 05/01/2020 10:0 3:00 AM EST completed eCW1 ([facility]) COVID-19 dose #2 given elsewhere Unspecified 05/01/2020 10:0 3:00 AM EST completed eCW1 ([facility]) COVID-19 dose #2 given elsewhere Unspecified 05/01/2020 10:0 3:00 AM EST completed eCW1 ([facility]) COVID-19 dose #1 given elsewhere Unspecified 05/01/2020 08:3 0:00 AM EST completed eCW1 ([facility]) COVID-19 dose #1 given elsewhere Unspecified 05/01/2020 08:3 0:00 AM EST completed eCW1 ([facility]) COVID-19 VACCINE Pfizer 05/01/2020 12:00:00 AM EST completed [facility] Vaccine Series Complete: YESThis Data wa s Submitted to [facility] Via [employer]. COVID-19 dose #1 given elsewhere Unspecified 04/10/2020 11:0 3:00 AM EST completed eCW1 ([facility]) COVID-19 dose #1 given elsewhere Unspecified 04/10/2020 11:0 3:00 AM EST completed eCW1 ([facility]) COVID-19 dose #1 given elsewhere Unspecified 04/10/2020 11:0 3:00 AM EST completed eCW1 ([facility]) COVID-19 dose #1 given elsewhere Unspecified 04/10/2020 11:0 3:00 AM EST completed eCW1 ([facility]) COVID-19 dose #1 given elsewhere Unspecified 04/10/2020 11:0 3:00 AM EST completed eCW1 ([facility]) COVID-19 dose #1 given elsewhere Unspecified 04/10/2020 11:0 3:00 AM EST completed eCW1 ([facility]) COVID-19 dose #1 given elsewhere Unspecified 04/10/2020 11:0 3:00 AM EST completed eCW1 ([facility]) COVID-19 dose #1 given elsewhere Unspecified 04/10/2020 11:0 3:00 AM EST completed eCW1 ([facility]) COVID-19 dose #1 given elsewhere Unspecified 04/10/2020 11:0 3:00 AM EST completed eCW1 ([facility]) COVID-19 dose #1 given elsewhere Unspecified 04/10/2020 11:0 3:00 AM EST completed eCW1 ([facility]) COVID-19 dose #1 given elsewhere Unspecified 04/10/2020 11:0 3:00 AM EST completed eCW1 ([facility]) COVID-19 dose #1 given elsewhere Unspecified 04/10/2020 11:0 3:00 AM EST completed eCW1 ([facility]) COVID-19 VACCINE Pfizer 04/10/2020 12:00:00 AM EST completed [facility] Vaccine Series Complete: NOThis Data was Submitted to [facility] Via [employer]. IIV3. This is one of two codes replacing CVX 15, which is being retired. 01/28/2020 05:55:00 AM EST completed eCW1 ([facility]) IIV3. This is one of two codes replacing CVX 15, which is being retired. 01/28/2020 05:55:00 AM EST completed eCW1 ([facility]) IIV3. This is one of two codes replacing CVX 15, which is being retired. 01/28/2020 05:55:00 AM EST completed eCW1 ([facility]) IIV3. This is one of two codes replacing CVX 15, which is being retired. 01/28/2020 05:55:00 AM EST completed eCW1 ([facility]) IIV3. This is one of two codes replacing CVX 15, which is being retired. 01/28/2020 05:55:00 AM EST completed eCW1 ([facility]) IIV3. This is one of two codes replacing CVX 15, which is being retired. 01/28/2020 05:55:00 AM EST completed eCW1 ([facility]) IIV3. This is one of two codes replacing CVX 15, which is being retired. 01/28/2020 05:55:00 AM EST completed eCW1 ([facility]) IIV3. This is one of two codes replacing CVX 15, which is being retired. 01/28/2020 05:55:00 AM EST completed eCW1 ([facility]) IIV3. This is one of two codes replacing CVX 15, which is being retired. 01/28/2020 05:55:00 AM EST completed eCW1 ([facility]) IIV3. This is one of two codes replacing CVX 15, which is being retired. 01/28/2020 05:55:00 AM EST completed eCW1 ([facility]) IIV3. This is one of two codes replacing CVX 15, which is being retired. 01/28/2020 05:55:00 AM EST completed eCW1 ([facility]) IIV3. This is one of two codes replacing CVX 15, which is being retired. 01/28/2020 05:55:00 AM EST completed eCW1 ([facility]) Medications Medication Brand Name Start Date Product Form Dose Route Admi nistrative Instructions Pharmacy Instructions Status Indications Reaction Description Data Source(s) Cephalexin 500 MG Oral Capsule Cephalexin 01/15/2021 12:00:00 AM EDT ORAL completed [facility] ([facility]) Gemtesa Gemtesa 01/15/2021 12:00:00 AM EDT ORAL active MED[facility] ([facility]) predniSONE 10 MG (21) predniSONE 10 MG (21) 12/22/2020 12:00:00 AM EDT active predniSONE 10 MG (21) eCW1 ( [facility]) predniSONE 10 MG (21) predniSONE 10 MG (21) 12/22/2020 12:00:00 AM EDT active predniSONE 10 MG (21) eC ( [facility]) predniSONE 10 MG (21) predniSONE 10 MG (21) 12/22/2020 12:00:00 AM EDT active predniSONE 10 MG (21) eC ( [facility]) Prednisone 10 MG Oral Tablet Prednisone 12/18/2020 12:00:00 AM EDT active MEDENT ([facility], ) infliximab 100 MG Injection [Remicade] Remicade 12/18/2020 12:00:00 AM EDT active MEDENT ([facility]) infliximab 100 MG Injection [Remicade] Remicade 12/18/2020 12:00:00 AM EDT active MEDENT ([facility]) 10 mg 12/18/2020 12:00:00 AM EDT [...] BY MOUTH TWICE A DAY SOLD: 12/06/2020 [facility] Spironolactone 25 MG Oral Tablet spironolactone (ALDAC TONE) 25 MG tablet spironolactone (ALDACTONE) 25 MG tablet 12/04/2020 12:00:00 AM EDT 25 mg Oral active Take 1 tablet (25 mg tota l) by mouth daily [facility] sacubitril 24 MG / valsartan 26 MG Oral Tablet [Entresto] sacubitril-valsartan (Entresto) 24-26 MG TABS sacubitril-valsartan (Entresto) 24-26 MG TABS 12/04/2020 12:00:00 AM EDT 1 {tbl} Oral active Take 1 tablet by mouth 2 (two) times a day [facility] 5 mg 12/03/2020 12:00:00 AM EDT tablet 180 TAKE ONE TABLET BY MOUTH TWICE A DAY TAKE ONE TABLET BY MOUTH TWICE A DAY SOLD: 12/03/2020 [facility] apixaban 5 MG Oral Tablet [Eliquis] Eliquis 5 MG TABS tablet Eliquis 5 MG TABS tablet 12/02/2020 12:00:00 AM EDT active TAKE ONE TABLET BY MOUTH TWICE A DAY [facility] vedolizumab 300 MG Injection [Entyvio] Entyvio 11/24/2020 12:00:00 A M EDT completed MEDENT ([facility], ) vedolizumab 300 MG Injection [Entyvio] Entyvio 11/24/2020 12:00:00 A M EDT completed [facility] ) 24 HR Budesonide 9 MG Extended Release Oral Tablet Budesonid e ER 11/14/2020 12:00:00 AM EDT ORAL completed MEDENT ([facility], ) 24 HR Budesonide 9 MG Extended Release Oral Tablet [place] esonide ER 9 MG TB24 Budesonide ER 9 MG TB24 11/14/2020 12:00:00 AM EDT 1 {tbl} Oral active Take 1 tablet by mouth daily [facility] 9 mg 11/14/2020 12:00:00 AM EDT tablet,delayed and ext. release 30 TAKE ONE TABLET BY MOUTH EVERY DAY TAKE ONE TABLET BY MOUTH EVERY DAY SOLD: 11/14/2020 [facility] Metroprolol 25 mg Oral Tablet Metroprolol 25 mg Oral Tablet 11/11/2020 12:00:00 AM EDT active Metropro[facility] [address] (David Turpin MD [facility]) sacubitril 24 MG / valsartan 26 MG Oral Tablet [Entresto] Entresto 24-26 MG Oral Tablet Entresto 24-26 MG Oral Tablet 11/11/2020 12:00:00 AM EDT 1 active sacubitril 24 MG / valsartan 26 MG Oral Tablet [Entresto] [facility]WIS (David Turpin MD [facility]) apixaban 5 MG Oral Tablet [Eliquis] Eliquis 5 MG Oral Tablet Eliquis 5 MG Oral Tablet 11/11/2020 12:00:00 AM EDT 1 active apixaban 5 MG Oral Tablet [Eliquis] LEWIS (David Turpin MD [facility]) 60 ACTUAT Budesonide 0.08 MG/ACTUAT / fo rmoterol fumarate 0.0045 MG/ACTUAT Metered Dose Inhaler [Symbicort] Symbicort 80-4.5 MCG/ACT Inhalation Aerosol Symbicort 80-4.5 MCG/ACT Inhalation Aerosol 11/11/2020 12:00:00 AM EDT 1 active 60 ACTUAT budeso nide 0.08 MG/ACTUAT / formoterol fumarate 0.0045 MG/ACTUAT Metered Dose Inhaler [Symbicort] LEWIS (David Turpin MD [facility]) Levothyroxine Sodium 0.15 MG Oral Tablet Levothyroxine Sodium 150 MCG Oral Tablet Levothyroxine Sodium 150 MCG Oral Tablet 11/11/2020 12:00:00 AM EDT active levothyroxine sodium 0.15 MG Oral Tablet LEWIS (David Turpin MD [facility]) Sulfasalazine 500 MG Oral Tablet sulfaSALAzine 500 MG Oral Tablet sulfaSALAzine 500 MG Oral Tablet 11/11/2020 12:00:00 AM EDT 1 active sulfasalazine 500 MG Oral Tablet [facility] (David Turpin MD [facility]) Spironolactone 25 MG Oral Tablet Spironolactone 25 MG Oral T ablet 11/11/2020 12:00:00 AM EDT active spironol actone 25 MG Oral Tablet [facility] (David Turpin MD [facility]) 12 HR Bupropion Hydrochloride 150 MG Ext ended Release Oral Tablet buPROPion HCl ER (SR) 150 MG Oral Tablet Extended Release 12 Hour buPROPion HCl ER (SR) 150 MG Oral Tablet Extended Release 12 Hour 11/11/2020 12:00:00 AM EDT active 12 HR bupropion hydrochloride 15 0 MG Extended Release Oral Tablet LEWIS (David Turpin MD [facility]) 24 HR Bupropion Hydrochloride 300 MG Ext ended Release Oral Tablet buPROPion (WELLBUTRIN XL) 300 MG 24 hr tablet buPROPion (WELLBUTRIN XL) 300 MG 24 hr tablet 11/06/2020 12:00:00 AM EDT aborted [facility] 500 mg 10/08/2020 12:00:00 AM EDT tablet 120 TAKE TWO TABLETS BY MOUTH TWICE A DAY TAKE TWO TABLETS BY MOUTH TWICE A DAY SOLD: 10/10/2020 [facility] Sulfasalazine 500 MG Oral Tablet sulfaSALAzine 500 MG sulfaS ALAzine 500 MG 09/30/2020 12:00:00 AM EDT 2.0 {tablet} suspende d sulfaSALAzine 500 MG eCW1 ([facility]) Sulfasalazine 500 MG Oral Tablet sulfaSALAzine 500 MG sulfaS ALAzine 500 MG 09/30/2020 12:00:00 AM EDT 2.0 {tablet} suspende d sulfaSALAzine 500 MG eCW1 ([facility]) Sulfasalazine 500 MG Oral Tablet sulfaSALAzine 500 MG sulfaS ALAzine 500 MG 09/30/2020 12:00:00 AM EDT 2.0 {tablet} active sulfaSALAzine 500 MG eCW1 ([facility]) Sulfasalazine 500 MG Oral Tablet sulfaSALAzine 500 MG sulfaS ALAzine 500 MG 09/30/2020 12:00:00 AM EDT 2.0 {tablet} suspende d sulfaSALAzine 500 MG eCW1 ([facility]) Sulfasalazine 500 MG Delayed Release Oral Tablet sulfa SALAzine 500 MG sulfaSALAzine 500 MG 09/30/2020 12:00:00 AM EDT 1.0 {tablet} active sulfaSALAzine 500 MG eCW1 ([facility]) Sulfasalazine 500 MG Oral Tablet sulfaSALAzine 500 MG sulfaS ALAzine 500 MG 09/30/2020 12:00:00 AM EDT 2.0 {tablet} active sulfaSALAzine 500 MG eCW1 ([facility]) 0.05 % 09/24/2020 12:00:00 AM EDT cream 60 APPLY TO TRUNK AND EXTREMETIES SPARINGLY TWO TIMES A DAY FOR 1 WEEK THEN NEEDED APPLY TO TRUNK AND EXTREMETIES SPARINGLY TWO TIMES A DAY FOR 1 WEEK THEN NEEDED SOLD: 09/25/2020 [facility] Fluocinolone Acetonide 0.1 MG/ML Topical Solution fluocinolone (SYNALAR) 0.01 % external solution fluocinolone (SYNALAR) 0.01 % external solution 2020 12:00:00 AM EDT active APPLY TO SCALP TWICE A DAY FOR 10 14 DAYS THEN NEEDED NO MORE THEN 4 APPLICATIONS A WEEK [facility] 0.01 % 09/24/2020 12:00:00 AM EDT solution 60 APPLY TO SCALP TWICE A DAY FOR 10-14 DAYS THEN NEEDED NO MORE THEN 4 APPLICATIONS A WEEK APPLY TO SCALP TWICE A DAY FOR 10-14 DAYS THEN NEEDED NO MORE THEN 4 APPLICATIONS A WEEK SOLD: 09/25/2020 [facility] sacubitril 24 MG / valsartan 26 MG Oral Tablet [Entresto] Entresto 24-26 MG TABS Entresto 24-26 MG TABS 09/03/2020 12:00:00 AM EDT 1 {tbl} Oral active Take 1 tablet by mouth 2 (two) times a day Hold for SB P less then 100mmHg [facility] 5 mg 08/27/2020 12:00:00 AM EDT tablet [...] by mouth 2 (two) times a day [facility] 25 mg 08/24/2020 12:00:00 AM EDT tablet [...] Hold for SB P less then 100mmHg [facility] 90 mcg/actuation 07/08/2020 12:00:00 AM EDT HFA aerosol inha ler 8 INHALE TWO PUFFS BY MOUTH FOUR TIMES A DAY NEEDED INHALE TWO PUFFS BY MOUTH FOUR TIMES A DAY NEEDED SOLD: 07/19/2020 [facility] albuterol (PROVENTIL HFA;VENTOLIN HFA) 108 (90 Base) M CG/ACT inhaler 7821-9602-56 07/07/2020 12:00:00 AM EDT aborted [facility] 24-26 mg 07/04/2020 12:00:00 AM EDT tablet [...] (25 mg tota l) by mouth daily [facility] sacubitril 24 MG / valsartan 26 MG Oral Tablet [Entresto] ENTRESTO 24-26 MG TABS ENTRESTO 24-26 MG TABS 07/04/2020 12:00:00 AM EDT 1 {tbl} Oral active Take 1 tablet by mouth 2 (two) times a day Hold for SB P less then 100mmHg [facility] 500 mg 06/24/2020 12:00:00 AM EDT capsule 21 TAKE ONE CAPSULE BY MOUTH THREE TIMES A DAY FOR 7 DAYS TAKE ONE CAPSULE BY MOUTH THREE TIMES A DAY FOR 7 DAYS SOLD: 06/24/2020 [facility] Ampicillin 500 MG Oral Capsule Ampicillin 06/23/2020 12:00:00 AM EDT ORAL active MED[facility] ([facility]) POLYETHYLENE GLYCOL 3350 142 MG/ML Oral Solution [Miralax] M iralax 06/04/2020 12:00:00 AM EST completed MEDENT ([facility]) Magnesium Hydroxide 80 MG/ML Oral Suspension Milk Of Magnesi a 06/04/2020 12:00:00 AM EST ORAL completed MEDENT ([facility], ) 24 HR Bupropion Hydrochloride 150 MG Ext ended Release Oral Tablet buPROPion (WELLBUTRIN XL) 150 MG 24 hr tablet buPROPion (WELLBUTRIN XL) 150 MG 24 hr tablet 05/24/2020 12:00:00 AM EST active daily [facility] 5 mg 05/23/2020 12:00:00 AM EST tablet [...] BY MOUTH TWICE A DAY SOLD: 05/24/2020 [facility] apixaban 5 MG Oral Tablet [Eliquis] ELIQUIS 5 MG TABS tablet ELIQUIS 5 MG TABS tablet 05/22/2020 12:00:00 AM EST 5 mg Oral active Take 1 tablet (5 mg total) by mouth 2 (two) times a day [facility] 24 HR metoprolol succinate 25 MG Extende d Release Oral Tablet metoprolol succinate (TOPROL-XL) 25 MG 24 hr tablet metoprolol succinate (TOPROL-XL) 25 MG 24 hr tablet 05/22/2020 12:00:00 AM EST 25 mg Oral activ e Take 1 tablet (25 mg total) by mouth daily [facility] atorvastatin 20 MG Oral Tablet ATORVASTATIN CALCIUM [...] aborted Take 20 mg by mouth daily [facility] 80-4.5 mcg/actuation 04/16/2020 12:00:00 AM EST HFA aerosol inhaler 10 INHALE 2 PUFFS BY MOUTH TWO TIMES A DAY INHALE 2 PUFFS BY MOUTH TWO TIMES A DAY SOLD: 04/16/2020 [facility] 60 ACTUAT Budesonide 0.08 MG/ACTUAT / fo rmoterol fumarate 0.0045 MG/ACTUAT Metered Dose Inhaler [Symbicort] Symbicort 04/14/2020 12:00:00 AM EST RESPIRATORY completed MEDENT ( [facility], ) 500 mg 03/05/2020 12:00:00 AM [...] (25 mg tota l) by mouth daily [facility] sacubitril 24 MG / valsartan 26 MG Oral Tablet [Entresto] ENTRESTO 24-26 MG TABS ENTRESTO 24-26 MG TABS 03/05/2020 12:00:00 AM EST 1 {tbl} Oral active Take 1 tablet by mouth 2 (two) times a day Hold for SB P less then 100mmHg [facility] 500 mg 03/05/2020 12:00:00 AM EST tablet [...] 02/06/2020 12:00:00 AM EST completed [facility] ([facility]) Medication administered onsite Ciprofloxacin 500 MG Oral Tablet [Cipro] Cipro 01/25/2020 12:00:00 AM EDT completed [facility] ([facility] Sodium Phosphate, Dibasic 35.5 MG/ML / S odium Phosphate, Monobasic 96.4 MG/ML Enema Fleet Enema 01/25/2020 12:00:00 AM EDT compl eted MEDENT ([facility]) 500 mg 01/18/2020 12:00:00 AM EDT tablet 180 TAKE TWO TABLETS BY MOUTH THREE TIMES A DAY TAKE TWO TABLETS BY MOUTH THREE TIMES A DAY SOLD: 01/18/2020 [facility] Epinephrine 0.01 MG/ML / Lidocaine [place]oe[place] chloride 10 MG/ML Injectable Solution lidocaine-EPINEPHrine (XYLOCAINE W/EPI) 1 %-1:559823 injection lidocaine- EPINEPHrine (XYLOCAINE W/EPI) 1 %-1:434771 injection 12/20/2019 11:04:28 AM EDT active As needed, Start ing [place] 12/20/19 at 1104, Intra-Procedure [facility] Medication administered onsite 2 ML Midazolam 1 MG/ML Injection midazolam (VERSED) in jection midazolam (VERSED) injection 12/20/2019 10:57:17 AM EDT active As needed, Starting [place] 12/20/19 at 1057, Intra-Procedure [facility] Medication administered onsite fentaNYL Citrate (PF) (SUBLIMAZE) injection 0136-9246-81 12/20/2019 10:57:08 AM EDT active As neede d, Starting [place] 12/20/19 at 1057, Intra-Procedure [facility] Medication administered onsite Cefazolin 1000 MG Injection ceFAZolin (ANCEF) injectio n ceFAZolin (ANCEF) injection 12/20/2019 10:55:00 AM EDT active As needed, Starting [place] 12/20/19 at 1055, Intra-Procedure [facility] Medication administered onsite 5 mg 11/08/2019 12:00:00 [...] 12:00:00 AM EDT compl eted [facility] ([facility]) Ciprofloxacin 500 MG Oral Tablet [Cipro] Cipro 11/02/2019 12:00:00 AM EDT completed [facility] ([facility] Sodium Phosphate, Dibasic 35.5 MG/ML / S odium Phosphate, Monobasic 96.4 MG/ML Enema Fleet Enema 10/25/2019 12:00:00 AM EDT compl eted [facility] ([facility]) Ciprofloxacin 500 MG Oral Tablet [Cipro] Cipro 10/25/2019 12:00:00 AM EDT completed [facility] ([facility] 24 HR metoprolol succinate 25 MG Extende d Release Oral Tablet metoprolol succinate (TOPROL-XL) 25 MG 24 hr tablet metoprolol succinate (TOPROL-XL) 25 MG 24 hr tablet 07/02/2019 12:00:00 AM EDT 25 mg Oral activ e Take 1 tablet (25 mg total) by mouth daily [facility] 24 HR Bupropion Hydrochloride 300 MG Ext ended Release Oral Tablet buPROPion (WELLBUTRIN XL) 300 MG 24 hr tablet buPROPion (WELLBUTRIN XL) 300 MG 24 hr tablet 05/31/2019 12:00:00 AM EST 300 mg Oral aborted Take 300 mg by mouth daily [facility] Citalopram 40 MG Oral Tablet [Celexa] CeleXA 40 MG OR TABS C eleXA 40 MG OR TABS 09/18/2012 12:00:00 AM EDT 1 aborted citalopram 40 MG Oral Tablet [Celexa] [facility] (David Turpin MD [facility]) Aspirin 81 MG Oral Tablet Aspirin 81 MG OR TABS Aspirin 81 M G OR TABS 09/18/2012 12:00:00 AM EDT 1 aborted aspiri n 81 MG Oral Tablet [facility] (David Turpin MD [facility]) Simvastatin 20 MG Oral Tablet [Zocor] Zocor 20 MG OR TABS Zo cor 20 MG OR TABS 09/18/2012 12:00:00 AM EDT 1 aborted simvastatin 20 MG Oral Tablet [Zocor] [facility] (David Turpin MD [facility]) sacubitril 24 MG / valsartan 26 MG Oral Tablet [Entresto] sacubitril-valsartan (Entresto) 24-26 MG TABS sacubitril-valsartan (Entresto) 24-26 MG TABS 1 {tbl} Oral aborted Take 1 tablet by mouth 2 (two) times a day [facility] Insurance Providers Payer name Policy type / Coverage type Policy ID Covered constitution party ID Covered constitution party's relationship to jones Policy Jones Plan Information [facility] ([place] Medigap Part B [id number] [place] [id number] Self MEDICARE [id number] [place] [id number] [facility] Primary [id number] Self [id number] MEDICARE [id number] xxxxxxxxxxx [id number] MEDICARE [id number] SP [id number] A MEDICARE [id number] SP [id number] A Medicare - NGS Medicare Primary [id number] Self 1 [id number] [employer] OPTIONS [id number] SP [id number] [facility] Options Medigap Part B [id number] Self [employer] OPTIONS [id number] SP [id number] [employer] [id number] SP [id number] [employer]IONS [id number] SP [id number] MEDICARE [id number] [facility] [id number] xxxxxxxxxxx [id number] [facility] [id number] [place] [id number] 911 INSURANCE COVID-19 [id number] [id number] INSURANCE COVID-19 COVID [place] C OVID INSURANCE COVID-19 COVID [place] C OVID MEDICARE [id number] SP [id number] ANSI-Medicare Part B [id number] Aarp Medigap Part B [id number] Self [id number] [employer] OPTIONS [id number] 18 [id number] MEDICARE PART A [facility] [id number] 18 [id number] [employer] Options Medigap Part B [id number] Self 0 [id number] Medicare Part A [place] Medicare Primary [id number] Self 1 [id number] [facility] Medigap Part B [id number] Self 0 [id number] Medicare Part A [place] Medicare Primary [id number] Self 1 [id number] [facility] Medigap Part B [id number] Self 0 [id number] [facility] Medigap Part B [id number] Self 0 [id number] Medicare Part A [place] Medicare Primary [id number] Self 1 [id number] [employer] OPTIONS -C [id number] 18 [id number] MEDICARE PART A -O/P [id number] 18 [id number] [facility] Medigap Part B [id number] Self 0 [id number] Medicare Part A [place] Medicare Primary [id number] Self 1 [id number] [facility] C[facility] OPTIONS -CLINIC [id number] 18 [id number] MEDICARE PART A -CLINIC [id number] 18 [id number] MEDICARE [id number] SP [id number] A AARP O [id number] S [id number] MEDICARE C [id number] S [id number] A AARP O [id number] S [id number] MEDICARE -O/P [id number] 18 [id number] [id number] Self STATE INSURANCE FUND P [id number] S [id number] STATE INSURANCE FUND P [id number] S [id number] [employer] OPTIONS [id number] SP [id number] SELF PAY P UNAVAILABLE UNAVAILA [facility] MEDICARE [id number] SP [id number] [employer] OPTIONS [id number] SP [id number] [employer] OPTIONS [id number] SP [id number] [employer] C[employer] OPTIONS [id number] SP [id number] Medicare Part B [facility] Other 0 [id number] Self 0 Medicare Part B [facility] Other 0 [id number] Self 0 AARP HEA [id number] S [id number] MEDICARE [facility] [id number] S [id number] MEDICARE [facility] [id number] S [id number] [employer] [id number] S [id number] ANSI-Medicare Part B [id number] ANSI-Commercial [id number] ANSI-Medicare Part B [id number] ANSI-Commercial [id number] ANSI-Commercial [id number] ANSI-Medicare Part B [id number] ANSI-Commercial [id number] ANSI-Medicare Part B [id number] ANSI-Commercial [id number] Problems, Conditions, and Diagnoses Code Display Name Description Problem Type Effective Dates Data Source(s) 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 Hypothyroidism due to medicaments and ot Diagnosis 09/03/2020 12:52:22 PM EDT [facility] E78.2 Mixed hyperlipidemia Mixed hyperlipidemia Diagnosis 09/03/2020 12:52:22 PM EDT [facility] I42.0 Dilated cardiomyopathy Dilated cardiomyopathy Diagnosi s 09/03/2020 12:52:22 PM EDT [facility] I44.7 Left bundle-branch block, unspecified Le ft bundle-branch block, unspecified Diagnosis 09/03/2020 12:52:22 PM EDT [facility] R29.898 Other symptoms and signs involving the m usculoskeletal system Other symptoms and signs involving the m Diagnosis 09/03/2020 12:52:22 PM ED T [facility] I48.92 Unspecified atrial flutter Unspecified atrial flutter Diagnosis 09/03/2020 12:52:22 PM EDT [facility] I73.9 Peripheral vascular disease, unspecified Peripheral vascular disease, unspecified Diagnosis 09/03/2020 12:52:22 PM EDT [facility] 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 Chronic combined systolic (congestive) a Diagnosis 07/08/2020 01:15:07 PM EDT [facility] I50.41 Acute combined systolic (con gestive) and diastolic (congestive) heart failure Acute combined systolic (congestive) and Diagnosis 06/17/2020 09:28:18 AM EDT [facility] I50.22 Chronic systolic (congestive) heart fail ure Chronic systolic (congestive) heart fail Diagnosis 06/17/2020 09:28:18 AM EDT [facility] J98.8 Other specified respiratory disorders Ot her specified respiratory disorders Diagnosis 12/15/2019 10:15:36 AM EDT [facility] U07.1 COVID-19 COVID-19 Diagnosis 12/15/2019 10:15:36 AM ED T [facility] R35.0 Increased frequency of urination Increased frequency o f urination Problem 01/15/2021 12:00:00 AM EDT ALYC[facility] ([facility]) [id number] Abnormal gait Abnormal gait Problem 01/13/2021 12:00:00 AM EDT ALYCIA ([facility], ) [id number] Numbness Numbness Problem 01/13/2021 12:00:00 AM ED T MEDENT ([facility], ) [id number] Polyneuropathy Polyneuropathy Problem 01/13/2021 12:00: 00 AM EDT MED[facility] ([facility], ) G62.9 [id number] Neuropathy Problem 12/29/2020 12:00:00 AM ED T eCW1 ([facility]) E78.5 Hyperlipidemia Hyperlipidemia [id number] 06/10/2020 12:00: 00 AM EDT [facility] Surgeries/Procedures Procedure Description Date Indications Data Source(s) COMPLEX UROFLOMETRY 01/15/2021 12:00:00 AM EDT [facility] ([facility]) CYSTOURETHROSCOPY 01/15/2021 12:00:00 AM EDT [facility] ([facility]) OFFICE OUTPATIENT VISIT 10 MINUTES 01/15/2021 12:00:00 AM EDT [facility] ([facility]) COMPLEX UROFLOMETRY 01/15/2021 12:00:00 AM EDT [facility] ([facility]) OFFICE OUTPATIENT NEW 45 MINUTES 01/13/2021 12:00:00 A M EDT MED[facility] ([facility], ) OFFICE OUTPATIENT VISIT 25 MINUTES 01/13/2021 12:00:00 AM EDT MED[facility] ([facility], ) OFFICE OUTPATIENT VISIT 25 MINUTES 12/18/2020 12:00:00 AM EDT MED[facility] ([facility]) OFFICE OUTPATIENT VISIT 25 MINUTES 11/24/2020 12:00:00 AM EDT MED[facility] ([facility]) Surgical / procedural history : Appendectomy, Heart De fib placed 02/2020 Surgical / procedural history : Appendectomy, Heart Defib placed 02/202011/11/2020 12:00:00 AM EDT [facility] (David clark MD [facility]) Spirometry 11/05/2020 12:00:00 AM EDT M EDENT ([facility]) OFFICE OUTPATIENT VISIT 25 MINUTES 11/05/2020 12:00:00 AM EDT MED[facility] ([facility]) OFFICE OUTPATIENT VISIT 25 MINUTES 09/23/2020 12:00:00 AM EDT MEDENT ([facility]) POCT AMB EKG <td>POCT AMB EKG</td><td>Danielle noonan</td><td>09/03/2020 1:28 PM EDT</td><td> Atrial flutter, unspecified type</td><td> </td> 09/03/2020 01:28:00 PM EDT Atrial flutter, unspecified type [facility] Atrial flutter, unspecified type Colonoscopy Flexible Proximal To Splenic Flexure W/Biopsy Si ngle/ 07/15/2020 12:00:00 AM EDT MED[facility] ([facility] ) DANIELA POST-VOIDING RESIDUAL URINE&/BLDR CAP 06/20/2020 12:00:00 AM EDT [facility] ([facility]) NATRIURETIC PEPTIDE <td>NT-PROBNP</td><td>Routin e</td><td>06/17/2020 2:09 PM EDT</td><td> Chronic systolic (congestive) heart failure Dilated cardiomyopathy</td><td> </td> 06/17/2020 06:09:00 PM EDT Dilated cardiomyopathyChronic systolic (congestive) he art failure [facility] Dilated cardiomyopathy Chronic systolic (congestive) heart fail ure BLOOD COUNT COMPLETE AUTOMATED <td>CBC</td><td>Routine </td><td>06/17/2020 2:09 PM EDT</td><td> Dilated cardiomyopathy</td><td> </td> 06/17/2020 06:09:00 PM EDT Dilated cardiomyopathy [facility] Dilated cardiomyopathy ECG ROUTINE ECG W/LEAST 12 LDS W/I&R <td>POCT AMB EKG</td><td>Routine</td><td>06/10/2020 9:24 AM EDT</td><td> Atrial flutter, unspecified type</td><td> </td> 06/10/2020 01:24:00 PM EDT Atrial flutter, unspecified type [facility] Atrial flutter, unspecified type OFFICE OUTPATIENT VISIT 25 MINUTES 06/04/2020 12:00:00 AM EST MED[facility] ([facility], ) Spirometry 04/29/2020 12:00:00 AM EST M EDENT ([facility], ) PROSTATE NEEDLE BIOPSY ANY APPROACH 02/06/2020 12:00:0 0 AM EST [facility] ([facility]) ULTRASOUND TRANSRECTAL 02/06/2020 12:00:00 AM EST [facility] ([facility]) US GUIDANCE NEEDLE PLACEMENT RS&I 02/06/2020 12:00:00 AM EST [facility] ([facility]) THERAPEUTIC PROPHYLACTIC/DX INJECTION SUBQ/IM 02/06/20 20 12:00:00 AM EST [facility] ([facility]) XR CHEST PORTABLE <td>XR CHEST PORTABLE</td><t d>STAT</td><td>12/20/2019 12:24 PM EDT</td><td></td><td> </td> 12/20/2019 04:24:06 PM EDT [facility] EP STUDY <td>EP STUDY</td><td>Routine </td><td>12/20/2019 11:45 AM EDT</td><td> Dilated cardiomyopathy</td><td> </td> 12/20/2019 03:45:56 PM EDT Dilated cardiomyopathy [facility] Dilated cardiomyopathy Results ID Date Data Source [id number] 01/15/2021 09:27:00 AM EDT [facility] ([facility] Name Value Range Interpretation Code Description Data Mary rce(s) Supporting Document(s) Protein [Presence] in Urine by Test strip Laboratory test result [facility] ([facility]) Ua Nitrite Laboratory test result ME DENT ([facility]) Glucose [Presence] in Urine 100 mg/dL [facility] ([facility]) Blood [Presence] in Urine by Visual Laboratory test result [facility] ([facility]) Color of Urine Laboratory test result [facility] ([facility]) Ua Leuko Laboratory test result ME DENT ([facility]) Ketones [Presence] in Urine by Test strip Laboratory test result [facility] ([facility]) Clarity of Urine Laboratory test result [facility] ([facility]) Ua Specific [place] 1.025 1.003-1.030 MEDE NT ([facility]) pH of Urine by Test strip 5.5 5.0-7.5 [facility] ([facility]) Bilirubin.total [Presence] in Urine by Test strip Laboratory test res ult [facility] ([facility]) Urobilinogen [Mass/volume] in Urine by Test strip 0.2 E.U./dL 0.0-1.0 [facility]ENT ([employer] [facility]) ID Date Data Source t-Transglutaminase (tTG) IgG 01/06/2021 12:00:00 AM EDT eCW ([facility]) Name Value Range Interpretation Code Description Data Mary rce(s) Supporting Document(s) Tissue transglutaminase IgG Ab [Units/volume] in Serum <2 0-5 TISSUE TRANSGLUTAMINASE IgG [facility] ([facility]) ID Date Data Source t-Transglutaminase (tTG) IgA 01/06/2021 12:00:00 AM EDT eC ([facility]) Name Value Range Interpretation Code Description Data Mary rce(s) Supporting Document(s) Tissue transglutaminase IgA Ab [Units/volume] in Serum <2 0-3 TISSUE TRANSGLUTAMINASE IgA eCW ([facility]) ID Date Data Source [id number] 12/22/2020 09:48:00 AM EDT [facility] ([facility]) Name Value Range Interpretation Code Description Data Mary rce(s) Supporting Document(s) Urea nitrogen [Mass/volume] in Serum or Plasma Laboratory test result [facility] ([facility]) ID Date Data Source [id number] 12/22/2020 09:48:00 AM EDT [facility] ([facility]) Name Value Range Interpretation Code Description Data Mary rce(s) Supporting Document(s) Hepatitis B virus surface Ag [Presence] in Serum or Pl asma by Immunoassay Laboratory [facility] ID Date Data Source [id number] 12/20/2020 02:08:00 PM EDT [facility] Name Value Range Interpretation Code Description Data Mary rce(s) Supporting Document(s) SARS coronavirus 2 RNA [Presence] in Res piratory specimen by SEVEN with probe detection NEGATIVE [facility] This lab was ordered by [facility] a nd reported by [facility]. ID Date Data Source [id number] 12/05/2020 11:05:00 PM EDT [facility] Name Value Range Interpretation Code Description Data Mray rce(s) Supporting Document(s) SARS-CoV-2 (COVID 19) NEGATIVE - SARS-CoV-2 (COVID19) [facility] This lab was ordered by [facility] a nd reported by [facility]. ID Date Data Source [id number] 12/02/2020 04:00:00 PM EDT [facility] Name Value Range Interpretation Code Description Data Mary rce(s) Supporting Document(s) Calprotectin [Mass/mass] in Stool 94 ug/g 0-120 Normal (applies to non-numeric results) [facility] <content>Concentration Interpretatio n Follow-Up</content>
<content><16 - 50 ug/g Normal None</content>
<content>>50 -120 ug/g Borderline Re-evaluate in 4-6 weeks</content>
<content>>120 ug/g Abnormal Repeat as clinically</content>
<content>indicated</content>
<content>Performed at: - [facility]</content>
<content>[address] [place] [address] [phone]</content>
<content>Printing Press Machine Operator: Jesse Freire MD, Phone: [phone]</content>
<content></content> Elastase.pancreatic [Mass/mass] in Stool Laboratory test result Normal (applies to non-numeric results) [facility] <content>Result Units: ug Elast./g</cont ent>
<content>Severe Pancreatic Insufficiency: <100</content>
<content>Moderate Pancreatic Insufficiency: 100 - 200</content>
<content>Normal: >200</content>
<content></content> ID Date Data Source [id number] 11/16/2020 10:30:00 AM EDT [facility] Name Value Range Interpretation Code Description Data Mary rce(s) Supporting Document(s) Gastrointestinal (GI) Panel Laboratory test result [facility] ([facility]) This Gastrointestinal PCR Panel detects the following [...] NUCLEIC ACID PCR ID Date Data Source [id number] 08/06/2020 10:17:49 AM [facility] MR[facility] Name Date of Age Gend*PT [id number] Shruti Barrios 1940 79 years M ---PT Location Admission Date/Time Visit ID Attending Provider --- --- --- --- EPI ID CSN Admitting Provider [id number] ---Addended by: JOSE NERI on: 08/06/2020 10:17 AM Modules accepted: Orders Name Value Range Interpretation Code Description Data Mary rce(s) Supporting Document(s) ID Date Data Source [id number] 07/15/2020 01:31:00 PM EDT [facility] ([facility] ) Name Value Range Interpretation Code Description Data Mary rce(s) Supporting Document(s) Surgical pathology study Laboratory test result [facility] ([facility], ) FINAL DIAGNOSIS Colon, random sigmoid, [...] MD 07/17/2020 1453 ID Date Data Source [id number] 07/12/2020 10:15:00 AM EDT [facility] Name Value Range Interpretation Code Description Data Mary rce(s) Supporting Document(s) SARS-CoV-2 (COVID-19) RNA [Presence] in Respiratory specimen by SEVEN with probe detection Not Detected [facility] This lab was ordered by [facility] and reported by [facility]. ID Date Data Source [id number] 06/20/2020 12:55:00 PM EDT [facility] ([facility] Name Value Range Interpretation Code Description Data Mary rce(s) Supporting Document(s) Bacteria identified in Urine by Culture Laboratory test result [facility] ([facility]) <content>SPECIMEN DESCRIPTION MID STREAM URINE,CLEAN CATCH</content>
<content>CULTURE [...] (AMP,AMOX) 0.5 SUSCEPTIBLE</content> ID Date Data Source [id number] 06/23/2020 10:10:53 AM EDT Laboratory [facility] liance [...] rce(s) Supporting Document(s) ID Date Data Source [id number] 06/20/2020 11:37:00 AM EDT [facility] ([facility]) Name Value Range Interpretation Code Description Data Mary rce(s) Supporting Document(s) Glucose [Presence] in Urine Laboratory test result [facility] ([facility]) Protein [Presence] in Urine by Test strip 100 mg/dL [facility] ([facility]) Ua Nitrite Laboratory test result [facility] ([facility]) Ua Leuko Laboratory test result [facility] ([facility]) Blood [Presence] in Urine by Visual Laboratory test result [facility] ([facility]) Ketones [Presence] in Urine by Test strip 15 mg/dL [facility] ([facility]) Color of Urine Laboratory test result [facility] ([facility]) Clarity of Urine Laboratory test result [facility] ([facility]) pH of Urine by Test strip 5.5 5.0-7.5 [facility] ([facility]) Ua Specific [place] 1.020 1.003-1.030 [facility] ([facility]) Bilirubin.total [Presence] in Urine by Test strip Laboratory test res ult [facility] ([facility]) Urobilinogen [Mass/volume] in Urine by Test strip 0.2 E.U./dL 0.0-1.0 [facility] ([facility]) ID Date Data Source [id number] 06/13/2020 10:57:25 AM EDT [facility] Name Value Range Interpretation Code Description Data Mary rce(s) Supporting Document(s) &PDF [facility] [id number]/HDDcvQICla1MfHWkvIYg8XUzwJOJkU6ByoFsqZPkBCQ1CXH2SFYKFSnlICZ1Q vQ3 KdKHAmlvoOnSeyLPS1g2UypKIoV88cuM4mSFCal97eLXajWV1+DQplbmRvYmoNCjQgMCBvYmoNCiAgPD ftQiwcoEBaHF0AdFU9QMSiU35pMNStKTUnG5LrDHJdAHm+Kz3KTGUgiHLlFT6KMluY9P4fe9w1Dk0+wP 4MBMnG1aZ3LTw4OfjViicirIvcVKah1Kp5kyWOi26c tN8bdjr//pI7MOLkK3Qo8hf4/ZDMipohh/PmiBGi/C6HjSI6cdNF/N/m6fJixUXk/p10bSulntEb2k0x 5ZjhAd1oyXeOFuZLpMs2jX1wgdetS2RX5H8kd8mODgw48x/S/h7/Xk+3Vc1zVBlnwUuSY4HT1EnTxTMW 9IbPur+Z3kgagmwZVNsHrJFPWRYab0zLu/WfaTDo9w XJnrvZ5mIYLnu1zgO4ynJ0SfX3ndJAfSWH0Y3+ZZiOCKZ9+fj4uQzexPPHjzbcbQqFAE8dTSOlVB1yeh 6jfPqSgu/DEI3CVIjAVYyLgASBHkKTQaZxzMd0DvTQb05T5XYazz8dScFgA5uwhjopjjxwOf31ocr7/L BA7Dh+YInuv4+Em1ivm7u3duNTIrdr5f1HJac579ec MjsoK8J0MLaElh7Pt/ybWikZsMK7mOYzYjPWLXXysRDWqwkluNJHAOLfIeCYmNN9xQMUXZhDmAHeQ2u0 RcAWzIKAkLwSMOITt8WRMrDrz5nj0joBVLZzOXKQoXALllyvXLanGj+dg20zRuvu1VYE3s8gtgCodyjT 0wtmQCHIrhJbuplG9caz1Ixsx3rtNv+Sarbjit/6L6LkEH [file] AgICAgICAgICAgICAgICAgICAgICAgICAgICAgICAgICAgICAgICAgICAgICAgICAgICAgICAgICAgIC ANCiAgICAgICAgICAgICAgICAgICAgICAgICAgICAg ICAgICAgICAgICAgICAgICAgICAgICAgICAgICAgICAgICAgICAgICAgICAgICAgICAgICAgICAgICAg ICAgICAgICAgICANCiAgICAgICAgICAgICAgICAgICAgICAgICAgICAgICAgICAgICAgICAgICAgICAg ICAgICAgICAgICAgICAgICAgICAgICAgICAgICAgIC AgICAgICAgICAgICAgICAgICAgICANCiAgICAgICAgICAgICAgICAgICAgICAgICAgICAgICAgICAgIC AgICAgICAgICAgICAgICAgICAgICAgICAgICAgICAgICAgICAgICAgICAgICAgICAgICAgICAgICAgIC AgICANCiAgICAgICAgICAgICAgICAgICAgICAgICAg ICAgICAgICAgICAgICAgICAgICAgICAgICAgICAgICAgICAgICAgICAgICAgICAgICAgICAgICAgICAg ICAgICAgICAgICAgICANCiAgICAgICAgICAgICAgICAgICAgICAgICAgICAgICAgICAgICAgICAgICAg ICAgICAgICAgICAgICAgICAgICAgICAgICAgICAgIC AgICAgICAgICAgICAgICAgICAgICAgICANCiAgICAgICAgICAgICAgICAgICAgICAgICAgICAgICAgIC AgICAgICAgICAgICAgICAgICAgICAgICAgICAgICAgICAgICAgICAgICAgICAgICAgICAgICAgICAgIC AgICAgICANCiAgICAgICAgICAgICAgICAgICAgICAg ICAgICAgICAgICAgICAgICAgICAgICAgICAgICAgICAgICAgICAgICAgICAgICAgICAgICAgICAgICAg ICAgICAgICAgICAgICAgICANCiAgICAgICAgICAgICAgICAgICAgICAgICAgICAgICAgICAgICAgICAg ICAgICAgICAgICAgICAgICAgICAgICAgICAgICAgIC AgICAgICAgICAgICAgICAgICAgICAgICAgICANCiAgICAgICAgICAgICAgICAgICAgICAgICAgICAgIC AgICAgICAgICAgICAgICAgICAgICAgICAgICAgICAgICAgICAgICAgICAgICAgICAgICAgICAgICAgIC AgICAgICAgICANCjw/tKDtJ3ejsRVvarE1A0jrCy9S Oq8KKM6uh1EhRHZfZKakupQlGsdTBnXaLELyAlbQBap3JSoaGK6DpBHmA7EyR5CuEUbbLK5KMGJpKXWd hLKhUIOjCPOlPkT1BQVhAGuoHB9KgKDkAFobJZQwJMKcVB0VHSUfP562xuYfKL5DKu8RSqBqEK9rys2K ABGsZUEsYmfOHhx2GWovGS1JrDQjW1EatEDvm1wJVd KxH3DQSZV5BEXjVi2OPRKwAzElCLVuWFzuWL6fLHNwWTGGrGafhoF1YH5UHI7lozSeCH7TNsPySa3sMj 3DKuVfU6QkE0WsHGNuNETBRLcmKZ4SNOSsUOQ6QTCgDLUcHCEHAzBaR55mJE6NY6Wep53eKsD6YBHfJy IoNDwjBV30nBdnvsZujRAmzLhnCO0NHl7+DQplbmRv QduFJcusOGJWLsSaILwWPqHcOATsKCIySSJfKuO0QnPtOs7TRGByQNPzUWOqBhRhNOWqSQGpOWdpYBYu YLP0JMS5FGUwMVGuDM0KDiJePQYmYWQ0XOjzVPBhQUBvcm1YFCVlQKAmJMY9FPDuNVFqLWZxATsiNFSt PLCyHiJ7GRNjXLHwQK0VNeDzWJWkQOK9JXElESQyIH Usqf3VTOMjAFQmPMZyWWDmOZMsZRZmNAqbRLHuPXB8Xei5JPOqMGBlCO6ALyHqIOXfIYS4FaTzHWEkFQ Sbvy4ICSRoZGZrMCqxGPPcYDSrRDKwRUivZRCrLYP2BHI9GYPzLJYjSC2JOzWpHUCzWVWzJxWsALOcRJ Anyf6KVMLmPWYoKOtiPRPtKWUiAENqOJzhTLHsYCI6 ZJEjBELqEYQfNU5IFfUsEKKnNVXiNQlqYCTlGDFtem5BCMJjTYAoGru3EAYfUPGoFENsMDr8thVugPBf NBf0GK7TJ4AzdmSeQUjHTs1Lz411ELE1HCLmDk5JC8nbTf0xICSvQQMSZm5LOOb2VSVoEjWwSUXuGgn7 PJL7FSe0WxTmXZr5J7EoHUA5URD+FFy9QoMeB6R6HA B9CCA7KnZ4IVI5U0NzXHN7CaFdZsxcFB3jIKRJLw6+VYellUZutOxiCQQPVtN6VNxbCHtnTZTMRt2J ID Date Data Source [id number] 06/05/2020 09:51:00 AM EST [facility] Name Value Range Interpretation Code Description Data Mary rce(s) Supporting Document(s) Cobalamin (Vitamin B12) [Mass/volume] in Serum or Plasma 422 pg/ mL 247-911 Normal (applies to non-numeric results) [facility] VITAMIN B12 NORMAL RANGE NORMAL 247 - 911 PG/ML INDETERMINATE 211 - 246 PG/ML DEFICIENT LESS THAN 211 PG/ML ID Date Data Source [id number] 06/05/2020 09:51:00 AM EST [facility] Name Value Range Interpretation Code Description Data Mary rce(s) Supporting Document(s) Iron (Fe) 80 ug/dL 65-175 Normal (applies to non-numeric resul ts) [facility] Total Iron Binding Capacity 321 ug/dL 250-450 Norm al (applies to non-numeric results) [facility] Percent Saturation 24.9 % 19.7-50.0 Normal (applies to non-numer ic results) [facility]) ID Date Data Source [id number] 04/19/2020 08:34:33 PM EST [facility] Name Value Range Interpretation Code Description Data Mary rce(s) Supporting Document(s) &PDF [facility] XGUSUz0lZsXRJqNf09/IGQscSTDdk0FgKNkeWAr5QZddBNQuH5EppQcsKKwTYD2HNR1FPTVPIqyFPQ0Z vQ3 PpGGJgqsjBrJskDYD0e8UkiTKoB24uiR9dCMVmv09qBVbdOT3+DQplbmRvYmoNCjQgMCBvYmoNCiAgPD fdYnusnZVaVG9DoTE9FJUyD22iQPSaCINkW3IqEWH0Ebj+Md5CWRZvlINpMO0SCvcC6Uilqyl8Tn1+QP 7LtfWvBzE9kpXtztGvkIejniakLWnYbikOfZmMmw1L k5U26a+/fZU0E+N3SmXhDb8OzVqTElEaAA6DUpniVA7es1WrEgbfPiho0APJOdH+Et/1Gsl99KlMuhlF eOi9EgTobggnP8lYhoUxfAy/fzUaKtGdiDeUfyStTGv+Chase+tvuT/0KGtY7QluiD8qFcke1IjAJfUXjaY [file] ICAgICAgICAgICAgICAgICAgICAgICAgICAgICAgICAgICAgICAgICAgICAgICAgICAgICAgICAgICAg ZSGkURDfSEUmPQQnMPMlNSDwRRBsJNDsRYRtCWNeXFBqNYKdPF4CTQJcTBKnQPBtODKaVOKxCKEjLAVo ICAgICAgICAgICAgICAgICAgICAgICAgICAgICAgIC LtZZUzEWMgMQJoLQTgIITiUSKfRKVfIQWzAKJqJHLeQTSwJWNtJHFaFOQuQYInHW4HVPAxEPScCLUgVT AgICAgICAgICAgICAgICAgICAgICAgICAgICAgICAgICAgICAgICAgICAgICAgICAgICAgICAgICAgIC DrVNNkEOOrIDVvMVJgHHNrFYAqHGMdDMJeRELhZQ1L ICAgICAgICAgICAgICAgICAgICAgICAgICAgICAgICAgICAgICAgICAgICAgICAgICAgICAgICAgICAg SSLgWGLdRSMuPKYiEBWuEPQnFTVeLODhQMOvNPJxOHQjILMnGJNeAW3IBMCxBKAmDRGrJRUnNVWdMFHl ICAgICAgICAgICAgICAgICAgICAgICAgICAgICAgIC IrFSYoUJYhOIXzOYJrTTXiDRDgBOKiZEMuTHNvEFLtCVSsSSImIAYzUQSpAVLgLOBdMC1VPRUvISXuQN AgICAgICAgICAgICAgICAgICAgICAgICAgICAgICAgICAgICAgICAgICAgICAgICAgICAgICAgICAgIC AgICAgICAgICAgICAgICAgICAgICAgICAgICAgICAg OM4OWURiUPUdBVXdZRUaVQTaVDFxCWYwMGSuFHDmLOFeCPPvOGYaIFIwGXJgICMgTJChMKLtXRJqSJAu ADZqZLBtLLXuGEYfCQUmDWBwEDXeMHUnDASyDWIdCDCmXRDrNASgILLlXR5DYOEsCDVnQYAuYSFmGJAu ICAgICAgICAgICAgICAgICAgICAgICAgICAgICAgIC BlCHTmVEEhPJJoSGHdHVJlMSBoWXRcVMZhIAPbSNOvNPMvDTTpUBRwSAOtAVFcRJQsYBLgIN1QSSSaOC AgICAgICAgICAgICAgICAgICAgICAgICAgICAgICAgICAgICAgICAgICAgICAgICAgICAgICAgICAgIC AgICAgICAgICAgICAgICAgICAgICAgICAgICAgICAg XYUtSI5OJKJsHNSlPKFiERAtHQOsFOTiUSOxQPXbSOWrNWKdWVGcFNFrLQHjAWPaOGTdOBBbAWQpCYCc AQGfTXLdXYSxDRQdEOTyTWKbYQOnIIIfHBJoNMKoZUTaKJCuBARbYVMhHFQwFL9FNW79pAWig5W6NECf GK1ybhs/Ii1PFQnlbtNplIAbAA3LTbUdJK7yon5EEt PmXG5neg3OOZtEZoQtM0I8gIVtJRQoYSPQLqHvE24vGTtfQo60UPojJBFfBkXhIAw8Wm9RXoTfC2rpBN GaDgO5NBKzCtTrMKyhUI1Oy0YylVQaPUi+Qs1NWO1og7ZrOLcqNcMeXX6pbp7BEJjJFiReZ3Q5kXHdT6 L1HDotWm4XOPTsQHNmUKEtPRSRAAonNV7NKH5tkoR8 LE0BfGJiZNEwNKMckXGiARl3F99fcJTzMRxnYZ2NQJR+Emigdio+Pv3BGMHsWUEiLXBeUuFzQFTQQxBiD97l fOBhBWOuMCF3LATcIc4YGVTaJ5HqjyPjgFqjnhCwNHQkHYFAZJ1KZZxskbMkuDXqcAnmSH22mXniNS7U Cl1BYnSxUS0yqz0MvSXrRa4BQCRlLu3BHAVlPXDoJP PiLXQ7WITzWoYwERayCZKqVPZoURC5SNGlITSpWY9DMxAhDIZeSBC8TdgoVCNoIDOvyf8BKCSeSAAqXl MtFJLeTJWsNRXjVOmzUQHuYWWfLVp6KDPyHYBqEK4QDuToHVCxKVY1VEuyMDYuAYPryc1IWTUfPNRgIm R9FeUnFUGoFBShITdvEYDrUXY6QSIuVLOwUUSnIX7Z YcUtLMVfEVViKSxjBIKrLCClcf8TSEVeQUPfAHB4SBYvZBOwDYOhNTlzNIVgIZK4NdO6ZQFwZNEgPJ7Y EgZkWLLeBIV6KOtaSAHoCNAeqf3XAZYfVSGcMAm7JUTmXULyFURvRCfkNDWcGYQhBRI7IZSiQIZyBB5F BcPnXQFlBRL2HINpRCUgMYXtmj0TYQGgVRRzUEs9MY NiDLZrMSLqUQcmCZOdBLM9UtO2ENCkTHRdLW8ABqUhDAtdTMVVCuk2VGsbJ5t3UHRjSt4TH7Wan4HqVC VvCVKZHKfiQP2cbuCaBDUePs2TR8tDMgoaEAJhA9U2OnXhMLPpB1W7QMB6SIO9IAGnPwAzWsc7Hn5zNK N7C9GvLYrvOHG3YaS1TnlvIUjbNLXcUOUqUtX7BPir CcVjGT3AVj5FZyP8BDF5uEPaUg9UOOG8WTWPZoWvCT9OXNo= ID Date Data Source [id number] 03/10/2020 10:47:00 AM EST [facility] Name Value Range Interpretation Code Description Data Mary rce(s) Supporting Document(s) Prostate specific Ag [Mass/volume] in Serum or Plasma 8.85 [facility] ([facility]) ID Date Data Source [id number] 02/06/2020 09:50:00 AM EST [facility] Name Value Range Interpretation Code Description Data Mary rce(s) Supporting Document(s) Clinical History 5.02 [facility] ([facility]) t2b R97.20 C61 PSA: 5.02 ng/ml Clinical stage: T2b Left Base Laboratory test result [facility] ([facility]) Benign prostatic tissue. Left Lateral Base Laboratory test result [facility] ([facility]) Benign prostatic tissue. Left Lateral Mid Laboratory test result [facility] ([facility]) Benign prostatic tissue. Left Mid Laboratory test result [facility] ([facility]) Benign prostatic tissue. Left Lateral [place] Laboratory test result Abnorma l (applies to non-numeric results) [facility] ([facility]) PROSTATIC TISSUE WITH FOCUS OF SMALL ATY PICAL GLANDS. Left [place] Laboratory test result Abnormal (applies to non -numeric results) [facility] ([facility]) PROSTATIC TISSUE WITH FOCUS OF SMALL ATY PICAL GLANDS. 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 Right Lateral Base Laboratory test result [facility] ([facility]) Benign prostatic tissue. Right Mid Laboratory test result [facility] ([facility]) Benign prostatic tissue. Right Lateral Mid Laboratory test result [facility] ([facility]) Benign prostatic tissue. Right [place] Laboratory test result [facility] ([facility]) Benign prostatic tissue. Laboratory test finding (navigational concept) Laboratory test r esult Abnormal (applies to non-numeric results) [facility] ([facility]) PROSTATIC TISSUE WITH FOCUS OF SMALL ATY PICAL GLANDS. Right Lateral [place] Laboratory test result [facility] ([facility]) Benign prostatic tissue. PDF Report Laboratory test result [facility] ([facility]) ID Date Data Source [id number] 02/06/2020 09:50:00 AM EST [facility] ([facility]) Name Value Range Interpretation Code Description Data Mary rce(s) Supporting Document(s) Prostate Biopsy Laboratory test result [facility] ([facility]) ID Date Data Source [id number] 01/23/2020 08:05:00 AM EDT [facility] ([facility]) Name Value Range Interpretation Code Description Data Mary rce(s) Supporting Document(s) Rectal Swab Screen Laboratory test result [facility] ([facility]) NEGATIVE - No Fluoroquinolone Resistant Organisms Isolated NOTE: The culture procedure is also validated by concurrent blood agar control. ID Date Data Source [id number] 01/21/2020 09:16:34 AM EDT [facility] Name Value Range Interpretation Code Description Data Mary rce(s) Supporting Document(s) &PDF [facility] IEHMMs9gFaTZUsSb75/OMBgxXBYqa5HsCCgfAWr3OHnyOUOlN0PmmUmaZKdSKH9HZD3VQEOKPduHNG2Q pL0 [file] ICAgICAgICAgICAgICAgICAgICAgICAgICAgICAgICAgICAgICAgICAgICAgICAgICAgICAgICAgDQog ICAgICAgICAgICAgICAgICAgICAgICAgICAgICAgIC AgICAgICAgICAgICAgICAgICAgICAgICAgICAgICAgICAgICAgICAgICAgICAgICAgICAgICAgICAgIC AgICAgICAgDQogICAgICAgICAgICAgICAgICAgICAgICAgICAgICAgICAgICAgICAgICAgICAgICAgIC AgICAgICAgICAgICAgICAgICAgICAgICAgICAgICAg ICAgICAgICAgICAgICAgICAgDQogICAgICAgICAgICAgICAgICAgICAgICAgICAgICAgICAgICAgICAg ICAgICAgICAgICAgICAgICAgICAgICAgICAgICAgICAgICAgICAgICAgICAgICAgICAgICAgICAgICAg DQogICAgICAgICAgICAgICAgICAgICAgICAgICAgIC AgICAgICAgICAgICAgICAgICAgICAgICAgICAgICAgICAgICAgICAgICAgICAgICAgICAgICAgICAgIC AgICAgICAgICAgDQogICAgICAgICAgICAgICAgICAgICAgICAgICAgICAgICAgICAgICAgICAgICAgIC AgICAgICAgICAgICAgICAgICAgICAgICAgICAgICAg ICAgICAgICAgICAgICAgICAgICAgDQogICAgICAgICAgICAgICAgICAgICAgICAgICAgICAgICAgICAg ICAgICAgICAgICAgICAgICAgICAgICAgICAgICAgICAgICAgICAgICAgICAgICAgICAgICAgICAgICAg ICAgDQogICAgICAgICAgICAgICAgICAgICAgICAgIC AgICAgICAgICAgICAgICAgICAgICAgICAgICAgICAgICAgICAgICAgICAgICAgICAgICAgICAgICAgIC AgICAgICAgICAgICAgDQogICAgICAgICAgICAgICAgICAgICAgICAgICAgICAgICAgICAgICAgICAgIC AgICAgICAgICAgICAgICAgICAgICAgICAgICAgICAg ICAgICAgICAgICAgICAgICAgICAgICAgDQogICAgICAgICAgICAgICAgICAgICAgICAgICAgICAgICAg ICAgICAgICAgICAgICAgICAgICAgICAgICAgICAgICAgICAgICAgICAgICAgICAgICAgICAgICAgICAg TDOeVNHbIVj9K7xbXMUjTVXwMD5rMGh3Et8+DQoNCm JiSMD6iuXqzO9DJH0ul2RhTBggMSKnj9OaUWr6WT5OLSRkCUakTG0PACyiot6NFRDuYOGscZDCb5nvMr LgZDC9JOZeNwyfGV2JOOZqL2vjffBhEXKtLNWBIOdcZVEIAC4NXwCmK1IckL18GANMEn4+DQplbmRvYm gWKpLrKVAsx8AmOFd6DD9PWBXxXAzfOY3QHBKvcV8u PQkdHA7BAlEuEWXqTHHUSxIkS71dkHIwAKf7N2KeLbZnAWEuRifrEWQbTNanAqQeAQUkNqVuQYqhHS2+ ID4+DHylAN5UOIhndoJgYTWgOk8SVAFyZXQ6MXKokFBwLmBpPDAFJQauIX1YtJXwGUA1nI1xTPvpUPMc MDSkW7uLXpEiwFboUK91sWtqgjLrpEVfITz+Pg0KZW 4iz7DpIFa7gxTqVVajUHBlAXptSWZlPHUzPONgPEE7KXR4UHOFTjLvGCBpEWGpVMqbUXXsHUMmzv2LLJ MwGVDtHaTkKtZiVGTjDQDhWHciYVXkQGG1WAF0ZKNsOMFwSC2KGfRzSLPeHYLwPUNnXNRcAYDxvc4YVI AwMDAwMzQxOSAwMDAwMCBuDQowMDAwMDAzNjIzIDAw PWAnPT7PFdJbRGPxXSXpFBAsXPCdVMPlxg8QKBKgXFEhXGO6NfYvGQZySAPfYAwfDUXoTQO3CMU2JXRx UXRwHA0KHhXtSIAhPKP7JLFnGCGlPVByev6MJVLvUOIxKEu5ZcYrTHHcSRXuYXffOCJjWCA5ZcRmKOHz HOXrDC6YFgSfHKCgZOK3APSbWULiNEXgkr4NUMSeGK ZvMyEiIBQkRVWlNIYeYGziNDWxFLQ0RBb9RYKhQOPqLA2PAhTmSZUbEYanNYAeRWHnXDVhmw9DPPUbEX GqNBW9QPIhQORgBQLoGSapYRDmMPS2NOS5DAVpCFYuBS5HErVjEIHgBXspWLGpNGCwUPQpnn7YTKCdWY KrSkJmIuIpCNPcNJQeIFxiZDYhEUV0PCOzWQSqLSEr FY3BEeYzJHylBWRYTep8YVdrE1o8EWZiOo8WO6Imd3VhHfXoPWERWZujQJ7vjvGvXKAjWs0BL9yIMipc RTWnFfFkYOI3VuUyJ7TyO7Q4QFt0ChceQODuMAwtBN7tYEG0ISV0AQNkApEoYHL5PeY8BkKoNruzW2Si S3C1DLVnSeLiHY9NBw0YFbP2OCS5yOOyGo4XLAvbKTuIQtGeKF3XTLl= ID Date Data Source [id number] 01/04/2020 08:35:57 AM EDT [facility] Name Value Range Interpretation Code Description Data Mary rce(s) Supporting Document(s) &PDF [facility] NIRWCy7lEaQLGxKx45/EAVizBMYnb9EfFVbiLIi4LQtmHJYoO2YqbQspFDbRQY3SSG0LNVRIUhyJVV1L vQ3 [file] AgICAgICAgICAgICAgICAgICAgICAgICAgICAgICAgICAgICAgICAgICAgICAgICAgICAgICAgICAgIC AgICAgICAgICAgICAgICAgICAgICAgICANCiAgICAgICAgICAgICAgICAgICAgICAgICAgICAgICAgIC AgICAgICAgICAgICAgICAgICAgICAgICAgICAgICAg ICAgICAgICAgICAgICAgICAgICAgICAgICAgICAgICAgICANCiAgICAgICAgICAgICAgICAgICAgICAg ICAgICAgICAgICAgICAgICAgICAgICAgICAgICAgICAgICAgICAgICAgICAgICAgICAgICAgICAgICAg ICAgICAgICAgICAgICAgICANCiAgICAgICAgICAgIC AgICAgICAgICAgICAgICAgICAgICAgICAgICAgICAgICAgICAgICAgICAgICAgICAgICAgICAgICAgIC AgICAgICAgICAgICAgICAgICAgICAgICAgICANCiAgICAgICAgICAgICAgICAgICAgICAgICAgICAgIC AgICAgICAgICAgICAgICAgICAgICAgICAgICAgICAg ICAgICAgICAgICAgICAgICAgICAgICAgICAgICAgICAgICAgICANCiAgICAgICAgICAgICAgICAgICAg ICAgICAgICAgICAgICAgICAgICAgICAgICAgICAgICAgICAgICAgICAgICAgICAgICAgICAgICAgICAg ICAgICAgICAgICAgICAgICAgICANCiAgICAgICAgIC AgICAgICAgICAgICAgICAgICAgICAgICAgICAgICAgICAgICAgICAgICAgICAgICAgICAgICAgICAgIC AgICAgICAgICAgICAgICAgICAgICAgICAgICAgICANCiAgICAgICAgICAgICAgICAgICAgICAgICAgIC AgICAgICAgICAgICAgICAgICAgICAgICAgICAgICAg ICAgICAgICAgICAgICAgICAgICAgICAgICAgICAgICAgICAgICAgICANCiAgICAgICAgICAgICAgICAg ICAgICAgICAgICAgICAgICAgICAgICAgICAgICAgICAgICAgICAgICAgICAgICAgICAgICAgICAgICAg ICAgICAgICAgICAgICAgICAgICAgICANCiAgICAgIC AgICAgICAgICAgICAgICAgICAgICAgICAgICAgICAgICAgICAgICAgICAgICAgICAgICAgICAgICAgIC AgICAgICAgICAgICAgICAgICAgICAgICAgICAgICAgICANCjw/zZMwW3idfPRyfyA5E6teKj8CPw1SJG 1bn7FiERVyNRciuvNvZycVMuQuBSGyBxfKBmb4SMiq WX7LhOOwK2JiL0AhVNhmSX5ESFFmJPBfaFNuKBToBABxObT3HNZsQNeqKB6KsULaNBniVTCoPVSkWY6J KKLkX693voOpAV9AXe3BFwJkAM7llg2IEXEmHSSgUrlTVmm8YLppXG2PpASzB2QeuDFif1zBYiKuM6VD CYZ8EESuWm7XJZWqQzFlVCCqJKjfVJ2yBEOqSDVCdW yvjbL0JB3OMO7eipXtPC1QAnUnOd4oJd4NYvBiE9HoI0MoHDEzLQGTHWuxGO5RUEXdILP9OLEqPRUdWN WDHjPkK78iNP2GS3Klq49pDvM2XMCgMwEfZGlbBY02aFgsxqNjbGCscWdmWN4ZHx7+DQplbmRvYmoNCn daTFLCHjFdAXzHZsWlXJYdDSDiJKDjAkI2NoZqRw2Y FQUiDPCuQBZxMoKtQTUrKGRtAPmjJINvGZEwYoK3VGBaERJeSI8TZaFnUYFrLQX1NkjhASNbHLHxxf2X ADMpBTYvDSW4PONnGIEiYCKzIRwxHTVqODGwRMo2VLMnUWTqZN8UCgVuPGXhSCLnPBDyQRXlTZIyok3M QHAdLTBlLgH9SxQoBFXyDFOfVYleRSGvJCVzAMV8AS ZmKBRzDQ0JMlOmYCPfUGE5KgxlOHVnENMvpn9QCXLmWJUsVDM0LbXpUEIjJWKpULxxLCDrBKH3Ezx9QY GtKACxCE0XPzOkKSLpHIO9DxIxWROpKLYgiz3HCXCrBSGcRND0YiEvYLQsKBXqUKueCLRpVEHjCih7HT AlZONdZO1WVdOkBPBzUXMaJZbgNCQfMGQxzh9CLYYg ZLYdIBSrOlUtZJGwXFEyBRf2gpQpcSDvZAl4WI2GD5HbtmYgJHqRPf3Ig469IRK4RJUmWx5NA2vgLk7e WWWiGZUBGy8AQNo3FWbrP8CyLEr4AbhaZDEoDjMhFpswPBFsYJwdHSi2Sui+LOmxVUR1JkCqGWlxYKKx CRLdBODcPCN9UUA3DlS4HYV4PQ3lNJKCSz0+FHixbFXmlYdpCBWEYkQ4EyY9PQbsXDJJXx4L ID Date Data Source [id number] 12/20/2019 12:25:21 PM EDT [address] [address] Name: SHRUTI BARRIOSB: 1940Sex: MOrdering Provider: JUNIOR Stanton Prov: JUNIOR RIOSAReferring Provider: Procedure Performed: XR CHEST PORTABLEExam Date: 12/20/2019 12:24MRN: [id number] Number: [id number] Class: OutpatientAccount #: [id number] for Exam: icdTechnique: AP portable view obtained.Comparison: NoneFindings: Left chest wall pacemaker/AICD with leads in satisfactory position. No pneumothorax. Lungs clear. Cardiomediastinal contours are normal. Osseous structures intact.I MPRESSION: Left chest wall pacemaker/AICD with leads in satisfactory position. No pneumothorax.Report electronically signed by: Adis Fritz On 12/20/2019 12:25 PMWorkstation ID: [id number] Name Value Range Interpretation Code Description Data Mary rce(s) Supporting Document(s) ID Date Data Source [id number] 12/20/2019 12:03:21 PM EDT [facility] Name Value Range Interpretation Code Description Data Mary rce(s) Supporting Document(s) &PDF [facility] [id number] [file] [id number] ID Date Data Source [id number] 12/20/2019 10:07:38 AM [facility]T [facility]FORMATIONPatient MRN Name Date of Age Gend*PT [id number] Shruti Barrios 1940 79 years M HOPPT Location Admission Date/Time Visit ID Attending [id number] 12/20/19 09 --- Junior Jameson MD([id number]) EPI ID CSN Admitting Provider [id number] Junior Dillon MD([id number]) History and PhysicalPatient Name: Shruti BarriosDOB: 1940The patient presents for insertion of a Bi-V ICD12/20/2019Past Medical History:Diagnosis Date Atrial flutter 05/12/2019 [place]. Converted with iv Amiodarone Carotid arterial disease [...] allergies.Physical ExamGeneral: NADHEENT: NC/ATNeck: JVP FlatLungs: CTAHeart: [id number]: This is a 79 years male With [...] is agreeable to proceed.Signature: Junior Jameson MD, [facility], RSCardiac Electrophysiology and Arrhythmia ServiceDate: December 20, 2019This document or parts of this document, were dictated using [employer]. A reasonable attempt at proofreading has been made to minimize errors.Please call with any questions or corrections. Name Value Range Interpretation Code Description Data Mary rce(s) Supporting Document(s) ID Date Data Source [id number] 12/15/2019 08:12:00 AM EDT [facility] Name Value Range Interpretation Code Description Data Mary rce(s) Supporting Document(s) SARS coronavirus 2 RNA [facility] This lab was ordered by [facility] and reported by [facility]. ID Date Data Source [id number] 12/16/2019 09:07:09 AM EDT [facility] Name Value Range Interpretation Code Description [facility] Supporting Document(s) SARS-COV-2 SEVEN Lab [facility] Not DetectedReference range: Not Detecte d This nucleic acid amplification test was developed and its performance characteristics determined by [employer]. Nucleic acid amplification tests include PCR and [...] result in this assay. Performed At: [facility] [address] [id number] Dayday Simms MD Ph:[phone] ID Date Data Source [id number] 12/12/2019 10:18:00 AM EDT [facility] ([facility]) Name Value Range Interpretation Code Description Data Mary rce(s) Supporting Document(s) Creatinine For GFR 1.18 mg/dL 0.70-1.30 [facility] ([facility]) Glomerular Filtration Rate Laboratory test result [facility] ([facility]) <content>Units are mL/min/1.73 m2</content>
<content></content>
<content>Chronic Kidney Disease Staging per NKF:</content>
<content></content>
<content>Stage I & II GFR >=60 Normal to Mildly Decreased</content>
<content>Stage III GFR 30- 59 Moderately Decreased</content>
<content>Stage IV GFR 15-29 Severely Decreased</content>
<content>Stage V GFR <15 Very Little GFR Left</content>
<content>ESRD GFR <15 on EAR NOSE AND THROAT SPECIALIST</content>
<content></content> ID Date Data Source [id number] 12/12/2019 10:18:00 AM EDT [facility] ([facility]) Name Value Range Interpretation Code Description Data Mary rce(s) Supporting Document(s) Urea nitrogen [Mass/volume] in Serum or Plasma 22 mg/dL 7-18 [facility] ([facility]) Procedure Social History Code Duration Value Status Description Data Source(s ) Smoking 01/15/2021 12:00:00 AM EDT Former Cigarette Smoker com pleted Former Cigarette Smoker [facility] ([facility]) Smoking 12/29/2020 12:00:00 AM EDT Former Smoker completed Former Smoker eCW1 ([facility]) Smoking 12/29/2020 12:00:00 AM EDT Former Smoker completed Former Smoker eCW1 ([facility]) Alcohol intake 12/04/2020 12:00:00 AM EDT Current drinker of al cohol (finding) completed Current drinker of alcohol (finding) [facility] Smoking 11/27/2020 09:48:17 AM EDT Ex-smoker (finding) complet ed Ex-smoker (finding) [facility] (David Turpin MD [facility]) Smoking 11/05/2020 12:00:00 AM EDT - 03/28/2000 12:00:00 AM EST Patient is a former smoker completed Patient is a former smoker [facility] ([facility], ) Smoking 11/05/2020 12:00:00 AM EDT Former Smoker completed Former Smoker eCW1 ([facility]) Smoking 11/05/2020 12:00:00 AM EDT Former Smoker completed Former Smoker eCW1 ([facility]) Alcohol intake 09/03/2020 12:00:00 AM EDT Current drinker of al cohol (finding) completed Current drinker of alcohol (finding) [facility] Smoking 06/24/2020 12:00:00 AM EDT Former Smoker completed Former Smoker eCW1 ([facility]) Smoking 06/24/2020 12:00:00 AM EDT Former Smoker completed Former Smoker eCW1 ([facility]) Smoking 06/24/2020 12:00:00 AM EDT Former Smoker completed Former Smoker eCW1 ([facility]) Smoking 06/24/2020 12:00:00 AM EDT Former Smoker completed Former Smoker eCW1 ([facility]) Smoking 06/24/2020 12:00:00 AM EDT Former Smoker completed Former Smoker eCW1 ([facility]) Smoking 06/24/2020 12:00:00 AM EDT Former Smoker completed Former Smoker eCW1 ([facility]) Alcohol intake 06/17/2020 12:00:00 AM EDT Yes completed [facility] Cigarette pack-years 06/17/2020 12:00:00 AM EDT UNK completed [facility] Cigarettes smoked current (pack per day) - Reported 06/18/19 12:00:00 AM EDT UNK completed [facility] Smoking 06/17/2020 12:00:00 AM EDT Former smoker completed Former smoker [facility] Alcohol intake 06/10/2020 12:00:00 AM EDT Yes completed [facility] Cigarette pack-years 06/10/2020 12:00:00 AM EDT UNK completed [facility] Cigarettes smoked current (pack per day) - Reported 06/11/19 12:00:00 AM EDT UNK completed [facility] Smoking 06/10/2020 12:00:00 AM EDT Former smoker completed Former smoker [facility] Smoking 05/07/2020 12:00:00 AM EST Former Smoker completed Former Smoker eCW1 ([facility]) Smoking 05/07/2020 12:00:00 AM EST Former Smoker completed Former Smoker eC ([facility]) Alcohol intake 12/20/2019 12:00:00 AM EDT Yes completed [facility] Cigarette pack-years 12/20/2019 12:00:00 AM EDT UNK completed [facility] Cigarettes smoked current (pack per day) - Reported 12/20/19 12:00:00 AM EDT UNK completed [facility] Smoking 12/20/2019 12:00:00 AM EDT Former smoker completed Former smoker [facility] Vital Signs ID Date Data Source UNK Name Value Range Interpretation Code Description Data Source(s) Body height 68 [in_i] 68 [in_i] [facility] ([facility] [place] 5'8" Body weight 120.00 [lb_av] 120.00 [lb_av] MED[facility] T ([facility]) Body weight 54.432 kg 54.432 kg [facility] ([facility] Body mass index (BMI) [Ratio] 18.2 kg/m2 18.2 k g/m2 [facility] ([facility]) Systolic blood pressure 105 mm[Hg] 105 mm[Hg] M EDENT ([facility]) Heart rate 80 /min 80 /min [facility] ([facility] Diastolic blood pressure 70 mm[Hg] 70 mm[Hg] [facility] ([facility]) Respiratory rate 12 /min 12 /min [facility] Body height 68 [in_i] 68 [in_i] [facility] ([facility]) 5'8" Body weight 120.00 [lb_av] 120.00 [lb_av] MEDEN T ([facility]) Body mass index (BMI) [Ratio] 18.2 kg/m2 18.2 k g/m2 [facility] ([facility]) Denio body weight 154 [lb_av] 154 [lb_av] MEDEN T ([facility]) Body weight 126.6 [lb_av] 126.6 [lb_av] eCW1 ([facility]) Body height 68.5 [in_i] 68.5 [in_i] eCW1 ([facility]) Body mass index (BMI) [Ratio] 18.97 kg/m2 18.97 kg/m2 eCW1 ([facility]) Heart rate 78 /min 78 /min eCW1 ([facility]) Respiratory rate 18 /min 18 /min eCW1 ([facility]) Body temperature 96.0 [degF] 96.0 [degF] eCW1 ( [facility]) Systolic blood pressure 128 mm[Hg] 128 mm[Hg] e CW1 ([facility]) Diastolic blood pressure 74 mm[Hg] 74 mm[Hg] eCW1 ([facility]) Body weight 56.700 kg 56.700 kg [facility] ([facility], ) Denio body weight 154 [lb_av] 154 [lb_av] MEDEN T ([facility]) Body weight 125.00 [lb_av] 125.00 [lb_av] MED[facility] T ([facility]) Body mass index (BMI) [Ratio] 19.0 kg/m2 19.0 k g/m2 [facility] ([facility]) Body surface area Derived from formula 1.67 m2 1.67 m2 [facility] ([facility]) Systolic blood pressure 85 mm[Hg] 85 mm[Hg] M EDENT ([facility], ) Diastolic blood pressure 60 mm[Hg] 60 mm[Hg] [facility] ([facility], ) Body height 68 [in_i] 68 [in_i] [facility] ([facility]) 5'8" Systolic blood pressure 98 mm[Hg] 98 mm[Hg] [facility] Diastolic blood pressure 56 mm[Hg] 56 mm[Hg] [facility] Heart rate 77 /min 77 /min [facility] Body weight 60.328 kg 60.328 kg [facility] Body mass index (BMI) [Ratio] 20.22 kg/m2 20.22 kg/m2 [facility] Oxygen saturation in Arterial blood by Pulse oximetry 94 % 94 % [facility] Body height 68 [in_i] 68 [in_i] [facility] ([facility], ) 5'8" Body mass index (BMI) [Ratio] 19.9 kg/m2 19.9 k g/m2 [facility] ([facility]) Body weight 131.00 [lb_av] 131.00 [lb_av] MEDEN T ([facility], ) Denio body weight 154 [lb_av] 154 [lb_av] MED[facility] T ([facility]) Body weight 59.422 kg 59.422 kg [facility] ([facility]) Systolic blood pressure 109 mm[Hg] 109 mm[Hg] M EDENT ([facility], ) Diastolic blood pressure 68 mm[Hg] 68 mm[Hg] [facility] ([facility]) Body surface area Derived from formula 1.71 m2 1.71 m2 [facility] ([facility]) Denio body weight 154 [lb_av] 154 [lb_av] MED[facility] T ([facility]) Diastolic blood pressure 66 mm[Hg] 66 mm[Hg] [facility] ([facility], ) Heart rate 85 /min 85 /min [facility] ([facility]) Oxygen saturation in Arterial blood by Pulse oximetry 96 % 96 % [facility] ([facility]) Room Air Body height 68 [in_i] 68 [in_i] [facility] ([facility]) 5'8" Systolic blood pressure 108 mm[Hg] 108 mm[Hg] M EDENT ([facility]) Body weight 135.00 [lb_av] 135.00 [lb_av] MEDEN T ([facility]) Body mass index (BMI) [Ratio] 20.5 kg/m2 20.5 k g/m2 [facility] ([facility]) Body weight 61.236 kg 61.236 kg [facility] ([facility]) Body surface area Derived from formula 1.73 m2 1.73 m2 [facility] ([facility]) Body weight 133.8 [lb_av] 133.8 [lb_av] eCW1 ([facility]) Body height 68.5 [in_i] 68.5 [in_i] eCW1 ([facility]) Body mass index (BMI) [Ratio] 20.05 kg/m2 20.05 kg/m2 W1 ([facility]) Heart rate 79 /min 79 /min eCW1 ([facility]) Respiratory rate 18 /min 18 /min W1 ([facility]) Body temperature 96.2 [degF] 96.2 [degF] eCW1 ( [facility]) Systolic blood pressure 122 mm[Hg] 122 mm[Hg] e CW1 ([facility]) Diastolic blood pressure 66 mm[Hg] 66 mm[Hg] eCW1 ([facility]) Systolic blood pressure 124 mm[Hg] 124 mm[Hg] M EDENT ([facility]) Diastolic blood pressure 66 mm[Hg] 66 mm[Hg] [facility] ([facility]) Body weight 135.00 [lb_av] 135.00 [lb_av] MEDEN T ([facility]) Respiratory rate 18 /min 18 /min [facility] ( [facility]) Systolic blood pressure 105 mm[Hg] 105 mm[Hg] M [facility] ([facility]) Body height 68 [in_i] 68 [in_i] [facility] ([facility] 5'8" Body weight 138.00 [lb_av] 138.00 [lb_av] MED[facility] T ([facility]) Body weight 62.597 kg 62.597 kg [facility] ([facility] Body mass index (BMI) [Ratio] 21.0 kg/m2 21.0 k g/m2 [facility] ([facility]) Diastolic blood pressure 65 mm[Hg] 65 mm[Hg] [facility] ([facility]) Heart rate 88 /min 88 /min [facility] ([facility] Respiratory rate 18 /min 18 /min [facility] ( [facility]) Body temperature 96.6 [degF] 96.6 [degF] [facility] ([facility]) Systolic blood pressure 98 mm[Hg] 98 mm[Hg] [facility] Diastolic blood pressure 52 mm[Hg] 52 mm[Hg] [facility] Heart rate 66 /min 66 /min [facility] Body height 172.7 cm 172.7 cm [facility] Body weight 63.05 kg 63.05 kg [facility] Body mass index (BMI) [Ratio] 21.13 kg/m2 21.13 kg/m2 [facility] Oxygen saturation in Arterial blood by Pulse oximetry 98 % 98 % [facility] Systolic blood pressure 102 mm[Hg] 102 mm[Hg] [facility] Diastolic blood pressure 60 mm[Hg] 60 mm[Hg] [facility] Heart rate 63 /min 63 /min [facility] Body height 172.7 cm 172.7 cm [facility] Body weight 65.046 kg 65.046 kg [facility] Body mass index (BMI) [Ratio] 21.80 kg/m2 21.80 kg/m2 [facility] Oxygen saturation in Arterial blood by Pulse oximetry 94 % 94 % [facility] Body weight 139.8 [lb_av] 139.8 [lb_av] eCW1 ([facility]) Body height 68.5 [in_i] 68.5 [in_i] eCW1 ([facility]) Body mass index (BMI) [Ratio] 20.95 kg/m2 20.95 kg/m2 eCW1 ([facility]) Heart rate 77 /min 77 /min eCW1 ([facility]) Respiratory rate 18 /min 18 /min eCW1 ([facility]) Body temperature 97.1 [degF] 97.1 [degF] eCW1 ( [facility]) Systolic blood pressure 118 mm[Hg] 118 mm[Hg] e CW1 ([facility]) Diastolic blood pressure 62 mm[Hg] 62 mm[Hg] eCW1 ([facility]) Body height 68 [in_i] 68 [in_i] [facility] ([facility] [place] 5'8" Body weight 138.00 [lb_av] 138.00 [lb_av] MED[facility] T ([facility]) Body weight 62.597 kg 62.597 kg [facility] ([facility] Body mass index (BMI) [Ratio] 21.0 kg/m2 21.0 k g/m2 [facility] ([facility]) Systolic blood pressure 123 mm[Hg] 123 mm[Hg] M EDENT ([facility]) Diastolic blood pressure 78 mm[Hg] 78 mm[Hg] [facility] ([facility]) Heart rate 83 /min 83 /min [facility] ([facility] [place] Body temperature 97.7 [degF] 97.7 [degF] [facility] ([facility]) Systolic blood pressure 108 mm[Hg] 108 mm[Hg] [facility] Diastolic blood pressure 60 mm[Hg] 60 mm[Hg] [facility] Heart rate 63 /min 63 /min [facility] Body height 172.7 cm 172.7 cm [facility] Body weight 65.318 kg 65.318 kg [facility] Body mass index (BMI) [Ratio] 21.90 kg/m2 21.90 kg/m2 [facility] Oxygen saturation in Arterial blood by Pulse oximetry 98 % 98 % [facility] Systolic blood pressure 94 mm[Hg] 94 mm[Hg] [facility] Diastolic blood pressure 60 mm[Hg] 60 mm[Hg] [facility] Heart rate 84 /min 84 /min [facility] Body height 172.7 cm 172.7 cm [facility] Body weight 64.864 kg 64.864 kg [facility] Body mass index (BMI) [Ratio] 21.74 kg/m2 21.74 kg/m2 [facility] Oxygen saturation in Arterial blood by Pulse oximetry 97 % 97 % [facility] Systolic blood pressure 96 mm[Hg] 96 mm[Hg] [facility] ([facility], ) Denio body weight 154 [lb_av] 154 [lb_av] MED[facility] T ([facility]) Body height 68 [in_i] 68 [in_i] [facility] ([facility]) 5'8" Body weight 143.00 [lb_av] 143.00 [lb_av] MED[facility] T ([facility]) Body mass index (BMI) [Ratio] 21.7 kg/m2 21.7 k g/m2 [facility] ([facility]) Body weight 64.865 kg 64.865 kg [facility] ([facility]) Body surface area Derived from formula 1.77 m2 1.77 m2 [facility] ([facility]) Diastolic blood pressure 55 mm[Hg] 55 mm[Hg] [facility] ([facility]) Body height 68 [in_i] 68 [in_i] [facility] ([facility]) 5'8" Body weight 143.00 [lb_av] 143.00 [lb_av] MEDEN T ([facility]) Body mass index (BMI) [Ratio] 21.7 kg/m2 21.7 k g/m2 [facility] ([facility]) Denio body weight 154 [lb_av] 154 [lb_av] MED[facility] T ([facility]) Body weight 64.865 kg 64.865 kg [facility] ([facility]) Body surface area Derived from formula 1.77 m2 1.77 m2 [facility] ([facility]) Body weight 141.0 [lb_av] 141.0 [lb_av] eCW1 ([facility]) Body height 68.5 [in_i] 68.5 [in_i] eCW1 ([facility]) Body mass index (BMI) [Ratio] 21.12 kg/m2 21.12 kg/m2 eCW1 ([facility]) Heart rate 79 /min 79 /min eCW1 ([facility]) Respiratory rate 18 /min 18 /min eCW1 ([facility]) Body temperature 97.3 [degF] 97.3 [degF] eCW1 ( [facility]) Systolic blood pressure 104 mm[Hg] 104 mm[Hg] e CW1 ([facility]) Diastolic blood pressure 68 mm[Hg] 68 mm[Hg] eCW1 ([facility]) Body height 68 [in_i] 68 [in_i] [facility] ([facility]) 5'8" Heart rate 90 /min 90 /min [facility] ([facility]) Oxygen saturation in Arterial blood by Pulse oximetry 97 % 97 % [facility] ([facility]) Room Air Body temperature 95.9 [degF] 95.9 [degF] [facility] ([facility]) Body weight 144.00 [lb_av] 144.00 [lb_av] MED[facility] T ([facility]) Body mass index (BMI) [Ratio] 21.9 kg/m2 21.9 k g/m2 [facility] ([facility]) Denio body weight 154 [lb_av] 154 [lb_av] MEDEN T ([facility]) Body weight 65.318 kg 65.318 kg [facility] ([facility]) Body surface area Derived from formula 1.78 m2 1.78 m2 [facility] ([facility], ) Systolic blood pressure 114 mm[Hg] 114 mm[Hg] EDENT ([facility], ) Diastolic blood pressure 70 mm[Hg] 70 mm[Hg] [facility] ([facility], ) Systolic blood pressure 103 mm[Hg] 103 mm[Hg] M [facility]ENT ([facility] Body weight 142.00 [lb_av] 142.00 [lb_av] MEDEN T ([facility]) Body weight 64.411 kg 64.411 kg [facility] ([facility] Body temperature 97.0 [degF] 97.0 [degF] [facility] ([facility]) Diastolic blood pressure 63 mm[Hg] 63 mm[Hg] [facility] ([facility]) Heart rate 87 /min 87 /min [facility] ([facility]) Respiratory rate 18 /min 18 /min [facility] ( [facility]) Body weight 142.00 [lb_av] 142.00 [lb_av] MEDEN T ([facility]) Body weight 64.411 kg 64.411 kg [facility] ([facility] [place]) Systolic blood pressure 130 mm[Hg] 130 mm[Hg] [facility] ([facility] [place]) Diastolic blood pressure 81 mm[Hg] 81 mm[Hg] [facility] ([facility]) Heart rate 86 /min 86 /min [facility] ([facility] [place] Body temperature 97.6 [degF] 97.6 [degF] [facility] ([facility] Body temperature 98.0 [degF] 98.0 [degF] [facility] ([facility]) Oxygen saturation in Arterial blood by Pulse oximetry 97 % 97 % [facility] ([facility]) Systolic blood pressure 127 mm[Hg] 127 mm[Hg] [facility] ([facility]) Diastolic blood pressure 61 mm[Hg] 61 mm[Hg] [facility] ([facility]) Heart rate 66 /min 66 /min [facility] ([facility] [place] Body temperature 36.39 Feli 36.39 Feli [facility] Systolic blood pressure 121 mm[Hg] 121 mm[Hg] S [facility] Diastolic blood pressure 66 mm[Hg] 66 mm[Hg] [facility] Heart rate 94 /min 94 /min [facility] Respiratory rate 16 /min 16 /min [facility] Oxygen saturation in Arterial blood by Pulse oximetry 100 % 100 % [facility] Body height 172.7 cm 172.7 cm [facility] Body weight 59.875 kg 59.875 kg [facility] Body mass index (BMI) [Ratio] 20.07 kg/m2 20.07 kg/m2 [facility] Patient Treatment Plan of Care Planned Activity Planned Date Details Description Data Source (s) sacubitril 24 MG / valsartan 26 MG Oral Tablet [Entres to] 12/04/2020 12:00:00 AM EDT [facility] Spironolactone 25 MG Oral Tablet 12/04/2020 12:00:00 AM EDT [facility] apixaban 5 MG Oral Tablet [Eliquis] 12/02/2020 12:00:00 AM EDT [facility] 24 HR Budesonide 9 MG Extended Release Oral Tablet 11/14/2020 12 :00:00 AM EDT [facility] 24 HR Bupropion Hydrochloride 300 MG Extended Release Oral Tablet 11/06/2020 12:00:00 AM EDT [facility] Sulfasalazine 500 MG Oral Tablet 09/30/2020 12:00:00 AM EDT eCW1 ([facility]) Sulfasalazine 500 MG Delayed Release Oral Tablet 09/30/2020 12:00:0 0 AM EDT eCW1 ([facility]) Fluocinolone Acetonide 0.1 MG/ML Topical Solution 09/24/2020 12: 00:00 AM EDT [facility] sacubitril 24 MG / valsartan 26 MG Oral Tablet [Entres to] 09/03/2020 12:00:00 AM EDT [facility] apixaban 5 MG Oral Tablet [Eliquis] 08/26/2020 12:00:00 AM EDT [facility] sacubitril 24 MG / valsartan 26 MG Oral Tablet [Entres to] 08/20/2020 12:00:00 AM EDT [facility] albuterol (PROVENTIL HFA;VENTOLIN HFA) 108 (90 Base) M CG/ACT inhaler 07/07/2020 12:00:00 AM EDT [facility] Spironolactone 25 MG Oral Tablet 07/04/2020 12:00:00 AM EDT [facility] sacubitril 24 MG / valsartan 26 MG Oral Tablet [Entres to] 07/04/2020 12:00:00 AM EDT [facility] 24 HR Bupropion Hydrochloride 150 MG Extended Release Oral Tablet 05/24/2020 12:00:00 AM EST [facility] 24 HR metoprolol succinate 25 MG Extended Release Oral Tablet 05/22/2020 12:00:00 AM EST [facility] apixaban 5 MG Oral Tablet [Eliquis] 05/22/2020 12:00:00 AM EST [facility] atorvastatin 20 MG Oral Tablet 05/07/2020 12:00:00 AM EST [facility] Spironolactone 25 MG Oral Tablet 03/05/2020 12:00:00 AM EST [facility] sacubitril 24 MG / valsartan 26 MG Oral Tablet [Entres to] 03/05/2020 12:00:00 AM EST [facility] 24 HR metoprolol succinate 25 MG Extended Release Oral Tablet 07/02/2019 12:00:00 AM EDT [facility] 24 HR Bupropion Hydrochloride 300 MG Extended Release Oral Tablet 05/31/2019 12:00:00 AM EST [facility] sacubitril 24 MG / valsartan 26 MG Oral Tablet [Entresto] [facility]
[2021-02-04 09:47] LABS: CREATININE FOR GFR 1.5 MG/DL (0.70-1.30)
[2021-02-04 09:48] LABS: CALCIUM LEVEL 9.4 MG/DL (8.8-10.2); FREE T4 1.72 NG/DL (0.76-1.46); GLOMERULAR FILTRATION RATE 47.8 (>35); MAGNESIUM LEVEL 2.1 MG/DL (1.8-2.4); POTASSIUM SERUM 4.5 MEQ/L (3.5-5.1); THYROID STIMULATING HORMONE 2.78 uIU/ML (0.358-3.740)
[2021-02-04] MEDS ORDERED: NS 500 ML IV ONE (10:15)
[2021-02-04] MEDS ORDERED: DIGOXIN INJ 0.5 MG/2 ML AMP (J1160) IV STA (11:01)
[2021-02-04] MEDS ORDERED: DIGO0.123 PO (12:17)
[2021-02-04 12:39] VITALS: BP 99/65
--- NOTE | 2021-02-04 20:32 | ECGEPIP ---
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
== END 2021-02-04 12:59 | disposition home or self-care (01) ==
LOC: M ED 08:32
DX: I48.92 Unspecified atrial flutter (principal); I44.7 Left bundle-branch block, unspecified; K51.919 Ulcerative colitis, unspecified with unspecified complications; R26.9 Unspecified abnormalities of gait and mobility; Z95.0 Presence of cardiac pacemaker; Z95.810 Presence of automatic (implantable) cardiac defibrillator; Z87.891 Personal history of nicotine dependence
CPT/HCPCS: 36415; 80048; 83735; 83880; 84439; 84443; 85025; 93005; 93041; 94760; 96361; 96374; 99285; J1160

== ENCOUNTER → 2021-02-05 | Outpatient (CLI) | payer MEDICARE ==
[2021-02-05] VITALS (7 sets, daily range): BP systolic 93–114; BP diastolic 51–66
[~2021-02-05] VITALS: Ht 172.7 cm; Wt 57.0 kg
[~2021-02-05] MED LIST changes: +ACETAMINOPHEN 650MG PO PRIOR TO INFUSION PO ONE; +DIGO0.123 PO; +NS 1,000 ML IV SCH; +inFLIXimab INJECTION 300 MG in NS 220 ML IV ONE
== END ==
LOC: M INFU 13:43
PROVIDERS: ATTEND Internal Medicine Gastroenterology
DX: K51.90 Ulcerative colitis, unspecified, without complications (principal)
CPT/HCPCS: 96413; 96415; J1745

== ENCOUNTER → 2021-02-11 | Outpatient (CLI) | payer MEDICARE ==
[~2021-02-11] MED LIST changes: -ACETAMINOPHEN 650MG PO PRIOR TO INFUSION PO ONE; -NS 1,000 ML IV SCH; -inFLIXimab INJECTION 300 MG in NS 220 ML IV ONE
--- NOTE | 2021-02-11 16:13 | REP ---
INDICATION: FECAL IMPACTION. COMPARISON: None. TECHNIQUE: Two supine views of the abdomen and pelvis. FINDINGS: Bowel gas pattern suggests moderate fecal stasis and possible constipation. No bowel obstruction or obvious perforation noted. No obvious organomegaly. No significant abnormal calcifications or foreign body. Skeletal structures demonstrate age-related degenerative changes. IMPRESSION: Moderate fecal stasis and constipation suggested. <Electronically signed by Jan Traore > 02/11/21 [id number]
== END ==
LOC: M RAD 15:54
PROVIDERS: ATTEND Internal Medicine Gastroenterology
DX: K56.41 Fecal impaction (principal); R19.7 Diarrhea, unspecified

== ENCOUNTER 2021-02-18 13:00 | Outpatient (CLI) | payer MEDICARE ==
[~2021-02-18] VITALS: Ht 172.7 cm; Wt 57.0 kg
[~2021-02-18 13:00] MED LIST changes: +ACETAMINOPHEN 650MG PO PRIOR TO INFUSION PO ONE; +NS 1,000 ML IV SCH; +inFLIXimab INJECTION 300 MG in NS 220 ML IV ONE
[2021-02-18 13:05] VITALS: BP 110/62
[2021-02-18 13:45] VITALS: BP 143/67
[2021-02-18 14:00] VITALS: BP 120/58
[2021-02-18 14:15] VITALS: BP 110/57
[2021-02-18 14:30] VITALS: BP 107/59
[2021-02-18 15:45] VITALS: BP 124/59
== END 2021-02-18 15:45 | disposition home or self-care (01) ==
LOC: M INFU 13:00
PROVIDERS: ATTEND Internal Medicine Gastroenterology
DX: K51.90 Ulcerative colitis, unspecified, without complications (principal)
CPT/HCPCS: 96413; 96415; J1745

== ENCOUNTER → 2021-03-02 | Outpatient (CLI) | payer MEDICARE ==
[~2021-03-02] MED LIST changes: -ACETAMINOPHEN 650MG PO PRIOR TO INFUSION PO ONE; -NS 1,000 ML IV SCH; -inFLIXimab INJECTION 300 MG in NS 220 ML IV ONE
--- NOTE | 2021-03-02 12:49 | REP ---
INDICATION: CONSTIPATION. COMPARISON: 02/11/2021. TECHNIQUE: Supine and erect views abdomen. FINDINGS: There is no evidence of free intraperitoneal air. There is scattered air throughout the GI tract in a nonspecific pattern with no compelling evidence for bowel obstruction. There is no fecal impaction. There is mild to moderate fecal material in the right colon. Pacemaker leads overlie the heart. Multiple metallic clips are seen in the region of the prostate. There are mild degenerative changes of the spine. IMPRESSION: No evidence of free air or obstruction. No evidence of fecal impaction, with mild to moderate fecal material seen in the right colon. <Electronically signed by Taz Overton > 03/02/21 [id number]
== END ==
LOC: M RAD 12:19
PROVIDERS: ATTEND Internal Medicine Gastroenterology
DX: K59.00 Constipation, unspecified (principal); R19.7 Diarrhea, unspecified; Z95.0 Presence of cardiac pacemaker
CPT/HCPCS: 74019; G0463

== ENCOUNTER 2021-03-18 08:01 | Outpatient (CLI) | payer MEDICARE ==
[2021-03-18] VITALS (7 sets, daily range): BP systolic 88–113; BP diastolic 50–63
[~2021-03-18] VITALS: Ht 172.7 cm; Wt 57.0 kg
[~2021-03-18 08:01] MED LIST changes: +ACETAMINOPHEN 650MG PO PRIOR TO INFUSION PO ONE; +NS 1,000 ML IV SCH; +inFLIXimab INJECTION 300 MG in NS 220 ML IV ONE
== END 2021-03-18 11:20 | disposition home or self-care (01) ==
LOC: M INFU 08:01
PROVIDERS: ATTEND Internal Medicine Gastroenterology
DX: K51.90 Ulcerative colitis, unspecified, without complications (principal)
CPT/HCPCS: 96413; 96415; J1745

== ENCOUNTER → 2021-05-06 | Outpatient (CLI) | payer MEDICARE, BC ==
[~2021-05-06] MED LIST changes: -ACETAMINOPHEN 650MG PO PRIOR TO INFUSION PO ONE; -NS 1,000 ML IV SCH; -inFLIXimab INJECTION 300 MG in NS 220 ML IV ONE
== END ==
LOC: M WUC 14:13
PROVIDERS: ATTEND Internal Medicine Gastroenterology
DX: K59.00 Constipation, unspecified (principal)

== ENCOUNTER → 2021-05-08 | Outpatient (REF) | payer MEDICARE | LOC: M LAB REF 15:24 | PROVIDERS: ATTEND Internal Medicine Gastroenterology | DX: K51.318 Ulcerative (chronic) rectosigmoiditis with other complication (principal) ==

== ENCOUNTER 2021-05-13 09:14 | Outpatient (CLI) | payer MEDICARE, BC ==
[~2021-05-13] VITALS: Ht 172.7 cm; Wt 57.0 kg
[2021-05-13] VITALS (7 sets, daily range): BP systolic 107–138; BP diastolic 55–70
[2021-05-13] MEDS ORDERED: NS 1,000 ML IV SCH (09:30)
[2021-05-13] MEDS ORDERED: ACETAMINOPHEN 650MG PO PRIOR TO INFUSION PO ONE (09:30)
[2021-05-13] MEDS ORDERED: inFLIXimab INJECTION 300 MG in NS 220 ML IV ONE (09:30)
== END 2021-05-13 12:20 | disposition home or self-care (01) ==
LOC: M INFU 09:14
PROVIDERS: ATTEND Internal Medicine Gastroenterology
DX: K51.90 Ulcerative colitis, unspecified, without complications (principal)
CPT/HCPCS: 96413; 96415; J1745

== ENCOUNTER → 2021-05-27 | Outpatient (CLI) | payer MEDICARE, BC ==
[2021-05-27 13:44] LABS: ALT/SGPT 32 U/L (12-78); BILIRUBIN,TOTAL 0.3 MG/DL (0.2-1.0); BLOOD UREA NITROGEN 28 MG/DL (7-18); CALCIUM LEVEL 9.6 MG/DL (8.8-10.2); CARBON DIOXIDE LEVEL 28 MEQ/L (21-32); CHLORIDE LEVEL 98 MEQ/L (98-107); CHOLESTEROL LEVEL 168 MG/DL (<200); CREATININE FOR GFR 1.16 MG/DL (0.70-1.30); GLOMERULAR FILTRATION RATE > 60.0 (>35); GLUCOSE, FASTING 85 MG/DL (70-100); POTASSIUM SERUM 4.7 MEQ/L (3.5-5.1); SODIUM LEVEL 133 MEQ/L (136-145); TRIGLYCERIDES LEVEL 84 MG/DL (<150)
[2021-05-27 13:45] LABS: ALBUMIN 3.2 GM/DL (3.2-5.2); HDL CHOLESTEROL 70 MG/DL (>40); LDL CHOLESTEROL 81 MG/DL (<100); NON-HDL-C 98 MG/DL; TOTAL PROTEIN 6.9 GM/DL (6.4-8.2)
== END ==
LOC: M WUC 10:13
PROVIDERS: ATTEND Internal Medicine
DX: E78.00 Pure hypercholesterolemia, unspecified (principal); I42.8 Other cardiomyopathies; R73.01 Impaired fasting glucose; E03.2 Hypothyroidism due to medicaments and other exogenous substances

== ENCOUNTER → 2021-05-27 | Outpatient (CLI) | payer MEDICARE, BC | LOC: M WUC 10:16 | PROVIDERS: ATTEND Physician Assistant | DX: I48.92 Unspecified atrial flutter (principal) ==

== ENCOUNTER → 2021-05-30 | Outpatient (CLI) | payer MEDICARE, BC | LOC: M RAD 12:07 | PROVIDERS: ATTEND Internal Medicine Gastroenterology | DX: K59.00 Constipation, unspecified (principal) ==

== ENCOUNTER → 2021-06-02 | Outpatient (REF) | payer MEDICARE, BC | LOC: M LAB REF 12:14 | PROVIDERS: ATTEND Internal Medicine Gastroenterology | DX: K59.00 Constipation, unspecified (principal) ==

== ENCOUNTER → 2021-07-13 | Outpatient (CLI) | payer MEDICARE ==
[2021-07-13 19:51] LABS: BASO # 0.1 10^3/uL (0.0-0.2); BASO % 0.8 % (0.0-1.0); EOS # 0.1 10^3/uL (0.0-0.5); EOS % 1.1 % (0.0-3.0); HEMATOCRIT 38.5 % (42.0-52.0); HEMOGLOBIN 12.6 g/dl (13.5-17.5); LYMPH # 1.3 10^3/uL (1.5-5.0); LYMPH % 10.2 % (24.0-44.0); MEAN CORPUSCULAR HEMOGLOBIN 29.2 pg (27.0-33.0); MEAN CORPUSCULAR HGB CONC 32.7 g/dl (32.0-36.5); MEAN CORPUSCULAR VOLUME 89.1 fl (80.0-96.0); MONO # 1.4 10^3/uL (0.0-0.8); MONO % 10.6 % (2.0-8.0); NEUTROPHILS # 9.8 10^3/uL (1.5-8.5); NEUTROPHILS % 75.6 % (36.0-66.0); PLATELET COUNT, AUTOMATED 389 10^3/uL (150-450); RED BLOOD COUNT 4.32 10^6/uL (4.30-6.10); WHITE BLOOD COUNT 12.9 10^3/uL (4.0-10.0)
[2021-07-13 20:11] LABS: ALT/SGPT 26 U/L (12-78); BILIRUBIN,TOTAL 0.4 MG/DL (0.2-1.0); BLOOD UREA NITROGEN 21 MG/DL (7-18); C REACTIVE PROTEIN QUANTITATIV 3.26 MG/DL (0.00-0.30); CALCIUM LEVEL 8.8 MG/DL (8.8-10.2); CARBON DIOXIDE LEVEL 27 MEQ/L (21-32); CHLORIDE LEVEL 98 MEQ/L (98-107); CREATININE FOR GFR 1.02 MG/DL (0.70-1.30); GLOMERULAR FILTRATION RATE > 60.0 (>35); GLUCOSE, FASTING 85 MG/DL (70-100); POTASSIUM SERUM 4.2 MEQ/L (3.5-5.1); SODIUM LEVEL 132 MEQ/L (136-145); TOTAL PROTEIN 6.4 GM/DL (6.4-8.2)
[2021-07-13 20:58] LABS: ERYTHROCYTE SEDIMENTATION RATE 52 mm/hr (0-20)
== END ==
LOC: M WUC 15:29
PROVIDERS: ATTEND Internal Medicine Gastroenterology
DX: K51.318 Ulcerative (chronic) rectosigmoiditis with other complication (principal); K59.00 Constipation, unspecified

== ENCOUNTER 2021-07-15 12:04 | Outpatient (CLI) | payer MEDICARE ==
[~2021-07-15] VITALS: Ht 172.7 cm; Wt 61.2 kg
[2021-07-15] MEDS ORDERED: inFLIXimab INJECTION 400 MG in NS 210 ML IV ONE (12:30)
[2021-07-15] MEDS ORDERED: ACETAMINOPHEN 650MG PO PRIOR TO INFUSION PO ONE (12:30)
[2021-07-15] MEDS ORDERED: NS 1,000 ML IV SCH (12:30)
[2021-07-15 12:45] VITALS: BP 126/66
[2021-07-15 13:00] VITALS: BP 115/55
== END 2021-07-15 14:02 | disposition home or self-care (01) ==
LOC: M INFU 12:04
PROVIDERS: ATTEND Internal Medicine Gastroenterology
DX: K51.90 Ulcerative colitis, unspecified, without complications (principal)
CPT/HCPCS: 96413; J1745

== ENCOUNTER → 2021-07-24 | Outpatient (REF) | payer MEDICARE, BC | LOC: M LAB REF 15:55 | PROVIDERS: ATTEND Internal Medicine Gastroenterology | DX: K51.318 Ulcerative (chronic) rectosigmoiditis with other complication (principal) ==

== ENCOUNTER 2021-09-02 13:45 | Outpatient (CLI) | payer MEDICARE ==
[~2021-09-02] VITALS: Ht 172.7 cm; Wt 61.2 kg
[~2021-09-02 13:45] MED LIST changes: +USTEKINUMAB 390 MG in NS 172 ML IV ONE
[2021-09-02 14:06] VITALS: BP 117/63
[2021-09-02 15:23] VITALS: BP 132/65
[2021-09-02 16:32] LABS: BASO # 0.1 10^3/uL (0.0-0.2); BASO % 0.6 % (0.0-1.0); EOS # 0.2 10^3/uL (0.0-0.5); HEMATOCRIT 39.2 % (42.0-52.0); HEMOGLOBIN 12.7 g/dl (13.5-17.5); LYMPH # 1.3 10^3/uL (1.5-5.0); LYMPH % 7.7 % (24.0-44.0); MEAN CORPUSCULAR HEMOGLOBIN 28.9 pg (27.0-33.0); MEAN CORPUSCULAR HGB CONC 32.4 g/dl (32.0-36.5); MEAN CORPUSCULAR VOLUME 89.1 fl (80.0-96.0); MONO # 1.4 10^3/uL (0.0-0.8); MONO % 8.7 % (2.0-8.0); NEUTROPHILS # 13.2 10^3/uL (1.5-8.5); NEUTROPHILS % 81.4 % (36.0-66.0); PLATELET COUNT, AUTOMATED 340 10^3/uL (150-450); WHITE BLOOD COUNT 16.2 10^3/uL (4.0-10.0)
[2021-09-02 16:44] VITALS: BP 147/66
[2021-09-02 16:45] LABS: ALBUMIN 3.1 GM/DL (3.2-5.2); BILIRUBIN,TOTAL 0.4 MG/DL (0.2-1.0); C REACTIVE PROTEIN QUANTITATIV 4.48 MG/DL (0.00-0.30); CALCIUM LEVEL 9.5 MG/DL (8.8-10.2); CREATININE FOR GFR 1.34 MG/DL (0.70-1.30); GLOMERULAR FILTRATION RATE 54.5 (>35); POTASSIUM SERUM 5.2 MEQ/L (3.5-5.1); TOTAL PROTEIN 6.6 GM/DL (6.4-8.2)
[2021-09-02 18:27] LABS: ERYTHROCYTE SEDIMENTATION RATE 37 mm/hr (0-20)
== END 2021-09-02 16:55 | disposition home or self-care (01) ==
LOC: M INFU 13:45
PROVIDERS: ATTEND Internal Medicine Gastroenterology
DX: K51.318 Ulcerative (chronic) rectosigmoiditis with other complication (principal)
CPT/HCPCS: 36415; 80053; 85025; 85652; 86140; 96365; 96366; J3358

== ENCOUNTER → 2021-10-01 | Outpatient (CLI) | payer MEDICARE ==
[~2021-10-01] MED LIST changes: -USTEKINUMAB 390 MG in NS 172 ML IV ONE
[2021-10-01 16:17] LABS: HEMATOCRIT 42.2 % (42.0-52.0); HEMOGLOBIN 13.6 g/dl (13.5-17.5); MEAN CORPUSCULAR HEMOGLOBIN 29.9 pg (27.0-33.0); MEAN CORPUSCULAR HGB CONC 32.2 g/dl (32.0-36.5); MEAN CORPUSCULAR VOLUME 92.7 fl (80.0-96.0); PLATELET COUNT, AUTOMATED 280 10^3/uL (150-450); RED BLOOD COUNT 4.55 10^6/uL (4.30-6.10); WHITE BLOOD COUNT 11.7 10^3/uL (4.0-10.0)
[2021-10-01 16:49] LABS: ALBUMIN 3.3 GM/DL (3.2-5.2); BILIRUBIN,TOTAL 0.9 MG/DL (0.2-1.0); C REACTIVE PROTEIN QUANTITATIV 1.77 MG/DL (0.00-0.30); CREATININE FOR GFR 1.27 MG/DL (0.70-1.30); GLOMERULAR FILTRATION RATE 57.9 (>35); POTASSIUM SERUM 4.5 MEQ/L (3.5-5.1); TOTAL PROTEIN 6.5 GM/DL (6.4-8.2)
[2021-10-01 19:07] LABS: ERYTHROCYTE SEDIMENTATION RATE 17 mm/hr (0-20)
== END ==
LOC: M WUC 10:58
PROVIDERS: ATTEND Student in an Organized Health Care Education/Training Program
DX: K59.09 Other constipation (principal)

== ENCOUNTER → 2021-10-06 | Outpatient (REF) | payer MEDICARE | LOC: M LAB REF 21:51 | PROVIDERS: ATTEND Student in an Organized Health Care Education/Training Program | DX: K59.09 Other constipation (principal); Z87.19 Personal history of other diseases of the digestive system ==

== ENCOUNTER → 2021-10-23 | Outpatient (REF) | payer MEDICARE ==
[2021-10-23 13:31] LABS: PERCENT SATURATION 21.6 % (19.7-50.0)
== END ==
LOC: M LAB REF 12:41
PROVIDERS: ATTEND Internal Medicine
DX: D64.9 Anemia, unspecified (principal)

== ENCOUNTER → 2021-10-29 | Outpatient (CLI) | payer MEDICARE | LOC: M WUC 08:49 | PROVIDERS: ATTEND Internal Medicine Gastroenterology | DX: K51.318 Ulcerative (chronic) rectosigmoiditis with other complication (principal) ==

== ENCOUNTER → 2021-11-04 | Outpatient (CLI) | payer MEDICARE | LOC: M WUC 12:57 | PROVIDERS: ATTEND Student in an Organized Health Care Education/Training Program | DX: K59.09 Other constipation (principal); Z87.19 Personal history of other diseases of the digestive system ==

== ENCOUNTER → 2021-11-13 | Outpatient (REF) | payer MEDICARE | LOC: M LAB REF 10:37 | PROVIDERS: ATTEND Student in an Organized Health Care Education/Training Program | DX: K59.09 Other constipation (principal); Z87.19 Personal history of other diseases of the digestive system ==

== ENCOUNTER → 2022-02-02 | Outpatient (REF) | payer MEDICARE | LOC: M LABWUC 16:24 | PROVIDERS: ATTEND Urology | DX: C61 Malignant neoplasm of prostate (principal) ==

== ENCOUNTER → 2022-02-23 | Outpatient (CLI) | payer MEDICARE | LOC: M RAD 09:53 | PROVIDERS: ATTEND Student in an Organized Health Care Education/Training Program | DX: K59.09 Other constipation (principal); Z87.19 Personal history of other diseases of the digestive system ==

== ENCOUNTER → 2022-04-22 | Outpatient (CLI) | payer MEDICARE | LOC: M WUC 09:20 | PROVIDERS: ATTEND Student in an Organized Health Care Education/Training Program | DX: R19.7 Diarrhea, unspecified (principal) ==

== ENCOUNTER → 2022-04-28 | Outpatient (CLI) | payer MEDICARE | LOC: M WUC 15:13 | PROVIDERS: ATTEND Student in an Organized Health Care Education/Training Program | DX: K59.09 Other constipation (principal); Z87.19 Personal history of other diseases of the digestive system; R19.7 Diarrhea, unspecified ==

== ENCOUNTER → 2022-05-06 | Outpatient (CLI) | payer MEDICARE ==
[2022-05-06 16:35] LABS: CALCIUM LEVEL 10.3 MG/DL (8.3-10.6); CREATININE FOR GFR 1.32 MG/DL (0.70-1.30); GLOMERULAR FILTRATION RATE 55.3 (>35); POTASSIUM SERUM 4.8 MMOL/L (3.5-5.1)
== END ==
LOC: M WUC 13:39
PROVIDERS: ATTEND Physician Assistant
DX: I50.42 Chronic combined systolic (congestive) and diastolic (congestive) heart failure (principal)

== ENCOUNTER → 2022-06-14 | Outpatient (CLI) | payer MEDICARE | LOC: M WUC 12:18 | PROVIDERS: ATTEND Student in an Organized Health Care Education/Training Program | DX: Z53.8 Procedure and treatment not carried out for other reasons (principal) ==

== ENCOUNTER → 2022-06-15 | Outpatient (CLI) | payer MEDICARE ==
[2022-06-15 12:54] LABS: BASO # 0.1 10^3/uL (0.0-0.2); BASO % 0.6 % (0.0-1.0); EOS # 0.2 10^3/uL (0.0-0.5); EOS % 1.8 % (0.0-3.0); HEMATOCRIT 44.1 % (42.0-52.0); HEMOGLOBIN 14.7 g/dl (13.5-17.5); LYMPH # 1.1 10^3/uL (1.5-5.0); LYMPH % 10.9 % (24.0-44.0); MEAN CORPUSCULAR HEMOGLOBIN 31.7 pg (27.0-33.0); MEAN CORPUSCULAR HGB CONC 33.3 g/dl (32.0-36.5); MEAN CORPUSCULAR VOLUME 95.2 fl (80.0-96.0); MONO % 9.7 % (2.0-8.0); NEUTROPHILS # 7.5 10^3/uL (1.5-8.5); NEUTROPHILS % 76.4 % (36.0-66.0); PLATELET COUNT, AUTOMATED 295 10^3/uL (150-450); RED BLOOD COUNT 4.63 10^6/uL (4.30-6.10); WHITE BLOOD COUNT 9.9 10^3/uL (4.0-10.0)
[2022-06-15 12:56] LABS: C REACTIVE PROTEIN QUANTITATIV < 0.40 MG/DL (<1.0)
[2022-06-15 13:00] LABS: ALBUMIN 3.9 G/DL (3.2-5.2); ALKALINE PHOSPHATASE 77 U/L (46-116); ALT/SGPT 18 U/L (7.0-40); AST/SGOT 28 U/L (<34); BILIRUBIN,TOTAL 0.8 MG/DL (0.3-1.2); BLOOD UREA NITROGEN 32 MG/DL (9-23); CALCIUM LEVEL 9.6 MG/DL (8.3-10.6); CARBON DIOXIDE LEVEL 27 MMOL/L (20-31); CHLORIDE LEVEL 102 MMOL/L (98-107); CREATININE FOR GFR 1.21 MG/DL (0.70-1.30); GLOMERULAR FILTRATION RATE > 60.0 (>35); GLUCOSE, FASTING 94 MG/DL (74-106); POTASSIUM SERUM 4.9 MMOL/L (3.5-5.1); SODIUM LEVEL 135 MMOL/L (136-145)
== END ==
LOC: M WUC 09:08
PROVIDERS: ATTEND Student in an Organized Health Care Education/Training Program
DX: K59.09 Other constipation (principal); Z87.19 Personal history of other diseases of the digestive system

== ENCOUNTER → 2022-08-19 | Outpatient (CLI) | payer MEDICARE | LOC: M WUC 09:05 | PROVIDERS: ATTEND Student in an Organized Health Care Education/Training Program | DX: Z87.19 Personal history of other diseases of the digestive system (principal); K59.09 Other constipation; R19.7 Diarrhea, unspecified ==

== ENCOUNTER → 2022-08-24 | Outpatient (CLI) | payer MEDICARE | LOC: M RAD 15:04 | PROVIDERS: ATTEND Internal Medicine | DX: N13.9 Obstructive and reflux uropathy, unspecified (principal) ==

== ENCOUNTER → 2022-08-30 | Outpatient (REF) | payer MEDICARE | LOC: M LAB REF 16:27 | PROVIDERS: ATTEND Student in an Organized Health Care Education/Training Program | DX: R19.7 Diarrhea, unspecified (principal); Z87.19 Personal history of other diseases of the digestive system ==

== ENCOUNTER → 2022-09-10 | Outpatient (CLI) | payer MEDICARE | LOC: M WUC 14:05 | PROVIDERS: ATTEND Physician Assistant | DX: I48.92 Unspecified atrial flutter (principal) ==

== ENCOUNTER → 2022-09-22 | Outpatient (CLI) | payer MEDICARE | LOC: M WUC 13:54 | PROVIDERS: ATTEND Internal Medicine | DX: M25.552 Pain in left hip (principal) ==

== ENCOUNTER → 2022-10-21 | Outpatient (CLI) | payer MEDICARE ==
[2022-10-21 17:59] LABS: PROSTATIC SPECIFIC AG MONITOR 4.99 NG/ML (< 4.00)
== END ==
LOC: M WUC 10:58
PROVIDERS: ATTEND Urology
DX: C61 Malignant neoplasm of prostate (principal)

== ENCOUNTER → 2022-11-02 | Outpatient (CLI) | payer MEDICARE | LOC: M WHC 10:53 | PROVIDERS: ATTEND Internal Medicine | DX: N62 Hypertrophy of breast (principal); N64.4 Mastodynia | CPT/HCPCS: 76642; 77066; G0279 ==

== ENCOUNTER 2023-01-13 12:42 | Emergency (ER) | payer BC, MEDICARE ==
[~2023-01-13] VITALS: Ht 172.7 cm; Wt 57.3 kg
[2023-01-13] MEDS ORDERED: STEL90IN (12:54)
[2023-01-13] MEDS ORDERED: TRAZ-252 PO (12:54)
[2023-01-13] MEDS ORDERED: METO1TAB7 (12:54)
[2023-01-13] MEDS ORDERED: BUPR-71 (12:54)
[2023-01-13] MEDS ORDERED: IPRATROPIUM 0.5MG/ALBUTEROL 2.5MG INH SOL UD 3ML (DUONEB) NEB PRN (14:30)
[2023-01-13 14:43] LABS: BASO # 0.1 10^3/uL (0.0-0.2); BASO % 0.5 % (0.0-1.0); EOS # 0.1 10^3/uL (0.0-0.5); EOS % 0.5 % (0.0-3.0); HEMATOCRIT 41.3 % (42.0-52.0); HEMOGLOBIN 14.1 g/dl (13.5-17.5); LYMPH # 0.7 10^3/uL (1.5-5.0); LYMPH % 6.4 % (24.0-44.0); MEAN CORPUSCULAR HEMOGLOBIN 31.5 pg (27.0-33.0); MEAN CORPUSCULAR HGB CONC 34.1 g/dl (32.0-36.5); MEAN CORPUSCULAR VOLUME 92.2 fl (80.0-96.0); MONO % 8.3 % (2.0-8.0); NEUTROPHILS # 9.7 10^3/uL (1.5-8.5); NEUTROPHILS % 83.9 % (36.0-66.0); PLATELET COUNT, AUTOMATED 326 10^3/uL (150-450); RED BLOOD COUNT 4.48 10^6/uL (4.30-6.10); WHITE BLOOD COUNT 11.6 10^3/uL (4.0-10.0)
[2023-01-13 14:52] LABS: CK-MB VALUE MASS 2.8 NG/ML (<3.6)
[2023-01-13 14:53] LABS: CPK CREATINE PHOSPHOKINASE 239 U/L (46-171); ERYTHROCYTE SEDIMENTATION RATE 21 mm/hr (0-20); MB/CK RELATIVE INDEX 1.17 (< OR =4)
[2023-01-13 14:54] LABS: ALKALINE PHOSPHATASE 73 U/L (46-116); ALT/SGPT 23 U/L (7.0-40); AST/SGOT 30 U/L (<34); BILIRUBIN,DIRECT 0.3 MG/DL (<0.4); BILIRUBIN,TOTAL 0.7 MG/DL (0.3-1.2); BLOOD UREA NITROGEN 27 MG/DL (9-23); CALCIUM LEVEL 9.6 MG/DL (8.3-10.6); CARBON DIOXIDE LEVEL 23 MMOL/L (20-31); CHLORIDE LEVEL 101 MMOL/L (98-107); CREATININE FOR GFR 1.47 MG/DL (0.70-1.30); DIGOXIN LEVEL 0.8 NG/ML (0.8-2.0); GLOMERULAR FILTRATION RATE 48.7 (>35); GLUCOSE, FASTING 88 MG/DL (74-106); MAGNESIUM LEVEL 2.2 MG/DL (1.8-2.4); POTASSIUM SERUM 4.7 MMOL/L (3.5-5.1); SODIUM LEVEL 136 MMOL/L (136-145); TOTAL PROTEIN 6.8 G/DL (5.7-8.2)
[2023-01-13 14:56] LABS: THYROID STIMULATING HORMONE 2.974 uIU/ML (0.55-4.78); THYROXINE (T4) 8.8 UG/DL (4.5-10.9)
[2023-01-13] MEDS ORDERED: ISOVUE-370 76% 100ML VIAL As Ordered ONE (15:03)
[2023-01-13 15:04] LABS: INR 1.27; PROTHROMBIN TIME 15.5 SECONDS (12.5-14.5)
[2023-01-13 15:15] LABS: C REACTIVE PROTEIN QUANTITATIV < 0.40 MG/DL (<1.0)
[2023-01-13 15:41] LABS: VENOUS BASE EXCESS -5.7 (-2.0-2.0); VENOUS HCO3 19.3 MMOL/L (23.0-27.0); VENOUS O2 SATURATION 84.2 % (60.0-80.0); VENOUS PARTIAL PRESSURE CO2 36.3 mmHg (38.0-50.0); VENOUS PARTIAL PRESSURE O2 52.7 mmHg (30.0-50.0); VENOUS PH 7.344 UNITS (7.330-7.430); VENOUS STANDARD HCO3 19.6 MMOL/L; VENOUS TOTAL CO2 20.4 MMOL/L (24.0-28.0)
[2023-01-13 16:12] VITALS: O2SAT 94
[2023-01-13 17:15] VITALS: BP 125/60
[2023-01-13 17:20] VITALS: O2SAT 97
[2023-01-13 17:39] VITALS: TEMP 97.7
== END 2023-01-13 17:48 | disposition home or self-care (01) ==
LOC: M ED 12:42
DX: J44.0 Chronic obstructive pulmonary disease with (acute) lower respiratory infection (principal); I11.9 Hypertensive heart disease without heart failure; I48.91 Unspecified atrial fibrillation; I50.20 Unspecified systolic (congestive) heart failure; E78.5 Hyperlipidemia, unspecified; K51.90 Ulcerative colitis, unspecified, without complications; Z95.810 Presence of automatic (implantable) cardiac defibrillator; N40.0 Benign prostatic hyperplasia without lower urinary tract symptoms; Z87.891 Personal history of nicotine dependence; Z79.899 Other long term (current) drug therapy
CPT/HCPCS: 36415; 70450; 71045; 71275; 80048; 80076; 80162; 82550; 82553; 82803; 83735; 83880; 84436; 84443; 84484; 85025; 85610; 85652; 86140; 87486; 87581; 87633; 87798; 93005; 93041; 94640; 94760; 99285; Q9967

== ENCOUNTER → 2023-02-21 | Outpatient (REF) | payer MEDICARE ==
[~2023-02-21] MED LIST changes: +BUPR-71; +METO1TAB7; +STEL90IN; +TRAZ-252 PO
== END ==
LOC: M LAB REF 11:48
PROVIDERS: ATTEND Student in an Organized Health Care Education/Training Program
DX: K59.09 Other constipation (principal); Z87.19 Personal history of other diseases of the digestive system

== ENCOUNTER → 2023-07-28 | Outpatient (REF) | payer MEDICARE ==
[~2023-07-28] MED LIST changes: -BUDE9TAB PO; +BUDE9TAB4 PO; +BUPR-597 PO; -BUPR300T92 PO
== END ==
LOC: M LAB REF 11:53
PROVIDERS: ATTEND Student in an Organized Health Care Education/Training Program
DX: K52.9 Noninfective gastroenteritis and colitis, unspecified (principal)

== ENCOUNTER → 2024-01-17 | Outpatient (CLI) | payer MEDICARE | LOC: M WUC 09:02 | PROVIDERS: ATTEND Internal Medicine | DX: M16.12 Unilateral primary osteoarthritis, left hip (principal) ==

== ENCOUNTER → 2024-05-25 | Outpatient (REF) | payer MEDICARE ==
[2024-05-25 14:34] LABS: PERCENT SATURATION 29.6 % (19.7-50.0)
[2024-05-25 14:39] LABS: FERRITIN 148.7 NG/ML (10.5-307.3)
== END ==
LOC: M LAB REF 12:23
PROVIDERS: ATTEND Internal Medicine
DX: R53.83 Other fatigue (principal); R53.1 Weakness; D64.9 Anemia, unspecified; N18.31 Chronic kidney disease, stage 3a

== ENCOUNTER → 2024-10-18 | Outpatient (REF) | payer MEDICARE ==
[~2024-10-18] MED LIST changes: -BUPR-597 PO; +BUPR-766 PO
== END ==
LOC: M LAB REF 14:17
PROVIDERS: ATTEND Internal Medicine
DX: I48.92 Unspecified atrial flutter (principal); I48.0 Paroxysmal atrial fibrillation

== ENCOUNTER → 2025-01-16 | Outpatient (CLI) | payer MEDICARE | LOC: M WUC 13:40 | PROVIDERS: ATTEND Internal Medicine | DX: M25.562 Pain in left knee (principal); M17.12 Unilateral primary osteoarthritis, left knee; M47.816 Spondylosis without myelopathy or radiculopathy, lumbar region ==

== ENCOUNTER → 2025-01-16 | Outpatient (REF) | payer MEDICARE ==
[2025-01-16 18:12] LABS: C REACTIVE PROTEIN QUANTITATIV 1.76 MG/DL (<1.0)
== END ==
LOC: M LAB REF 17:22
PROVIDERS: ATTEND Internal Medicine
DX: M25.50 Pain in unspecified joint (principal)